=== PATIENT | female | born 1940 | race Caucasian/White ===

== ENCOUNTER 2017-03-10 07:21 | Outpatient (CLI) | payer MEDICARE | END 2017-03-10 07:22 | disposition home or self-care (01) | DX: N36.9 Urethral disorder, unspecified (principal) ==

== ENCOUNTER 2017-03-12 18:13 | Emergency (ER) | payer MEDICARE ==
[2017-03-12 19:13] LABS: BILIRUBIN,URINE NEGATIVE (NEGATIVE); PH,URINE 5.5 PH (5.0-7.5)
[2017-03-12 19:27] LABS: UR CULTURE IF IND INDICATED; WBC,URINE 0-3 /HPF (0-5)
[2017-03-12] MEDS ORDERED: LIDOCAINE 1% 50 ML MDV SUBQ STA (19:31)
[2017-03-12] MEDS ORDERED: ONDANSETRON 4 MG/2 ML VIAL IVP STA ×2 (19:43→22:34)
[2017-03-12] MEDS ORDERED: SODIUM CHLORIDE 0.9% 1,000 ML IV ONE ×2 (19:43→20:55)
--- NOTE | 2017-03-12 19:43 | ED Physician Documentation ---
PD HPI FEMALE - Stated complaint Stated Complaint: FEMALE - Chief complaint Chief Complaint: General - Additional information Additional information: 76-year-old female with no past medical history here with vaginal pain. She was diagnosed on March 10 with an abscess. It was not drained. Yesterday, it started draining spontaneously, but today, it has gotten larger and more painful. She has been taking doxycycline as prescribed. Pain is now severe, and today she had nausea and vomiting. 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 - Present Medications Home Medications: Ambulatory Orders Medication Instructions Recorded Confirmed Escitalopram Oxalate [Lexapro] 20 mg DAILY 06/07/15 03/12/17 Pravastatin Sodium 20 mg PO DAILY 06/07/15 03/12/17 Clindamycin HCl 300 mg PO Q6H 7 Days 03/12/17 Doxycycline Hyclate [Vibramycin] 100 mg PO BID 03/12/17 03/12/17 Hydrocodone/Acetaminophen 1 - 2 each PO Q6H PRN #14 tablet 03/12/17 [Hydrocodon-Acetaminophen 5-325] Metronidazole [Flagyl] 500 mg PO BID 10 Days 03/12/17 Nystatin/Triamcin 1 applic TOP DAILY 03/12/17 03/12/17 [Nystatin-Triamcinolone Cream] Ondansetron Odt [Zofran] 4 mg TL Q6H PRN #10 tablet 03/12/17 - Allergies Allergies/Adverse Reactions: Allergies Allergy/AdvReac Type Severity Reaction Status Date / Time Penicillins Allergy Unknown Verified 03/12/17 18:23 Sulfa (Sulfonamide Allergy Unknown Verified 03/12/17 18:23 Antibiotics) - Social History Does the pt smoke?: No Smoking Status: Never smoker Does the pt drink ETOH?: Yes Does the pt have substance abuse?: No PD ED PE NORMAL - Vitals Vital signs reviewed: Yes - General General: Alert and oriented X 3, No acute distress - HEENT HEENT: PERRL - Neck Neck: Supple, no meningeal sign - Cardiac Cardiac: RRR, No murmur - Respiratory Respiratory: Clear bilaterally - Abdomen Abdomen: Normal bowel sounds, Soft, Non tender, Non distended - Female Female : Sourcing Manager present (Sourcing Manager present. Patient has a fluctuant and palpable and very tender mass of her clitoral castillo. There is no erythema. There is no tenderness beneath the clitoral castillo. The remainder of the vagina is normal) - Derm Derm: Warm and dry - Extremities Extremities: No deformity - Neuro Neuro: Alert and oriented X 3 - Psych Psych: Normal mood, Normal affect Results - Vitals Vitals: Vital Signs - 24 hr 03/12/17 03/12/17 03/12/17 18:20 20:56 22:42 Temperature 35.4 C L 36.4 C L Heart Rate 81 84 88 Respiratory 20 16 20 Rate Blood Pressure 155/78 H 168/72 H 166/75 H O2 Saturation 96 100 97 Oxygen O2 Source Room air - Labs Labs: Laboratory Tests 03/12/17 03/12/17 03/12/17 18:40 19:39 19:39 WBC 8.1 RBC 4.61 Hgb 13.5 Hct 41.5 MCV 89.9 MCH 29.3 MCHC 32.6 RDW 13.2 Plt Count 203 MPV 9.4 Neut # 5.8 Lymph # 1.6 [place] # 0.6 Eos # 0.1 Baso # 0.0 Absolute Nucleated RBC 0.00 Nucleated RBCs 0.0 Sodium 142 Potassium 3.6 Chloride 104 Carbon Dioxide 28 Anion Gap 10.0 BUN 12 Creatinine 0.7 Estimated GFR (MDRD) 82 L Glucose 100 Calcium 9.9 Total Bilirubin 0.6 AST 20 ALT 17 Alkaline Phosphatase 45 Total Protein 7.6 Albumin 4.9 Globulin 2.7 Albumin/Globulin Ratio 1.8 Lipase 21 L Urine Color YELLOW Urine Clarity CLEAR Urine pH 5.5 Ur Specific [place] <=1.005 Urine Protein NEGATIVE Urine Glucose (UA) NEGATIVE Urine Ketones NEGATIVE Urine Occult Blood TRACE-INTA Urine Nitrite NEGATIVE Urine Bilirubin NEGATIVE Urine Urobilinogen 0.2 (NORMAL) Ur Leukocyte Esterase SMALL H Urine RBC 0-5 Urine WBC 0-3 Ur Squamous Epith Cells NONE SEEN Urine Bacteria None Seen Urine Culture Comments INDICATED - Rads (name of study) ct abd/pelvis w Radiology: EMP read contemporaneously, See rad report (IMPRESSION: 1. Entire perineum is not in the [id number]. 2. 1.5 cm low-density rim-enhancing collection in the labia majora. This is not entirely imaged. This likely corresponds to the patient's known soft tissue abscess. 3. Diverticulosis. No active inflammation in the abdomen or pelvis. Specifically, no intraperitoneal abscess or inflammation noted. ) PD MEDICAL DECISION MAKING - ED course Complexity details: reviewed results, re-evaluated patient, considered differential, d/w patient, d/w senior internet sales consultant ED course: 76-year-old female here with low genital pain. Differential diagnosis includes but is not limited to clitoral abscess versus clitoral castillo abscess versus labial abscess versus Bartholin's cyst. Patient exam is most concerning for a clitoral castillo abscess. I did not feel comfortable performing an incision and drainage on this myself. I discussed the case with CHEESE SPRAYER Dr. Mitchell, who requested labs and CT, which were performed. CBC and CMP were unremarkable. CT was in complete, but did show soft tissue abscess with no extension. Dr. Mitchell came in to perform the incision and a drainage, recommended clindamycin and Flagyl for the patient, and will see patient in 2 days for followup. Patient has been given prescriptions for clindamycin, Flagyl, Vicodin, and Zofran. She is aware and amenable to discharge This document was made in part using voice recognition software. While efforts are made to proofread this document, sound alike and grammatical errors may occur. Departure - Departure Disposition: 01 Home, Self Care Clinical Impression: Abscess of female genitalia Condition: Stable Instructions: ED Abscess IandD Follow-Up: Santy Chen MD [Provider Admit Priv/Credential] - 03/14/17 Prescriptions: Clindamycin HCl 300 mg PO Q6H 7 Days Metronidazole [Flagyl] 500 mg PO BID 10 Days Hydrocodone/Acetaminophen [Hydrocodon-Acetaminophen 5-325] 1 - 2 each PO Q6H PRN #14 tablet PRN Reason: pain Ondansetron Odt [Zofran] 4 mg TL Q6H PRN #10 tablet PRN Reason: Nausea / Vomiting Comments: Please be sure to followup Tuesday with Dr. Chen. Please return to the ER for any worsening fevers, chills, swelling, or for any other medical emergency. Please be sure not to drink alcohol while you're taking these antibiotics.Do not drink alcohol or drive while on narcotic pain medicine. Note that many narcotic pain relievers also contain tylenol/acetaminophen. Please ensure that your total dose of acetaminophen from all sources does not exceed 3 grams (3000mg) per day. You may constipated on this medication, take a stool softener such as "Colace" twice a day while you are on it. Also recommend a dgir-uik-lxyzdxd laxative such as senna or MiraLAX any day that you do not have a bowel movement. If you received narcotic pain medication in the emergency department, do not drive or operate machinery for the next 24 hours.Your blood pressure was elevated today on check in to the emergency department. This does not mean that you have hypertension, it is a common phenomenon to check into the emergency department and have elevated blood pressure. I recommend that you see your primary care physician within the week to have it rechecked when you're feeling better.
[2017-03-12] MEDS ORDERED: LIDOCAINE 1% 2 ML VIAL ONE (19:46)
[2017-03-12] MEDS ORDERED: ONDANSETRON 4 MG/2 ML VIAL ONE ×2 (19:46→22:50)
[2017-03-12] MEDS ORDERED: LIDOCAINE 2% 10 ML MDV ONE (19:47)
[2017-03-12 19:53] LABS: BASOPHILS % (AUTO) 0.4 %; EOSINOPHILS # (AUTO) 0.1 10^3/uL (0.0-0.7); EOSINOPHILS % (AUTO) 0.6 %; HCT - HEMATOCRIT 41.5 % (37.0-47.0); HGB - HEMOGLOBIN 13.5 g/dL (12.0-16.0); LYMPHOCYTES # (AUTO) 1.6 10^3/uL (1.5-3.5); LYMPHOCYTES % (AUTO) 19.7 %; MEAN CORPUSCULAR HEMOGLOBIN 29.3 pg (27.0-31.0); MEAN CORPUSCULAR HGB CONC 32.6 g/dL (32.0-36.0); MEAN CORPUSCULAR VOLUME 89.9 fL (81.0-99.0); MEAN PLATELET VOLUME 9.4 fL (7.9-10.8); MONOCYTES # (AUTO) 0.6 10^3/uL (0.0-1.0); MONOCYTES % (AUTO) 7.1 %; NEUTROPHILS # (AUTO) 5.8 10^3/uL (1.5-6.6); NEUTROPHILS % (AUTO) 72.2 %; RED BLOOD COUNT 4.61 10^6/uL (4.20-5.40); RED CELL DISTRIBUTION WIDTH 13.2 % (12.0-15.0); UNCORRECTED WHITE BLOOD COUNT 8.1 x10^3/uL; WHITE BLOOD COUNT 8.1 x10^3/uL (4.8-10.8)
[2017-03-12 20:07] LABS: ALBUMIN/GLOBULIN RATIO 1.8 (1.0-2.2); BILIRUBIN,TOTAL 0.6 mg/dL (0.2-1.0); CALCIUM 9.9 mg/dL (8.5-10.3); CREATININE 0.7 mg/dL (0.4-1.0); POTASSIUM 3.6 mmol/L (3.5-5.0); TOTAL PROTEIN 7.6 g/dL (6.7-8.2)
[2017-03-12] MEDS ORDERED: LIDOCAINE JELLY 2% 5 ML TUBE TOP ONE (20:42)
[2017-03-12] MEDS ORDERED: LIDOCAINE JELLY 2% 5 ML TUBE TOP STA (20:56)
[2017-03-12] MEDS ORDERED: IOPAMIDOL-300 100 ML VIAL IVP ONE (21:23)
[2017-03-12] MEDS ORDERED: LORazepam 2 MG/ML SYRINGE ONE ×2 (21:42→21:52)
[2017-03-12] MEDS ORDERED: CLINDAMYCIN 900 MG/50 ML 50 ML IV ONE ×2 (21:44→22:30)
--- NOTE | 2017-03-12 22:06 | CT Preliminary Report ---
Exam: CT Abdomen/Pelvis W/ IMPRESSION: 1. Entire perineum is not in the ddvwx-wn-qrei. 2. 1.5 cm low-density rim-enhancing collection in the labia majora. This is not entirely imaged. This likely corresponds to the patient's known soft tissue abscess. 3. Diverticulosis. No active inflammation in the abdomen or pelvis. Specifically, no intraperitoneal abscess or inflammation noted. [facility] SITE ID: [id number]
--- NOTE | 2017-03-12 22:09 | CT Report ---
EXAM: CT ABDOMEN AND PELVIS EXAM DATE: 03/12/2017 09:32 PM. CLINICAL HISTORY: Pelvic infection. COMPARISONS: None. TECHNIQUE: Routine helical CT imaging was performed through the abdomen and pelvis. IV contrast: 100 cc of Isovue-300. Enteric contrast: No. Reconstructions: Coronal and sagittal. In accordance with CT protocol optimization, one or more of the following dose reduction techniques w ere utilized for this exam: automated exposure control, adjustment of mA and/or KV based on patient s ize, or use of iterative reconstructive technique. FINDINGS: Lung Bases: Small hiatal hernia. No cardiac enlargement or effusion. Liver: No mass or intrahepatic bile duct dilation. Scattered low-density cysts are noted in the liver . Gallbladder/Bile Ducts: Unremarkable. Spleen: Normal. Pancreas: Normal. Adrenal Glands: Normal. Kidneys: Normal. No masses or hydronephrosis. 1.3 cm left renal cysts. Peritoneal Cavity/Bowel: Normal. No free fluid, free air or adenopathy. No masses or acute inflammato ry process. Appendix not seen. No right lower quadrant inflammation. There are multiple diverticula seen which most severely affect the sigmoid and left colon. No wall thickening or adjacent inflammat ion seen. No obstruction noted. Pelvic Organs: Normal. The bladder and visualized pelvic organs are within normal limits. Vasculature: No aneurysms or other significant abnormality. Bones: No significant abnormality. Other: 1.5 cm low-density rim-enhancing fluid collection in the labia as seen on image 81 is incomple tely imaged. Comment: Entire perineum is not in the [id number]-rw-[id number]. IMPRESSION: 1. Entire perineum is not in the tgoxf-ex-akqx. 2. 1.5 cm low-density rim-enhancing collection in the labia majora. This is not entirely imaged. This likely corresponds to the patient's known soft tissue abscess. 3. Diverticulosis. No active inflammation in the abdomen or pelvis. Specifically, no intraperitoneal abscess or inflammation noted. [facility] Referring Provider Line: [phone] SITE ID: [id number]
[2017-03-12] MEDS ORDERED: metroNIDAZOLE 250 MG TABLET PO STA ×2 (22:34→22:38)
[2017-03-12] MEDS ORDERED: HYDROcod/ACET 5/325 Prepack 6 PO STA (22:34)
[2017-03-12] MEDS ORDERED: ONDANSETRON ODT 4 MG Prepack 2 TL PRN (22:35)
[2017-03-12 22:42] VITALS: BP 166/75
[2017-03-12] MEDS ORDERED: metroNIDAZOLE 250 MG TABLET PO ONE (22:45)
[2017-03-12] MEDS ORDERED: ONDANSETRON ODT 4 MG Prepack 2 TL ONE (22:45)
[2017-03-12] MEDS ORDERED: LORazepam 2 MG/ML SYRINGE IVP STA ×2 (22:45)
[2017-03-12] MEDS ORDERED: HYDROcod/ACET 5/325 Prepack 6 PO ONE (22:48)
--- NOTE | 2017-03-13 07:08 | PROCEDURE REPORT ---
DATE OF PROCEDURE: 03/12/2017 00:00:00 PRE-PROCEDURE DIAGNOSIS: Clitoral abscess. POSTOPERATIVE DIAGNOSIS: Clitoral abscess, infected sebaceous gland PROCEDURE: 1. Incision and drainage and 2. Marsupialization of clitoral abscess. SURGEON: Santy Chen MD, FACOG, [facility] ANESTHESIA: Sedation with 0.5 mg of IV Ativan; 6 mL of 2% lidocaine plain local. ESTIMATED BLOOD LOSS: Less than 10 mL. COMPLICATIONS: None. DRAINS: None. FINDINGS 1. Preoperatively, the clitoris is completely erythematous extending down from the castillo to the crux area. It is, as expected, exquisitely tender and somewhat fluctuant. 2. Inspection of the vagina finds no foreign body or discharge. The urethra has no tenderness and the sling procedure seems to be intact. However, the pubic bone area below the apparent TVT sling exit wound was more tender than expected. There was additionally shoddy, nontender lymphadenopathy in the groin bilaterally. 3. Intraoperatively, there was 2 mL of pus-like material intermixed with sebaceous material. Overall, the smell was quite foul. SPECIMENS: Culture was taken. PREOPERATIVE INFORMATION: The patient is a 76-year-old 4, para 4 woman who over the last few months has noted firmness and slight swelling of her clitoris. This became painful over the last week and she went to her PCP who diagnosed periurethral infection and prescribed doxycycline. Her swelling markedly worsened and became exquisitely painful. The pain prompted a visit to the emergency room. She is able to micturate and defecate without problems. After examination, CT scan was performed to ensure that there was no osteomyelitis or infectious involvement of her prior TVT sling procedure. There was no apparent extension of the abscess or evidence of osteomyelitis. We discussed the procedure; general anesthesia or deep sedation was offered, but declined. TECHNIQUE: Approximately 10 minutes prior to procedure, 5 mL of 2% lidocaine gel was applied to the clitoral area. The patient was placed in the dorsal lithotomy position for exposure. The clitoral and external genitalia was washed with Hibiclens solution. Burglar Alarm Inspector held the left labia lateral. First, in the normal-appearing skin lateral to the left clitoral crux, 1 mL of lidocaine local was applied. After this was allowed to numb, we used that patch as a window to do a serial injection of 5 mL more of lidocaine over the ripened area of the abscess. We waited 5 minutes for the anesthetic effect to set. After confirming that there was no sharp sensation, the procedure was begun. A 2 cm incision was cut over the ripened portion of the abscess vertically. Pus-like material flowed forth. This incision was then compressed and more material spilled forth including some fragments of sebaceous material. Cultures were taken. When it was evident that the abscess cavity was evacuated, we moved on to marsupialization. Interrupted sutures of 3-0 Vicryl were placed to hold the wound open. At the conclusion of the procedure, all needle, instrument, and sponge counts were correct. The patient tolerated the procedure. DISPOSITION: Prior to discharge from the ED, she will receive 900 mg of clindamycin. Her oral antibiotics will be changed to clindamycin and Flagyl. She is instructed to use hot compresses 4 times a day and to use warm soapy water sitz baths. Followup will be on Tuesday at the [facility]. JOB #: [id number] EXT JOB #:[id number] OBDULIA
== END 2017-03-12 23:12 | disposition home or self-care (01) ==
LOC: ED 18:13
DX: N76.4 Abscess of vulva (principal); N75.8 Other diseases of Bartholin's gland; R11.2 Nausea with vomiting, unspecified; I10 Essential (primary) hypertension
CPT/HCPCS: 36415; 56405; 74177; 80053; 81001; 83690; 85025; 87070; 87086; 87205; 96374; 96375; 96376; 99283; 99284; A9270; J2060; J3490; Q9967

== ENCOUNTER 2017-08-17 08:00 | Outpatient (CLI) | payer MEDICARE ==
[2017-08-17 20:18] LABS: EOSINOPHILS # (AUTO) 0.1 10^3/uL (0.0-0.7); EOSINOPHILS % (AUTO) 2.5 %; HCT - HEMATOCRIT 40.4 % (37.0-47.0); HGB - HEMOGLOBIN 13.4 g/dL (12.0-16.0); LYMPHOCYTES # (AUTO) 1.1 10^3/uL (1.5-3.5); LYMPHOCYTES % (AUTO) 28.8 %; MEAN CORPUSCULAR HEMOGLOBIN 29.4 pg (27.0-31.0); MEAN CORPUSCULAR HGB CONC 33.1 g/dL (32.0-36.0); MEAN CORPUSCULAR VOLUME 88.7 fL (81.0-99.0); MEAN PLATELET VOLUME 9.7 fL (7.9-10.8); MONOCYTES # (AUTO) 0.4 10^3/uL (0.0-1.0); MONOCYTES % (AUTO) 9.4 %; NEUTROPHILS # (AUTO) 2.3 10^3/uL (1.5-6.6); NEUTROPHILS % (AUTO) 58.3 %; RED BLOOD COUNT 4.55 10^6/uL (4.20-5.40); RED CELL DISTRIBUTION WIDTH 14.8 % (12.0-15.0); UNCORRECTED WHITE BLOOD COUNT 3.9 x10^3/uL; WHITE BLOOD COUNT 3.9 x10^3/uL (4.8-10.8)
[2017-08-17 20:32] LABS: CHOL/HDL RATIO 2.5 (<4.4); CHOLESTEROL 214 mg/dL; HDL CHOLESTEROL 84 mg/dL; LDL/HDL RATIO 1.3 (<4.4); TRIGLYCERIDES 116 mg/dL; VLDL CHOLESTEROL 23 mg/dL
[2017-08-17 20:34] LABS: PLATELET MORPHOLOGY NORMAL APPEARANCE (NORMAL)
[2017-08-17 20:35] LABS: PLATELET ESTIMATE, MANUAL NORMAL (130-450,000) (NORMAL)
== END 2017-08-17 08:01 | disposition home or self-care (01) ==
LOC: LAB.R 08:00
PROVIDERS: ATTEND Internal Medicine
DX: E78.5 Hyperlipidemia, unspecified (principal); R06.00 Dyspnea, unspecified
CPT/HCPCS: 80061; 85025

== ENCOUNTER 2017-11-17 08:50 | Emergency (ER) | payer MEDICARE ==
--- NOTE | 2017-11-17 09:36 | ED Physician Documentation ---
PD HPI ABD PAIN - Stated complaint Stated Complaint: LOW ABD PX - Chief complaint Chief Complaint: Abd Pain - History obtained from History obtained from: Patient - History of Present Illness Timing - onset: Yesterday Timing - details: Gradual onset, Still present, Waxing and waning Quality: Cramping, Aching, Pain Location: Suprapubic, LLQ Radiation: Lower back Improved by: No: Eating Worsened by: No: Eating Associated symptoms: Nausea. No: Fever, Vomiting, Hematemesis, Diarrhea Similar symptoms before: Has not had sx before Review of Systems Constitutional: reports: Myalgias. denies: Fever, Chills Nose: denies: Rhinorrhea / runny nose, Congestion Throat: denies: Sore throat Cardiac: denies: Chest pain / pressure Respiratory: denies: Cough GI: reports: Abdominal Pain, Nausea. denies: Vomiting, Constipation, Diarrhea, Bloody / black stool : reports: Frequency. 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 HEENT: Tonsil/Adenoidectomy - Present Medications Home Medications: Ambulatory Orders Medication Instructions Recorded Confirmed Escitalopram Oxalate [Lexapro] 20 mg DAILY 06/07/15 11/17/17 Pravastatin Sodium 20 mg PO DAILY 06/07/15 11/17/17 Ondansetron Odt [Zofran] 4 mg TL Q6H PRN #10 tablet 03/12/17 11/17/17 Cephalexin [Keflex] 500 mg PO TID #21 capsule 11/17/17 Dexamethasone [Decadron] 4 mg PO DAILY #5 tablet 11/17/17 HYDROcod/ACETAM 5/325 [[place] 5/325] 1 tab PO Q6H PRN #15 tablet 11/17/17 Metronidazole [Flagyl] 500 mg PO BID #14 tablet 11/17/17 Ondansetron Odt [Zofran] 4 mg TL Q6H PRN #15 tablet 11/17/17 - Allergies Allergies/Adverse Reactions: Allergies Allergy/AdvReac Type Severity Reaction Status Date / Time Penicillins Allergy Unknown Verified 11/17/17 09:05 Sulfa (Sulfonamide Allergy Unknown Verified 11/17/17 09:05 Antibiotics) - Social History Does the pt smoke?: No Smoking Status: Never smoker Does the pt drink ETOH?: Yes Does the pt have substance abuse?: No - Family History Family history: reports: Non contributory - Immunizations Immunizations are current?: Yes - POLST Patient has POLST: No PD ED PE NORMAL - General General: Alert and oriented X 3, Well developed/nourished - HEENT HEENT: Pharynx benign - Neck Neck: Supple, no meningeal sign, No adenopathy - Cardiac Cardiac: RRR, No murmur - Respiratory Respiratory: Clear bilaterally - Abdomen Abdomen: Normal bowel sounds, Soft, Non distended, No organomegaly, Other ( tender in lower abd both left and right with minimal guarding, no percussion nor rebound. ) - Female Female : Deferred - Rectal Rectal: Deferred - Back Back: No CVA TTP - Derm Derm: Normal color, Warm and dry - Extremities Extremities: No deformity, No tenderness to palpate, No edema, No calf tenderness / cord - Neuro Neuro: Alert and oriented X 3, No motor deficit, Normal speech Results - Vitals Vitals: Oxygen O2 Source Room air - Labs Labs: Laboratory Tests 11/17/17 11/17/17 11/17/17 09:20 09:20 10:38 WBC 7.2 RBC 4.44 Hgb 13.3 Hct 39.9 MCV 89.9 MCH 30.0 MCHC 33.4 RDW 13.9 Plt Count 155 MPV 9.5 Neut # 5.4 Lymph # 1.1 L [place] # 0.7 Eos # 0.1 Baso # 0.0 Absolute Nucleated RBC 0.00 Nucleated RBC % 0.0 Sodium 139 Potassium 3.9 Chloride 101 Carbon Dioxide 29 Anion Gap 9.0 BUN 12 Creatinine 0.7 Estimated GFR (MDRD) 82 L Glucose 109 H Calcium 9.1 Total Bilirubin 1.1 H AST 20 ALT 15 Alkaline Phosphatase 45 Total Protein 7.1 Albumin 4.4 Globulin 2.7 Albumin/Globulin Ratio 1.6 Lipase 19 L Urine Color YELLOW Urine Clarity CLEAR Urine pH 7.0 Ur Specific [place] 1.010 Urine Protein NEGATIVE Urine Glucose (UA) NEGATIVE Urine Ketones NEGATIVE Urine Occult Blood NEGATIVE Urine Nitrite NEGATIVE Urine Bilirubin NEGATIVE Urine Urobilinogen 0.2 (NORMAL) Ur Leukocyte Esterase NEGATIVE Ur Microscopic Review NOT INDICATED Urine Culture Comments NOT INDICATED - Rads (name of study) abd CT Radiology: Prelim report reviewed (Sigmoid Diverticulitis without perf nor abscess. Pressing on bladder.), EMP read contemporaneously PD MEDICAL DECISION MAKING - ED course Complexity details: reviewed results, considered differential, d/w patient Departure - Departure Disposition: 01 Home, Self Care Clinical Impression: Sigmoid diverticulitis Condition: Stable Record reviewed to determine appropriate education?: Yes Instructions: ED Diverticulitis Follow-Up: Darius Lafleur MD [Primary Care Provider] - Prescriptions: Cephalexin [Keflex] 500 mg PO TID #21 capsule Dexamethasone [Decadron] 4 mg PO DAILY #5 tablet HYDROcod/ACETAM 5/325 [[place] 5/325] 1 tab PO Q6H PRN #15 tablet PRN Reason: Pain Metronidazole [Flagyl] 500 mg PO BID #14 tablet Ondansetron Odt [Zofran] 4 mg TL Q6H PRN #15 tablet PRN Reason: Nausea / Vomiting Comments: Drink lots of fluids. Tylenol or ibuprofen if needed for pains. Add hydrocodone if needed. Decadron anti-inflammatory daily for several more days. Use ondansetron if needed for nausea. For the infection will use cephalexin and metronidazole for the next week. Recheck with your primary care in the next several days if not improved. Discharge Date/Time: 11/17/17 13:00
[2017-11-17] MEDS ORDERED: KETOROLAC 60 MG/2 ML VIAL IVP STA (09:57)
[2017-11-17] MEDS ORDERED: SODIUM CHLORIDE 0.9% 1,000 ML IV ONE (09:57)
[2017-11-17] MEDS ORDERED: ACETAMINOPHEN 1,000 MG/100 ML 100 ML IV STA (09:58)
[2017-11-17 10:05] LABS: BASOPHILS % (AUTO) 0.4 %; EOSINOPHILS # (AUTO) 0.1 10^3/uL (0.0-0.7); EOSINOPHILS % (AUTO) 0.8 %; HGB - HEMOGLOBIN 13.3 g/dL (12.0-16.0); LYMPHOCYTES # (AUTO) 1.1 10^3/uL (1.5-3.5); LYMPHOCYTES % (AUTO) 14.6 %; MEAN CORPUSCULAR HGB CONC 33.4 g/dL (32.0-36.0); MEAN CORPUSCULAR VOLUME 89.9 fL (81.0-99.0); MEAN PLATELET VOLUME 9.5 fL (7.9-10.8); MONOCYTES # (AUTO) 0.7 10^3/uL (0.0-1.0); MONOCYTES % (AUTO) 9.4 %; NEUTROPHILS # (AUTO) 5.4 10^3/uL (1.5-6.6); NEUTROPHILS % (AUTO) 74.8 %; PLT - PLATELET COUNT 155 10^3/uL (130-450); RED BLOOD COUNT 4.44 10^6/uL (4.20-5.40); RED CELL DISTRIBUTION WIDTH 13.9 % (12.0-15.0); WHITE BLOOD COUNT 7.2 x10^3/uL (4.8-10.8)
[2017-11-17] MEDS ORDERED: IOPAMIDOL-300 100 ML VIAL ONE (10:11)
[2017-11-17 10:15] LABS: ALBUMIN 4.4 g/dL (3.2-5.5); ALBUMIN/GLOBULIN RATIO 1.6 (1.0-2.2); BILIRUBIN,TOTAL 1.1 mg/dL (0.2-1.0); CALCIUM 9.1 mg/dL (8.5-10.3); CREATININE 0.7 mg/dL (0.4-1.0); TOTAL PROTEIN 7.1 g/dL (6.7-8.2)
[2017-11-17 10:50] LABS: BILIRUBIN,URINE NEGATIVE (NEGATIVE); GLUCOSE, URINE (UA) NEGATIVE (NEGATIVE); KETONES,URINE (UA) NEGATIVE (NEGATIVE); LEUKOCYTE ESTERASE, URINE NEGATIVE (NEGATIVE); NITRITE,URINE NEGATIVE (NEGATIVE); OCCULT BLOOD,URINE NEGATIVE (NEGATIVE); PROTEIN,URINE NEGATIVE (NEGATIVE); UROBILINOGEN,URINE 0.2 (NORMAL) E.U./dL (NORMAL)
[2017-11-17 10:57] LABS: CLARITY,URINE CLEAR (CLEAR)
[2017-11-17] MEDS ORDERED: IOPAMIDOL-300 100 ML VIAL IVP ONE (11:04)
--- NOTE | 2017-11-17 11:10 | CT Report ---
EXAM: CT ABDOMEN AND PELVIS EXAM DATE: 11/17/2017 10:50 AM. CLINICAL HISTORY: Lower abdominal pain for 2 days, h/o diverticulitis 6 yrs ago. COMPARISONS: CT ABDOMEN AND PELVIS 03/12/2017. TECHNIQUE: Routine helical CT imaging was performed through the abdomen and pelvis. IV contrast: Isov ue 300 100mL. Enteric contrast: No. Reconstructions: Coronal and sagittal. In accordance with CT protocol optimization, one or more of the following dose reduction techniques w ere utilized for this exam: automated exposure control, adjustment of mA and/or KV based on patient s ize, or use of iterative reconstructive technique. FINDINGS: Lung Bases: Unremarkable. Liver: Multiple small simple liver cysts are stable. No masses. Gallbladder/Bile Ducts: Unremarkable. Spleen: Normal. Pancreas: Normal. Adrenal Glands: Normal. Kidneys: Stable small simple renal cyst in the lower pole of the left kidney. No masses or hydronephr osis. Peritoneal Cavity/Bowel: Sigmoid diverticulosis complicated by mild diverticulitis without submucosal edema and mild pericolonic fat stranding but no evidence of perforation or pericolonic abscess. No f ree fluid, free air or adenopathy. No masses or other acute inflammatory process. The appendix is sma ll and normal. Pelvic Organs: Normal. The bladder and visualized pelvic organs are within normal limits. Vasculature: No aneurysms or other significant abnormality. Bones: No significant abnormality. Other: None. IMPRESSION: 1. Sigmoid diverticulosis complicated by mild diverticulitis without submucosal edema and mild arsalan lonic fat stranding but no evidence of perforation or pericolonic abscess. 2. Stable small simple renal cyst in the lower pole of the left kidney and multiple small simple live r cysts. [facility] Referring Provider Line: [phone] SITE ID: [id number]
[2017-11-17] MEDS ORDERED: cefTRIAXone 1 GM in SODIUM CHLORIDE 0.9% MINIBAG 100 ML IV STA (11:15)
[2017-11-17] MEDS ORDERED: metroNIDAZOLE 250 MG TABLET PO STA (11:15)
[2017-11-17 13:07] VITALS: BP 144/103
== END 2017-11-17 13:00 | disposition home or self-care (01) ==
LOC: ED 08:50
DX: K57.32 Diverticulitis of large intestine without perforation or abscess without bleeding (principal); I10 Essential (primary) hypertension; I73.9 Peripheral vascular disease, unspecified; E78.00 Pure hypercholesterolemia, unspecified
CPT/HCPCS: 36415; 74177; 80053; 81003; 83690; 85025; 96361; 96365; 96367; 96375; 99283; 99284; A9270; J0131; Q9967; 81001; 87086

== ENCOUNTER 2018-04-26 08:00 | Outpatient (CLI) | payer MEDICARE ==
[2018-04-26 11:02] LABS: BASOPHILS % (AUTO) 0.8 %; EOSINOPHILS # (AUTO) 0.1 10^3/uL (0.0-0.7); EOSINOPHILS % (AUTO) 2.1 %; HGB - HEMOGLOBIN 13.6 g/dL (12.0-16.0); LYMPHOCYTES # (AUTO) 1.3 10^3/uL (1.5-3.5); LYMPHOCYTES % (AUTO) 30.9 %; MEAN CORPUSCULAR HEMOGLOBIN 30.1 pg (27.0-31.0); MEAN CORPUSCULAR HGB CONC 33.8 g/dL (32.0-36.0); MEAN CORPUSCULAR VOLUME 88.9 fL (81.0-99.0); MEAN PLATELET VOLUME 9.6 fL (7.9-10.8); MONOCYTES # (AUTO) 0.4 10^3/uL (0.0-1.0); MONOCYTES % (AUTO) 9.2 %; NEUTROPHILS # (AUTO) 2.4 10^3/uL (1.5-6.6); PLT - PLATELET COUNT 180 10^3/uL (130-450); RED BLOOD COUNT 4.51 10^6/uL (4.20-5.40); RED CELL DISTRIBUTION WIDTH 13.8 % (12.0-15.0); WHITE BLOOD COUNT 4.1 x10^3/uL (4.8-10.8)
[2018-04-26 11:22] LABS: ALBUMIN 4.4 g/dL (3.2-5.5); ALBUMIN/GLOBULIN RATIO 1.6 (1.0-2.2); ALKALINE PHOSPHATASE 41 IU/L (42-121); ALT ALANINE AMINOTRANSFERASE 15 IU/L (10-60); AST ASPARTATE AMINOTRANSFERASE 21 IU/L (10-42); BILIRUBIN,TOTAL 0.8 mg/dL (0.2-1.0); BUN - BLOOD UREA NITROGEN 13 mg/dL (6-20); CARBON DIOXIDE - CO2 25 mmol/L (21-32); CHLORIDE 102 mmol/L (101-111); CHOLESTEROL 240 mg/dL; CREATININE 0.8 mg/dL (0.4-1.0); GFR - MDRD 70 (>89); GLUCOSE 99 mg/dL (70-100); HDL CHOLESTEROL 81 mg/dL; LDL CHOLESTEROL,CALCULATED 139 mg/dL; LDL/HDL RATIO 1.7 (<4.4); SODIUM 135 mmol/L (135-145); TOTAL PROTEIN 7.1 g/dL (6.7-8.2); VLDL CHOLESTEROL 20 mg/dL
== END 2018-04-26 08:01 | disposition home or self-care (01) ==
LOC: LAB.R 08:00
PROVIDERS: ATTEND Internal Medicine
DX: M81.0 Age-related osteoporosis without current pathological fracture (principal); I10 Essential (primary) hypertension; I65.21 Occlusion and stenosis of right carotid artery; E78.5 Hyperlipidemia, unspecified; R41.89 Other symptoms and signs involving cognitive functions and awareness
CPT/HCPCS: 80053; 80061; 82306; 82607; 83721; 84443; 85025

== ENCOUNTER 2018-04-26 08:00 | Outpatient (CLI) | payer MEDICARE | END 2018-04-26 08:01 | disposition home or self-care (01) | LOC: LAB.R 08:00 | PROVIDERS: ATTEND Physician Assistant Medical | DX: R41.89 Other symptoms and signs involving cognitive functions and awareness (principal) | CPT/HCPCS: 82306; 82607 ==

== ENCOUNTER 2018-05-02 13:10 | Outpatient (CLI) | payer MEDICARE ==
--- NOTE | 2018-05-03 09:21 | DEXA Report ---
Procedure Date: 05/02/2018 Accession Number: [id number] / [id number] Procedure: DEX - Dexa Spine and/or Hip CPT Code: FULL RESULT: CLINICAL INDICATION: OSTEOPOROSIS,MEDICATION USE TECHNIQUE: Dual energy x-ray absorptiometry (DXA) was performed on a [employer] System. Regions measured are the AP Spine, femoral neck, and if needed forearm. COMPARISON: None. In accordance with the International Society for Clinical Densitometry (ISCD) guidelines, data from previous exams may be reanalyzed using current recommendations and techniques. This is done to allow a more accurate basis for comparison with the current study. FINDINGS: The data for the lumbar spine is as follows: BMD (g/cm/cm) T-SCORE Z-SCORE REGION L1 0.818 -2.6 -0.6 L2 0.868 -2.8 -0.8 L3 0.978 -1.9 0.2 L4 1.030 -1.4 0.6 TOTAL 0.930 -2.1 -0.1 NOTE: All evaluable vertebrae are used for classification The data for the hip is as follows: BMD (g/cm/cm) T-SCORE Z-SCORE REGION Neck 0.781 -1.8 0.3 TOTAL 0.852 -1.2 0.7 NOTE: The femoral neck or total proximal femur, whichever is lowest, is used for classification. IMPRESSION: THE WHO CLASSIFICATION BASED ON THE INTERNATIONAL REFERENCE STANDARD IS OSTEOPENIA. THE FRACTURE RISK IS INCREASED. RECOMMENDATION: Patients with diagnosis of osteoporosis or osteopenia should have regular bone mineral density assessment. For those eligible for Medicare, routine testing is allowed once every 2 years. Testing frequency can be increased for patients who have rapidly progressing disease or for those who are receiving medical therapy to restore bone mass. COMMENT: World Health Organization (WHO) definitions for osteoporosis and osteopenia: NORMAL BMD: T-score at -1.0 or higher, fracture risk is low OSTEOPENIA BMD: T-score between -1.0 and -2.5, fracture risk is increased. OSTEOPOROSIS BMD: T-score at -2.5 or lower, fracture risk is high. National Osteoporosis Foundation recommends: 1. Obtain adequate dietary calcium (at least 1200 mg per day) and vitamin D (400-800 international units per day). 2. Participate, as appropriate, in regular weightbearing and muscle-strengthening exercise. 3. Avoid tobacco use and reduce alcohol and caffeine intake. 4. For more detailed information see the website at www.NOF.org.
== END 2018-05-02 13:11 | disposition home or self-care (01) ==
LOC: DI 13:10
PROVIDERS: ATTEND Physician Assistant Medical
DX: Z78.0 Asymptomatic menopausal state (principal); M85.88 Other specified disorders of bone density and structure, other site
CPT/HCPCS: 77080

== ENCOUNTER 2018-05-02 13:13 | Outpatient (CLI) | payer MEDICARE ==
--- NOTE | 2018-05-11 12:29 | Mammography Report ---
Procedure Date: 05/02/2018 Accession Number: [id number] / [id number] Procedure: JACKY - Screening Mammo Dig Bilat CPT Code: FULL RESULT: EXAM: Screening Mammo Dig Bilat DATE: 05/02/2018 1:48 PM CLINICAL HISTORY: Routine screening TECHNIQUE: Bilateral CC and MLO views were obtained. COMPARISON: 12/22/2015, 12/03/2014, 10/15/2013, 10/10/2012, at 10/05/2011 FINDINGS: The breast tissue is heterogeneously dense. No significant interval change. No suspicious masses, skin thickening, clustered microcalcifications, or regions of architectural distortion are identified. IMPRESSION: Negative. RECOMMENDATION: Routine annual screening unless otherwise clinically indicated. BIRADS CATEGORY 1: Negative STANDARD QUALIFYING STATEMENTS: 1. This examination was reviewed with the aid of Computer-Aided Detection (CAD). 2. A negative or benign imaging report should not delay biopsy if clinically suspicious findings are present. Consider surgical consultation if warrented. More than 5% of cancers are not identified by imaging. 3. Dense breasts may obscure an underlying neoplasm.
== END 2018-05-02 13:14 | disposition home or self-care (01) ==
LOC: DI 13:13
PROVIDERS: ATTEND Physician Assistant Medical
DX: Z12.31 Encounter for screening mammogram for malignant neoplasm of breast (principal)
CPT/HCPCS: 77067

== ENCOUNTER 2019-03-27 12:12 | Outpatient (CLI) | payer MEDICARE | END 2019-03-27 12:13 | disposition critical access hospital (66) | LOC: EMS 12:12 | PROVIDERS: ATTEND Surgery | DX: S89.91XA Unspecified injury of right lower leg, initial encounter (principal); M25.561 Pain in right knee; R26.2 Difficulty in walking, not elsewhere classified; W10.1XXA Fall (on)(from) sidewalk curb, initial encounter; Y92.511 Restaurant or cafe as the place of occurrence of the external cause | CPT/HCPCS: A0425; A0429 ==

== ENCOUNTER 2019-03-27 12:32 | Emergency (ER) | payer MEDICARE ==
[2019-03-27] MEDS ORDERED: ONDANSETRON ODT 4 MG TABLET TL STA (12:48)
--- NOTE | 2019-03-27 12:48 | ED Physician Documentation ---
PD HPI LOWER EXT INJURY - Stated complaint Stated Complaint: R KNEE INJURY - Chief complaint Chief Complaint: Ext Problem - History obtained from History obtained from: Patient, EMS - History of Present Illness PD HPI LOW EXT INJURY LOCATION: Right, Knee Type of injury: Fall (stepped off a curb wrong hit lateral R knee on ground. 2/10 pain at rest, severe with motion. 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 HEENT: Tonsil/Adenoidectomy - Present Medications Home Medications: Ambulatory Orders Medication Instructions Recorded Confirmed Escitalopram Oxalate [Lexapro] 40 mg DAILY 06/07/15 11/17/17 Pravastatin Sodium 20 mg PO DAILY 06/07/15 11/17/17 - Allergies Allergies/Adverse Reactions: Allergies Allergy/AdvReac Type Severity Reaction Status Date / Time Penicillins Allergy Unknown Verified 03/27/19 12:40 Sulfa (Sulfonamide Allergy Unknown Verified 03/27/19 12:40 Antibiotics) - Social History Does the pt smoke?: No Smoking Status: Never smoker Does the pt drink ETOH?: Yes Does the pt have substance abuse?: No - Family History Family history: reports: Non contributory - Immunizations Immunizations are current?: Yes - POLST Patient has POLST: No PD ED PE NORMAL - Vitals Vital signs reviewed: Yes - General General: Alert and oriented X 3, No acute distress - HEENT HEENT: PERRL, EOMI - Neck Neck: Supple, no meningeal sign, No bony TTP - Extremities Extremities: Other (Swollen over R patella, no effusion. TTP anterior tibial plateau) - Neuro Neuro: Alert and oriented X 3, Normal speech Results - Vitals Vitals: Vital Signs - 24 hr 03/27/19 12:36 Temperature 37 C Heart Rate 83 Respiratory 18 Rate Blood Pressure 163/86 H O2 Saturation 96 Oxygen O2 Source Room air - Rads (name of study) R knee 4v Radiology: EMP read contemporaneously (Suspected nondisplaced fracture of the intercondylar eminence of the tibial plateau, recommend noncontrast CT of the knee) PD MEDICAL DECISION MAKING - Consults Consults: Consulted (name) (Gurinder Aliriolelo, agrees with [facility] RLE, knee immobilizer and F/U in clinic.) Departure - Departure Disposition: 01 Home, Self Care Clinical Impression: Tibial plateau fracture, right Qualifiers: Encounter type: initial encounter Fracture type: closed Qualified Code(s): S82.141A - Displaced bicondylar fracture of right tibia, initial encounter for closed fracture Condition: Good Record reviewed to determine appropriate education?: Yes Instructions: ED Fx Knee Follow-Up: [facility] [Provider Group] - Within 1 week Comments: Keep the splint on, do not walk or bear weight on the right leg. Elevate as much as possible. Call the orthopedics clinic tomorrow for appointment.
--- NOTE | 2019-03-27 13:21 | XRAY Report ---
Reason: knee inj Procedure Date: 03/27/2019 Accession Number: [id number] / [id number] Procedure: XR - Knee 4 View RT CPT Code: FULL RESULT: EXAM: RIGHT KNEE RADIOGRAPHY EXAM DATE: 03/27/2019 01:09 PM. CLINICAL HISTORY: Fall onto right knee today. Knee injury. Pain. COMPARISON: None. TECHNIQUE: 4 views. FINDINGS: Bones: There is a subtle linear lucency in the central intercondylar eminence of the proximal tibia seen on the frontal and 1 of the oblique views. This could represent a subtle nondisplaced fracture. The other visualized bones appear intact. No bone lesion. Joints: Normal. No effusion. No subluxations. Soft Tissues: Normal. No soft tissue swelling. IMPRESSION: Possible subtle nondisplaced fracture at the intercondylar eminence of the tibial plateau. This could be further evaluated with noncontrast CT of the knee if clinically appropriate. No joint effusion is present, which somewhat decreases suspicion for acute intra-articular fracture. RADIA
--- NOTE | 2019-03-27 14:30 | CT Report ---
Reason: Tibial plateau frx Procedure Date: 03/27/2019 Accession Number: [id number] / [id number] Procedure: CT - LOWER EXTREMITY WO - RT CPT Code: FULL RESULT: EXAM: RIGHT KNEE CT WITHOUT CONTRAST EXAM DATE: 03/27/2019 02:10 PM. CLINICAL HISTORY: Tibial plateau frx. COMPARISON: KNEE 4 VIEW RT 03/27/2019 12:50 PM. TECHNIQUE: Thin-section axial images were acquired of the knee without contrast. Post-processing: Coronal and sagittal reformats. Other: None. In accordance with CT protocol optimization, one or more of the following dose reduction techniques were utilized for this exam: automated exposure control, adjustment of mA and/or KV based on patient size, or use of iterative reconstructive technique. FINDINGS: Bones: 1. Nondisplaced midline sagittal plane fracture proximal tibia epiphysis. 2. Transverse nondisplaced cortical fracture of posterior proximal tibia metaphysis. Joints: The visualized hip joint spaces are normal. No calcified loose bodies. No large effusions. The other visualized joint spaces are normal. Musculature: Normal. No fatty atrophy. Other: The visualized intraperitoneal structures are unremarkable. Increased fluid in the deep infrapatellar bursa. IMPRESSION: 1. Sagittal plane nondisplaced fracture of the tibial spine and the proximal tibia epiphysis. 2. Transverse nondisplaced fracture distal posterior tibial metaphysis. RADIA
[2019-03-27] MEDS ORDERED: ACETAMINOPHEN/CODEINE 300 MG/30 MG TABLET PO STA (14:39)
[2019-03-27 15:01] VITALS: BP 171/73
== END 2019-03-27 15:00 | disposition home or self-care (01) ==
LOC: EDUNIT# → ED 12:32
DX: S82.114A Nondisplaced fracture of right tibial spine, initial encounter for closed fracture (principal); S82.101A Unspecified fracture of upper end of right tibia, initial encounter for closed fracture; W10.1XXA Fall (on)(from) sidewalk curb, initial encounter; I73.9 Peripheral vascular disease, unspecified; I10 Essential (primary) hypertension
CPT/HCPCS: 73564; 73700; 99282; 99283; A9270; Q0162

== ENCOUNTER 2019-03-28 11:53 | Outpatient (CLI) | payer MEDICARE | END 2019-03-28 11:54 | disposition critical access hospital (66) | LOC: EMS 11:53 | PROVIDERS: ATTEND Surgery | DX: M25.561 Pain in right knee (principal); R11.10 Vomiting, unspecified | CPT/HCPCS: A0425; A0429 ==

== ENCOUNTER 2019-03-28 12:00 | Emergency (ER) | payer MEDICARE ==
[2019-03-28] MEDS ORDERED: oxyCODONE 5 MG TABLET PO STA ×2 (13:23→14:17)
[2019-03-28] MEDS ORDERED: CYCLOBENZAPRINE 10 MG TABLET PO STA (13:23)
--- NOTE | 2019-03-28 13:27 | ED Physician Documentation ---
History of Present Illness - Stated complaint Stated Complaint: R KNEE PX - Chief complaint Chief Complaint: General - History obtained from History obtained from: Patient, Family, EMS - History of Present Illness Timing: Yesterday Pain level max: 10 Pain level now: 5 - Additonal information Additional information: Pt with R tibial plateau fracture. States increased pain today. Unable to stand or move 2/2 pain. NVI. Took old oxycodone at home without relief. Worse with movement, better lying still. 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 HEENT: Tonsil/Adenoidectomy - Present Medications Home Medications: Ambulatory Orders Medication Instructions Recorded Confirmed Escitalopram Oxalate [Lexapro] 40 mg PO DAILY 06/07/15 03/28/19 Pravastatin Sodium 20 mg PO DAILY 06/07/15 03/28/19 Acetaminophen with Codeine 1 each PO Q4H PRN #20 tablet 03/27/19 03/28/19 [Tylenol with Codeine #3 Tablet] Ondansetron Odt [Zofran] 4 mg TL Q6H PRN #10 tablet 03/27/19 03/28/19 Cyclobenzaprine [Flexeril] 10 mg PO TID PRN #20 tablet 03/28/19 Ondansetron Odt [Zofran] 4 mg TL Q6H PRN #10 tablet 03/28/19 Oxycodone HCl/Acetaminophen 1 - 2 each PO Q6H PRN #20 tablet 03/28/19 [Percocet 5-325 mg Tablet] diazePAM [Valium] 5 - 10 mg PO TID PRN #15 tablet 03/28/19 - Allergies Allergies/Adverse Reactions: Allergies Allergy/AdvReac Type Severity Reaction Status Date / Time Penicillins Allergy Unknown Verified 03/28/19 12:14 Sulfa (Sulfonamide Allergy Unknown Verified 03/28/19 12:14 Antibiotics) - Social History Does the pt smoke?: No Smoking Status: Never smoker Does the pt drink ETOH?: Yes Does the pt have substance abuse?: No - Immunizations Immunizations are current?: Yes - POLST Patient has POLST: No PD ED PE NORMAL - Vitals Vital signs reviewed: Yes - General General: Alert and oriented X 3, No acute distress, Well developed/nourished - HEENT HEENT: Moist mucous membranes - Neck Neck: Supple, no meningeal sign - Cardiac Cardiac: RRR - Respiratory Respiratory: No respiratory distress, Clear bilaterally - Derm Derm: Warm and dry - Extremities Extremities: Other (r knee - mild effusion. TTP over the midline tibial plateau. NVI. ) - Neuro Neuro: Alert and oriented X 3 Results - Vitals Vitals: Vital Signs - 24 hr 03/28/19 03/28/19 03/28/19 12:06 15:05 17:47 Temperature 35.7 C L Heart Rate 88 88 88 Respiratory 14 14 18 Rate Blood Pressure 118/100 H 155/82 H 147/79 H O2 Saturation 95 96 93 Oxygen O2 Source Room air PD MEDICAL DECISION MAKING - ED course Complexity details: reviewed old records (Sagittal plane nondisplaced fracture of the tibial spine and the proximal tibia epiphysis. Transverse nondisplaced fracture distal posterior tibial metaphysis. ), reviewed results, re-evaluated patient, considered differential, d/w patient, d/w it security consultant ED course: 78-year-old female with a right tibial plateau fracture. Having significant pain in the emergency department. Pain finally controlled with IV Toradol, small dose of morphine, Valium. Given oxycodone and Flexeril as well. Also given Zofran ODT. Her knee immobilizer was removed, she was placed in a large amount of cotton padding with an Shaheen bandage and then an articulating knee plate brace placed around this at approximately 30 degrees. Her symptoms greatly improved. Dr. Piper, orthopedics came and evaluated the patient in the emergency department as well. No compartment syndrome. Neurovascularly intact. Patient and family are comfortable going home at this time. Patient and family counseled regarding signs and symptoms for which I believe and urgent re- evaluation would be necessary. Patient with good understanding of and agreement to plan This document was made in part using voice recognition software. While efforts are made to proofread this document, sound alike and grammatical errors may occur. Departure - Departure Disposition: 01 Home, Self Care Clinical Impression: Tibial plateau fracture, right Qualifiers: Encounter type: initial encounter Fracture type: closed Qualified Code(s): S82.141A - Displaced bicondylar fracture of right tibia, initial encounter for closed fracture Condition: Good Instructions: ED Fx Knee Follow-Up: [facility] [Provider Group] - 04/02/19 Prescriptions: Cyclobenzaprine [Flexeril] 10 mg PO TID PRN #20 tablet PRN Reason: Spasms diazePAM [Valium] 5 - 10 mg PO TID PRN #15 tablet PRN Reason: Spasms Ondansetron Odt [Zofran] 4 mg TL Q6H PRN #10 tablet PRN Reason: Nausea / Vomiting Oxycodone HCl/Acetaminophen [Percocet 5-325 mg Tablet] 1 - 2 each PO Q6H PRN #20 tablet PRN Reason: pain Comments: Follow-up with orthopedics for further care. Return if you worsen. Do not drink alcohol or drive while on narcotic pain medicine. Note that many narcotic pain relievers also contain tylenol/acetaminophen. Please ensure that your total dose of acetaminophen from all sources does not exceed 3 grams (3000mg) per day. You may constipated on this medication, take a stool softener such as "Colace" twice a day while you are on it. Also recommend a jgyo-tkb-gjnspop laxative such as senna or MiraLAX any day that you do not have a bowel movement. If you received narcotic pain medication in the emergency department, do not drive or operate machinery for the next 24 hours. Discharge Date/Time: 03/28/19 17:48
[2019-03-28] MEDS ORDERED: ONDANSETRON ODT 4 MG TABLET TL STA (13:32)
[2019-03-28] MEDS ORDERED: diazePAM 5 MG TABLET PO STA (15:24)
[2019-03-28] MEDS ORDERED: MORPHINE 2 MG/ML SYRINGE IVP STA (15:33)
[2019-03-28] MEDS ORDERED: KETOROLAC 30 MG/ML VIAL IVP STA (15:33)
[2019-03-28] MEDS ORDERED: SODIUM CHLORIDE 0.9% 1,000 ML IV ONE (15:33)
--- NOTE | 2019-03-28 16:46 | CONSULTATION NOTE ---
Referring Provider Name of Referring Provider:: Jourdan Maria MD Consult Date: 03/28/19 Chief Complaint - Chief Complaint Chief Complaint: Asked to evaluate patient for RLE pain, recent tibia plateau fracture History of Present Illness - History Obtained From History obtained from: Dr. Maria and patient Exam Limitations: Patient guarding - History of Present Illness HPI Comment/Other: Angle is a 78-year-old female who reportedly sustained a right essentially nondisplaced tibial plateau fracture yesterday. She was previously in the emergency room and put a knee immobilizer trying to manage at home with the help of her daughters reportedly who are in healthcare. Patient reportedly had pain difficulty managing and now we presents the ER. Patient yesterday reportedly had x-rays and a CT scan. Patient says that she is having pain in her knee but not if she does not move. Says if she tries to move it is somewhere between a 4 and 6 out of 10. She says times it may be 10 out of 10. She also reports some spasming in her gluteal region. She denies calf or foot pain. 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 HEENT: reports: Tonsil/Adenoidectomy - POLST Patient has POLST: No Meds/Allgy - Home Medications Home Medications: Ambulatory Orders Medication Instructions Recorded Confirmed Escitalopram Oxalate [Lexapro] 40 mg PO DAILY 06/07/15 03/28/19 Pravastatin Sodium 20 mg PO DAILY 06/07/15 03/28/19 Acetaminophen with Codeine 1 each PO Q4H PRN #20 tablet 03/27/19 03/28/19 [Tylenol with Codeine #3 Tablet] Ondansetron Odt [Zofran] 4 mg TL Q6H PRN #10 tablet 03/27/19 03/28/19 Cyclobenzaprine [Flexeril] 10 mg PO TID PRN #20 tablet 03/28/19 Ondansetron Odt [Zofran] 4 mg TL Q6H PRN #10 tablet 03/28/19 Oxycodone HCl/Acetaminophen 1 - 2 each PO Q6H PRN #20 tablet 03/28/19 [Percocet 5-325 mg Tablet] diazePAM [Valium] 5 - 10 mg PO TID PRN #15 tablet 03/28/19 - Allergies Allergies/Adverse Reactions: Allergies Allergy/AdvReac Type Severity Reaction Status Date / Time Penicillins Allergy Unknown Verified 03/28/19 12:14 Sulfa (Sulfonamide Allergy Unknown Verified 03/28/19 12:14 Antibiotics) Exam - Vital Signs Vital Signs: Vital Signs x48h Temp Pulse Resp BP Pulse Ox 03/28/19 15:05 88 14 155/82 H 96 03/28/19 12:06 35.7 C L 88 14 118/100 H 95 - Physical Exam Comments/Other: Angle 78-year-old female well-developed well-nourished lying in the emergency room [facility]. She appears comfortable when at rest. Patient initially declines to flex and extend her ankle stating that it is p ainful though with encouragement she is easily easily able to flex and extend her toes and her ankle. Patient is noted to close her eyes and guards significantly with any attempts at examining the right lower extremity. With explanation and patient opening her eyes and breathing slowly she improves her ability to perform these activities. Consistent with this patient initially is guarded with knee movement though with explanation and encouragement she is able to go from approximately 0 degrees of extension to greater than 45 to 50 degrees with ease and denies pain in the mid range of that motion. When she guards however she reports pain. There is a mild knee effusion but it is not tense there is no significant erythema. Calf and thigh completely soft and nontender. She is able to straight leg raise with minimal assistance. With guarding and attempts at hip motion she reports discomfort however with relaxation she denies pain with hip passive motion. Conclusion/Plan - Diagnosis Diagnosis: Non-/minimally displaced right tibial plateau fracture - Plan Plan: Angle is a 78-year-old female with a non-/minimally displaced right tibial plateau fracture. There are no signs or symptoms suggestive of compartment syndrome or significant hemarthrosis or other acute process. As exemplified by her exam it does appear as if her guarding and muscle firing as well as anxiety regarding her injury may be contributing to some of her symptoms as I do not see any acute or developing processes. That said we did discuss that possibility with her. She is however much better with relaxation and instruction. Nonetheless I do recommend continued pain management as necessary. I recommend continued nonweightbearing (ambulation/xfer) with assist and assist device prn)with a bulky Alvarado dressing from toe to thigh as well as a hinged knee brace and a position of comfort for her. I do encourage foot and ankle motion as well as gentle knee motion within the brace if she is comfortable. If she is at rest I recommend icing. If she is immobile then I would recommend consideration of DVT prophylaxis per hospitalist if she is admitted. Above is reviewed with the patient as well as Dr. Maria. Will be happy to see the patient and follow her along as an outpatient (5-7 days or sooner prn) though please do not hesitate to contact us orthopedic service sooner as necessary in the short-term.
[2019-03-28 17:53] VITALS: BP 147/79
== END 2019-03-28 17:48 | disposition home or self-care (01) ==
LOC: EDUNIT# → ED 12:00
DX: S82.144A Nondisplaced bicondylar fracture of right tibia, initial encounter for closed fracture (principal); X58.XXXA Exposure to other specified factors, initial encounter; G89.11 Acute pain due to trauma; I10 Essential (primary) hypertension
CPT/HCPCS: 96374; 99283; A9270; J2270; Q0162

== ENCOUNTER 2019-06-07 09:22 | Outpatient (CLI) | payer MEDICARE ==
[2019-06-07 09:47] LABS: BASOPHILS % (AUTO) 1.1 %; EOSINOPHILS # (AUTO) 0.1 10^3/uL (0.0-0.7); EOSINOPHILS % (AUTO) 2.4 %; HGB - HEMOGLOBIN 13.9 g/dL (12.0-16.0); LYMPHOCYTES # (AUTO) 1.3 10^3/uL (1.5-3.5); MEAN CORPUSCULAR HGB CONC 33.1 g/dL (32.0-36.0); MEAN CORPUSCULAR VOLUME 90.5 fL (81.0-99.0); MEAN PLATELET VOLUME 10.7 fL (7.9-10.8); MONOCYTES # (AUTO) 0.4 10^3/uL (0.0-1.0); MONOCYTES % (AUTO) 11.4 %; NEUTROPHILS # (AUTO) 1.9 10^3/uL (1.5-6.6); NEUTROPHILS % (AUTO) 49.8 %; PLT - PLATELET COUNT 211 10^3/uL (130-450); RED BLOOD COUNT 4.64 10^6/uL (4.20-5.40); RED CELL DISTRIBUTION WIDTH 13.5 % (12.0-15.0); WHITE BLOOD COUNT 3.8 x10^3/uL (4.8-10.8)
[2019-06-07 10:00] LABS: ALBUMIN 4.6 g/dL (3.2-5.5); ALBUMIN/GLOBULIN RATIO 1.6 (1.0-2.2); ALKALINE PHOSPHATASE 52 IU/L (42-121); ALT ALANINE AMINOTRANSFERASE 15 IU/L (10-60); AST ASPARTATE AMINOTRANSFERASE 19 IU/L (10-42); BILIRUBIN,TOTAL 0.8 mg/dL (0.2-1.0); BUN - BLOOD UREA NITROGEN 15 mg/dL (6-20); CALCIUM 9.6 mg/dL (8.5-10.3); CARBON DIOXIDE - CO2 24 mmol/L (21-32); CHLORIDE 104 mmol/L (101-111); CHOL/HDL RATIO 4.2 (<4.4); CHOLESTEROL 312 mg/dL; CREATININE 0.6 mg/dL (0.4-1.0); GFR - MDRD 97 (>89); GLUCOSE 119 mg/dL (70-100); HDL CHOLESTEROL 75 mg/dL; LDL CHOLESTEROL,CALCULATED 206 mg/dL; LDL/HDL RATIO 2.7 (<4.4); SODIUM 139 mmol/L (135-145); TOTAL PROTEIN 7.5 g/dL (6.7-8.2); VLDL CHOLESTEROL 31 mg/dL
== END 2019-06-07 09:23 | disposition home or self-care (01) ==
LOC: LAB 09:22
PROVIDERS: ATTEND Nurse Practitioner
DX: I10 Essential (primary) hypertension (principal); E78.5 Hyperlipidemia, unspecified; F41.8 Other specified anxiety disorders; Z79.899 Other long term (current) drug therapy
CPT/HCPCS: 36415; 80053; 80061; 82306; 83721; 84443; 85025

== ENCOUNTER 2019-07-17 06:44 | Outpatient (CLI) | payer MEDICARE ==
--- NOTE | 2019-07-18 12:15 | Ultrasound Report ---
Reason: RIGHT RENAL ARTERY STENOSIS,RIGHT CAROTID ARTERY S Procedure Date: 07/17/2019 Accession Number: [id number] / [id number] Procedure: US - Carotid Doppler Complete CPT Code: FULL RESULT: EXAM: BILATERAL CAROTID AND VERTEBRAL ARTERY DUPLEX DOPPLER ULTRASOUND: EXAM DATE: 07/17/2019 12:28 PM CLINICAL HISTORY: RIGHT RENAL ARTERY STENOSIS, RIGHT CAROTID ARTERY S. COMPARISON: None. TECHNIQUE: Grayscale imaging, color Doppler, and duplex spectral Doppler were used to evaluate the carotid and vertebral arteries bilaterally. Static images were obtained. FINDINGS: No significant plaque is identified in the right or left common or internal carotid arteries. Normal antegrade flow is present in bilateral vertebral arteries. VELOCITIES (cm/sec): Right CCA mid: PSV 75 cm/sec CCA dist: PSV 84 cm/sec ICA prox: PSV 122 cm/sec, EDV 33 cm/sec ICA mid: PSV 83 cm/sec, EDV 24 cm/sec ICA dist: PSV 68 cm/sec, EDV 20 cm/sec ECA: PSV 63 cm/sec Vert: PSV 62 cm/sec ICA/CCA: 1.5 Left CCA mid: PSV 70 cm/sec CCA dist: PSV 73 cm/sec ICA prox: PSV 105 cm/sec, EDV 22 cm/sec ICA mid: PSV 115 cm/sec, EDV 31 cm/sec ICA dist: PSV 76 cm/sec, EDV 19 cm/sec ECA: PSV 56 cm/sec Vert: PSV 60 cm/sec ICA/CCA: 1.6 ICA diameter stenosis: Right: <50% by velocity and <70% by NASCET criteria. Left: <50% by velocity and <70% by NASCET criteria. IMPRESSION: 1. No significant bilateral carotid artery plaquing. 2. In the right carotid artery there are no elevated carotid artery velocities to suggest hemodynamically significant stenosis. 3. In the left carotid artery there are no elevated carotid artery velocities to suggest hemodynamically significant stenosis. 4. Normal antegrade flow is present in bilateral vertebral arteries. General Recommendations: Stenosis =50% ICA - Follow-up ultrasound 6-12 months Stenosis <50% ICA - High Risk Patient with plaque - Follow-up ultrasound 1-2 years Normal Study but High Risk Patient - Follow-up ultrasound 3-5 years Management recommendations and diagnostic criteria are based on current IAC endorsed standards in Carotid Artery Stenosis: Grayscale and Doppler Ultrasound Diagnosis. Validated velocity measurements with angiographic measurements and velocity criteria are extrapolated from diameter data as defined by the Society of Radiologists in Ultrasound Consensus Conference Radiology 2003; 229;340-346. RADIA
--- NOTE | 2019-07-18 12:36 | Ultrasound Report ---
Reason: RIGHT RENAL ARTERY STENOSIS,RIGHT CAROTID ARTERY S Procedure Date: 07/17/2019 Accession Number: [id number] / [id number] Procedure: US - Arterial Visceral Complete CPT Code: FULL RESULT: EXAM: RENAL ARTERY DOPPLER ULTRASOUND EXAM DATE: 07/17/2019 08:15 AM. CLINICAL HISTORY: Right renal artery stenosis. COMPARISON: None. TECHNIQUE: Real-time sonographic vascular imaging was performed by the housekeeping associate through the renal arterial system with a linear transducer utilizing color-flow, Doppler flow, and spectral analysis. Multiple business office representative static images were saved for review. FINDINGS: Right kidney measures up to 10.3 cm in maximal sagittal dimension and appears grossly unremarkable without hydronephrosis. Left kidney measures up to 9.3 cm in maximal sagittal dimension and demonstrates a nonobstructing 4 mm mid pole calculus. The inferior pole of the left kidney demonstrates what appears to be a thinly septated cyst measuring up to 1.7 cm. The bilateral renal arteries were interrogated with spectral Doppler and peak systolic velocities in centimeters per second were obtained as well as renal artery aortic ratios as below. All sampled vessels are patent by color Doppler. Arterial waveforms are preserved. Intraparenchymal resistive indices and waveforms are within normal limits. The below seen distal right renal artery measurements are favored to be artifactual due to vessel tortuosity given that the expected pathology would be near the renal artery origin. Renal veins are patent. Right Kidney: 10.3 x 4.7 x 4.6 cm. Echotexture: Within normal limits. Right Segmental Artery: Upper pole: PSV 24 cm/sec, RI 0.78. Mid pole: PSV 27 cm/sec, RI 0.71. Lower pole: PSV 23 cm/sec, RI 0.69. Right Renal Artery: Origin: PSV 132 cm/sec, RA/AO 1.74. Proximal: PSV 123 cm/sec, RA/AO 1.62. Mid: PSV 166 cm/sec, RA/AO 2.18. Distal: PSV 240 cm/sec, RA/AO 3.16. Aorta PSV: 76 cm/sec. RRV Patent: Yes. Left Kidney: 9.3 x 4.8 x 3.9 cm. Echotexture: Within normal limits. Left Segmental Artery: Upper pole: PSV 26 cm/sec, RI 0.67. Mid pole: PSV 18 cm/sec, RI 0.70. Lower pole: PSV 24 cm/sec, RI 0.75. Left Renal Artery: Origin: PSV 125 cm/sec, RA/AO 1.64. Proximal: PSV 145 cm/sec, RA/AO 1.91. Mid: PSV 136 cm/sec, RA/AO 1.79. Distal: PSV 137 cm/sec, RA/AO 1.80. LRV Patent: Yes. IMPRESSION: Likely normal renal artery Doppler study with no evidence of ostial atherosclerotic disease. If there is concern for fibromuscular dysplasia, the apparent increased velocities in the mid and distal right renal artery could be further interrogated by CTA or angiogram. CRITERIA FOR CLASSIFICATION OF RENAL ARTERY (RA) DISEASE BY DUPLEX SCANNING: RA Diameter Reduction/ RA PSV/ RAR: Normal, < 180 cm/sec, < 3.5 < 60%, >= 180 cm/sec, < 3.5 >= 60%, >= 180 cm/sec, >= 3.5 Total Occlusion: Undetectable; Not applicable RADIA
--- NOTE | 2019-07-18 13:54 | Ultrasound Report ---
Reason: RIGHT RENAL ARTERY STENOSIS,RIGHT CAROTID ARTERY S Procedure Date: 07/17/2019 Accession Number: [id number] / [id number] Procedure: US - Duplex Lwr Ext Arterial Bilat CPT Code: FULL RESULT: EXAM: Bilateral Lower Extremity Arterial Doppler Ultrasound EXAM DATE: 07/17/2019 01:06 PM. CLINICAL HISTORY: Right renal artery stenosis, right carotid artery stenosis. COMPARISON: None. TECHNIQUE: Real-time sonographic vascular imaging was performed by the automotive machinist, utilizing color-flow, Doppler flow, and spectral analysis. Multiple franchise sales representative static images were saved for review. FINDINGS: Brisk arterial upstrokes are seen throughout the bilateral lower extremity arterial systems with three-vessel patency to both ankles and good perfusion to the dorsalis pedis arteries bilaterally. Grayscale Doppler reveals diffuse mild atherosclerotic disease subjectively throughout the arteries. No focal high-grade stenosis is detected. Vessels are patent by color Doppler. The following peak systolic velocities are detected by spectral Doppler. Right Leg: ROUTE SALES DELIVERY DRIVER: PSV 102 cm/sec. Triphasic waveform. PSFA: PSV 97 cm/sec. Biphasic waveform. MSFA: PSV 110 cm/sec. Biphasic waveform. DSFA: PSV 59 cm/sec. Biphasic waveform. PFA: PSV 63 cm/sec. Biphasic waveform. POP: PSV 59 cm/sec. Biphasic waveform. SHON: PSV 62 cm/sec. Biphasic waveform. JUNIOR SYSTEMS ANALYST: PSV 60 cm/sec. Biphasic waveform. PER: PSV 53 cm/sec. Biphasic waveform. DPA: PSV 63 cm/sec. Biphasic waveform. Left Leg: ROUTE SALES DELIVERY DRIVER: PSV 99 cm/sec. Triphasic waveform. PSFA: PSV 101 cm/sec. Biphasic waveform. MSFA: PSV 93 cm/sec. Biphasic waveform. DSFA: PSV 88 cm/sec. Biphasic waveform. PFA: PSV 83 cm/sec. Biphasic waveform. POP: PSV 53 cm/sec. Biphasic waveform. SHON: PSV 73 cm/sec. Biphasic waveform. JUNIOR SYSTEMS ANALYST: PSV 47 cm/sec. Biphasic waveform. PER: PSV 58 cm/sec. Biphasic waveform. DPA: PSV 58 cm/sec. Biphasic waveform. IMPRESSION: Preserved three-vessel patency to both ankles with good perfusion to the dorsalis pedis artery and no focal high-grade stenosis detected. RADIA
== END 2019-07-17 06:45 | disposition home or self-care (01) ==
LOC: DI 06:44
PROVIDERS: ATTEND Nurse Practitioner
DX: I70.1 Atherosclerosis of renal artery (principal); I65.21 Occlusion and stenosis of right carotid artery; I10 Essential (primary) hypertension; E78.5 Hyperlipidemia, unspecified
CPT/HCPCS: 93880; 93925; 93975

== ENCOUNTER 2019-12-13 08:37 | Outpatient (CLI) | payer MEDICARE ==
[2019-12-13 09:34] LABS: HB2 TOTAL 13.9 g/dL; HEMOGLOBIN A1C 0.54 g/dL; HEMOGLOBIN A1C % 5.7 % (4.6-6.2)
[2019-12-13 10:04] LABS: ALBUMIN 4.3 g/dL (3.2-5.5); ALBUMIN/GLOBULIN RATIO 1.6 (1.0-2.2); ALKALINE PHOSPHATASE 41 IU/L (42-121); ALT ALANINE AMINOTRANSFERASE 18 IU/L (10-60); AST ASPARTATE AMINOTRANSFERASE 19 IU/L (10-42); BILIRUBIN,TOTAL 1.2 mg/dL (0.2-1.0); BUN - BLOOD UREA NITROGEN 16 mg/dL (6-20); CALCIUM 9.3 mg/dL (8.5-10.3); CARBON DIOXIDE - CO2 26 mmol/L (21-32); CHLORIDE 104 mmol/L (101-111); CHOLESTEROL 247 mg/dL; CREATININE 0.8 mg/dL (0.4-1.0); GFR - MDRD 70 (>89); GLUCOSE 107 mg/dL (70-100); HDL CHOLESTEROL 81 mg/dL; LDL CHOLESTEROL,CALCULATED 141 mg/dL; LDL/HDL RATIO 1.7 (<4.4); SODIUM 140 mmol/L (135-145); VLDL CHOLESTEROL 25 mg/dL
== END 2019-12-13 08:38 | disposition home or self-care (01) ==
LOC: LAB 08:37
PROVIDERS: ATTEND Nurse Practitioner
DX: E78.5 Hyperlipidemia, unspecified (principal); R73.09 Other abnormal glucose
CPT/HCPCS: 36415; 80053; 80061; 83036; 83721

== ENCOUNTER 2020-02-01 14:33 | Outpatient (CLI) | payer MEDICARE ==
[2020-02-01 15:03] LABS: BASOPHILS % (AUTO) 0.7 %; EOSINOPHILS # (AUTO) 0.1 10^3/uL (0.0-0.7); EOSINOPHILS % (AUTO) 1.9 %; HGB - HEMOGLOBIN 14.2 g/dL (12.0-16.0); LYMPHOCYTES # (AUTO) 1.7 10^3/uL (1.5-3.5); MEAN CORPUSCULAR HEMOGLOBIN 30.3 pg (27.0-31.0); MEAN CORPUSCULAR HGB CONC 32.9 g/dL (32.0-36.0); MEAN CORPUSCULAR VOLUME 92.1 fL (81.0-99.0); MEAN PLATELET VOLUME 10.7 fL (7.9-10.8); MONOCYTES # (AUTO) 0.5 10^3/uL (0.0-1.0); MONOCYTES % (AUTO) 9.7 %; NEUTROPHILS % (AUTO) 55.5 %; PLT - PLATELET COUNT 208 10^3/uL (130-450); RED BLOOD COUNT 4.68 10^6/uL (4.20-5.40); RED CELL DISTRIBUTION WIDTH 12.9 % (12.0-15.0); WHITE BLOOD COUNT 5.4 x10^3/uL (4.8-10.8)
[2020-02-01 15:17] LABS: ALBUMIN 4.7 g/dL (3.2-5.5); ALBUMIN/GLOBULIN RATIO 1.9 (1.0-2.2); BILIRUBIN,TOTAL 0.6 mg/dL (0.2-1.0); CALCIUM 9.3 mg/dL (8.5-10.3); CREATININE 0.7 mg/dL (0.4-1.0); TOTAL PROTEIN 7.2 g/dL (6.7-8.2)
[2020-02-01] MEDS ORDERED: IOVERSOL 320 50 ML VIAL PO ONE (16:36)
[2020-02-01] MEDS ORDERED: IOVERSOL 320 100 ML VIAL IVP ONE (16:36)
--- NOTE | 2020-02-01 16:59 | CT Report ---
Reason: DIVERTICULITIS Procedure Date: 02/01/2020 Accession Number: [id number] / [id number] Procedure: CT - Abdomen/Pelvis W CPT Code: Final Report FULL RESULT: EXAM: CT ABDOMEN AND PELVIS EXAM DATE: 02/01/2020 04:33 PM. CLINICAL HISTORY: DIVERTICULITIS. COMPARISONS: ABDOMEN/PELVIS W/ 11/17/2017 10:49 AM. TECHNIQUE: Routine helical CT imaging was performed through the abdomen and pelvis. IV contrast: OPTIRAY 320. Enteric contrast: No. Reconstructions: Coronal and sagittal. In accordance with CT protocol optimization, one or more of the following dose reduction techniques were utilized for this exam: automated exposure control, adjustment of mA and/or KV based on patient size, or use of iterative reconstructive technique. FINDINGS: Lung Bases: Unremarkable. Liver: Small cysts.. No masses. Gallbladder/Bile Ducts: Unremarkable. Spleen: Normal. Pancreas: Normal. Adrenal Glands: Normal. Kidneys: Left renal cyst Peritoneal Cavity/Bowel: Sigmoid diverticulosis No free fluid, free air or adenopathy. No masses or acute inflammatory process. The appendix is not identified but no pericecal inflammatory changes Increased fecal material Pelvic Organs: Normal. The bladder and visualized pelvic organs are within normal limits. Vasculature: No aneurysms or other significant abnormality. Bones: No significant abnormality. Other: None. IMPRESSION: 1. Sigmoid diverticulosis. 2. Appendix is not identified but no pericecal inflammatory changes. 3. Liver cysts. Left renal cyst. 4. Increased fecal material RADIA The call report notification system was initiated by Dr. Cintia Chris at 04:52 PM on 02/01/2020. The above call report findings were discussed with by Dr. Cintia Chris at 04:57 PM on 02/01/2020.
== END 2020-02-01 14:34 | disposition home or self-care (01) ==
LOC: LAB 14:33 → DI 14:34
PROVIDERS: ATTEND Nurse Practitioner
DX: K57.30 Diverticulosis of large intestine without perforation or abscess without bleeding (principal); K76.89 Other specified diseases of liver; Q61.01 Congenital single renal cyst
CPT/HCPCS: 36415; 74177; 80053; 85025; Q9967

== ENCOUNTER 2020-07-21 13:02 | Outpatient (CLI) | payer MEDICARE ==
[2020-07-21 13:23] LABS: BASOPHILS % (AUTO) 0.7 %; EOSINOPHILS # (AUTO) 0.1 10^3/uL (0.0-0.7); EOSINOPHILS % (AUTO) 1.3 %; HGB - HEMOGLOBIN 13.6 g/dL (12.0-16.0); LYMPHOCYTES # (AUTO) 1.7 10^3/uL (1.5-3.5); LYMPHOCYTES % (AUTO) 31.2 %; MEAN CORPUSCULAR HEMOGLOBIN 29.7 pg (27.0-31.0); MEAN CORPUSCULAR HGB CONC 32.3 g/dL (32.0-36.0); MEAN CORPUSCULAR VOLUME 91.9 fL (81.0-99.0); MEAN PLATELET VOLUME 10.7 fL (7.9-10.8); MONOCYTES # (AUTO) 0.5 10^3/uL (0.0-1.0); MONOCYTES % (AUTO) 9.3 %; NEUTROPHILS # (AUTO) 3.1 10^3/uL (1.5-6.6); NEUTROPHILS % (AUTO) 57.1 %; PLT - PLATELET COUNT 213 10^3/uL (130-450); RED BLOOD COUNT 4.58 10^6/uL (4.20-5.40); WHITE BLOOD COUNT 5.4 x10^3/uL (4.8-10.8)
[2020-07-21 13:35] LABS: ALBUMIN 4.7 g/dL (3.2-5.5); ALBUMIN/GLOBULIN RATIO 1.9 (1.0-2.2); BILIRUBIN,TOTAL 1.2 mg/dL (0.2-1.0); CALCIUM 9.7 mg/dL (8.5-10.3); CREATININE 0.8 mg/dL (0.4-1.0); TOTAL PROTEIN 7.2 g/dL (6.7-8.2)
== END 2020-07-21 13:03 | disposition home or self-care (01) ==
LOC: LAB 13:02
PROVIDERS: ATTEND Nurse Practitioner
DX: R03.0 Elevated blood-pressure reading, without diagnosis of hypertension (principal); I70.1 Atherosclerosis of renal artery; Z79.899 Other long term (current) drug therapy
CPT/HCPCS: 36415; 80053; 85025

== ENCOUNTER 2020-07-21 14:07 | Emergency (ER) | payer MEDICARE ==
--- NOTE | 2020-07-21 14:41 | ED Physician Documentation ---
PD HPI CHEST PAIN - Stated complaint Stated Complaint: CHEST PX/NAUSEA - Chief complaint Chief Complaint: Cardiac - History obtained from History obtained from: Patient - Additional information Additional information: For the last 2 weeks she has had substernal chest pressure. Fairly constant but worse at night, worse when supine. About 5 days ago had a days worth of vomiting and diarrhea and since then has felt quite shaky and anxious. She has a history of a renal stents, maybe 10 years ago, she worries about its patency, has not had that followed up on in some time. Pain does radiate to the back. She is noted high blood pressures at home. Review of Systems Ten Systems: 10 systems reviewed and negative Constitutional: reports: Fatigue. denies: Fever, Chills Cardiac: reports: Chest pain / pressure. 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 : None Psych: Depression, Anxiety Musculoskeletal: Osteoporosis Derm: None - Past Surgical History Past Surgical History: Yes Ortho: Carpal Tunnel surgery /FLATBED COMPANY DRIVER: Hysterectomy HEENT: Tonsil/Adenoidectomy - Present Medications Home Medications: Ambulatory Orders Medication Instructions Recorded Confirmed Escitalopram Oxalate [Lexapro] 40 mg PO DAILY 06/07/15 03/28/19 Pravastatin Sodium 20 mg PO DAILY 06/07/15 03/28/19 Acetaminophen with Codeine 1 each PO Q4H PRN #20 tablet 03/27/19 03/28/19 [Tylenol with Codeine #3 Tablet] Ondansetron Odt [Zofran] 4 mg TL Q6H PRN #10 tablet 03/27/19 03/28/19 Cyclobenzaprine [Flexeril] 10 mg PO TID PRN #20 tablet 03/28/19 Ondansetron Odt [Zofran] 4 mg TL Q6H PRN #10 tablet 03/28/19 Oxycodone HCl/Acetaminophen 1 - 2 each PO Q6H PRN #20 tablet 03/28/19 [Percocet 5-325 mg Tablet] diazePAM [Valium] 5 - 10 mg PO TID PRN #15 tablet 03/28/19 - Allergies Allergies/Adverse Reactions: Allergies Allergy/AdvReac Type Severity Reaction Status Date / Time Penicillins Allergy Unknown Verified 03/28/19 12:14 Sulfa (Sulfonamide Allergy Unknown Verified 03/28/19 12:14 Antibiotics) - Social History Does the pt smoke?: No Smoking Status: Never smoker Does the pt drink ETOH?: Yes Does the pt have substance abuse?: No - Immunizations Immunizations are current?: Yes - POLST Patient has POLST: No PD ED PE NORMAL - Vitals Vital signs reviewed: Yes - General General: Alert and oriented X 3, No acute distress - HEENT HEENT: PERRL, EOMI - Neck Neck: Supple, no meningeal sign, No bony TTP - Cardiac Cardiac: RRR, No murmur - Respiratory Respiratory: No respiratory distress, Clear bilaterally - Abdomen Abdomen: Normal bowel sounds, Soft, Non tender - Back Back: No CVA TTP, No spinal TTP - Derm Derm: No rash - Extremities Extremities: No edema, No calf tenderness / cord - Neuro Neuro: Alert and oriented X 3, Normal speech Results - Vitals Vitals: Vital Signs - 24 hr 07/21/20 07/21/20 07/21/20 14:16 14:22 14:27 Temperature 36.6 C Heart Rate 88 84 87 Respiratory 14 17 22 Rate Blood Pressure 153/113 H 153/115 H O2 Saturation 97 97 100 07/21/20 16:27 Temperature Heart Rate 88 Respiratory 16 Rate Blood Pressure 150/99 H O2 Saturation 100 Oxygen O2 Source Room air - EKG (time done) 1416 Rate: Rate (enter#) (83) Rhythm: NSR, LAE Intervals: Normal [place] QRS: LVH Ischemia: Q waves (anf/inf). No: ST elevation c/w ischemia Compare to prior EKG: Changed from prior EKG (Compared with last EKG on the chart dated May 2015 increased LVH and inferior and anterior Q waves are present.) Computer interpretation: Agree with computer - Labs Labs: Laboratory Tests 07/21/20 07/21/20 07/21/20 13:16 13:16 16:16 Troponin I High Sens 3.2 Lipase 26 Urine Color YELLOW Urine Clarity CLEAR Urine pH 6.5 Ur Specific [place] <=1.005 Urine Protein NEGATIVE Urine Glucose (UA) NEGATIVE Urine Ketones TRACE Urine Occult Blood NEGATIVE Urine Nitrite NEGATIVE Urine Bilirubin NEGATIVE Urine Urobilinogen 0.2 (NORMAL) Ur Leukocyte Esterase NEGATIVE Ur Microscopic Review NOT INDICATED Urine Culture Comments NOT INDICATED - Rads (name of study) CT angiography of the chest and abdomen Radiology: EMP read contemporaneously (Hepatic cyst and a thyroid cyst, no vascular disease noted.) PD MEDICAL DECISION MAKING - ED course ED course: 80-year-old woman with atypical chest pain ongoing for long enough that a single troponin should be predictive. She was worried about vascular disease, specifically her renal stents, and given the radiation to the back seems degroot to rule out dissection, CT angiography was done and negative for same. We discussed the incidental findings and need for follow-up. Departure - Departure Disposition: 01 Home, Self Care Clinical Impression: Gastroenteritis, Atypical chest pain Condition: Good Record reviewed to determine appropriate education?: Yes Instructions: ED Chest Pain NonCardiac, ED Gastroenteritis Viral Comments: The cause of your chest pain is not quite clear, no evidence of a heart issue. Does sound like you had a viral syndrome consistent with gastroenteritis last week. Follow-up with your doctor within the week for blood pressure recheck, return for new or worsening symptoms. You do have some benign-appearing cysts in your liver and in your thyroid, your doctor may want to perform further work- up on this, or may not. Discharge Date/Time: 07/21/20 16:32
--- NOTE | 2020-07-21 14:49 | XRAY Report ---
PROCEDURE: Chest 1 View X-Ray INDICATIONS: Chest pain TECHNIQUE: One view of the chest was acquired. COMPARISON: No previous study is available for comparison. FINDINGS: Surgical changes and devices: None. Lungs and pleura: No pleural effusions or pneumothorax. Lungs are clear. Mediastinum: Mediastinal contours appear normal. Heart size is normal. Bones and chest wall: No suspicious bony lesions. Overlying soft tissues appear unremarkable. IMPRESSION: No acute cardiopulmonary abnormality. Reviewed by: Charlie Whalen MD on 07/21/2020 2:47 PM PDT Approved by: Charlie Whalen MD on 07/21/2020 2:47 PM PDT Station ID: [id number]
[2020-07-21] MEDS ORDERED: IOVERSOL 320 100 ML VIAL IVP ONE ×2 (15:13→16:16)
--- NOTE | 2020-07-21 16:05 | CT Report ---
PROCEDURE: ANGIO CHEST W/WO INDICATIONS: abd /chest pain aortoa protocol, renal stent CONTRAST: IV CONTRAST: Optiray 320 ml: 100 PO CONTRAST: *NO PO CONTRAST TECHNIQUE: After the administration of intravenous contrast, 2 mm thick sections acquired from the pulmonary api dawit to the posterior costophrenic angles. 3-dimensional maximum intensity projection (MIP) coronal a nd sagittal reformats were then acquired through the thorax. For radiation dose reduction, the follow ing was used: automated exposure control, adjustment of mA and/or kV according to patient size. COMPARISON: CT chest t. FINDINGS: Image quality: Excellent. Pulmonary arteries: Pulmonary arteries are normal in size, and demonstrate no intraluminal filling d efects to suggest central pulmonary embolism. Lungs and pleura: Lungs are clear. No pleural effusions or pneumothorax. Central and peripheral ai rways are patent. Mediastinum: Heart size is normal, without pericardial effusion. No mediastinal or hilar adenopathy . Thoracic aorta is normal in caliber and enhancement. Esophagus is normal in caliber, without hiat al hernia. Bones and chest wall: No suspicious bony lesions. Ribs and thoracic spine appear intact throughout. The thyroid demonstrates a 10 mm left lobe low attenuation focus. No axillary or supraclavicular a denopathy. Abdomen: Low attenuation right medial hepatic lobe focus, Hounsfield units measuring 6. Visualized u pper abdominal solid organs appear normal in the early arterial phase of enhancement. IMPRESSION: 1. Lungs are clear. No pulmonary embolism. 2. Hepatic cyst. 3. Left thyroid low attenuation focus, nonspecific. Thyroid ultrasound may be obtained as clinicall y indicated. Reviewed by: Marie Duran MD on 07/21/2020 4:04 PM PDT Approved by: Marie Duran MD on 07/21/2020 4:04 PM PDT Station ID: [id number]
--- NOTE | 2020-07-21 16:09 | CT Report ---
PROCEDURE: ANGIO ABDOMEN/PELVIS W INDICATIONS: ABD/CHEST PAIN, AORTA PROTOCOL, RENAL STENT CONTRAST: IV CONTRAST: Optiray 320 ml: 100 PO CONTRAST: *NO PO CONTRAST TECHNIQUE: After the administration of intravenous contrast, 2 and 5 mm sections acquired from the diaphragm to the iliac crests. 3-dimensional maximum intensity projection (MIP) coronal and sagittal reformats, a nd/or 3-dimensional volume rendering reformatting was then performed. For radiation dose reduction, the following was used: automated exposure control, adjustment of mA and/or kV according to patient size. COMPARISON: CT chest 07/21/2020, CT abdomen pelvis 02/01/2020 FINDINGS: Image quality: Excellent. Extravascular tissues: Lung bases are clear. Heart size is normal. The spleen is normal in size an d enhancement. Low-attenuation focus is noted within the medial right hepatic lobe with Hounsfield un its suggestive of cyst, as noted on prior exam. A second smaller anterior focus is also identified, u nchanged. Gallbladder is unremarkable Biliary system is non dilated. Pancreas enhances normally. N o adrenal nodules. Kidneys are normal in size and enhancement, without hydronephrosis. Non-opacifie d bowel loops demonstrate normal wall thickness and caliber. No free fluid or air. No retroperitone al or mesenteric adenopathy. No ventral hernias. No suspicious bony abnormalities. No vertebral everett dy compression fractures. Abdominal aorta: Mild scattered areas of atherosclerotic calcifications are identified. No areas of hemodynamically significant stenosis, vascular occlusion or aneurysmal dilation are identified. No di ssection. Mesenteric arteries: No areas of hemodynamically significant stenosis, vascular occlusion or aneurys mal dilation are identified. No dissection. Renal arteries: No areas of hemodynamically significant stenosis, vascular occlusion or aneurysmal d ilation are identified. No dissection. IMPRESSION: 1.No areas of hemodynamically significant stenosis, vascular occlusion or aneurysmal dilation are kaila ntified. No dissection. 2. Hepatic cysts. 3. Diverticulosis. Reviewed by: Marie Duran MD on 07/21/2020 4:08 PM PDT Approved by: Marie Duran MD on 07/21/2020 4:08 PM PDT Station ID: [id number]
[2020-07-21 16:29] VITALS: BP 150/99
[2020-07-21 17:18] LABS: BILIRUBIN,URINE NEGATIVE (NEGATIVE); GLUCOSE, URINE (UA) NEGATIVE (NEGATIVE); KETONES,URINE (UA) TRACE mg/dL (NEGATIVE); LEUKOCYTE ESTERASE, URINE NEGATIVE (NEGATIVE); NITRITE,URINE NEGATIVE (NEGATIVE); OCCULT BLOOD,URINE NEGATIVE (NEGATIVE); PH,URINE 6.5 PH (5.0-7.5); PROTEIN,URINE NEGATIVE (NEGATIVE); UROBILINOGEN,URINE 0.2 (NORMAL) E.U./dL (NORMAL)
[2020-07-21 17:24] LABS: CLARITY,URINE CLEAR (CLEAR)
== END 2020-07-21 16:32 | disposition home or self-care (01) ==
LOC: ED 14:07
DX: K52.9 Noninfective gastroenteritis and colitis, unspecified (principal); R07.89 Other chest pain; I10 Essential (primary) hypertension; K76.89 Other specified diseases of liver; E04.1 Nontoxic single thyroid nodule; Z96.89 Presence of other specified functional implants; I70.1 Atherosclerosis of renal artery; Z79.899 Other long term (current) drug therapy
CPT/HCPCS: 36415; 71045; 71275; 74174; 80053; 81003; 83690; 84484; 85025; 93005; 99284; Q9967; 81001; 87086

== ENCOUNTER 2020-07-29 09:50 | Outpatient (CLI) | payer MEDICARE | END 2020-07-29 09:51 | disposition home or self-care (01) | LOC: LAB 09:50 | PROVIDERS: ATTEND Nurse Practitioner | DX: E78.5 Hyperlipidemia, unspecified (principal); F41.8 Other specified anxiety disorders | CPT/HCPCS: 36415; 84443 ==

== ENCOUNTER 2020-08-27 07:17 | Outpatient (CLI) | payer MEDICARE ==
--- NOTE | 2020-08-27 10:52 | Ultrasound Report ---
PROCEDURE: Abdomen Limited INDICATIONS: HEPATIC CYST TECHNIQUE: Real-time scanning was performed of the abdominal and retroperitoneal organs, with image documentatio n. COMPARISON: None. FINDINGS: Liver: Liver is normal in size. There is mildly increased hepatic echogenicity diffusely. A simple c yst is seen in the gallbladder fossa measuring 1.7 x 1.6 x 1.6 cm. An additional smaller right hepati c lobe simple cyst measures 0.8 x 0.8 x 0.7 cm. no solid hepatic mass is seen. Gallbladder: Gallbladder appears normal without gallstones or wall thickening. There is no pericholec ystic fluid. Biliary ducts: Intrahepatic bile ducts are non-dilated. Extrahepatic bile duct caliber measures 4 m m. Normal is 6-7 mm or less in diameter, or 10 mm or less post-cholecystectomy. Pancreas: Visualized portions of the pancreas are sonographically normal. Right Kidney: The right kidney is normal in size and echotexture. Right kidney measures 10.0 cm long . No hydronephrosis or nephrolithiasis. No solid masses. Miscellaneous: No free right upper quadrant fluid. IMPRESSION: 1. Small simple cysts are seen in the gallbladder fossa and the right hepatic lobe. 2. Mild increased hepatic echogenicity is nonspecific, but most commonly encountered in the setting of mild hepatic steatosis. However, other causes of hepatocellular disease are not excluded. Recommen d clinical correlation. Reviewed by: Charlie Whalen MD on 08/27/2020 10:51 AM PDT Approved by: Charlie Whalen MD on 08/27/2020 10:51 AM PDT Station ID: [id number]
== END 2020-08-27 07:18 | disposition home or self-care (01) ==
LOC: DI 07:17
PROVIDERS: ATTEND Nurse Practitioner
DX: K76.89 Other specified diseases of liver (principal); K82.8 Other specified diseases of gallbladder
CPT/HCPCS: 76705

== ENCOUNTER 2020-09-17 09:13 | Outpatient (CLI) | payer MEDICARE ==
[2020-09-17 09:41] LABS: ALBUMIN 4.6 g/dL (3.2-5.5); ALBUMIN/GLOBULIN RATIO 1.7 (1.0-2.2); ALKALINE PHOSPHATASE 51 IU/L (42-121); ALT ALANINE AMINOTRANSFERASE 18 IU/L (10-60); AST ASPARTATE AMINOTRANSFERASE 19 IU/L (10-42); BILIRUBIN,TOTAL 1.3 mg/dL (0.2-1.0); BUN - BLOOD UREA NITROGEN 13 mg/dL (6-20); CALCIUM 10.1 mg/dL (8.5-10.3); CARBON DIOXIDE - CO2 29 mmol/L (21-32); CHLORIDE 104 mmol/L (101-111); CHOL/HDL RATIO 3.3 (<4.4); CHOLESTEROL 293 mg/dL; CREATININE 0.8 mg/dL (0.4-1.0); GLUCOSE 113 mg/dL (70-100); HDL CHOLESTEROL 90 mg/dL; LDL CHOLESTEROL,CALCULATED 175 mg/dL; LDL/HDL RATIO 1.9 (<4.4); SODIUM 142 mmol/L (135-145); TOTAL PROTEIN 7.3 g/dL (6.7-8.2); VLDL CHOLESTEROL 28 mg/dL
== END 2020-09-17 09:14 | disposition home or self-care (01) ==
LOC: LAB 09:13
PROVIDERS: ATTEND Nurse Practitioner
DX: Z79.899 Other long term (current) drug therapy (principal); E78.5 Hyperlipidemia, unspecified
CPT/HCPCS: 36415; 80053; 80061; 83721

== ENCOUNTER 2020-09-25 16:27 | Outpatient (CLI) | payer MEDICARE ==
--- NOTE | 2020-09-26 12:40 | Ultrasound Report ---
PROCEDURE: Head or Neck Soft Tissue INDICATIONS: THYROID CYST TECHNIQUE: Real-time scanning was performed of the thyroid gland, with image documentation. COMPARISON: None FINDINGS: Right: Thyroid lobe measures 4.4 x 1.8 x 1.6 cm, and is homogeneous in echotexture. Left: Thyroid lobe measures 3.9 x 1.3 x 1.6 cm, and is homogenous in echotexture. Isthmus: 3 mm thick. Nodule number: One Location: Right lobe Size: 0.7 x 0.5 x 0.5 cm. Composition: Predominantly solid Echogenicity: Hypoechoic Shape: wider than tall. Margins: Irregular Echogenic foci: None Total points: 4 ACR TI-RADS category: 4 Nodule number: Two Location: Right lobe Size: 1.3 x 0.8 x 0.8 cm. Composition: Solid Echogenicity: Hypoechoic Shape: wider than tall. Margins: Smooth Echogenic foci: None Total points: 4 ACR TI-RADS category: 4 Nodule number: Three Location: Left lobe Size: 1.1 x 0.6 x 0.7 cm. Composition: Predominant solid Echogenicity: Hypoechoic Shape: wider than tall. Margins: Irregular Echogenic foci: Punctate Total points: 7 ACR TI-RADS category: 5 Nodule number: Four Location: Left lobe Size: 1.5 x 0.9 x 1.0 cm. Composition: Mixed solid and cystic Echogenicity: Isoechoic Shape: wider than tall. Margins: Irregular Echogenic foci: None Total points: 3 ACR TI-RADS category: 3 Nodule number: 5 Location: Left lobe Size: 0.5 x 0.4 x 0.5 cm. Composition: Mixed solid and cystic Echogenicity: Anechoic Shape: wider than tall. Margins: Smooth Echogenic foci: Punctate Total points: 5 ACR TI-RADS category: 4 IMPRESSION: 1. Lesion 1 recommends no additional follow-up secondary to small size. 2. Lesions 2 recommends follow-up at 1, 2, 3 and 5 years. 3. FNA is recommended for lesion 3. 4. Lesion 4 recommends follow-up at 1, 3 and 5 years. 5. Lesion 5 recommends no additional follow-up secondary to small size. ACR TI-RADS definitions and recommendations: TI-RADS 1 (benign): 0 points. FNA not needed. TI-RADS 2 (not suspicious): 2 points. FNA not needed. TI-RADS 3 (mildly suspicious): 3 points. ? FNA if 2.5 cm or larger, follow up if 1.5 cm or larger (at 1, 3, and 5 years). TI-RADS 4 (moderately suspicious): 4-6 points. ? FNA if 1.5 cm or larger, follow up if 1 cm or larger (at 1, 2, 3, and 5 years). TI-RADS 5 (highly suspicious): 7 points or more. ? FNA if 1 cm or larger, follow up if 0.5 cm or larger (every year for 5 years). Reviewed by: Marie Duran MD on 09/26/2020 12:39 PM PST Approved by: Marie Duran MD on 09/26/2020 12:39 PM PST Station ID: [id number]
== END 2020-09-25 16:28 | disposition home or self-care (01) ==
LOC: DI 16:27
PROVIDERS: ATTEND Nurse Practitioner
DX: E04.2 Nontoxic multinodular goiter (principal)
CPT/HCPCS: 76536

== ENCOUNTER 2020-10-13 13:29 | Outpatient (CLI) | payer MEDICARE ==
[~2020-10-13 13:29] MED LIST: BUFFERED LIDOCAINE 10 ML SYRINGE ONE
--- NOTE | 2020-10-13 17:35 | Ultrasound Report ---
PROCEDURE: Head or Neck Soft Tissue INDICATIONS: LEFT THYROID NODULE FNA TECHNIQUE: Real time scanning was performed of the neck region of interest, with image documentation . COMPARISON: Thyroid ultrasound 09/25/2020 FINDINGS: The previously seen left thyroid nodule with punctate echogenic foci measuring 1.1 x 0.6 x 0.7 cm (no dule #3) on ultrasound from 09/25/2020 is slightly better visualized on the current exam, now measurin g 0.8 x 0.5 x 0.5 cm. Differences in size may be related to partial volume averaging with one of the adjacent thyroid lesions. Given size less than 1 cm, the lesion no longer meets imaging criteria for fine needle aspiration. Follow-up imaging with thyroid ultrasound in 6-12 months is recommended to ev aluate for liner roll changer time. Findings were discussed with the patient at the time of the exam. IMPRESSION: Previously seen left thyroid nodule with echogenic foci measures 0.8 x 0.5 x 0.5 cm on the current ex am, smaller when compared to the ultrasound from 09/25/2020, which may be related to partial volume av eraging on the prior exam with adjacent less suspicious thyroid nodules. Fine-needle aspiration was n ot performed. Recommend follow-up thyroid ultrasound in 6-12 months for further evaluation. Follow-up of additional thyroid nodules is also recommended based on TI-RADS guidelines. Reviewed by: Charlie Whalen MD on 10/13/2020 5:34 PM PST Approved by: Charlie Whalen MD on 10/13/2020 5:34 PM PST Station ID: [id number]
== END 2020-10-13 13:30 | disposition home or self-care (01) ==
LOC: DI 13:29
PROVIDERS: ATTEND Nurse Practitioner
DX: E04.2 Nontoxic multinodular goiter (principal)

== ENCOUNTER 2021-01-28 08:00 | Outpatient (CLI) | payer MEDICARE ==
[2021-01-28 20:47] LABS: BASOPHILS % (AUTO) 0.6 %; EOSINOPHILS # (AUTO) 0.1 10^3/uL (0.0-0.7); EOSINOPHILS % (AUTO) 1.7 %; HCT - HEMATOCRIT 40.3 % (37.0-47.0); HGB - HEMOGLOBIN 13.1 g/dL (12.0-16.0); LYMPHOCYTES # (AUTO) 1.5 10^3/uL (1.5-3.5); LYMPHOCYTES % (AUTO) 30.7 %; MEAN CORPUSCULAR HEMOGLOBIN 30.3 pg (27.0-31.0); MEAN CORPUSCULAR HGB CONC 32.5 g/dL (32.0-36.0); MEAN CORPUSCULAR VOLUME 93.3 fL (81.0-99.0); MEAN PLATELET VOLUME 11.4 fL (7.9-10.8); MONOCYTES # (AUTO) 0.6 10^3/uL (0.0-1.0); MONOCYTES % (AUTO) 11.4 %; NEUTROPHILS # (AUTO) 2.7 10^3/uL (1.5-6.6); NEUTROPHILS % (AUTO) 55.4 %; PLT - PLATELET COUNT 220 10^3/uL (130-450); RED BLOOD COUNT 4.32 10^6/uL (4.20-5.40); RED CELL DISTRIBUTION WIDTH 12.9 % (12.0-15.0); WHITE BLOOD COUNT 4.8 x10^3/uL (4.8-10.8)
[2021-01-28 20:55] LABS: ALBUMIN 4.4 g/dL (3.2-5.5); ALBUMIN/GLOBULIN RATIO 1.4 (1.0-2.2); BILIRUBIN,TOTAL 0.8 mg/dL (0.2-1.0); CALCIUM 9.5 mg/dL (8.5-10.3); CREATININE 0.8 mg/dL (0.4-1.0); TOTAL PROTEIN 7.5 g/dL (6.7-8.2)
== END 2021-01-28 23:59 | disposition home or self-care (01) ==
LOC: LAB.N 08:00
PROVIDERS: ATTEND Family Medicine
DX: R10.32 Left lower quadrant pain (principal)
CPT/HCPCS: 36415; 80053; 85025

== ENCOUNTER 2021-01-29 10:50 | Outpatient (CLI) | payer MEDICARE ==
[2021-01-29] MEDS ORDERED: IOVERSOL 320 100 ML VIAL IVP ONE ×3 (11:34→14:32)
[2021-01-29] MEDS ORDERED: IOPAMIDOL-300 50 ML VIAL ONE (11:36)
[2021-01-29] MEDS ORDERED: IOPAMIDOL-300 50 ML VIAL PO ONE (14:33)
--- NOTE | 2021-01-29 15:17 | CT Report ---
PROCEDURE: Abdomen/Pelvis W INDICATIONS: ABD PAIN LT LOWER QUAD CONTRAST: IV CONTRAST: Optiray 320 ml: 100 PO CONTRAST: Isovue 300 ml50 TECHNIQUE: After the administration of oral and intravenous contrast, 5 mm thick sections acquired from the diap hragms to the symphysis. 5 mm thick coronal and sagittal reformats were acquired. For radiation dos e reduction, the following was used: automated exposure control, adjustment of mA and/or kV accordin g to patient size. COMPARISON: CT angiogram abdomen and pelvis 07/21/2020. CT abdomen and pelvis 02/01/2020. FINDINGS: Image quality: Excellent. ABDOMEN: Lung bases: Lung bases are clear. Heart size is normal. Solid organs: Liver and spleen are normal in size and enhancement. A few small hepatic cysts which a re unchanged. Gallbladder is unremarkable. Biliary system is non dilated. Pancreas enhances normal ly. No adrenal nodules. Kidneys demonstrate normal size and enhancement, without hydronephrosis. Sm all simple cyst in the left kidney inferior pole is unchanged. Peritoneum and bowel: Stomach is not distended. No small bowel obstruction. Appendix is partially vis ualized and is nondilated. Scattered sigmoid colon diverticuli. There is inflammatory change surround ing the sigmoid colon, (/). No extraluminal gas is seen. No fluid collection. No ascites. Nodes and vessels: No retroperitoneal or mesenteric adenopathy by size criteria. Aorta and inferior vena cava are normal in size. Miscellaneous: No ventral hernias. PELVIS: Genitourinary: Bladder wall thickness is normal. Uterus is absent. Miscellaneous: No inguinal hernias or adenopathy. Bones: No suspicious bony lesions. No compression fracture. IMPRESSION: Mild sigmoid colon diverticulitis. No abscess. No free air. Recommend follow-up colonoscopy if not recently performed. Reviewed by: Eleazar Colbert MD on 01/29/2021 3:16 PM [facility] Approved by: Eleazar Colbert MD on 01/29/2021 3:16 PM PST Station ID: [id number]
== END 2021-01-29 10:51 | disposition home or self-care (01) ==
LOC: DI 10:50
PROVIDERS: ATTEND Family Medicine
DX: K57.32 Diverticulitis of large intestine without perforation or abscess without bleeding (principal); R10.32 Left lower quadrant pain
CPT/HCPCS: 74177; Q9967

== ENCOUNTER 2021-06-02 11:50 | Outpatient (CLI) | payer MEDICARE ==
[2021-06-02 12:27] LABS: BASOPHILS % (AUTO) 0.6 %; EOSINOPHILS # (AUTO) 0.1 10^3/uL (0.0-0.7); EOSINOPHILS % (AUTO) 1.3 %; HCT - HEMATOCRIT 42.4 % (37.0-47.0); LYMPHOCYTES # (AUTO) 1.6 10^3/uL (1.5-3.5); LYMPHOCYTES % (AUTO) 29.3 %; MEAN CORPUSCULAR HEMOGLOBIN 30.5 pg (27.0-31.0); MEAN CORPUSCULAR VOLUME 92.4 fL (81.0-99.0); MEAN PLATELET VOLUME 10.6 fL (7.9-10.8); MONOCYTES # (AUTO) 0.4 10^3/uL (0.0-1.0); MONOCYTES % (AUTO) 7.8 %; NEUTROPHILS # (AUTO) 3.2 10^3/uL (1.5-6.6); NEUTROPHILS % (AUTO) 60.8 %; PLT - PLATELET COUNT 192 10^3/uL (130-450); RED BLOOD COUNT 4.59 10^6/uL (4.20-5.40); RED CELL DISTRIBUTION WIDTH 13.2 % (12.0-15.0); WHITE BLOOD COUNT 5.3 x10^3/uL (4.8-10.8)
[2021-06-02 12:43] LABS: ALBUMIN 4.8 g/dL (3.2-5.5); ALBUMIN/GLOBULIN RATIO 1.9 (1.0-2.2); ALKALINE PHOSPHATASE 44 IU/L (42-121); ALT ALANINE AMINOTRANSFERASE 22 IU/L (10-60); AST ASPARTATE AMINOTRANSFERASE 20 IU/L (10-42); BILIRUBIN,TOTAL 1.2 mg/dL (0.2-1.0); BUN - BLOOD UREA NITROGEN 16 mg/dL (6-20); CALCIUM 9.8 mg/dL (8.5-10.3); CARBON DIOXIDE - CO2 29 mmol/L (21-32); CHLORIDE 101 mmol/L (101-111); CHOL/HDL RATIO 3.4 (<4.4); CHOLESTEROL 282 mg/dL; CREATININE 0.7 mg/dL (0.4-1.0); GFR - MDRD 81 (>89); GLUCOSE 109 mg/dL (70-100); HDL CHOLESTEROL 83 mg/dL; LDL CHOLESTEROL,CALCULATED 156 mg/dL; LDL/HDL RATIO 1.9 (<4.4); POTASSIUM 4.7 mmol/L (3.5-5.0); SODIUM 137 mmol/L (135-145); TOTAL PROTEIN 7.3 g/dL (6.7-8.2); TRIGLYCERIDES 213 mg/dL; VLDL CHOLESTEROL 43 mg/dL
== END 2021-06-02 11:51 | disposition home or self-care (01) ==
LOC: LAB 11:50
PROVIDERS: ATTEND Physician Assistant
DX: Z00.01 Encounter for general adult medical examination with abnormal findings (principal); Z13.6 Encounter for screening for cardiovascular disorders; Z79.899 Other long term (current) drug therapy; K21.9 Gastro-esophageal reflux disease without esophagitis
CPT/HCPCS: 36415; 80053; 80061; 83721; 85025

== ENCOUNTER 2021-06-05 15:00 | Outpatient (CLI) | payer MEDICARE ==
--- NOTE | 2021-06-05 16:17 | XRAY Report ---
PROCEDURE: Hip w/Pelvis 2-3V RT INDICATIONS: RIGHT HIP PAIN TECHNIQUE: AP pelvis with lateral view(s) of the right hip(s). COMPARISON: CT of abdomen and pelvis dated 01/29/2021. FINDINGS: Bones: No fractures or dislocations. 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 No evidence of avascular necrosis of femo ral head. Pelvic ring appears intact. No suspicious bony lesions. Degenerative disc disease in visu alized lower lumbar spine is seen. Soft tissues: The visualized bowel gas pattern is normal. No suspicious soft tissue calcifications. 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 No fracture or dislocation. No evidence of avascular necrosis. Reviewed by: Coleman Becker MD on 06/05/2021 4:16 PM PDT Approved by: Coleman Becker MD on 06/05/2021 4:16 PM PDT Station ID: [id number]
== END 2021-06-05 15:01 | disposition home or self-care (01) ==
LOC: DI 15:00
PROVIDERS: ATTEND Physician Assistant
DX: M16.0 Bilateral primary osteoarthritis of hip (principal)

== ENCOUNTER 2021-07-13 15:38 | Outpatient (CLI) | payer MEDICARE | END 2021-07-13 15:39 | disposition home or self-care (01) | LOC: COV 15:38 | PROVIDERS: ATTEND Family Medicine | DX: R05 Cough (principal); M79.10 Myalgia, unspecified site; R53.83 Other fatigue; R68.83 Chills (without fever); R07.0 Pain in throat; Z20.822 Contact with and (suspected) exposure to COVID-19 ==

== ENCOUNTER 2021-08-11 13:34 | Outpatient (CLI) | payer MEDICARE ==
--- NOTE | 2021-08-12 15:04 | Mammography Report ---
BILATERAL DIGITAL SCREENING MAMMOGRAM 3D/2D: 08/11/2021 CLINICAL: Routine screening. Comparison is made to exams dated: 05/02/2018 mammogram - [facility], 12/22/2015 mamm ogram, 12/03/2014 mammogram, 10/15/2013 mammogram, and 10/10/2012 mammogram - [facility]. The tissue of both breasts is predominantly fatty. No significant masses, calcifications, or other findings are seen in either breast. There has been no significant interval change. IMPRESSION: NEGATIVE There is no mammographic evidence of malignancy. A 1 year screening mammogram is recommended. This exam was interpreted at Station ID: [id number]. NOTE: For mammograms, a report in lay terms will be sent to the patient. Approximately 15% of breast malignancies will not be visualized mammographically. In the management of a palpable breast mass, a negative mammogram must not discourage biopsy of a clinically suspicious lesion. Electronically Signed By: Darren Sibley M.D., jr/zeenat:08/11/2021 14:13:38 ACR BI-RADS Category 1: Negative 3341F PARENCHYMAL PATTERN: (F) - The breast(s) demonstrate(s) diffuse fatty replacement. BI-RADS CATEGORY: (1) - 1 RECOMMENDATION: (ANNUAL) - Recommend routine annual screening mammography. [id number] 1 year screening LATERALITY: (B)
== END 2021-08-11 13:35 | disposition home or self-care (01) ==
LOC: DI 13:34
PROVIDERS: ATTEND Physician Assistant
DX: Z12.31 Encounter for screening mammogram for malignant neoplasm of breast (principal)

== ENCOUNTER 2021-08-11 13:36 | Outpatient (CLI) | payer MEDICARE ==
--- NOTE | 2021-08-11 15:15 | DEXA Report ---
PROCEDURE: Dexa Spine and/or Hip INDICATIONS: OSTEOPOROSIS TECHNIQUE: Dual energy x-ray absorptiometry (DXA) was performed on a [employer] ([employer]) System. Regions measur ed are the AP Spine, femoral neck, and if needed forearm. COMPARISON: 05/02/2018 FINDINGS: Lumbar Spine: Bone Mineral Density 0.941 g/cm/cm,T score -2.0, osteopenia Left Femoral Neck: Bone Mineral Density 0.855 g/cm/cm, T score -1.2, osteopenia (T score greater or equal to -1.0: NORMAL) (T score from -1.1 to -2.4: OSTEOPENIA) (T score less than or equal to -2.5 to: OSTEOPOROSIS) Impression: OSTEOPENIA. Patient is at increased risk for fracture. Patients with diagnosis of osteoporosis or osteopenia should have regular bone mineral density assess ment. For those eligible for Medicare, routine testing is allowed once every 2 years. Testing frequ ency can be increased for patients who have rapidly progressing disease or for those who are receivin g medical therapy to restore bone mass. Reviewed by: Tony Marie MD on 08/11/2021 3:14 PM PDT Approved by: Tony Marie MD on 08/11/2021 3:14 PM PDT Station ID: [id number]
== END 2021-08-11 13:37 | disposition home or self-care (01) ==
LOC: DI 13:36
PROVIDERS: ATTEND Physician Assistant
DX: M85.89 Other specified disorders of bone density and structure, multiple sites (principal)

== ENCOUNTER 2022-09-14 12:53 | Outpatient (CLI) | payer MEDICARE ==
--- NOTE | 2022-09-15 09:32 | Mammography Report ---
BILATERAL DIGITAL SCREENING MAMMOGRAM 3D/2D: 09/14/2022 CLINICAL: Routine screening. Comparison is made to exams dated: 08/11/2021 mammogram, 05/02/2018 mammogram - [facility], 12/22/2015 mammogram, and 12/03/2014 mammogram - [facility]. Both breasts are heterogeneously dense, which may obscure small masses (category c / 51-75% glandular tissue). There is possible architectural distortion in the right breast anterior depth lateral region seen on the craniocaudal view only. No other significant masses, calcifications, or other findings are seen in either breast. IMPRESSION: INCOMPLETE: NEEDS ADDITIONAL IMAGING EVALUATION The possible architectural distortion in the right breast is indeterminate. Additional views with possible ultrasound are recommended. Based on the Tyrer Cuzick model (a risk assessment model) the patients lifetime risk is 2.2% and her 10 year risk is 0.0%. According to the ACR, ACS, and NCCN guidelines, an annual breast MRI exam siddharth g with mammogram is recommended if the patients lifetime risk is 20% or greater. This exam was interpreted at Station ID: [id number]. NOTE: For mammograms, a report in lay terms will be sent to the patient. Approximately 15% of breast malignancies will not be visualized mammographically. In the management of a palpable breast mass, a negative mammogram must not discourage biopsy of a clinically suspicious lesion. Electronically Signed By: Eleazar Colbert M.D. slc/:09/14/2022 17:54:34 ACR BI-RADS Category 0: Incomplete 3340F PARENCHYMAL PATTERN: (D) - The breast(s) demonstrate(s) heterogeneously dense fibroglandular parkyliey ma. BI-RADS CATEGORY: (0) - 0 Mammo and [place] [id number] Immediate follow-up LATERALITY: (B)
== END 2022-09-14 12:54 | disposition home or self-care (01) ==
LOC: DI 12:53
DX: Z12.31 Encounter for screening mammogram for malignant neoplasm of breast (principal); R92.8 Other abnormal and inconclusive findings on diagnostic imaging of breast

== ENCOUNTER 2023-02-20 17:20 | Emergency (ER) | payer MEDICARE ==
--- NOTE | 2023-02-20 17:44 | ED Physician Documentation ---
PD HPI DYSPNEA - Stated complaint Stated Complaint: SWOLLEN FEET, R LEG PAIN,LIGHTHEADED - Chief complaint Chief Complaint: General - History obtained from History obtained from: Patient - History of Present Illness Timing - onset: How many days ago (2-3) Timing - onset during: Light activity Timing - duration: Days (The patient has just noticed swelling in both ankles over the last couple of days. She had sandals on today and was more visible and her daughter noticed it as well. She wore her socks yesterday and states there was some indent at the end of the day. This is all new for her. Mild dyspnea activity) Timing - details: Gradual onset Inciting event(s): No: Immobilization/travel Improved by: Rest. No: Sitting up Worsened by: Exertion. No: Laying flat Associated symptoms: Bilateral edema. No: Fever, Cough, Wheezing, Chest pain / discomfort, Unilateral edema Similar symptoms before: Has not had sx before Recently seen: Clinic (started trazodone for insomnia just 3 days ago.) Review of Systems Constitutional: denies: Fever, Chills Nose: denies: Rhinorrhea / runny nose, Congestion Throat: denies: Sore throat Cardiac: reports: Pedal edema (for 2-3 days). 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 P[employer]IC: None : None Psych: Depression, Anxiety Musculoskeletal: Osteoporosis Derm: None - Past Surgical History Past Surgical History: Yes Ortho: Carpal Tunnel surgery /LAUNCHING [employer]: Hysterectomy HEENT: Tonsil/Adenoidectomy - Present Medications Home Medications: Ambulatory Orders Medication Instructions Recorded Confirmed Escitalopram Oxalate [Lexapro] 40 mg PO DAILY 06/07/15 02/20/23 Pravastatin Sodium 20 mg PO DAILY 06/07/15 02/20/23 Ondansetron Odt [Zofran] 4 mg TL Q6H PRN #10 tablet 03/28/19 02/20/23 diazePAM [Valium] 5 - 10 mg PO TID PRN #15 tablet 03/28/19 02/20/23 Amlodipine Besylate [Norvasc] 10 mg PO DAILY 02/20/23 02/20/23 traZODone [Desyrel] 50 mg PO HS 02/20/23 02/20/23 - Allergies Allergies/Adverse Reactions: Allergies Allergy/AdvReac Type Severity Reaction Status Date / Time Penicillins Allergy Unknown Verified 02/20/23 17:32 Sulfa (Sulfonamide Allergy Unknown Verified 02/20/23 17:32 Antibiotics) - Social History Does the pt smoke?: No Smoking Status: Never smoker Does the pt drink ETOH?: Yes Does the pt have substance abuse?: No - Immunizations Immunizations are current?: Yes - POLST Patient has POLST: No PD ED PE NORMAL - Vitals Vital signs reviewed: Yes - General General: Alert and oriented X 3, No acute distress, Well developed/nourished - Neck Neck: Supple, no meningeal sign, No adenopathy, Thyroid normal - Cardiac Cardiac: RRR, No murmur - Respiratory Respiratory: Clear bilaterally (no crackles heard. ) - Abdomen Abdomen: Soft, Non tender - Back Back: No CVA TTP - Derm Derm: Normal color, Warm and dry - Extremities Extremities: Normal ROM s pain, Other (1+ edema around the ankles and lower legs on both sides. Mild tenderness in the right lateral lower thigh. No calf tenderness per se.) - Neuro Neuro: Alert and oriented X 3, No motor deficit, Normal speech Results - Vitals Vitals: Vital Signs - 24 hr 02/20/23 17:30 Temperature 36.2 C L Heart Rate 91 Respiratory 17 Rate Blood Pressure 150/78 H O2 Saturation 97 Oxygen O2 Source Room air - Labs Labs: Laboratory Tests 02/20/23 02/20/23 02/20/23 18:19 18:19 18:19 WBC 5.1 RBC 4.37 Hgb 13.2 Hct 39.7 MCV 90.8 MCH 30.2 MCHC 33.2 RDW 12.9 Plt Count 221 MPV 10.9 H Neut # (Auto) 2.8 Lymph # (Auto) 1.8 [place] # (Auto) 0.5 Eos # (Auto) 0.1 Baso # (Auto) 0.1 Absolute Nucleated RBC 0.00 Nucleated RBC % 0.0 Sodium 141 Potassium 3.6 Chloride 106 Carbon Dioxide 25 Anion Gap 10.0 BUN 14 Creatinine 0.7 Estimated GFR (MDRD) 81 L Glucose 129 H Calcium 9.6 Total Bilirubin 0.7 AST 23 ALT 27 Alkaline Phosphatase 58 B-Natriuretic Peptide 12 Total Protein 7.8 Albumin 4.8 Globulin 3.0 Albumin/Globulin Ratio 1.6 Lipase 36 - Rads (name of study) chest xray Relevant Findings:: Prelim report reviewed, EMP independent interpretation of test (no acute findings), See rad report PD Medical Decision Making - ED course Complexity details: reviewed results, considered differential, d/w patient ED course: The patient has noticed new onset edema of both ankles. She states some mild pain in cramping in the right lateral thigh. No calf tenderness. She has started trazodone for sleep 2 nights ago. She may have noticed this edema slightly before that. No orthopnea nor dyspnea on exertion though she states she did feel slightly short of breath a couple of times just sitting earlier in the day. She was feeling a little bit lightheaded during the day the last couple of days. This certainly could relate to the trazodone. No other change in medicines. She has not had any recent travel. Her diet has not changed. We can evaluate for signs of congestive failure with a chest x-ray and will also obtained a troponin and BNP. We will check her kidney function and electrolytes to evaluate for those as well. Since she does have some discomfort in the right leg along with the swelling, we can do a duplex to evaluate for DVT. At this point, her basic labs are looking okay so far. Chest x-ray is without any signs of congestive failure. The BNP and duplex are still pending. Departure - Departure Condition: Stable Record reviewed to determine appropriate education?: Yes Comments: A medication reference that I use called Epocrates does list both some confusion, shakiness and also edema as potential common side effects of trazodone. Your symptoms may relate some to that. We did test for signs of congestive failure, kidney abnormalities, blood clots, electrolyte problems and thyroid disorder. These tests are looking normal. At this point I would assume just some lower edema from either gravity or and side effect of the trazodone. Certainly the feeling a little lightheaded or such would be from that as well. Typically the lightheaded feeling and such will improve after you have been on it for several days or week. The edema may level off or improve. Elevate and rest your legs often to help reduce the swelling. Follow-up with your primary care on whether to continue the trazodone or try a different medication for sleep.
[2023-02-20 18:25] LABS: BASOPHILS # (AUTO) 0.1 10^3/uL (0.0-0.1); EOSINOPHILS # (AUTO) 0.1 10^3/uL (0.0-0.7); EOSINOPHILS % (AUTO) 1.2 %; HCT - HEMATOCRIT 39.7 % (37.0-47.0); HGB - HEMOGLOBIN 13.2 g/dL (12.0-16.0); LYMPHOCYTES # (AUTO) 1.8 10^3/uL (1.5-3.5); LYMPHOCYTES % (AUTO) 34.1 %; MEAN CORPUSCULAR HEMOGLOBIN 30.2 pg (27.0-31.0); MEAN CORPUSCULAR HGB CONC 33.2 g/dL (32.0-36.0); MEAN CORPUSCULAR VOLUME 90.8 fL (81.0-99.0); MEAN PLATELET VOLUME 10.9 fL (7.9-10.8); MONOCYTES # (AUTO) 0.5 10^3/uL (0.0-1.0); MONOCYTES % (AUTO) 9.4 %; NEUTROPHILS # (AUTO) 2.8 10^3/uL (1.5-6.6); NEUTROPHILS % (AUTO) 54.1 %; PLT - PLATELET COUNT 221 10^3/uL (130-450); RED BLOOD COUNT 4.37 10^6/uL (4.20-5.40); RED CELL DISTRIBUTION WIDTH 12.9 % (12.0-15.0); WHITE BLOOD COUNT 5.1 x10^3/uL (4.8-10.8)
[2023-02-20 18:38] LABS: ALBUMIN 4.8 g/dL (3.2-5.5); ALBUMIN/GLOBULIN RATIO 1.6 (1.0-2.2); BILIRUBIN,TOTAL 0.7 mg/dL (0.2-1.0); CALCIUM 9.6 mg/dL (8.5-10.3); CREATININE 0.7 mg/dL (0.4-1.0); POTASSIUM 3.6 mmol/L (3.5-5.0); TOTAL PROTEIN 7.8 g/dL (6.7-8.2)
--- NOTE | 2023-02-20 18:47 | XRAY Report ---
PROCEDURE: Chest 1 View X-Ray INDICATIONS: dyspnea/ ankle swelling TECHNIQUE: One view of the chest was acquired. COMPARISON: 07/21/2020 FINDINGS: Surgical changes and devices: None. Lungs and pleura: No pleural effusions or pneumothorax. Lungs are clear. Mediastinum: Mediastinal contours appear normal. Heart size is normal. Bones and chest wall: No suspicious bony lesions. Overlying soft tissues appear unremarkable. IMPRESSION: No acute cardiopulmonary process. Reviewed by: Kathy Hurtado MD on 02/20/2023 6:45 PM PDT Approved by: Kathy Hurtado MD on 02/20/2023 6:45 PM PDT Station ID: [id number]
--- OUTSIDE RECORDS SUMMARY | 2023-02-20 18:58 | EXTERNAL MEDICAL SUMMARY RPT | Continuity of Care Document ---
:1940 Author Organization [facility] Address [address] [place] [address] Phone Care Team Providers Name Role Phone Nicholas Guevara Unavailable Unavailable Allergies and Intolerances date description facility type (no date) [facility] (unknown) Encounters No information. Functional Status No information. Immunizations No information. Medications date description facility 2023-02-14 00:00 [facility] Problems date description facility 2023-02-14 13:48 Other abnormal and inconclusive finding s [facility] diagnostic imagi Procedures No information. Results/Labs test date author facility value unit interpret ation Result panel 1 (unknown) (no (unknown) (unknown) (no value) (units (unk nown) date) unknown) (unknown) (no (unknown) (unknown) (1) Essential (units ( unknown) date) hypertension: unknown) (unknown) (no (unknown) (unknown) (2) Mixed (units (unkn own) date) hyperlipidemia: unknown) (unknown) (no (unknown) (unknown) (3) GERD without (units (unknown) date) esophagitis: unknown) (unknown) (no (unknown) (unknown) (4) Depression, (units (unknown) date) major, recurrent: unknown) (unknown) (no (unknown) (unknown) (5) Generalized (units (unknown) date) anxiety disorder: unknown) (unknown) (no (unknown) (unknown) (6) Chronic (units (un known) date) insomnia: unknown) (unknown) (no (unknown) (unknown) (7) Age-related (units (unknown) date) osteoporosis unknown) without current pathological fracture: (unknown) (no (unknown) (unknown) / (units (unkno wn) date) unknown) (unknown) (no (unknown) (unknown) [id number] (units (unkno wn) date) unknown) (unknown) (no (unknown) (unknown) 10/13/22 (units (unkno wn) date) unknown) (unknown) (no (unknown) (unknown) 2.5, left FN -2.2, (units (unknown) date) right FN -2.4. She unknown) takes BoneUp BID. (unknown) (no (unknown) (unknown) (units (unkno wn) date) unknown) (unknown) (no (unknown) (unknown) 25-Hydroxy Vitamin (units (unknown) date) D Total 41.9 ng/mL unknown) (30.0-100.0) 08/05/22 (unknown) (no (unknown) (unknown) 02/09 (units (unkno wn) date) unknown) (unknown) (no (unknown) (unknown) 04/11 (units (unkno wn) date) unknown) (unknown) (no (unknown) (unknown) 08/05/22 (units (unkno wn) date) unknown) (unknown) (no (unknown) (unknown) AWV 08/05/2022 (units ( unknown) date) unknown) (unknown) (no (unknown) (unknown) Active/Remission (units (unknown) date) status: currently unknown) active Major depression episode (unknown) (no (unknown) (unknown) Age-related (units (un known) date) osteoporosis unknown) without current pathological fracture (unknown) (no (unknown) (unknown) Age/Sex: 82 / F (units (unknown) date) Date of Service: unknown) (unknown) (no (unknown) (unknown) Alanine (units (unkno wn) date) Aminotransferase unknown) (ALT/SGPT) 22 IU/L (<35) 09/22 (unknown) (no (unknown) (unknown) Albumin 4.7 g/dL (units (unknown) date) (3.5-5.0) 10/13/22 unknown) (unknown) (no (unknown) (unknown) Albumin/Globulin (units (unknown) date) Ratio 1.7 (1.0-2.8) unknown) 10/13/22 (unknown) (no (unknown) (unknown) Alkaline (units (unkno wn) date) Phosphatase 62 U/L unknown) (38-126) 10/13/22 (unknown) (no (unknown) (unknown) All systems (units (un known) date) reviewed + are unknown) unremarkable except as noted in HPI and below (unknown) (no (unknown) (unknown) Allergies (units (unkn own) date) unknown) (unknown) (no (unknown) (unknown) [place], [place] (units ( unknown) date) [id number] unknown) (unknown) (no (unknown) (unknown) Anesthesia (units (unk nown) date) unknown) (unknown) (no (unknown) (unknown) Anxiety (units (unkno wn) date) unknown) (unknown) (no (unknown) (unknown) Anxiety: The (units (u nknown) date) patient reports unknown) symptoms are well controlled on current therapy (unknown) (no (unknown) (unknown) Aspartate Amino (units (unknown) date) Transf (AST/SGOT) unknown) 25 IU/L (14-36) 10/13/ (unknown) (no (unknown) (unknown) Assessment + Plan (units (unknown) date) unknown) (unknown) (no (unknown) (unknown) Assessment and (units (unknown) date) Plan: unknown) (unknown) (no (unknown) (unknown) Attending Dr: (units ( unknown) date) Nicholas Guevara MD unknown) (unknown) (no (unknown) (unknown) BUN/Creatinine (units (unknown) date) Ratio 21.7 (6-22) unknown) 10/13/22 (unknown) (no (unknown) (unknown) Blood Urea (units (unk nown) date) Nitrogen 15 mg/dL unknown) (7-17) 10/13/22 (unknown) (no (unknown) (unknown) CARDIOVASCULAR: (units (unknown) date) Regular rate and unknown) rhythm without murmurs, gallops, or rubs. (unknown) (no (unknown) (unknown) Calcium Level 9.7 (units (unknown) date) mg/dL (8.4-10.2) unknown) 10/13/22 (unknown) (no (unknown) (unknown) Carbon Dioxide (units (unknown) date) Level 28 mmol/L unknown) (22-32) 10/13/22 (unknown) (no (unknown) (unknown) Chicken pox (units (un known) date) (-1945) unknown) (unknown) (no (unknown) (unknown) Chief Complaint (units (unknown) date) unknown) (unknown) (no (unknown) (unknown) Chief Complaint: (units (unknown) date) Medical followup unknown) (unknown) (no (unknown) (unknown) Chloride Level 101 (units (unknown) date) mmol/L (98-107) unknown) 10/13/22 (unknown) (no (unknown) (unknown) Cholesterol Level (units (unknown) date) 257 mg/dL (140-199) unknown) H 08/05/22 (unknown) (no (unknown) (unknown) Chronic insomnia (units (unknown) date) unknown) (unknown) (no (unknown) (unknown) Clinically stable. (units (unknown) date) Continue current unknown) plan. (unknown) (no (unknown) (unknown) Common Lab (units (unk nown) date) Results- Last: unknown) (unknown) (no (unknown) (unknown) Const (units (unkno wn) date) unknown) (unknown) (no (unknown) (unknown) Creatinine 0.69 (units (unknown) date) mg/dL (0.52-1.04) unknown) 10/13/22 (unknown) (no (unknown) (unknown) DERMATOLOGIC: No (units (unknown) date) rashes or skin unknown) lesions. (unknown) (no (unknown) (unknown) : 1940 (units (unknown) date) Acct:[id number] unknown) (unknown) (no (unknown) (unknown) Depression, major, (units (unknown) date) recurrent unknown) (unknown) (no (unknown) (unknown) Dept at (units (o wn) date) . unknown) (unknown) (no (unknown) (unknown) Details: (units (unkno wn) date) unknown) (unknown) (no (unknown) (unknown) Documented By: (units (unknown) date) Nicholas Guevara MD unknown) 01/14/23 0607 (unknown) (no (unknown) (unknown) Draft (units (unkno wn) date) unknown) (unknown) (no (unknown) (unknown) ENT: Mucous (units (un known) date) membranes pink and unknown) moist. (unknown) (no (unknown) (unknown) EXTREMITIES: No (units (unknown) date) clubbing, cyanosis, unknown) or edema. (unknown) (no (unknown) (unknown) EYES: Pupils equal (units (unknown) date) round and reactive. unknown) Extraocular motions intact. No scleral (unknown) (no (unknown) (unknown) Essential (units (unkn own) date) hypertension unknown) (unknown) (no (unknown) (unknown) Estimat Glomerular (units (unknown) date) Filtration Rate > unknown) 60 mL/min (>60) 10/13 (unknown) (no (unknown) (unknown) Exam Narrative (units (unknown) date) unknown) (unknown) (no (unknown) (unknown) Exam Narrative: (units (unknown) date) unknown) (unknown) (no (unknown) (unknown) Exam (units (unkno wn) date) unknown) (unknown) (no (unknown) (unknown) Family History (units (unknown) date) (Reviewed 01/14/23 unknown) @ 06:07 by Nicholas Guevara MD) (unknown) (no (unknown) (unknown) Family/Other (units (u nknown) date) Accident unknown) (unknown) (no (unknown) (unknown) Father (units (unknown) date) Accident unknown) (unknown) (no (unknown) (unknown) [facility]) (unknown) (no (unknown) (unknown) Followup in 3 (units ( unknown) date) months. unknown) (unknown) (no (unknown) (unknown) For bowel health, (units (unknown) date) you may try unknown) Metamucil or psyllium husks daily. (unknown) (no (unknown) (unknown) For general bone (units (unknown) date) health to prevent unknown) or manage osteoporosis or osteopenia, (unknown) (no (unknown) (unknown) Fractures (units (unkn own) date) unknown) (unknown) (no (unknown) (unknown) GASTROINTESTINAL: (units (unknown) date) Abdomen soft, unknown) non-tender, nondistended. (unknown) (no (unknown) (unknown) GENERAL: This is a (units (unknown) date) well-nourished, unknown) well-developed patient, in no apparent (unknown) (no (unknown) (unknown) GERD without (units (u nknown) date) esophagitis unknown) (unknown) (no (unknown) (unknown) Gastroesophageal (units (unknown) date) reflux disease: The unknown) patient denies abdominal or flank pain, (unknown) (no (unknown) (unknown) Generalized (units (un known) date) anxiety disorder unknown) (unknown) (no (unknown) (unknown) Globulin 2.8 g/dL (units (unknown) date) (1.7-4.1) 10/13/22 unknown) (unknown) (no (unknown) (unknown) Glucose Level 92 (units (unknown) date) mg/dL (80-110) unknown) 10/13/22 (unknown) (no (unknown) (unknown) Grandfather (units (un known) date) Cancer unknown) (unknown) (no (unknown) (unknown) Grandmother (units (un known) date) Stroke unknown) (unknown) (no (unknown) (unknown) H/O total (units (unkn own) date) hysterectomy unknown) (unknown) (no (unknown) (unknown) HDL Cholesterol 79 (units (unknown) date) mg/dL (40-60) H unknown) 08/05/22 (unknown) (no (unknown) (unknown) HPI (units (unkno wn) date) unknown) (unknown) (no (unknown) (unknown) Hematocrit 40.7 % (units (unknown) date) (36-46) 08/05/22 unknown) (unknown) (no (unknown) (unknown) Hemoglobin 13.9 (units (unknown) date) g/dL (12.0-16.0) unknown) 08/05/22 (unknown) (no (unknown) (unknown) History of bladder (units (unknown) date) surgery unknown) (unknown) (no (unknown) (unknown) History of carpal (units (unknown) date) tunnel release unknown) (unknown) (no (unknown) (unknown) Hyperlipidemia: The (units (unknown) date) present medications unknown) include pravastatin. The patient reports (unknown) (no (unknown) (unknown) Hypertension: The (units (unknown) date) patient is unknown) currently on amlodipine started on 08/05/2022 for (unknown) (no (unknown) (unknown) Inadequately (units (u nknown) date) controlled. Advise: unknown) Increase amlodipine to 10mg daily. (unknown) (no (unknown) (unknown) Inadequately (units (u nknown) date) controlled. Advise: unknown) Switch pravastatin to rosuvastatin. (unknown) (no (unknown) (unknown) Insomnia: The (units ( unknown) date) patient states unknown) symptoms are adequately controlled with zolpidem. (unknown) (no (unknown) (unknown) Intake (units (unkno wn) date) unknown) (unknown) (no (unknown) (unknown) Internal Medicine (units (unknown) date) Office Visit unknown) (unknown) (no (unknown) (unknown) Irritable bowel (units (unknown) date) syndrome unknown) (unknown) (no (unknown) (unknown) It was very nice (units (unknown) date) to meet with you unknown) today! (unknown) (no (unknown) (unknown) LDL Cholesterol, (units (unknown) date) Calculated 157 unknown) mg/dL (<100) H 08/05/22 (unknown) (no (unknown) (unknown) Lab Results (units (un known) date) unknown) (unknown) (no (unknown) (unknown) Labwork is ordered (units (unknown) date) today to evaluate unknown) your condition. Results will be posted to (unknown) (no (unknown) (unknown) Last Menstural (units (unknown) date) Cycle + Details unknown) (unknown) (no (unknown) (unknown) Let us know if you (units (unknown) date) have any problems. unknown) (unknown) (no (unknown) (unknown) Loc: [facility] (units (unkno wn) date) unknown) (unknown) (no (unknown) (unknown) Major depression:? (units (unknown) date) The patient reports unknown) good compliance with escitalopram, and (unknown) (no (unknown) (unknown) Mean Corpuscular (units (unknown) date) Hemoglobin 30.4 PG unknown) (26-34) 08/05/22 (unknown) (no (unknown) (unknown) Mean Corpuscular (units (unknown) date) Hemoglobin Concent unknown) 34.1 % (30-36) 07/22 (unknown) (no (unknown) (unknown) Mean Corpuscular (units (unknown) date) Volume 89.2 fL unknown) (80-100) 08/05/22 (unknown) (no (unknown) (unknown) Measles (-1943) (units (unknown) date) unknown) (unknown) (no (unknown) (unknown) Medical History (units (unknown) date) (Reviewed 01/14/23 unknown) @ 06:07 by Nicholas Guevara MD) (unknown) (no (unknown) (unknown) Medicare annual (units (unknown) date) wellness visit, unknown) initial (unknown) (no (unknown) (unknown) Mixed (units (unkno wn) date) hyperlipidemia unknown) (unknown) (no (unknown) (unknown) Mother (units (unknown) date) Stroke unknown) (unknown) (no (unknown) (unknown) NECK: Trachea (units ( unknown) date) midline. No JVD, unknown) bruits or lymphadenopathy. Supple, nontender, no (unknown) (no (unknown) (unknown) NEUROLOGIC: Alert, (units (unknown) date) oriented, speech unknown) fluent, full upper and lower motor strength, (unknown) (no (unknown) (unknown) New diagnosis. (units ( unknown) date) Inadequately unknown) controlled. Advise: Reclast annually or alendronate. (unknown) (no (unknown) (unknown) Osteoporosis: The (units (unknown) date) patient has unknown) osteoporosis by DEXA 08/11/2022: AP spine T-score (unknown) (no (unknown) (unknown) Other Menstrual (units (unknown) date) Period: Surgical unknown) Menopause (hysterectomy) (unknown) (no (unknown) (unknown) PFSH (units (unkno wn) date) unknown) (unknown) (no (unknown) (unknown) Patient: (units (unkno wn) date) Angle Carranza unknown) MR#: [id number] (unknown) (no (unknown) (unknown) Penicillins (units (un known) date) Adverse Reaction unknown) (Severe, Verified 10/13/22 07:49) (unknown) (no (unknown) (unknown) Plan (units (unkno wn) date) unknown) (unknown) (no (unknown) (unknown) Platelet Count 188 (units (unknown) date) X103/uL (150-400) unknown) 08/05/22 (unknown) (no (unknown) (unknown) Potassium Level (units (unknown) date) 4.5 mmol/L unknown) (3.4-5.1) 10/13/22 (unknown) (no (unknown) (unknown) Pravastatin and (units (unknown) date) START: Rosuvastatin unknown) 20mg nightly. Let us know if you have any (unknown) (no (unknown) (unknown) Qualifiers: (units (un known) date) unknown) (unknown) (no (unknown) (unknown) RESPIRATORY: Clear (units (unknown) date) to auscultation. unknown) (unknown) (no (unknown) (unknown) ROS (units (unkno wn) date) unknown) (unknown) (no (unknown) (unknown) Rash (units (unkno wn) date) unknown) (unknown) (no (unknown) (unknown) Reason For Visit (units (unknown) date) unknown) (unknown) (no (unknown) (unknown) Reclast infusion (units (unknown) date) is advised unknown) annually. We will call to arrange this. (unknown) (no (unknown) (unknown) Red Blood Count (units (unknown) date) 4.56 X106/uL unknown) (4.0-5.2) 08/05/22 (unknown) (no (unknown) (unknown) Red Cell (units (unkno wn) date) Distribution Width unknown) 13.6 % (11.6-14.8) 08/05/22 (unknown) (no (unknown) (unknown) S/P renal artery (units (unknown) date) angioplasty (-2006) unknown) (unknown) (no (unknown) (unknown) She prefers the (units (unknown) date) once yearly unknown) infusion after a discussion today. (unknown) (no (unknown) (unknown) Signed By: (units (unk nown) date) unknown) (unknown) (no (unknown) (unknown) Smoking Status: (units (unknown) date) Never smoker unknown) (unknown) (no (unknown) (unknown) Sodium Level 137 (units (unknown) date) mmol/L (137-145) unknown) 10/13/22 (unknown) (no (unknown) (unknown) Status: Acute (units ( unknown) date) unknown) (unknown) (no (unknown) (unknown) Sulfa (Sulfonamide (units (unknown) date) Antibiotics) unknown) Allergy (Mild, Verified 10/13/22 07:49) (unknown) (no (unknown) (unknown) Surgical History (units (unknown) date) (Reviewed 01/14/23 unknown) @ 06:07 by Nicholas Guevara MD) (unknown) (no (unknown) (unknown) This note may have (units (unknown) date) been all or unknown) partially generated using voice recognition (unknown) (no (unknown) (unknown) Thyroid (units (unkno wn) date) Stimulating Hormone unknown) (TSH) 2.03 uIU/mL (0.47-4.68) 0 (unknown) (no (unknown) (unknown) Tobacco + (units (unkn own) date) Substance Use unknown) (unknown) (no (unknown) (unknown) Tobacco Status (units (unknown) date) unknown) (unknown) (no (unknown) (unknown) Total Bilirubin (units (unknown) date) 0.6 mg/dL (0.2-1.3) unknown) 10/13/22 (unknown) (no (unknown) (unknown) Total Protein 7.5 (units (unknown) date) g/dL (6.3-8.2) unknown) 10/13/22 (unknown) (no (unknown) (unknown) Triglycerides (units ( unknown) date) Level 105 mg/dL unknown) (35-150) 08/05/22 (unknown) (no (unknown) (unknown) Visit Reasons: 3 (units (unknown) date) mo f/u unknown) (unknown) (no (unknown) (unknown) Well-controlled. (units (unknown) date) Continue current unknown) medications. (unknown) (no (unknown) (unknown) White Blood Count (units (unknown) date) 4.1 X103/uL unknown) (4.5-11.0) L 08/05/22 (unknown) (no (unknown) (unknown) Your blood (units (unk nown) date) pressure is unknown) inadequately controlled but improved, remaining in the (unknown) (no (unknown) (unknown) Your cholesterol is (units (unknown) date) inadequately unknown) controlled. To lower your risk of stroke, STOP: (unknown) (no (unknown) (unknown) Your medical (units (u nknown) date) condition otherwise unknown) appears stable at this point. Continue your (unknown) (no (unknown) (unknown) about 35 minutes (units (unknown) date) daily. unknown) (unknown) (no (unknown) (unknown) anorexia, nausea (units (unknown) date) or vomiting, unknown) dysphagia, change in bowel habits or black or (unknown) (no (unknown) (unknown) at home. The (units (u nknown) date) patient denies unknown) exertional or other chest pain, dyspnea, orthopnea, (unknown) (no (unknown) (unknown) blood pressure (units ( unknown) date) control.? She has unknown) recorded blood pressures in the 130-150s/70-80s (unknown) (no (unknown) (unknown) bloody stools. The (units (unknown) date) patient is unknown) currently taking lansoprazole for gastroesophageal (unknown) (no (unknown) (unknown) current (units (unkno wn) date) medications. unknown) (unknown) (no (unknown) (unknown) daily, as well as (units (unknown) date) weight-bearing unknown) activity (e.g., walking) for bone health. (unknown) (no (unknown) (unknown) denies adverse (units (unknown) date) side effects to the unknown) medication, and denies feeling depressed, (unknown) (no (unknown) (unknown) distress. (units (unkn own) date) unknown) (unknown) (no (unknown) (unknown) erythromycin base (units (unknown) date) Adverse Reaction unknown) (Severe, Verified 10/13/22 07:49) (unknown) (no (unknown) (unknown) good compliance (units (unknown) date) and denies any unknown) chest pain, exertional or otherwise. Recent lab (unknown) (no (unknown) (unknown) good motivation. (units (unknown) date) PHQ-9 score = 06/16. unknown) FRANK-7 score = 0/21. (unknown) (no (unknown) (unknown) have any problems (units (unknown) date) (leg swelling, unknown) heartburn and constipation). (unknown) (no (unknown) (unknown) have occurred. If (units (unknown) date) there are any unknown) questions, please contact the Medical Records (unknown) (no (unknown) (unknown) hypertension (units (u nknown) date) range. INCREASE: unknown) Amlodipine to 10mg nightly. Let us know if you (unknown) (no (unknown) (unknown) icterus. No (units (un known) date) injection or unknown) drainage. (unknown) (no (unknown) (unknown) irritable, cranky, (units (unknown) date) fatigued, easily unknown) tearful, sleep troubles, anhedonia, social (unknown) (no (unknown) (unknown) maintain intake of (units (unknown) date) calcium 1500mg unknown) daily (preferably mostly from dietary sources (unknown) (no (unknown) (unknown) may occur. (units (unk nown) date) Occasional unknown) wrong-word or 'sound-alike' substitutions may have (unknown) (no (unknown) (unknown) meningeal signs. (units (unknown) date) unknown) (unknown) (no (unknown) (unknown) mild (units (unkno wn) date) unknown) (unknown) (no (unknown) (unknown) mouth sores (units (un known) date) unknown) (unknown) (no (unknown) (unknown) nausea (units (unkno wn) date) unknown) (unknown) (no (unknown) (unknown) no focal deficits (units (unknown) date) evident. unknown) (unknown) (no (unknown) (unknown) occurred due to (units (unknown) date) the inherent unknown) limitations of voice recognition software. Please (unknown) (no (unknown) (unknown) paroxysmal (units (unk nown) date) nocturnal dyspnea, unknown) pedal edema, or TIA symptoms. She walks her dog (unknown) (no (unknown) (unknown) problems (aches or (units (unknown) date) pains). unknown) (unknown) (no (unknown) (unknown) read the note (units ( unknown) date) carefully and unknown) recognize, using context, where these substitutions (unknown) (no (unknown) (unknown) reflux disease at (units (unknown) date) this time. unknown) (unknown) (no (unknown) (unknown) severity: mild (units (unknown) date) Qualified Code(s): unknown) F33.0 - Major depressive disorder, recurrent, (unknown) (no (unknown) (unknown) software. Although (units (unknown) date) every effort is unknown) made to edit content, fur nailer errors (unknown) (no (unknown) (unknown) such as dairy, (units (unknown) date) lean meats and unknown) leafy green vegetables) and vitamin D3 1000 units (unknown) (no (unknown) (unknown) testing reviewed. (units (unknown) date) unknown) (unknown) (no (unknown) (unknown) the patient (units (un known) date) portal. Let us know unknown) if you have any questions or concerns. (unknown) (no (unknown) (unknown) with rare (units (unkn own) date) alprazolam. unknown) (unknown) (no (unknown) (unknown) withdrawal, or (units (unknown) date) trouble with unknown) memory, focus, or concentration. The patient has Result panel 2 (unknown) (no (unknown) (unknown) (no value) (units (unk nown) date) unknown) (unknown) (no (unknown) (unknown) (1) Essential (units ( unknown) date) hypertension: unknown) (unknown) (no (unknown) (unknown) (2) Mixed (units (unkn own) date) hyperlipidemia: unknown) (unknown) (no (unknown) (unknown) (3) GERD without (units (unknown) date) esophagitis: unknown) (unknown) (no (unknown) (unknown) (4) Depression, (units (unknown) date) major, recurrent: unknown) (unknown) (no (unknown) (unknown) (5) Generalized (units (unknown) date) anxiety disorder: unknown) (unknown) (no (unknown) (unknown) (6) Chronic (units (un known) date) insomnia: unknown) (unknown) (no (unknown) (unknown) (7) Age-related (units (unknown) date) osteoporosis unknown) without current pathological fracture: (unknown) (no (unknown) (unknown) / (units (unkno wn) date) unknown) (unknown) (no (unknown) (unknown) 01/17/23 1001 (units ( unknown) date) unknown) (unknown) (no (unknown) (unknown) [id number] (units (o wn) date) unknown) (unknown) (no (unknown) (unknown) 10/13/22 (units (o wn) date) unknown) (unknown) (no (unknown) (unknown) 2.5, left FN -2.2, (units (unknown) date) right FN -2.4. She unknown) takes BoneUp BID. (unknown) (no (unknown) (unknown) (units (unkno wn) date) unknown) (unknown) (no (unknown) (unknown) 25-Hydroxy Vitamin (units (unknown) date) D Total 41.9 ng/mL unknown) (30.0-100.0) 08/05/22 (unknown) (no (unknown) (unknown) 02/09 (units (o wn) date) unknown) (unknown) (no (unknown) (unknown) 04/11 (units (o wn) date) unknown) (unknown) (no (unknown) (unknown) 08/05/22 (units (o wn) date) unknown) (unknown) (no (unknown) (unknown) AWV 08/05/2022 (units ( unknown) date) unknown) (unknown) (no (unknown) (unknown) Active/Remission (units (unknown) date) status: currently unknown) active Major depression episode (unknown) (no (unknown) (unknown) Age-related (units (un known) date) osteoporosis unknown) without current pathological fracture (unknown) (no (unknown) (unknown) Age/Sex: 82 / F (units (unknown) date) Date of Service: unknown) (unknown) (no (unknown) (unknown) Alanine (units (o wn) date) Aminotransferase unknown) (ALT/SGPT) 22 IU/L (<35) 09/22 (unknown) (no (unknown) (unknown) Albumin 4.7 g/dL (units (unknown) date) (3.5-5.0) 10/13/22 unknown) (unknown) (no (unknown) (unknown) Albumin/Globulin (units (unknown) date) Ratio 1.7 (1.0-2.8) unknown) 10/13/22 (unknown) (no (unknown) (unknown) Alkaline (units (unkno wn) date) Phosphatase 62 U/L unknown) (38-126) 10/13/22 (unknown) (no (unknown) (unknown) All systems (units (un known) date) reviewed + are unknown) unremarkable except as noted in HPI and below (unknown) (no (unknown) (unknown) Allergies (units (unkn own) date) unknown) (unknown) (no (unknown) (unknown) [place], [place] (units ( unknown) date) [id number] unknown) (unknown) (no (unknown) (unknown) Anesthesia (units (unk nown) date) unknown) (unknown) (no (unknown) (unknown) Anxiety (units (unkno wn) date) unknown) (unknown) (no (unknown) (unknown) Anxiety: The (units (u nknown) date) patient reports unknown) symptoms are well controlled on current therapy (unknown) (no (unknown) (unknown) Aspartate Amino (units (unknown) date) Transf (AST/SGOT) unknown) 25 IU/L (14-36) 10/13/ (unknown) (no (unknown) (unknown) Assessment + Plan (units (unknown) date) unknown) (unknown) (no (unknown) (unknown) Assessment and (units (unknown) date) Plan: unknown) (unknown) (no (unknown) (unknown) Attending Dr: (units ( unknown) date) Nicholas Guevara MD unknown) (unknown) (no (unknown) (unknown) BUN/Creatinine (units (unknown) date) Ratio 21.7 (6-22) unknown) 10/13/22 (unknown) (no (unknown) (unknown) Blood Urea (units (unk nown) date) Nitrogen 15 mg/dL unknown) (7-17) 10/13/22 (unknown) (no (unknown) (unknown) CARDIOVASCULAR: (units (unknown) date) Regular rate and unknown) rhythm without murmurs, gallops, or rubs. (unknown) (no (unknown) (unknown) Calcium Level 9.7 (units (unknown) date) mg/dL (8.4-10.2) unknown) 10/13/22 (unknown) (no (unknown) (unknown) Carbon Dioxide (units (unknown) date) Level 28 mmol/L unknown) (22-32) 10/13/22 (unknown) (no (unknown) (unknown) Chicken pox (units (un known) date) (-1945) unknown) (unknown) (no (unknown) (unknown) Chief Complaint (units (unknown) date) unknown) (unknown) (no (unknown) (unknown) Chief Complaint: (units (unknown) date) Medical followup unknown) (unknown) (no (unknown) (unknown) Chloride Level 101 (units (unknown) date) mmol/L (98-107) unknown) 10/13/22 (unknown) (no (unknown) (unknown) Cholesterol Level (units (unknown) date) 257 mg/dL (140-199) unknown) H 08/05/22 (unknown) (no (unknown) (unknown) Chronic insomnia (units (unknown) date) unknown) (unknown) (no (unknown) (unknown) Clinically stable. (units (unknown) date) Continue current unknown) plan. (unknown) (no (unknown) (unknown) Common Lab (units (unk nown) date) Results- Last: unknown) (unknown) (no (unknown) (unknown) Const (units (unkno wn) date) unknown) (unknown) (no (unknown) (unknown) Creatinine 0.69 (units (unknown) date) mg/dL (0.52-1.04) unknown) 10/13/22 (unknown) (no (unknown) (unknown) DERMATOLOGIC: No (units (unknown) date) rashes or skin unknown) lesions. (unknown) (no (unknown) (unknown) : 1940 (units (unknown) date) Acct:[id number] unknown) (unknown) (no (unknown) (unknown) Depression, major, (units (unknown) date) recurrent unknown) (unknown) (no (unknown) (unknown) Dept at (units (unkno wn) date) . unknown) (unknown) (no (unknown) (unknown) Details: (units (unkno wn) date) unknown) (unknown) (no (unknown) (unknown) Documented By: (units (unknown) date) Nicholas Guevara MD unknown) 01/14/23 0607 (unknown) (no (unknown) (unknown) ENT: Mucous (units (un known) date) membranes pink and unknown) moist. (unknown) (no (unknown) (unknown) EXTREMITIES: No (units (unknown) date) clubbing, cyanosis, unknown) or edema. (unknown) (no (unknown) (unknown) EYES: Pupils equal (units (unknown) date) round and reactive. unknown) Extraocular motions intact. No scleral (unknown) (no (unknown) (unknown) Essential (units (unkn own) date) hypertension unknown) (unknown) (no (unknown) (unknown) Estimat Glomerular (units (unknown) date) Filtration Rate > unknown) 60 mL/min (>60) 10/13 (unknown) (no (unknown) (unknown) Exam Narrative (units (unknown) date) unknown) (unknown) (no (unknown) (unknown) Exam Narrative: (units (unknown) date) unknown) (unknown) (no (unknown) (unknown) Exam (units (unkno wn) date) unknown) (unknown) (no (unknown) (unknown) Family History (units (unknown) date) (Reviewed 01/14/23 unknown) @ 06:07 by Nicholas Guevara MD) (unknown) (no (unknown) (unknown) Family/Other (units (u nknown) date) Accident unknown) (unknown) (no (unknown) (unknown) Father (units (unknown) date) Accident unknown) (unknown) (no (unknown) (unknown) [facility]) (unknown) (no (unknown) (unknown) Followup in 3 (units ( unknown) date) months. unknown) (unknown) (no (unknown) (unknown) For bowel health, (units (unknown) date) you may try unknown) Metamucil or psyllium husks daily. (unknown) (no (unknown) (unknown) For general bone (units (unknown) date) health to prevent unknown) or manage osteoporosis or osteopenia, (unknown) (no (unknown) (unknown) Fractures (units (unkn own) date) unknown) (unknown) (no (unknown) (unknown) GASTROINTESTINAL: (units (unknown) date) Abdomen soft, unknown) non-tender, nondistended. (unknown) (no (unknown) (unknown) GENERAL: This is a (units (unknown) date) well-nourished, unknown) well-developed patient, in no apparent (unknown) (no (unknown) (unknown) GERD without (units (u nknown) date) esophagitis unknown) (unknown) (no (unknown) (unknown) Gastroesophageal (units (unknown) date) reflux disease: The unknown) patient denies abdominal or flank pain, (unknown) (no (unknown) (unknown) Generalized (units (un known) date) anxiety disorder unknown) (unknown) (no (unknown) (unknown) Globulin 2.8 g/dL (units (unknown) date) (1.7-4.1) 10/13/22 unknown) (unknown) (no (unknown) (unknown) Glucose Level 92 (units (unknown) date) mg/dL (80-110) unknown) 10/13/22 (unknown) (no (unknown) (unknown) Grandfather (units (un known) date) Cancer unknown) (unknown) (no (unknown) (unknown) Grandmother (units (un known) date) Stroke unknown) (unknown) (no (unknown) (unknown) H/O total (units (unkn own) date) hysterectomy unknown) (unknown) (no (unknown) (unknown) HDL Cholesterol 79 (units (unknown) date) mg/dL (40-60) H unknown) 08/05/22 (unknown) (no (unknown) (unknown) HPI (units (unkno wn) date) unknown) (unknown) (no (unknown) (unknown) Hematocrit 40.7 % (units (unknown) date) (36-46) 08/05/22 unknown) (unknown) (no (unknown) (unknown) Hemoglobin 13.9 (units (unknown) date) g/dL (12.0-16.0) unknown) 08/05/22 (unknown) (no (unknown) (unknown) History of bladder (units (unknown) date) surgery unknown) (unknown) (no (unknown) (unknown) History of carpal (units (unknown) date) tunnel release unknown) (unknown) (no (unknown) (unknown) Hyperlipidemia: The (units (unknown) date) present medications unknown) include pravastatin. The patient reports (unknown) (no (unknown) (unknown) Hypertension: The (units (unknown) date) patient is unknown) currently on amlodipine started on 08/05/2022 for (unknown) (no (unknown) (unknown) Inadequately (units (u nknown) date) controlled. Advise: unknown) Increase amlodipine to 10mg daily. (unknown) (no (unknown) (unknown) Inadequately (units (u nknown) date) controlled. Advise: unknown) Switch pravastatin to rosuvastatin. (unknown) (no (unknown) (unknown) Insomnia: The (units ( unknown) date) patient states unknown) symptoms are adequately controlled with zolpidem. (unknown) (no (unknown) (unknown) Intake (units (unkno wn) date) unknown) (unknown) (no (unknown) (unknown) Internal Medicine (units (unknown) date) Office Visit unknown) (unknown) (no (unknown) (unknown) Irritable bowel (units (unknown) date) syndrome unknown) (unknown) (no (unknown) (unknown) It was very nice (units (unknown) date) to meet with you unknown) today! (unknown) (no (unknown) (unknown) LDL Cholesterol, (units (unknown) date) Calculated 157 unknown) mg/dL (<100) H 08/05/22 (unknown) (no (unknown) (unknown) Lab Results (units (un known) date) unknown) (unknown) (no (unknown) (unknown) Labwork is ordered (units (unknown) date) today to evaluate unknown) your condition. Results will be posted to (unknown) (no (unknown) (unknown) Last Menstural (units (unknown) date) Cycle + Details unknown) (unknown) (no (unknown) (unknown) Let us know if you (units (unknown) date) have any problems. unknown) (unknown) (no (unknown) (unknown) Loc: [facility] (units (unkno wn) date) unknown) (unknown) (no (unknown) (unknown) Major depression:? (units (unknown) date) The patient reports unknown) good compliance with escitalopram, and (unknown) (no (unknown) (unknown) Mean Corpuscular (units (unknown) date) Hemoglobin 30.4 PG unknown) (26-34) 08/05/22 (unknown) (no (unknown) (unknown) Mean Corpuscular (units (unknown) date) Hemoglobin Concent unknown) 34.1 % (30-36) 07/22 (unknown) (no (unknown) (unknown) Mean Corpuscular (units (unknown) date) Volume 89.2 fL unknown) (80-100) 08/05/22 (unknown) (no (unknown) (unknown) Measles (-1943) (units (unknown) date) unknown) (unknown) (no (unknown) (unknown) Medical History (units (unknown) date) (Reviewed 01/14/23 unknown) @ 06:07 by Nicholas Guevara MD) (unknown) (no (unknown) (unknown) Medicare annual (units (unknown) date) wellness visit, unknown) initial (unknown) (no (unknown) (unknown) Mixed (units (unkno wn) date) hyperlipidemia unknown) (unknown) (no (unknown) (unknown) Mother (units (unknown) date) Stroke unknown) (unknown) (no (unknown) (unknown) NECK: Trachea (units ( unknown) date) midline. No JVD, unknown) bruits or lymphadenopathy. Supple, nontender, no (unknown) (no (unknown) (unknown) NEUROLOGIC: Alert, (units (unknown) date) oriented, speech unknown) fluent, full upper and lower motor strength, (unknown) (no (unknown) (unknown) New diagnosis. (units ( unknown) date) Inadequately unknown) controlled. Advise: Reclast annually or alendronate. (unknown) (no (unknown) (unknown) Osteoporosis: The (units (unknown) date) patient has unknown) osteoporosis by DEXA 08/11/2022: AP spine T-score (unknown) (no (unknown) (unknown) Other Menstrual (units (unknown) date) Period: Surgical unknown) Menopause (hysterectomy) (unknown) (no (unknown) (unknown) PFSH (units (unkno wn) date) unknown) (unknown) (no (unknown) (unknown) Patient: (units (unkno wn) date) Angle Carranza unknown) MR#: [id number] (unknown) (no (unknown) (unknown) Penicillins (units (un known) date) Adverse Reaction unknown) (Severe, Verified 10/13/22 07:49) (unknown) (no (unknown) (unknown) Plan (units (unkno wn) date) unknown) (unknown) (no (unknown) (unknown) Platelet Count 188 (units (unknown) date) X103/uL (150-400) unknown) 08/05/22 (unknown) (no (unknown) (unknown) Potassium Level (units (unknown) date) 4.5 mmol/L unknown) (3.4-5.1) 10/13/22 (unknown) (no (unknown) (unknown) Pravastatin and (units (unknown) date) START: Rosuvastatin unknown) 20mg nightly. Let us know if you have any (unknown) (no (unknown) (unknown) Qualifiers: (units (un known) date) unknown) (unknown) (no (unknown) (unknown) RESPIRATORY: Clear (units (unknown) date) to auscultation. unknown) (unknown) (no (unknown) (unknown) ROS (units (unkno wn) date) unknown) (unknown) (no (unknown) (unknown) Rash (units (unkno wn) date) unknown) (unknown) (no (unknown) (unknown) Reason For Visit (units (unknown) date) unknown) (unknown) (no (unknown) (unknown) Reclast infusion (units (unknown) date) is advised unknown) annually. We will call to arrange this. (unknown) (no (unknown) (unknown) Red Blood Count (units (unknown) date) 4.56 X106/uL unknown) (4.0-5.2) 08/05/22 (unknown) (no (unknown) (unknown) Red Cell (units (unkno wn) date) Distribution Width unknown) 13.6 % (11.6-14.8) 08/05/22 (unknown) (no (unknown) (unknown) S/P renal artery (units (unknown) date) angioplasty (-2006) unknown) (unknown) (no (unknown) (unknown) She prefers the (units (unknown) date) once yearly unknown) infusion after a discussion today. (unknown) (no (unknown) (unknown) Signed By: (units (unk nown) date) <Electronically unknown) signed by Nicholas Guevara MD> (unknown) (no (unknown) (unknown) Signed (units (unkno wn) date) unknown) (unknown) (no (unknown) (unknown) Smoking Status: (units (unknown) date) Never smoker unknown) (unknown) (no (unknown) (unknown) Sodium Level 137 (units (unknown) date) mmol/L (137-145) unknown) 10/13/22 (unknown) (no (unknown) (unknown) Status: Acute (units ( unknown) date) unknown) (unknown) (no (unknown) (unknown) Sulfa (Sulfonamide (units (unknown) date) Antibiotics) unknown) Allergy (Mild, Verified 10/13/22 07:49) (unknown) (no (unknown) (unknown) Surgical History (units (unknown) date) (Reviewed 01/14/23 unknown) @ 06:07 by Nicholas Guevara MD) (unknown) (no (unknown) (unknown) This note may have (units (unknown) date) been all or unknown) partially generated using voice recognition (unknown) (no (unknown) (unknown) Thyroid (units (unkno wn) date) Stimulating Hormone unknown) (TSH) 2.03 uIU/mL (0.47-4.68) 0 (unknown) (no (unknown) (unknown) Tobacco + (units (unkn own) date) Substance Use unknown) (unknown) (no (unknown) (unknown) Tobacco Status (units (unknown) date) unknown) (unknown) (no (unknown) (unknown) Total Bilirubin (units (unknown) date) 0.6 mg/dL (0.2-1.3) unknown) 10/13/22 (unknown) (no (unknown) (unknown) Total Protein 7.5 (units (unknown) date) g/dL (6.3-8.2) unknown) 10/13/22 (unknown) (no (unknown) (unknown) Triglycerides (units ( unknown) date) Level 105 mg/dL unknown) (35-150) 08/05/22 (unknown) (no (unknown) (unknown) Visit Reasons: 3 (units (unknown) date) mo f/u unknown) (unknown) (no (unknown) (unknown) Well-controlled. (units (unknown) date) Continue current unknown) medications. (unknown) (no (unknown) (unknown) White Blood Count (units (unknown) date) 4.1 X103/uL unknown) (4.5-11.0) L 08/05/22 (unknown) (no (unknown) (unknown) Your blood (units (unk nown) date) pressure is unknown) inadequately controlled but improved, remaining in the (unknown) (no (unknown) (unknown) Your cholesterol is (units (unknown) date) inadequately unknown) controlled. To lower your risk of stroke, STOP: (unknown) (no (unknown) (unknown) Your medical (units (u nknown) date) condition otherwise unknown) appears stable at this point. Continue your (unknown) (no (unknown) (unknown) about 35 minutes (units (unknown) date) daily. unknown) (unknown) (no (unknown) (unknown) anorexia, nausea (units (unknown) date) or vomiting, unknown) dysphagia, change in bowel habits or black or (unknown) (no (unknown) (unknown) at home. The (units (u nknown) date) patient denies unknown) exertional or other chest pain, dyspnea, orthopnea, (unknown) (no (unknown) (unknown) ay occur. (units (unkn own) date) Occasional unknown) wrong-word or 'sound-alike' substitutions may have (unknown) (no (unknown) (unknown) blood pressure (units ( unknown) date) control.? She has unknown) recorded blood pressures in the 130-150s/70-80s (unknown) (no (unknown) (unknown) bloody stools. The (units (unknown) date) patient is unknown) currently taking lansoprazole for gastroesophageal (unknown) (no (unknown) (unknown) current (units (unkno wn) date) medications. unknown) (unknown) (no (unknown) (unknown) daily, as well as (units (unknown) date) weight-bearing unknown) activity (e.g., walking) for bone health. (unknown) (no (unknown) (unknown) denies adverse (units (unknown) date) side effects to the unknown) medication, and denies feeling depressed, (unknown) (no (unknown) (unknown) distress. (units (unkn own) date) unknown) (unknown) (no (unknown) (unknown) erythromycin base (units (unknown) date) Adverse Reaction unknown) (Severe, Verified 10/13/22 07:49) (unknown) (no (unknown) (unknown) good compliance (units (unknown) date) and denies any unknown) chest pain, exertional or otherwise. Recent lab (unknown) (no (unknown) (unknown) good motivation. (units (unknown) date) PHQ-9 score = 06/16. unknown) FRANK-7 score = 0/21. (unknown) (no (unknown) (unknown) have any problems (units (unknown) date) (leg swelling, unknown) heartburn and constipation). (unknown) (no (unknown) (unknown) have occurred. If (units (unknown) date) there are any unknown) questions, please contact the Medical Records (unknown) (no (unknown) (unknown) hypertension (units (u nknown) date) range. INCREASE: unknown) Amlodipine to 10mg nightly. Let us know if you (unknown) (no (unknown) (unknown) icterus. No (units (un known) date) injection or unknown) drainage. (unknown) (no (unknown) (unknown) irritable, cranky, (units (unknown) date) fatigued, easily unknown) tearful, sleep troubles, anhedonia, social (unknown) (no (unknown) (unknown) maintain intake of (units (unknown) date) calcium 1500mg unknown) daily (preferably mostly from dietary sources (unknown) (no (unknown) (unknown) meningeal signs. (units (unknown) date) unknown) (unknown) (no (unknown) (unknown) mild (units (unkno wn) date) unknown) (unknown) (no (unknown) (unknown) mouth sores (units (un known) date) unknown) (unknown) (no (unknown) (unknown) nausea (units (unkno wn) date) unknown) (unknown) (no (unknown) (unknown) no focal deficits (units (unknown) date) evident. unknown) (unknown) (no (unknown) (unknown) occurred due to (units (unknown) date) the inherent unknown) limitations of voice recognition software. Please (unknown) (no (unknown) (unknown) paroxysmal (units (unk nown) date) nocturnal dyspnea, unknown) pedal edema, or TIA symptoms. She walks her dog (unknown) (no (unknown) (unknown) problems (aches or (units (unknown) date) pains). unknown) (unknown) (no (unknown) (unknown) read the note (units ( unknown) date) carefully and unknown) recognize, using context, where these substitutions (unknown) (no (unknown) (unknown) reflux disease at (units (unknown) date) this time. unknown) (unknown) (no (unknown) (unknown) severity: mild (units (unknown) date) Qualified Code(s): unknown) F33.0 - Major depressive disorder, recurrent, (unknown) (no (unknown) (unknown) software. Although (units (unknown) date) every effort is unknown) made to edit content, fur nailer errors m (unknown) (no (unknown) (unknown) such as dairy, (units (unknown) date) lean meats and unknown) leafy green vegetables) and vitamin D3 1000 units (unknown) (no (unknown) (unknown) testing reviewed. (units (unknown) date) unknown) (unknown) (no (unknown) (unknown) the patient (units (un known) date) portal. Let us know unknown) if you have any questions or concerns. (unknown) (no (unknown) (unknown) with rare (units (unkn own) date) alprazolam. unknown) (unknown) (no (unknown) (unknown) withdrawal, or (units (unknown) date) trouble with unknown) memory, focus, or concentration. The patient has Result panel 3 (unknown) (no (unknown) (unknown) (no value) (units (unk nown) date) unknown) (unknown) (no (unknown) (unknown) (1) Essential (units ( unknown) date) hypertension: unknown) (unknown) (no (unknown) (unknown) (2) Mixed (units (unkn own) date) hyperlipidemia: unknown) (unknown) (no (unknown) (unknown) (3) GERD without (units (unknown) date) esophagitis: unknown) (unknown) (no (unknown) (unknown) (4) Depression, (units (unknown) date) major, recurrent: unknown) (unknown) (no (unknown) (unknown) (5) Generalized (units (unknown) date) anxiety disorder: unknown) (unknown) (no (unknown) (unknown) (6) Chronic (units (un known) date) insomnia: unknown) (unknown) (no (unknown) (unknown) (7) 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 She unknown) takes BoneUp BID. (unknown) (no (unknown) (unknown) (units (unkno wn) date) unknown) (unknown) (no (unknown) (unknown) 25-Hydroxy Vitamin (units (unknown) date) D Total 41.9 ng/mL unknown) (30.0-100.0) 08/05/22 (unknown) (no (unknown) (unknown) 02/09 (units (unkno wn) date) unknown) (unknown) (no (unknown) (unknown) 04/11 (units (unkno wn) date) unknown) (unknown) (no (unknown) (unknown) 08/05/22 (units (unkno wn) date) unknown) (unknown) (no (unknown) (unknown) AWV 08/05/2022 (units ( unknown) date) unknown) (unknown) (no (unknown) (unknown) Active/Remission (units (unknown) date) status: currently unknown) active Major depression episode (unknown) (no (unknown) (unknown) Age-related (units (un known) date) osteoporosis unknown) without current pathological fracture (unknown) (no (unknown) (unknown) Age/Sex: 82 / F (units (unknown) date) Date of Service: unknown) (unknown) (no (unknown) (unknown) Alanine (units (unkno wn) date) Aminotransferase unknown) (ALT/SGPT) 22 IU/L (<35) 09/22 (unknown) (no (unknown) (unknown) Albumin 4.7 g/dL (units (unknown) date) (3.5-5.0) 10/13/22 unknown) (unknown) (no (unknown) (unknown) Albumin/Globulin (units (unknown) date) Ratio 1.7 (1.0-2.8) unknown) 10/13/22 (unknown) (no (unknown) (unknown) Alkaline (units (unkno wn) date) Phosphatase 62 U/L unknown) (38-126) 10/13/22 (unknown) (no (unknown) (unknown) All systems (units (un known) date) reviewed + are unknown) unremarkable except as noted in HPI and below (unknown) (no (unknown) (unknown) Allergies (units (unkn own) date) unknown) (unknown) (no (unknown) (unknown) [place], [place] (units ( unknown) date) [id number] unknown) (unknown) (no (unknown) (unknown) Anesthesia (units (unk nown) date) unknown) (unknown) (no (unknown) (unknown) Anxiety (units (unkno wn) date) unknown) (unknown) (no (unknown) (unknown) Anxiety: The (units (u nknown) date) patient reports unknown) symptoms are well controlled on current therapy (unknown) (no (unknown) (unknown) Aspartate Amino (units (unknown) date) Transf (AST/SGOT) unknown) 25 IU/L (14-36) 10/13/ (unknown) (no (unknown) (unknown) Assessment + Plan (units (unknown) date) unknown) (unknown) (no (unknown) (unknown) Assessment and (units (unknown) date) Plan: unknown) (unknown) (no (unknown) (unknown) Attending Dr: (units ( unknown) date) Nicholas Guevara MD unknown) (unknown) (no (unknown) (unknown) BUN/Creatinine (units (unknown) date) Ratio 21.7 (6-22) unknown) 10/13/22 (unknown) (no (unknown) (unknown) Blood Urea (units (unk nown) date) Nitrogen 15 mg/dL unknown) (7-17) 10/13/22 (unknown) (no (unknown) (unknown) CARDIOVASCULAR: (units (unknown) date) Regular rate and unknown) rhythm without murmurs, gallops, or rubs. (unknown) (no (unknown) (unknown) Calcium Level 9.7 (units (unknown) date) mg/dL (8.4-10.2) unknown) 10/13/22 (unknown) (no (unknown) (unknown) Carbon Dioxide (units (unknown) date) Level 28 mmol/L unknown) (22-32) 10/13/22 (unknown) (no (unknown) (unknown) Chicken pox (units (un known) date) (-194) unknown) (unknown) (no (unknown) (unknown) Chief Complaint (units (unknown) date) unknown) (unknown) (no (unknown) (unknown) Chief Complaint: (units (unknown) date) Medical followup unknown) (unknown) (no (unknown) (unknown) Chloride Level 101 (units (unknown) date) mmol/L (98-107) unknown) 10/13/22 (unknown) (no (unknown) (unknown) Cholesterol Level (units (unknown) date) 257 mg/dL (140-199) unknown) H 08/05/22 (unknown) (no (unknown) (unknown) Chronic insomnia (units (unknown) date) unknown) (unknown) (no (unknown) (unknown) Clinically stable. (units (unknown) date) Continue current unknown) plan. (unknown) (no (unknown) (unknown) [facility] Lab (units (unk nown) date) Results- Last: unknown) (unknown) (no (unknown) (unknown) Const (units (unkno wn) date) unknown) (unknown) (no (unknown) (unknown) Creatinine 0.69 (units (unknown) date) mg/dL (0.52-1.04) unknown) 10/13/22 (unknown) (no (unknown) (unknown) DERMATOLOGIC: No (units (unknown) date) rashes or skin unknown) lesions. (unknown) (no (unknown) (unknown) : 1940 (units (unknown) date) Acct:[id number] unknown) (unknown) (no (unknown) (unknown) Depression, major, (units (unknown) date) recurrent unknown) (unknown) (no (unknown) (unknown) Dept at (units (unkno wn) date) . unknown) (unknown) (no (unknown) (unknown) Details: (units (unkno wn) date) unknown) (unknown) (no (unknown) (unknown) Documented By: (units (unknown) date) Nicholas Guevara MD unknown) 02/14/23 1247 (unknown) (no (unknown) (unknown) Draft (units (unkno wn) date) unknown) (unknown) (no (unknown) (unknown) ENT: Mucous (units (un known) date) membranes pink and unknown) moist. (unknown) (no (unknown) (unknown) EXTREMITIES: No (units (unknown) date) clubbing, cyanosis, unknown) or edema. (unknown) (no (unknown) (unknown) EYES: Pupils equal (units (unknown) date) round and reactive. unknown) Extraocular motions intact. No scleral (unknown) (no (unknown) (unknown) Essential (units (unkn own) date) hypertension unknown) (unknown) (no (unknown) (unknown) Estimat Glomerular (units (unknown) date) Filtration Rate > unknown) 60 mL/min (>60) 10/13 (unknown) (no (unknown) (unknown) Exam Narrative (units (unknown) date) unknown) (unknown) (no (unknown) (unknown) Exam Narrative: (units (unknown) date) unknown) (unknown) (no (unknown) (unknown) Exam (units (unkno wn) date) unknown) (unknown) (no (unknown) (unknown) Family History (units (unknown) date) (Reviewed 02/14/23 unknown) @ 12:47 by Nicholas Guevara MD) (unknown) (no (unknown) (unknown) Family/Other (units (u nknown) date) Accident unknown) (unknown) (no (unknown) (unknown) Father (units (unknown) date) Accident unknown) (unknown) (no (unknown) (unknown) [facility] unknown) (unknown) (no (unknown) (unknown) Followup in 3 (units ( unknown) date) months. unknown) (unknown) (no (unknown) (unknown) For bowel health, (units (unknown) date) you may try unknown) Metamucil or psyllium husks daily. (unknown) (no (unknown) (unknown) For general bone (units (unknown) date) health to prevent unknown) or manage osteoporosis or osteopenia, (unknown) (no (unknown) (unknown) Fractures (units (unkn own) date) unknown) (unknown) (no (unknown) (unknown) GASTROINTESTINAL: (units (unknown) date) Abdomen soft, unknown) non-tender, nondistended. (unknown) (no (unknown) (unknown) GENERAL: This is a (units (unknown) date) well-nourished, unknown) well-developed patient, in no apparent (unknown) (no (unknown) (unknown) GERD without (units (u nknown) date) esophagitis unknown) (unknown) (no (unknown) (unknown) Gastroesophageal (units (unknown) date) reflux disease: The unknown) patient denies abdominal or flank pain, (unknown) (no (unknown) (unknown) Generalized (units (un known) date) anxiety disorder unknown) (unknown) (no (unknown) (unknown) Globulin 2.8 g/dL (units (unknown) date) (1.7-4.1) 10/13/22 unknown) (unknown) (no (unknown) (unknown) Glucose Level 92 (units (unknown) date) mg/dL (80-110) unknown) 10/13/22 (unknown) (no (unknown) (unknown) Grandfather (units (un known) date) Cancer unknown) (unknown) (no (unknown) (unknown) Grandmother (units (un known) date) Stroke unknown) (unknown) (no (unknown) (unknown) H/O total (units (unkn own) date) hysterectomy unknown) (unknown) (no (unknown) (unknown) HDL Cholesterol 79 (units (unknown) date) mg/dL (40-60) H unknown) 08/05/22 (unknown) (no (unknown) (unknown) HPI (units (unkno wn) date) unknown) (unknown) (no (unknown) (unknown) Hematocrit 40.7 % (units (unknown) date) (36-46) 08/05/22 unknown) (unknown) (no (unknown) (unknown) Hemoglobin 13.9 (units (unknown) date) g/dL (12.0-16.0) unknown) 08/05/22 (unknown) (no (unknown) (unknown) History of bladder (units (unknown) date) surgery unknown) (unknown) (no (unknown) (unknown) History of carpal (units (unknown) date) tunnel release unknown) (unknown) (no (unknown) (unknown) Hyperlipidemia: The (units (unknown) date) present medications unknown) include pravastatin. The patient reports (unknown) (no (unknown) (unknown) Hypertension: The (units (unknown) date) patient is unknown) currently on amlodipine started on 08/05/2022 for (unknown) (no (unknown) (unknown) Inadequately (units (u nknown) date) controlled. Advise: unknown) Increase amlodipine to 10mg daily. (unknown) (no (unknown) (unknown) Inadequately (units (u nknown) date) controlled. Advise: unknown) Switch pravastatin to rosuvastatin. (unknown) (no (unknown) (unknown) Insomnia: The (units ( unknown) date) patient states unknown) symptoms are adequately controlled with zolpidem. (unknown) (no (unknown) (unknown) Intake (units (unkno wn) date) unknown) (unknown) (no (unknown) (unknown) Internal Medicine (units (unknown) date) Office Visit unknown) (unknown) (no (unknown) (unknown) Irritable bowel (units (unknown) date) syndrome unknown) (unknown) (no (unknown) (unknown) It was very nice (units (unknown) date) to meet with you unknown) today! (unknown) (no (unknown) (unknown) LDL Cholesterol, (units (unknown) date) Calculated 157 unknown) mg/dL (<100) H 08/05/22 (unknown) (no (unknown) (unknown) Lab Results (units (un known) date) unknown) (unknown) (no (unknown) (unknown) Labwork is ordered (units (unknown) date) today to evaluate unknown) your condition. Results will be posted to (unknown) (no (unknown) (unknown) Last Menstural (units (unknown) date) Cycle + Details unknown) (unknown) (no (unknown) (unknown) Let us know if you (units (unknown) date) have any problems. unknown) (unknown) (no (unknown) (unknown) Loc: [facility] (units (unkno wn) date) unknown) (unknown) (no (unknown) (unknown) Major depression:? (units (unknown) date) The patient reports unknown) good compliance with escitalopram, and (unknown) (no (unknown) (unknown) Mean Corpuscular (units (unknown) date) Hemoglobin 30.4 PG unknown) (26-34) 08/05/22 (unknown) (no (unknown) (unknown) Mean Corpuscular (units (unknown) date) Hemoglobin Concent unknown) 34.1 % (30-36) 07/22 (unknown) (no (unknown) (unknown) Mean Corpuscular (units (unknown) date) Volume 89.2 fL unknown) (80-100) 08/05/22 (unknown) (no (unknown) (unknown) Measles (-1943) (units (unknown) date) unknown) (unknown) (no (unknown) (unknown) Medical History (units (unknown) date) (Reviewed 02/14/23 unknown) @ 12:47 by Nicholas Guevara MD) (unknown) (no (unknown) (unknown) Medicare annual (units (unknown) date) wellness visit, unknown) initial (unknown) (no (unknown) (unknown) Mixed (units (unkno wn) date) hyperlipidemia unknown) (unknown) (no (unknown) (unknown) Mother (units (unknown) date) Stroke unknown) (unknown) (no (unknown) (unknown) NECK: Trachea (units ( unknown) date) midline. No JVD, unknown) bruits or lymphadenopathy. Supple, nontender, no (unknown) (no (unknown) (unknown) NEUROLOGIC: Alert, (units (unknown) date) oriented, speech unknown) fluent, full upper and lower motor strength, (unknown) (no (unknown) (unknown) New diagnosis. (units ( unknown) date) Inadequately unknown) controlled. Advise: Reclast annually or alendronate. (unknown) (no (unknown) (unknown) Osteoporosis: The (units (unknown) date) patient has unknown) osteoporosis by DEXA 08/11/2022: AP spine T-score (unknown) (no (unknown) (unknown) Other Menstrual (units (unknown) date) Period: Surgical unknown) Menopause (hysterectomy) (unknown) (no (unknown) (unknown) PFSH (units (unkno wn) date) unknown) (unknown) (no (unknown) (unknown) Patient: (units (unkno wn) date) Angle Carranza unknown) MR#: [id number] (unknown) (no (unknown) (unknown) Penicillins (units (un known) date) Adverse Reaction unknown) (Severe, Verified 10/13/22 07:49) (unknown) (no (unknown) (unknown) Plan (units (unkno wn) date) unknown) (unknown) (no (unknown) (unknown) Platelet Count 188 (units (unknown) date) X103/uL (150-400) unknown) 08/05/22 (unknown) (no (unknown) (unknown) Potassium Level (units (unknown) date) 4.5 mmol/L unknown) (3.4-5.1) 10/13/22 (unknown) (no (unknown) (unknown) Pravastatin and (units (unknown) date) START: Rosuvastatin unknown) 20mg nightly. Let us know if you have any (unknown) (no (unknown) (unknown) Qualifiers: (units (un known) date) unknown) (unknown) (no (unknown) (unknown) RESPIRATORY: Clear (units (unknown) date) to auscultation. unknown) (unknown) (no (unknown) (unknown) ROS (units (unkno wn) date) unknown) (unknown) (no (unknown) (unknown) Rash (units (unkno wn) date) unknown) (unknown) (no (unknown) (unknown) Reason For Visit (units (unknown) date) unknown) (unknown) (no (unknown) (unknown) Reclast infusion (units (unknown) date) is advised unknown) annually. We will call to arrange this. (unknown) (no (unknown) (unknown) Red Blood Count (units (unknown) date) 4.56 X106/uL unknown) (4.0-5.2) 08/05/22 (unknown) (no (unknown) (unknown) Red Cell (units (unkno wn) date) Distribution Width unknown) 13.6 % (11.6-14.8) 08/05/22 (unknown) (no (unknown) (unknown) S/P renal artery (units (unknown) date) angioplasty (-2006) unknown) (unknown) (no (unknown) (unknown) She prefers the (units (unknown) date) once yearly unknown) infusion after a discussion today. (unknown) (no (unknown) (unknown) Signed By: (units (unk nown) date) unknown) (unknown) (no (unknown) (unknown) Smoking Status: (units (unknown) date) Never smoker unknown) (unknown) (no (unknown) (unknown) Sodium Level 137 (units (unknown) date) mmol/L (137-145) unknown) 10/13/22 (unknown) (no (unknown) (unknown) Status: Acute (units ( unknown) date) unknown) (unknown) (no (unknown) (unknown) Sulfa (Sulfonamide (units (unknown) date) Antibiotics) unknown) Allergy (Mild, Verified 10/13/22 07:49) (unknown) (no (unknown) (unknown) Surgical History (units (unknown) date) (Reviewed 02/14/23 unknown) @ 12:47 by Nicholas Guevara MD) (unknown) (no (unknown) (unknown) This note may have (units (unknown) date) been all or unknown) partially generated using voice recognition (unknown) (no (unknown) (unknown) Thyroid (units (unkno wn) date) Stimulating Hormone unknown) (TSH) 2.03 uIU/mL (0.47-4.68) 0 (unknown) (no (unknown) (unknown) Tobacco + (units (unkn own) date) Substance Use unknown) (unknown) (no (unknown) (unknown) Tobacco Status (units (unknown) date) unknown) (unknown) (no (unknown) (unknown) Total Bilirubin (units (unknown) date) 0.6 mg/dL (0.2-1.3) unknown) 10/13/22 (unknown) (no (unknown) (unknown) Total Protein 7.5 (units (unknown) date) g/dL (6.3-8.2) unknown) 10/13/22 (unknown) (no (unknown) (unknown) Triglycerides (units ( unknown) date) Level 105 mg/dL unknown) (35-150) 08/05/22 (unknown) (no (unknown) (unknown) Visit Reasons: 3 (units (unknown) date) mo f/u unknown) (unknown) (no (unknown) (unknown) Well-controlled. (units (unknown) date) Continue current unknown) medications. (unknown) (no (unknown) (unknown) White Blood Count (units (unknown) date) 4.1 X103/uL unknown) (4.5-11.0) L 08/05/22 (unknown) (no (unknown) (unknown) Your blood (units (unk nown) date) pressure is unknown) inadequately controlled but improved, remaining in the (unknown) (no (unknown) (unknown) Your cholesterol is (units (unknown) date) inadequately unknown) controlled. To lower your risk of stroke, STOP: (unknown) (no (unknown) (unknown) Your medical (units (u nknown) date) condition otherwise unknown) appears stable at this point. Continue your (unknown) (no (unknown) (unknown) about 35 minutes (units (unknown) date) daily. unknown) (unknown) (no (unknown) (unknown) anorexia, nausea (units (unknown) date) or vomiting, unknown) dysphagia, change in bowel habits or black or (unknown) (no (unknown) (unknown) at home. The (units (u nknown) date) patient denies unknown) exertional or other chest pain, dyspnea, orthopnea, (unknown) (no (unknown) (unknown) blood pressure (units ( unknown) date) control.? She has unknown) recorded blood pressures in the 130-150s/70-80s (unknown) (no (unknown) (unknown) bloody stools. The (units (unknown) date) patient is unknown) currently taking lansoprazole for gastroesophageal (unknown) (no (unknown) (unknown) current (units (unkno wn) date) medications. unknown) (unknown) (no (unknown) (unknown) daily, as well as (units (unknown) date) weight-bearing unknown) activity (e.g., walking) for bone health. (unknown) (no (unknown) (unknown) denies adverse (units (unknown) date) side effects to the unknown) medication, and denies feeling depressed, (unknown) (no (unknown) (unknown) distress. (units (unkn own) date) unknown) (unknown) (no (unknown) (unknown) erythromycin base (units (unknown) date) Adverse Reaction unknown) (Severe, Verified 10/13/22 07:49) (unknown) (no (unknown) (unknown) good compliance (units (unknown) date) and denies any unknown) chest pain, exertional or otherwise. Recent lab (unknown) (no (unknown) (unknown) good motivation. (units (unknown) date) PHQ-9 score = 7/. unknown) FRANK-7 score = 0/21. (unknown) (no (unknown) (unknown) have any problems (units (unknown) date) (leg swelling, unknown) heartburn and constipation). (unknown) (no (unknown) (unknown) have occurred. If (units (unknown) date) there are any unknown) questions, please contact the Medical Records (unknown) (no (unknown) (unknown) hypertension (units (u nknown) date) range. INCREASE: unknown) Amlodipine to 10mg nightly. Let us know if you (unknown) (no (unknown) (unknown) icterus. No (units (un known) date) injection or unknown) drainage. (unknown) (no (unknown) (unknown) irritable, cranky, (units (unknown) date) fatigued, easily unknown) tearful, sleep troubles, anhedonia, social (unknown) (no (unknown) (unknown) maintain intake of (units (unknown) date) calcium 1500mg unknown) daily (preferably mostly from dietary sources (unknown) (no (unknown) (unknown) may occur. (units (unk nown) date) Occasional unknown) wrong-word or 'sound-alike' substitutions may have (unknown) (no (unknown) (unknown) meningeal signs. (units (unknown) date) unknown) (unknown) (no (unknown) (unknown) mild (units (unkno wn) date) unknown) (unknown) (no (unknown) (unknown) mouth sores (units (un known) date) unknown) (unknown) (no (unknown) (unknown) nausea (units (unkno wn) date) unknown) (unknown) (no (unknown) (unknown) no focal deficits (units (unknown) date) evident. unknown) (unknown) (no (unknown) (unknown) occurred due to (units (unknown) date) the inherent unknown) limitations of voice recognition software. Please (unknown) (no (unknown) (unknown) paroxysmal (units (unk nown) date) nocturnal dyspnea, unknown) pedal edema, or TIA symptoms. She walks her dog (unknown) (no (unknown) (unknown) problems (aches or (units (unknown) date) pains). unknown) (unknown) (no (unknown) (unknown) read the note (units ( unknown) date) carefully and unknown) recognize, using context, where these substitutions (unknown) (no (unknown) (unknown) reflux disease at (units (unknown) date) this time. unknown) (unknown) (no (unknown) (unknown) severity: mild (units (unknown) date) Qualified Code(s): unknown) F33.0 - Major depressive disorder, recurrent, (unknown) (no (unknown) (unknown) software. Although (units (unknown) date) every effort is unknown) made to edit content, fur nailer errors (unknown) (no (unknown) (unknown) such as dairy, (units (unknown) date) lean meats and unknown) leafy green vegetables) and vitamin D3 1000 units (unknown) (no (unknown) (unknown) testing reviewed. (units (unknown) date) unknown) (unknown) (no (unknown) (unknown) the patient (units (un known) date) portal. Let us know unknown) if you have any questions or concerns. (unknown) (no (unknown) (unknown) with rare (units (unkn own) date) alprazolam. unknown) (unknown) (no (unknown) (unknown) withdrawal, or (units (unknown) date) trouble with unknown) memory, focus, or concentration. The patient has Result panel 4 (unknown) (no (unknown) (unknown) (no value) (units (unk nown) date) unknown) (unknown) (no (unknown) (unknown) (1) Essential (units ( unknown) date) hypertension: unknown) (unknown) (no (unknown) (unknown) (2) Mixed (units (unkn own) date) hyperlipidemia: unknown) (unknown) (no (unknown) (unknown) (3) GERD without (units (unknown) date) esophagitis: unknown) (unknown) (no (unknown) (unknown) (4) Depression, (units (unknown) date) major, recurrent: unknown) (unknown) (no (unknown) (unknown) (5) Generalized (units (unknown) date) anxiety disorder: unknown) (unknown) (no (unknown) (unknown) (6) Chronic (units (un known) date) insomnia: unknown) (unknown) (no (unknown) (unknown) (7) 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 She unknown) takes BoneUp BID. (unknown) (no (unknown) (unknown) (units (unkno wn) date) unknown) (unknown) (no (unknown) (unknown) 25-Hydroxy Vitamin (units (unknown) date) D Total 41.9 ng/mL unknown) (30.0-100.0) 08/05/22 (unknown) (no (unknown) (unknown) 02/09 (units (unkno wn) date) unknown) (unknown) (no (unknown) (unknown) 04/11 (units (unkno wn) date) unknown) (unknown) (no (unknown) (unknown) 08/05/22 (units (unkno wn) date) unknown) (unknown) (no (unknown) (unknown) AWV 08/05/2022 (units ( unknown) date) unknown) (unknown) (no (unknown) (unknown) Active/Remission (units (unknown) date) status: currently unknown) active Major depression episode (unknown) (no (unknown) (unknown) Age-related (units (un known) date) osteoporosis unknown) without current pathological fracture (unknown) (no (unknown) (unknown) Age/Sex: 82 / F (units (unknown) date) Date of Service: unknown) (unknown) (no (unknown) (unknown) Alanine (units (unkno wn) date) Aminotransferase unknown) (ALT/SGPT) 22 IU/L (<35) 09/22 (unknown) (no (unknown) (unknown) Albumin 4.7 g/dL (units (unknown) date) (3.5-5.0) 10/13/22 unknown) (unknown) (no (unknown) (unknown) Albumin/Globulin (units (unknown) date) Ratio 1.7 (1.0-2.8) unknown) 10/13/22 (unknown) (no (unknown) (unknown) Alkaline (units (unkno wn) date) Phosphatase 62 U/L unknown) (38-126) 10/13/22 (unknown) (no (unknown) (unknown) All systems (units (un known) date) reviewed + are unknown) unremarkable except as noted in HPI and below (unknown) (no (unknown) (unknown) Allergies (units (unkn own) date) unknown) (unknown) (no (unknown) (unknown) [place], [place] (units ( unknown) date) [id number] unknown) (unknown) (no (unknown) (unknown) Anesthesia (units (unk nown) date) unknown) (unknown) (no (unknown) (unknown) Anxiety (units (unkno wn) date) unknown) (unknown) (no (unknown) (unknown) Anxiety: The (units (u nknown) date) patient reports unknown) symptoms are well controlled on current therapy (unknown) (no (unknown) (unknown) Aspartate Amino (units (unknown) date) Transf (AST/SGOT) unknown) 25 IU/L (14-36) 10/13/ (unknown) (no (unknown) (unknown) Assessment + Plan (units (unknown) date) unknown) (unknown) (no (unknown) (unknown) Assessment and (units (unknown) date) Plan: unknown) (unknown) (no (unknown) (unknown) Attending Dr: (units ( unknown) date) Nicholas Guevara MD unknown) (unknown) (no (unknown) (unknown) BUN/Creatinine (units (unknown) date) Ratio 21.7 (6-22) unknown) 10/13/22 (unknown) (no (unknown) (unknown) Blood Urea (units (unk nown) date) Nitrogen 15 mg/dL unknown) (7-17) 10/13/22 (unknown) (no (unknown) (unknown) CARDIOVASCULAR: (units (unknown) date) Regular rate and unknown) rhythm without murmurs, gallops, or rubs. (unknown) (no (unknown) (unknown) Calcium Level 9.7 (units (unknown) date) mg/dL (8.4-10.2) unknown) 10/13/22 (unknown) (no (unknown) (unknown) Carbon Dioxide (units (unknown) date) Level 28 mmol/L unknown) (22-32) 10/13/22 (unknown) (no (unknown) (unknown) Chicken pox (units (un known) date) (-194) unknown) (unknown) (no (unknown) (unknown) Chief Complaint (units (unknown) date) unknown) (unknown) (no (unknown) (unknown) Chief Complaint: (units (unknown) date) Medical followup unknown) (unknown) (no (unknown) (unknown) Chloride Level 101 (units (unknown) date) mmol/L (98-107) unknown) 10/13/22 (unknown) (no (unknown) (unknown) Cholesterol Level (units (unknown) date) 257 mg/dL (140-199) unknown) H 08/05/22 (unknown) (no (unknown) (unknown) Chronic insomnia (units (unknown) date) unknown) (unknown) (no (unknown) (unknown) Clinically stable. (units (unknown) date) Continue current unknown) plan. (unknown) (no (unknown) (unknown) [facility] (units (unk nown) date) Results- Last: unknown) (unknown) (no (unknown) (unknown) Confirmed (units (unkn own) date) 02/14/23] unknown) (unknown) (no (unknown) (unknown) Const (units (unkno wn) date) unknown) (unknown) (no (unknown) (unknown) Creatinine 0.69 (units (unknown) date) mg/dL (0.52-1.04) unknown) 10/13/22 (unknown) (no (unknown) (unknown) DERMATOLOGIC: No (units (unknown) date) rashes or skin unknown) lesions. (unknown) (no (unknown) (unknown) : 1940 (units (unknown) date) Acct:[id number] unknown) (unknown) (no (unknown) (unknown) Depression, major, (units (unknown) date) recurrent unknown) (unknown) (no (unknown) (unknown) Dept at (units (unkno wn) date) . unknown) (unknown) (no (unknown) (unknown) Details: (units (unkno wn) date) unknown) (unknown) (no (unknown) (unknown) Discuss/review. (units (unknown) date) unknown) (unknown) (no (unknown) (unknown) Documented By: (units (unknown) date) Nicholas Guevara MD unknown) 02/14/23 1247 (unknown) (no (unknown) (unknown) Draft (units (unkno wn) date) unknown) (unknown) (no (unknown) (unknown) ENT: Mucous (units (un known) date) membranes pink and unknown) moist. (unknown) (no (unknown) (unknown) EXTREMITIES: No (units (unknown) date) clubbing, cyanosis, unknown) or edema. (unknown) (no (unknown) (unknown) EYES: Pupils equal (units (unknown) date) round and reactive. unknown) Extraocular motions intact. No scleral (unknown) (no (unknown) (unknown) Essential (units (unkn own) date) hypertension unknown) (unknown) (no (unknown) (unknown) Estimat Glomerular (units (unknown) date) Filtration Rate > unknown) 60 mL/min (>60) 10/13 (unknown) (no (unknown) (unknown) Exam Narrative (units (unknown) date) unknown) (unknown) (no (unknown) (unknown) Exam Narrative: (units (unknown) date) unknown) (unknown) (no (unknown) (unknown) Exam (units (unkno wn) date) unknown) (unknown) (no (unknown) (unknown) Family History (units (unknown) date) (Reviewed 02/14/23 unknown) @ 12:47 by Nicholas Guevara MD) (unknown) (no (unknown) (unknown) Family/Other (units (u nknown) date) Accident unknown) (unknown) (no (unknown) (unknown) Father (units (unknown) date) Accident unknown) (unknown) (no (unknown) (unknown) [facility] ([facility] unknown) (unknown) (no (unknown) (unknown) Follow up for (units ( unknown) date) medication check unknown) up. (unknown) (no (unknown) (unknown) Followup in 3 (units ( unknown) date) months. unknown) (unknown) (no (unknown) (unknown) For bowel health, (units (unknown) date) you may try unknown) Metamucil or psyllium husks daily. (unknown) (no (unknown) (unknown) For general bone (units (unknown) date) health to prevent unknown) or manage osteoporosis or osteopenia, (unknown) (no (unknown) (unknown) Fractures (units (unkn own) date) unknown) (unknown) (no (unknown) (unknown) GASTROINTESTINAL: (units (unknown) date) Abdomen soft, unknown) non-tender, nondistended. (unknown) (no (unknown) (unknown) GENERAL: This is a (units (unknown) date) well-nourished, unknown) well-developed patient, in no apparent (unknown) (no (unknown) (unknown) GERD without (units (u nknown) date) esophagitis unknown) (unknown) (no (unknown) (unknown) Gastroesophageal (units (unknown) date) reflux disease: The unknown) patient denies abdominal or flank pain, (unknown) (no (unknown) (unknown) Generalized (units (un known) date) anxiety disorder unknown) (unknown) (no (unknown) (unknown) Globulin 2.8 g/dL (units (unknown) date) (1.7-4.1) 10/13/22 unknown) (unknown) (no (unknown) (unknown) Glucose Level 92 (units (unknown) date) mg/dL (80-110) unknown) 10/13/22 (unknown) (no (unknown) (unknown) Grandfather (units (un known) date) Cancer unknown) (unknown) (no (unknown) (unknown) Grandmother (units (un known) date) Stroke unknown) (unknown) (no (unknown) (unknown) H/O total (units (unkn own) date) hysterectomy unknown) (unknown) (no (unknown) (unknown) HDL Cholesterol 79 (units (unknown) date) mg/dL (40-60) H unknown) 08/05/22 (unknown) (no (unknown) (unknown) HPI (units (unkno wn) date) unknown) (unknown) (no (unknown) (unknown) Health Management (units (unknown) date) reviewed with unknown) patient: Yes (unknown) (no (unknown) (unknown) Health Management (units (unknown) date) unknown) (unknown) (no (unknown) (unknown) Hematocrit 40.7 % (units (unknown) date) (36-46) 08/05/22 unknown) (unknown) (no (unknown) (unknown) Hemoglobin 13.9 (units (unknown) date) g/dL (12.0-16.0) unknown) 08/05/22 (unknown) (no (unknown) (unknown) History of bladder (units (unknown) date) surgery unknown) (unknown) (no (unknown) (unknown) History of carpal (units (unknown) date) tunnel release unknown) (unknown) (no (unknown) (unknown) Hyperlipidemia: The (units (unknown) date) present medications unknown) include pravastatin. The patient reports (unknown) (no (unknown) (unknown) Hypertension: The (units (unknown) date) patient is unknown) currently on amlodipine started on 08/05/2022 for (unknown) (no (unknown) (unknown) Inadequately (units (u nknown) date) controlled. Advise: unknown) Increase amlodipine to 10mg daily. (unknown) (no (unknown) (unknown) Inadequately (units (u nknown) date) controlled. Advise: unknown) Switch pravastatin to rosuvastatin. (unknown) (no (unknown) (unknown) Insomnia: The (units ( unknown) date) patient states unknown) symptoms are adequately controlled with zolpidem. (unknown) (no (unknown) (unknown) Intake Note: (units (u nknown) date) unknown) (unknown) (no (unknown) (unknown) Intake performed (units (unknown) date) by: Viji Santos unknown) (unknown) (no (unknown) (unknown) Intake (units (unkno wn) date) unknown) (unknown) (no (unknown) (unknown) Intake- Clincial (units (unknown) date) Staff unknown) (unknown) (no (unknown) (unknown) Internal Medicine (units (unknown) date) Office Visit unknown) (unknown) (no (unknown) (unknown) Irritable bowel (units (unknown) date) syndrome unknown) (unknown) (no (unknown) (unknown) It was very nice (units (unknown) date) to meet with you unknown) today! (unknown) (no (unknown) (unknown) LDL Cholesterol, (units (unknown) date) Calculated 157 unknown) mg/dL (<100) H 08/05/22 (unknown) (no (unknown) (unknown) Lab Results (units (un known) date) unknown) (unknown) (no (unknown) (unknown) Labwork is ordered (units (unknown) date) today to evaluate unknown) your condition. Results will be posted to (unknown) (no (unknown) (unknown) Last Menstural (units (unknown) date) Cycle + Details unknown) (unknown) (no (unknown) (unknown) Let us know if you (units (unknown) date) have any problems. unknown) (unknown) (no (unknown) (unknown) Loc: [facility] (units (unkno wn) date) unknown) (unknown) (no (unknown) (unknown) Major depression:? (units (unknown) date) The patient reports unknown) good compliance with escitalopram, and (unknown) (no (unknown) (unknown) Mean Corpuscular (units (unknown) date) Hemoglobin 30.4 PG unknown) (26-34) 08/05/22 (unknown) (no (unknown) (unknown) Mean Corpuscular (units (unknown) date) Hemoglobin Concent unknown) 34.1 % (30-36) 07/22 (unknown) (no (unknown) (unknown) Mean Corpuscular (units (unknown) date) Volume 89.2 fL unknown) (80-100) 08/05/22 (unknown) (no (unknown) (unknown) Measles (-1943) (units (unknown) date) unknown) (unknown) (no (unknown) (unknown) Medical History (units (unknown) date) (Reviewed 02/14/23 unknown) @ 12:47 by Nicholas Guevara MD) (unknown) (no (unknown) (unknown) Medicare annual (units (unknown) date) wellness visit, unknown) initial (unknown) (no (unknown) (unknown) Medications (units (un known) date) unknown) (unknown) (no (unknown) (unknown) Mixed (units (unkno wn) date) hyperlipidemia unknown) (unknown) (no (unknown) (unknown) Mother (units (unknown) date) Stroke unknown) (unknown) (no (unknown) (unknown) NECK: Trachea (units ( unknown) date) midline. No JVD, unknown) bruits or lymphadenopathy. Supple, nontender, no (unknown) (no (unknown) (unknown) NEUROLOGIC: Alert, (units (unknown) date) oriented, speech unknown) fluent, full upper and lower motor strength, (unknown) (no (unknown) (unknown) New diagnosis. (units ( unknown) date) Inadequately unknown) controlled. Advise: Reclast annually or alendronate. (unknown) (no (unknown) (unknown) Osteoporosis: The (units (unknown) date) patient has unknown) osteoporosis by DEXA 08/11/2022: AP spine T-score (unknown) (no (unknown) (unknown) Other Menstrual (units (unknown) date) Period: Surgical unknown) Menopause (hysterectomy) (unknown) (no (unknown) (unknown) PFSH (units (unkno wn) date) unknown) (unknown) (no (unknown) (unknown) Patient: (units (unkno wn) date) Angle Carranza unknown) MR#: [id number] (unknown) (no (unknown) (unknown) Penicillins (units (un known) date) Adverse Reaction unknown) (Severe, Verified 02/14/23 13:36) (unknown) (no (unknown) (unknown) Plan (units (unkno wn) date) unknown) (unknown) (no (unknown) (unknown) Platelet Count 188 (units (unknown) date) X103/uL (150-400) unknown) 08/05/22 (unknown) (no (unknown) (unknown) Potassium Level (units (unknown) date) 4.5 mmol/L unknown) (3.4-5.1) 10/13/22 (unknown) (no (unknown) (unknown) Pravastatin and (units (unknown) date) START: Rosuvastatin unknown) 20mg nightly. Let us know if you have any (unknown) (no (unknown) (unknown) Qualifiers: (units (un known) date) unknown) (unknown) (no (unknown) (unknown) RESPIRATORY: Clear (units (unknown) date) to auscultation. unknown) (unknown) (no (unknown) (unknown) ROS (units (unkno wn) date) unknown) (unknown) (no (unknown) (unknown) Rash (units (unkno wn) date) unknown) (unknown) (no (unknown) (unknown) Reason For Visit (units (unknown) date) unknown) (unknown) (no (unknown) (unknown) Reclast infusion (units (unknown) date) is advised unknown) annually. We will call to arrange this. (unknown) (no (unknown) (unknown) Red Blood Count (units (unknown) date) 4.56 X106/uL unknown) (4.0-5.2) 08/05/22 (unknown) (no (unknown) (unknown) Red Cell (units (unkno wn) date) Distribution Width unknown) 13.6 % (11.6-14.8) 08/05/22 (unknown) (no (unknown) (unknown) S/P renal artery (units (unknown) date) angioplasty (-2005) unknown) (unknown) (no (unknown) (unknown) She prefers the (units (unknown) date) once yearly unknown) infusion after a discussion today. (unknown) (no (unknown) (unknown) Signed By: (units (unk nown) date) unknown) (unknown) (no (unknown) (unknown) Smoking Status: (units (unknown) date) Never smoker unknown) (unknown) (no (unknown) (unknown) Sodium Level 137 (units (unknown) date) mmol/L (137-145) unknown) 10/13/22 (unknown) (no (unknown) (unknown) Status: Acute (units ( unknown) date) unknown) (unknown) (no (unknown) (unknown) Sulfa (Sulfonamide (units (unknown) date) Antibiotics) unknown) Allergy (Mild, Verified 02/14/23 13:36) (unknown) (no (unknown) (unknown) Surgical History (units (unknown) date) (Reviewed 02/14/23 unknown) @ 12:47 by Nicholas Guevara MD) (unknown) (no (unknown) (unknown) This note may have (units (unknown) date) been all or unknown) partially generated using voice recognition (unknown) (no (unknown) (unknown) Thyroid (units (unkno wn) date) Stimulating Hormone unknown) (TSH) 2.03 uIU/mL (0.47-4.68) 0 (unknown) (no (unknown) (unknown) Tobacco + (units (unkn own) date) Substance Use unknown) (unknown) (no (unknown) (unknown) Tobacco Status (units (unknown) date) unknown) (unknown) (no (unknown) (unknown) Total Bilirubin (units (unknown) date) 0.6 mg/dL (0.2-1.3) unknown) 10/13/22 (unknown) (no (unknown) (unknown) Total Protein 7.5 (units (unknown) date) g/dL (6.3-8.2) unknown) 10/13/22 (unknown) (no (unknown) (unknown) Triglycerides (units ( unknown) date) Level 105 mg/dL unknown) (35-150) 08/05/22 (unknown) (no (unknown) (unknown) Visit Reasons: 3 (units (unknown) date) mo f/u unknown) (unknown) (no (unknown) (unknown) Well-controlled. (units (unknown) date) Continue current unknown) medications. (unknown) (no (unknown) (unknown) White Blood Count (units (unknown) date) 4.1 X103/uL unknown) (4.5-11.0) L 08/05/22 (unknown) (no (unknown) (unknown) Your blood (units (unk nown) date) pressure is unknown) inadequately controlled but improved, remaining in the (unknown) (no (unknown) (unknown) Your cholesterol is (units (unknown) date) inadequately unknown) controlled. To lower your risk of stroke, STOP: (unknown) (no (unknown) (unknown) Your medical (units (u nknown) date) condition otherwise unknown) appears stable at this point. Continue your (unknown) (no (unknown) (unknown) about 35 minutes (units (unknown) date) daily. unknown) (unknown) (no (unknown) (unknown) alprazolam 0.25 mg (units (unknown) date) tablet 0.25 mg PO unknown) DAILY PRN anxiety #20 tabs 08/05/22 [Rx (unknown) (no (unknown) (unknown) amlodipine 10 mg (units (unknown) date) tablet 10 mg PO unknown) DAILY #90 tabs 10/13/22 [Rx Confirmed 02/14/23] (unknown) (no (unknown) (unknown) anorexia, nausea (units (unknown) date) or vomiting, unknown) dysphagia, change in bowel habits or black or (unknown) (no (unknown) (unknown) at home. The (units (u nknown) date) patient denies unknown) exertional or other chest pain, dyspnea, orthopnea, (unknown) (no (unknown) (unknown) blood pressure (units ( unknown) date) control.? She has unknown) recorded blood pressures in the 130-150s/70-80s (unknown) (no (unknown) (unknown) bloody stools. The (units (unknown) date) patient is unknown) currently taking lansoprazole for gastroesophageal (unknown) (no (unknown) (unknown) current (units (unkno wn) date) medications. unknown) (unknown) (no (unknown) (unknown) daily, as well as (units (unknown) date) weight-bearing unknown) activity (e.g., walking) for bone health. (unknown) (no (unknown) (unknown) denies adverse (units (unknown) date) side effects to the unknown) medication, and denies feeling depressed, (unknown) (no (unknown) (unknown) distress. (units (unkn own) date) unknown) (unknown) (no (unknown) (unknown) erythromycin base (units (unknown) date) Adverse Reaction unknown) (Severe, Verified 02/14/23 13:36) (unknown) (no (unknown) (unknown) escitalopram (units (u nknown) date) oxalate 20 mg unknown) tablet 30 mg PO DAILY #135 tabs 10/13/22 [Rx (unknown) (no (unknown) (unknown) good compliance (units (unknown) date) and denies any unknown) chest pain, exertional or otherwise. Recent lab (unknown) (no (unknown) (unknown) good motivation. (units (unknown) date) PHQ-9 score = 06/16. unknown) FRANK-7 score = 0. (unknown) (no (unknown) (unknown) have any problems (units (unknown) date) (leg swelling, unknown) heartburn and constipation). (unknown) (no (unknown) (unknown) have occurred. If (units (unknown) date) there are any unknown) questions, please contact the Medical Records (unknown) (no (unknown) (unknown) hypertension (units (u nknown) date) range. INCREASE: unknown) Amlodipine to 10mg nightly. Let us know if you (unknown) (no (unknown) (unknown) icterus. No (units (un known) date) injection or unknown) drainage. (unknown) (no (unknown) (unknown) irritable, cranky, (units (unknown) date) fatigued, easily unknown) tearful, sleep troubles, anhedonia, social (unknown) (no (unknown) (unknown) lansoprazole 30 mg (units (unknown) date) capsule,delayed unknown) release 30 mg PO BID #180 caps 08/05/22 [Rx (unknown) (no (unknown) (unknown) maintain intake of (units (unknown) date) calcium 1500mg unknown) daily (preferably mostly from dietary sources (unknown) (no (unknown) (unknown) may occur. (units (unk nown) date) Occasional unknown) wrong-word or 'sound-alike' substitutions may have (unknown) (no (unknown) (unknown) meningeal signs. (units (unknown) date) unknown) (unknown) (no (unknown) (unknown) mild (units (unkno wn) date) unknown) (unknown) (no (unknown) (unknown) mouth sores (units (un known) date) unknown) (unknown) (no (unknown) (unknown) nausea (units (unkno wn) date) unknown) (unknown) (no (unknown) (unknown) no focal deficits (units (unknown) date) evident. unknown) (unknown) (no (unknown) (unknown) occurred due to (units (unknown) date) the inherent unknown) limitations of voice recognition software. Please (unknown) (no (unknown) (unknown) paroxysmal (units (unk nown) date) nocturnal dyspnea, unknown) pedal edema, or TIA symptoms. She walks her dog (unknown) (no (unknown) (unknown) problems (aches or (units (unknown) date) pains). unknown) (unknown) (no (unknown) (unknown) read the note (units ( unknown) date) carefully and unknown) recognize, using context, where these substitutions (unknown) (no (unknown) (unknown) reflux disease at (units (unknown) date) this time. unknown) (unknown) (no (unknown) (unknown) rosuvastatin 20 mg (units (unknown) date) tablet 20 mg PO unknown) DAILY #100 tabs 11/09/22 [Rx Confirmed (unknown) (no (unknown) (unknown) severity: mild (units (unknown) date) Qualified Code(s): unknown) F33.0 - Major depressive disorder, recurrent, (unknown) (no (unknown) (unknown) software. Although (units (unknown) date) every effort is unknown) made to edit content, fur nailer errors (unknown) (no (unknown) (unknown) such as dairy, (units (unknown) date) lean meats and unknown) leafy green vegetables) and vitamin D3 1000 units (unknown) (no (unknown) (unknown) testing reviewed. (units (unknown) date) unknown) (unknown) (no (unknown) (unknown) the patient (units (un known) date) portal. Let us know unknown) if you have any questions or concerns. (unknown) (no (unknown) (unknown) with rare (units (unkn own) date) alprazolam. unknown) (unknown) (no (unknown) (unknown) withdrawal, or (units (unknown) date) trouble with unknown) memory, focus, or concentration. The patient has (unknown) (no (unknown) (unknown) zolpidem 10 mg (units (unknown) date) tablet 10 mg PO unknown) BEDTIME PRN insomnia #45 tabs 08/05/22 [Rx Result panel 5 (unknown) (no (unknown) (unknown) (no value) (units (unk nown) date) unknown) (unknown) (no (unknown) (unknown) (1) Essential (units ( unknown) date) hypertension: unknown) (unknown) (no (unknown) (unknown) (2) Mixed (units (unkn own) date) hyperlipidemia: unknown) (unknown) (no (unknown) (unknown) (3) GERD without (units (unknown) date) esophagitis: unknown) (unknown) (no (unknown) (unknown) (4) Depression, (units (unknown) date) major, recurrent: unknown) (unknown) (no (unknown) (unknown) (5) Generalized (units (unknown) date) anxiety disorder: unknown) (unknown) (no (unknown) (unknown) (6) Chronic (units (un known) date) insomnia: unknown) (unknown) (no (unknown) (unknown) (7) Age-related (units (unknown) date) osteoporosis unknown) without current pathological fracture: (unknown) (no (unknown) (unknown) / (units (unkno wn) date) unknown) (unknown) (no (unknown) (unknown) 02/14/23 (units (unkno wn) date) unknown) (unknown) (no (unknown) (unknown) 02/14/23] (units (unkn own) date) unknown) (unknown) (no (unknown) (unknown) [id number] (units (unkno wn) date) unknown) (unknown) (no (unknown) (unknown) 14:46 02/14/23 (units (unknown) date) unknown) (unknown) (no (unknown) (unknown) 14:47 (units (unkno wn) date) unknown) (unknown) (no (unknown) (unknown) 2.5, left FN -2.2, (units (unknown) date) right FN -2.4. She unknown) takes BoneUp BID. (unknown) (no (unknown) (unknown) (units (unkno wn) date) unknown) (unknown) (no (unknown) (unknown) 25-Hydroxy Vitamin (units (unknown) date) D Total 41.9 ng/mL unknown) (30.0-100.0) 08/05/22 (unknown) (no (unknown) (unknown) 02/09 (units (unkno wn) date) unknown) (unknown) (no (unknown) (unknown) 04/11 (units (unkno wn) date) unknown) (unknown) (no (unknown) (unknown) 08/05/22 (units (unkno wn) date) unknown) (unknown) (no (unknown) (unknown) AWV 08/05/2022 (units ( unknown) date) unknown) (unknown) (no (unknown) (unknown) Active/Remission (units (unknown) date) status: currently unknown) active Major depression episode (unknown) (no (unknown) (unknown) Age-related (units (un known) date) osteoporosis unknown) without current pathological fracture (unknown) (no (unknown) (unknown) Age/Sex: 82 / F (units (unknown) date) Date of Service: unknown) (unknown) (no (unknown) (unknown) Alanine (units (unkno wn) date) Aminotransferase unknown) (ALT/SGPT) 22 IU/L (<35) 09/22 (unknown) (no (unknown) (unknown) Albumin 4.7 g/dL (units (unknown) date) (3.5-5.0) 10/13/22 unknown) (unknown) (no (unknown) (unknown) Albumin/Globulin (units (unknown) date) Ratio 1.7 (1.0-2.8) unknown) 10/13/22 (unknown) (no (unknown) (unknown) Alkaline (units (unkno wn) date) Phosphatase 62 U/L unknown) (38-126) 10/13/22 (unknown) (no (unknown) (unknown) All systems (units (un known) date) reviewed + are unknown) unremarkable except as noted in HPI and below (unknown) (no (unknown) (unknown) Allergies (units (unkn own) date) unknown) (unknown) (no (unknown) (unknown) [place], [place] (units ( unknown) date) [id number] unknown) (unknown) (no (unknown) (unknown) Anesthesia (units (unk nown) date) unknown) (unknown) (no (unknown) (unknown) Anxiety (units (unkno wn) date) unknown) (unknown) (no (unknown) (unknown) Anxiety: The (units (u nknown) date) patient reports unknown) symptoms are well controlled on current therapy (unknown) (no (unknown) (unknown) Aspartate Amino (units (unknown) date) Transf (AST/SGOT) unknown) 25 IU/L (14-36) 10/13/ (unknown) (no (unknown) (unknown) Assessment + Plan (units (unknown) date) unknown) (unknown) (no (unknown) (unknown) Assessment and (units (unknown) date) Plan: unknown) (unknown) (no (unknown) (unknown) Attending Dr: (units ( unknown) date) Nicholas V Kotal MD unknown) (unknown) (no (unknown) (unknown) BMI 26.9 (units (unkno wn) date) unknown) (unknown) (no (unknown) (unknown) BP 140/80 144/70 H (units (unknown) date) unknown) (unknown) (no (unknown) (unknown) BUN/Creatinine (units (unknown) date) Ratio 21.7 (6-22) unknown) 10/13/22 (unknown) (no (unknown) (unknown) Blood Pressure (units (unknown) date) Location Lt unknown) brachial Lt brachial (unknown) (no (unknown) (unknown) Blood Urea (units (unk nown) date) Nitrogen 15 mg/dL unknown) (7-17) 10/13/22 (unknown) (no (unknown) (unknown) CARDIOVASCULAR: (units (unknown) date) Regular rate and unknown) rhythm without murmurs, gallops, or rubs. (unknown) (no (unknown) (unknown) Calcium Level 9.7 (units (unknown) date) mg/dL (8.4-10.2) unknown) 10/13/22 (unknown) (no (unknown) (unknown) Carbon Dioxide (units (unknown) date) Level 28 mmol/L unknown) (22-32) 10/13/22 (unknown) (no (unknown) (unknown) Chicken pox (units (un known) date) (-1945) unknown) (unknown) (no (unknown) (unknown) Chief Complaint (units (unknown) date) unknown) (unknown) (no (unknown) (unknown) Chief Complaint: (units (unknown) date) Medical followup unknown) (unknown) (no (unknown) (unknown) Chloride Level 101 (units (unknown) date) mmol/L (98-107) unknown) 10/13/22 (unknown) (no (unknown) (unknown) Cholesterol Level (units (unknown) date) 257 mg/dL (140-199) unknown) H 08/05/22 (unknown) (no (unknown) (unknown) Chronic insomnia (units (unknown) date) unknown) (unknown) (no (unknown) (unknown) Clinically stable. (units (unknown) date) Continue current unknown) plan. (unknown) (no (unknown) (unknown) [facility] (units (unk nown) date) Results- Last: unknown) (unknown) (no (unknown) (unknown) Confirmed (units (unkn own) date) 02/14/23] unknown) (unknown) (no (unknown) (unknown) Const (units (unkno wn) date) unknown) (unknown) (no (unknown) (unknown) Creatinine 0.69 (units (unknown) date) mg/dL (0.52-1.04) unknown) 10/13/22 (unknown) (no (unknown) (unknown) DERMATOLOGIC: No (units (unknown) date) rashes or skin unknown) lesions. (unknown) (no (unknown) (unknown) : 1940 (units (unknown) date) Acct:[id number] unknown) (unknown) (no (unknown) (unknown) Depression, major, (units (unknown) date) recurrent unknown) (unknown) (no (unknown) (unknown) Dept at (units (unkno wn) date) . unknown) (unknown) (no (unknown) (unknown) Details: (units (unkno wn) date) unknown) (unknown) (no (unknown) (unknown) Discuss/review. (units (unknown) date) unknown) (unknown) (no (unknown) (unknown) Documented By: (units (unknown) date) Nicholas Guevara MD unknown) 02/14/23 1247 (unknown) (no (unknown) (unknown) Draft (units (unkno wn) date) unknown) (unknown) (no (unknown) (unknown) ENT: Mucous (units (un known) date) membranes pink and unknown) moist. (unknown) (no (unknown) (unknown) EXTREMITIES: No (units (unknown) date) clubbing, cyanosis, unknown) or edema. (unknown) (no (unknown) (unknown) EYES: Pupils equal (units (unknown) date) round and reactive. unknown) Extraocular motions intact. No scleral (unknown) (no (unknown) (unknown) Essential (units (unkn own) date) hypertension unknown) (unknown) (no (unknown) (unknown) Estimat Glomerular (units (unknown) date) Filtration Rate > unknown) 60 mL/min (>60) 10/13 (unknown) (no (unknown) (unknown) Exam Narrative (units (unknown) date) unknown) (unknown) (no (unknown) (unknown) Exam Narrative: (units (unknown) date) unknown) (unknown) (no (unknown) (unknown) Exam (units (unkno wn) date) unknown) (unknown) (no (unknown) (unknown) Family History (units (unknown) date) (Reviewed 02/14/23 unknown) @ 12:47 by Nicholas Guevara MD) (unknown) (no (unknown) (unknown) Family/Other (units (u nknown) date) Accident unknown) (unknown) (no (unknown) (unknown) Father (units (unknown) date) Accident unknown) (unknown) (no (unknown) (unknown) [facility]) (unknown) (no (unknown) (unknown) Follow up for (units ( unknown) date) medication check unknown) up. (unknown) (no (unknown) (unknown) Followup in 3 (units ( unknown) date) months. unknown) (unknown) (no (unknown) (unknown) For bowel health, (units (unknown) date) you may try unknown) Metamucil or psyllium husks daily. (unknown) (no (unknown) (unknown) For general bone (units (unknown) date) health to prevent unknown) or manage osteoporosis or osteopenia, (unknown) (no (unknown) (unknown) Fractures (units (unkn own) date) unknown) (unknown) (no (unknown) (unknown) GASTROINTESTINAL: (units (unknown) date) Abdomen soft, unknown) non-tender, nondistended. (unknown) (no (unknown) (unknown) GENERAL: This is a (units (unknown) date) well-nourished, unknown) well-developed patient, in no apparent (unknown) (no (unknown) (unknown) GERD without (units (u nknown) date) esophagitis unknown) (unknown) (no (unknown) (unknown) Gastroesophageal (units (unknown) date) reflux disease: The unknown) patient denies abdominal or flank pain, (unknown) (no (unknown) (unknown) Generalized (units (un known) date) anxiety disorder unknown) (unknown) (no (unknown) (unknown) Globulin 2.8 g/dL (units (unknown) date) (1.7-4.1) 10/13/22 unknown) (unknown) (no (unknown) (unknown) Glucose Level 92 (units (unknown) date) mg/dL (80-110) unknown) 10/13/22 (unknown) (no (unknown) (unknown) Grandfather (units (un known) date) Cancer unknown) (unknown) (no (unknown) (unknown) Grandmother (units (un known) date) Stroke unknown) (unknown) (no (unknown) (unknown) H/O total (units (unkn own) date) hysterectomy unknown) (unknown) (no (unknown) (unknown) HDL Cholesterol 79 (units (unknown) date) mg/dL (40-60) H unknown) 08/05/22 (unknown) (no (unknown) (unknown) HPI (units (unkno wn) date) unknown) (unknown) (no (unknown) (unknown) Health Management (units (unknown) date) reviewed with unknown) patient: Yes (unknown) (no (unknown) (unknown) Health Management (units (unknown) date) unknown) (unknown) (no (unknown) (unknown) Height 4 ft 10.5 (units (unknown) date) in unknown) (unknown) (no (unknown) (unknown) Hematocrit 40.7 % (units (unknown) date) (36-46) 08/05/22 unknown) (unknown) (no (unknown) (unknown) Hemoglobin 13.9 (units (unknown) date) g/dL (12.0-16.0) unknown) 08/05/22 (unknown) (no (unknown) (unknown) History of bladder (units (unknown) date) surgery unknown) (unknown) (no (unknown) (unknown) History of carpal (units (unknown) date) tunnel release unknown) (unknown) (no (unknown) (unknown) Hyperlipidemia: The (units (unknown) date) present medications unknown) include pravastatin. The patient reports (unknown) (no (unknown) (unknown) Hypertension: The (units (unknown) date) patient is unknown) currently on amlodipine started on 08/05/2022 for (unknown) (no (unknown) (unknown) Inadequately (units (u nknown) date) controlled. Advise: unknown) Increase amlodipine to 10mg daily. (unknown) (no (unknown) (unknown) Inadequately (units (u nknown) date) controlled. Advise: unknown) Switch pravastatin to rosuvastatin. (unknown) (no (unknown) (unknown) Insomnia: The (units ( unknown) date) patient states unknown) symptoms are adequately controlled with zolpidem. (unknown) (no (unknown) (unknown) Intake Note: (units (u nknown) date) unknown) (unknown) (no (unknown) (unknown) Intake performed (units (unknown) date) by: Viji Santos unknown) (unknown) (no (unknown) (unknown) Intake (units (unkno wn) date) unknown) (unknown) (no (unknown) (unknown) Intake- Clincial (units (unknown) date) Staff unknown) (unknown) (no (unknown) (unknown) Internal Medicine (units (unknown) date) Office Visit unknown) (unknown) (no (unknown) (unknown) Irritable bowel (units (unknown) date) syndrome unknown) (unknown) (no (unknown) (unknown) It was very nice (units (unknown) date) to meet with you unknown) today! (unknown) (no (unknown) (unknown) LDL Cholesterol, (units (unknown) date) Calculated 157 unknown) mg/dL (<100) H 08/05/22 (unknown) (no (unknown) (unknown) Lab Results (units (un known) date) unknown) (unknown) (no (unknown) (unknown) Labwork is ordered (units (unknown) date) today to evaluate unknown) your condition. Results will be posted to (unknown) (no (unknown) (unknown) Last Menstural (units (unknown) date) Cycle + Details unknown) (unknown) (no (unknown) (unknown) Let us know if you (units (unknown) date) have any problems. unknown) (unknown) (no (unknown) (unknown) Loc: [facility] (units (unkno wn) date) unknown) (unknown) (no (unknown) (unknown) Major depression:? (units (unknown) date) The patient reports unknown) good compliance with escitalopram, and (unknown) (no (unknown) (unknown) Mean Corpuscular (units (unknown) date) Hemoglobin 30.4 PG unknown) (26-34) 08/05/22 (unknown) (no (unknown) (unknown) Mean Corpuscular (units (unknown) date) Hemoglobin Concent unknown) 34.1 % (30-36) 07/22 (unknown) (no (unknown) (unknown) Mean Corpuscular (units (unknown) date) Volume 89.2 fL unknown) (80-100) 08/05/22 (unknown) (no (unknown) (unknown) Measles (-1943) (units (unknown) date) unknown) (unknown) (no (unknown) (unknown) Medical History (units (unknown) date) (Reviewed 02/14/23 unknown) @ 12:47 by Nicholas Guevara MD) (unknown) (no (unknown) (unknown) Medicare annual (units (unknown) date) wellness visit, unknown) initial (unknown) (no (unknown) (unknown) Medications (units (un known) date) unknown) (unknown) (no (unknown) (unknown) Mixed (units (unkno wn) date) hyperlipidemia unknown) (unknown) (no (unknown) (unknown) Mother (units (unknown) date) Stroke unknown) (unknown) (no (unknown) (unknown) NECK: Trachea (units ( unknown) date) midline. No JVD, unknown) bruits or lymphadenopathy. Supple, nontender, no (unknown) (no (unknown) (unknown) NEUROLOGIC: Alert, (units (unknown) date) oriented, speech unknown) fluent, full upper and lower motor strength, (unknown) (no (unknown) (unknown) New diagnosis. (units ( unknown) date) Inadequately unknown) controlled. Advise: Reclast annually or alendronate. (unknown) (no (unknown) (unknown) Osteoporosis: The (units (unknown) date) patient has unknown) osteoporosis by DEXA 08/11/2022: AP spine T-score (unknown) (no (unknown) (unknown) Other Menstrual (units (unknown) date) Period: Surgical unknown) Menopause (hysterectomy) (unknown) (no (unknown) (unknown) Oxygen Delivery (units (unknown) date) Method room air unknown) (unknown) (no (unknown) (unknown) PFSH (units (unkno wn) date) unknown) (unknown) (no (unknown) (unknown) Patient: (units (unkno wn) date) Maletta,Angle unknown) MR#: [id number] (unknown) (no (unknown) (unknown) Penicillins (units (un known) date) Adverse Reaction unknown) (Severe, Verified 02/14/23 13:36) (unknown) (no (unknown) (unknown) Plan (units (unkno wn) date) unknown) (unknown) (no (unknown) (unknown) Platelet Count 188 (units (unknown) date) X103/uL (150-400) unknown) 08/05/22 (unknown) (no (unknown) (unknown) Position Sitting (units (unknown) date) Sitting unknown) (unknown) (no (unknown) (unknown) Potassium Level (units (unknown) date) 4.5 mmol/L unknown) (3.4-5.1) 10/13/22 (unknown) (no (unknown) (unknown) Pravastatin and (units (unknown) date) START: Rosuvastatin unknown) 20mg nightly. Let us know if you have any (unknown) (no (unknown) (unknown) Pulse 87 (units (unkno wn) date) unknown) (unknown) (no (unknown) (unknown) Pulse Oximetry (%) (units (unknown) date) 97 unknown) (unknown) (no (unknown) (unknown) Pulse Source (units (u nknown) date) Monitor unknown) (unknown) (no (unknown) (unknown) Qualifiers: (units (un known) date) unknown) (unknown) (no (unknown) (unknown) RESPIRATORY: Clear (units (unknown) date) to auscultation. unknown) (unknown) (no (unknown) (unknown) ROS (units (unkno wn) date) unknown) (unknown) (no (unknown) (unknown) Rash (units (unkno wn) date) unknown) (unknown) (no (unknown) (unknown) Reason For Visit (units (unknown) date) unknown) (unknown) (no (unknown) (unknown) Reclast infusion (units (unknown) date) is advised unknown) annually. We will call to arrange this. (unknown) (no (unknown) (unknown) Red Blood Count (units (unknown) date) 4.56 X106/uL unknown) (4.0-5.2) 08/05/22 (unknown) (no (unknown) (unknown) Red Cell (units (unkno wn) date) Distribution Width unknown) 13.6 % (11.6-14.8) 08/05/22 (unknown) (no (unknown) (unknown) S/P renal artery (units (unknown) date) angioplasty (-2005) unknown) (unknown) (no (unknown) (unknown) She prefers the (units (unknown) date) once yearly unknown) infusion after a discussion today. (unknown) (no (unknown) (unknown) Signed By: (units (unk nown) date) unknown) (unknown) (no (unknown) (unknown) Smoking Status: (units (unknown) date) Never smoker unknown) (unknown) (no (unknown) (unknown) Sodium Level 137 (units (unknown) date) mmol/L (137-145) unknown) 10/13/22 (unknown) (no (unknown) (unknown) Status: Acute (units ( unknown) date) unknown) (unknown) (no (unknown) (unknown) Sulfa (Sulfonamide (units (unknown) date) Antibiotics) unknown) Allergy (Mild, Verified 02/14/23 13:36) (unknown) (no (unknown) (unknown) Surgical History (units (unknown) date) (Reviewed 02/14/23 unknown) @ 12:47 by Nicholas Guevara MD) (unknown) (no (unknown) (unknown) This note may have (units (unknown) date) been all or unknown) partially generated using voice recognition (unknown) (no (unknown) (unknown) Thyroid (units (unkno wn) date) Stimulating Hormone unknown) (TSH) 2.03 uIU/mL (0.47-4.68) 0 (unknown) (no (unknown) (unknown) Tobacco + (units (unkn own) date) Substance Use unknown) (unknown) (no (unknown) (unknown) Tobacco Status (units (unknown) date) unknown) (unknown) (no (unknown) (unknown) Total Bilirubin (units (unknown) date) 0.6 mg/dL (0.2-1.3) unknown) 10/13/22 (unknown) (no (unknown) (unknown) Total Protein 7.5 (units (unknown) date) g/dL (6.3-8.2) unknown) 10/13/22 (unknown) (no (unknown) (unknown) Triglycerides (units ( unknown) date) Level 105 mg/dL unknown) (35-150) 08/05/22 (unknown) (no (unknown) (unknown) Visit Reasons: 3 (units (unknown) date) mo f/u unknown) (unknown) (no (unknown) (unknown) Vitals (units (unkno wn) date) unknown) (unknown) (no (unknown) (unknown) Weight 131 lb (units ( unknown) date) unknown) (unknown) (no (unknown) (unknown) Well-controlled. (units (unknown) date) Continue current unknown) medications. (unknown) (no (unknown) (unknown) White Blood Count (units (unknown) date) 4.1 X103/uL unknown) (4.5-11.0) L 08/05/22 (unknown) (no (unknown) (unknown) Your blood (units (unk nown) date) pressure is unknown) inadequately controlled but improved, remaining in the (unknown) (no (unknown) (unknown) Your cholesterol is (units (unknown) date) inadequately unknown) controlled. To lower your risk of stroke, STOP: (unknown) (no (unknown) (unknown) Your medical (units (u nknown) date) condition otherwise unknown) appears stable at this point. Continue your (unknown) (no (unknown) (unknown) about 35 minutes (units (unknown) date) daily. unknown) (unknown) (no (unknown) (unknown) alprazolam 0.25 mg (units (unknown) date) tablet 0.25 mg PO unknown) DAILY PRN anxiety #20 tabs 08/05/22 [Rx (unknown) (no (unknown) (unknown) amlodipine 10 mg (units (unknown) date) tablet 10 mg PO unknown) DAILY #90 tabs 10/13/22 [Rx Confirmed 02/14/23] (unknown) (no (unknown) (unknown) anorexia, nausea (units (unknown) date) or vomiting, unknown) dysphagia, change in bowel habits or black or (unknown) (no (unknown) (unknown) at home. The (units (u nknown) date) patient denies unknown) exertional or other chest pain, dyspnea, orthopnea, (unknown) (no (unknown) (unknown) blood pressure (units ( unknown) date) control.? She has unknown) recorded blood pressures in the 130-150s/70-80s (unknown) (no (unknown) (unknown) bloody stools. The (units (unknown) date) patient is unknown) currently taking lansoprazole for gastroesophageal (unknown) (no (unknown) (unknown) current (units (unkno wn) date) medications. unknown) (unknown) (no (unknown) (unknown) daily, as well as (units (unknown) date) weight-bearing unknown) activity (e.g., walking) for bone health. (unknown) (no (unknown) (unknown) denies adverse (units (unknown) date) side effects to the unknown) medication, and denies feeling depressed, (unknown) (no (unknown) (unknown) distress. (units (unkn own) date) unknown) (unknown) (no (unknown) (unknown) erythromycin base (units (unknown) date) Adverse Reaction unknown) (Severe, Verified 02/14/23 13:36) (unknown) (no (unknown) (unknown) escitalopram (units (u nknown) date) oxalate 20 mg unknown) tablet 30 mg PO DAILY #135 tabs 10/13/22 [Rx (unknown) (no (unknown) (unknown) good compliance (units (unknown) date) and denies any unknown) chest pain, exertional or otherwise. Recent lab (unknown) (no (unknown) (unknown) good motivation. (units (unknown) date) PHQ-9 score = 7/. unknown) FRANK-7 score = 0/21. (unknown) (no (unknown) (unknown) have any problems (units (unknown) date) (leg swelling, unknown) heartburn and constipation). (unknown) (no (unknown) (unknown) have occurred. If (units (unknown) date) there are any unknown) questions, please contact the Medical Records (unknown) (no (unknown) (unknown) hypertension (units (u nknown) date) range. INCREASE: unknown) Amlodipine to 10mg nightly. Let us know if you (unknown) (no (unknown) (unknown) icterus. No (units (un known) date) injection or unknown) drainage. (unknown) (no (unknown) (unknown) irritable, cranky, (units (unknown) date) fatigued, easily unknown) tearful, sleep troubles, anhedonia, social (unknown) (no (unknown) (unknown) lansoprazole 30 mg (units (unknown) date) capsule,delayed unknown) release 30 mg PO BID #180 caps 08/05/22 [Rx (unknown) (no (unknown) (unknown) maintain intake of (units (unknown) date) calcium 1500mg unknown) daily (preferably mostly from dietary sources (unknown) (no (unknown) (unknown) may occur. (units (unk nown) date) Occasional unknown) wrong-word or 'sound-alike' substitutions may have (unknown) (no (unknown) (unknown) meningeal signs. (units (unknown) date) unknown) (unknown) (no (unknown) (unknown) mild (units (unkno wn) date) unknown) (unknown) (no (unknown) (unknown) mouth sores (units (un known) date) unknown) (unknown) (no (unknown) (unknown) nausea (units (unkno wn) date) unknown) (unknown) (no (unknown) (unknown) no focal deficits (units (unknown) date) evident. unknown) (unknown) (no (unknown) (unknown) occurred due to (units (unknown) date) the inherent unknown) limitations of voice recognition software. Please (unknown) (no (unknown) (unknown) paroxysmal (units (unk nown) date) nocturnal dyspnea, unknown) pedal edema, or TIA symptoms. She walks her dog (unknown) (no (unknown) (unknown) problems (aches or (units (unknown) date) pains). unknown) (unknown) (no (unknown) (unknown) read the note (units ( unknown) date) carefully and unknown) recognize, using context, where these substitutions (unknown) (no (unknown) (unknown) reflux disease at (units (unknown) date) this time. unknown) (unknown) (no (unknown) (unknown) rosuvastatin 20 mg (units (unknown) date) tablet 20 mg PO unknown) DAILY #100 tabs 11/09/22 [Rx Confirmed (unknown) (no (unknown) (unknown) severity: mild (units (unknown) date) Qualified Code(s): unknown) F33.0 - Major depressive disorder, recurrent, (unknown) (no (unknown) (unknown) software. Although (units (unknown) date) every effort is unknown) made to edit content, fur nailer errors (unknown) (no (unknown) (unknown) such as dairy, (units (unknown) date) lean meats and unknown) leafy green vegetables) and vitamin D3 1000 units (unknown) (no (unknown) (unknown) testing reviewed. (units (unknown) date) unknown) (unknown) (no (unknown) (unknown) the patient (units (un known) date) portal. Let us know unknown) if you have any questions or concerns. (unknown) (no (unknown) (unknown) with rare (units (unkn own) date) alprazolam. unknown) (unknown) (no (unknown) (unknown) withdrawal, or (units (unknown) date) trouble with unknown) memory, focus, or concentration. The patient has (unknown) (no (unknown) (unknown) zolpidem 10 mg (units (unknown) date) tablet 10 mg PO unknown) BEDTIME PRN insomnia #45 tabs 08/05/22 [Rx Result panel 6 (unknown) (no (unknown) (unknown) (no value) (units (unk nown) date) unknown) (unknown) (no (unknown) (unknown) (1) Essential (units ( unknown) date) hypertension: unknown) (unknown) (no (unknown) (unknown) (2) Mixed (units (unkn own) date) hyperlipidemia: unknown) (unknown) (no (unknown) (unknown) (3) GERD without (units (unknown) date) esophagitis: unknown) (unknown) (no (unknown) (unknown) (4) Depression, (units (unknown) date) major, recurrent: unknown) (unknown) (no (unknown) (unknown) (5) Generalized (units (unknown) date) anxiety disorder: unknown) (unknown) (no (unknown) (unknown) (6) Chronic (units (un known) date) insomnia: unknown) (unknown) (no (unknown) (unknown) (7) Age-related (units (unknown) date) osteoporosis unknown) without current pathological fracture: (unknown) (no (unknown) (unknown) (units (unkno wn) date) unknown) (unknown) (no (unknown) (unknown) 02/14/23 (units (unkno wn) date) unknown) (unknown) (no (unknown) (unknown) 02/14/23] (units (unkn own) date) unknown) (unknown) (no (unknown) (unknown) [id number] (units (unkno wn) date) unknown) (unknown) (no (unknown) (unknown) 10mg 1/2 tablet (units (unknown) date) twice weekly or unknown) Benedryl on other nights. She has been on (unknown) (no (unknown) (unknown) 14:46 02/14/23 (units (unknown) date) unknown) (unknown) (no (unknown) (unknown) 14:47 (units (unkno wn) date) unknown) (unknown) (no (unknown) (unknown) 2.5, left FN -2.2, (units (unknown) date) right FN -2.4. She unknown) takes BoneUp BID. (unknown) (no (unknown) (unknown) (units (unkno wn) date) unknown) (unknown) (no (unknown) (unknown) 25-Hydroxy Vitamin (units (unknown) date) D Total 41.9 ng/mL unknown) (30.0-100.0) 08/05/22 (unknown) (no (unknown) (unknown) 02/09 (units (unkno wn) date) unknown) (unknown) (no (unknown) (unknown) 04/11 (units (unkno wn) date) unknown) (unknown) (no (unknown) (unknown) 08/05/22 (units (unkno wn) date) unknown) (unknown) (no (unknown) (unknown) AWV 08/05/2022 (units ( unknown) date) unknown) (unknown) (no (unknown) (unknown) Active/Remission (units (unknown) date) status: currently unknown) active Major depression episode (unknown) (no (unknown) (unknown) Age-related (units (un known) date) osteoporosis unknown) without current pathological fracture (unknown) (no (unknown) (unknown) Age/Sex: 82 / F (units (unknown) date) Date of Service: unknown) (unknown) (no (unknown) (unknown) Alanine (units (unkno wn) date) Aminotransferase unknown) (ALT/SGPT) 22 IU/L (<35) 09/22 (unknown) (no (unknown) (unknown) Albumin 4.7 g/dL (units (unknown) date) (3.5-5.0) 10/13/22 unknown) (unknown) (no (unknown) (unknown) Albumin/Globulin (units (unknown) date) Ratio 1.7 (1.0-2.8) unknown) 10/13/22 (unknown) (no (unknown) (unknown) Alkaline (units (unkno wn) date) Phosphatase 62 U/L unknown) (38-126) 10/13/22 (unknown) (no (unknown) (unknown) All systems (units (un known) date) reviewed + are unknown) unremarkable except as noted in HPI and below (unknown) (no (unknown) (unknown) Allergies (units (unkn own) date) unknown) (unknown) (no (unknown) (unknown) [place], [place] (units ( unknown) date) [id number] unknown) (unknown) (no (unknown) (unknown) Anesthesia (units (unk nown) date) unknown) (unknown) (no (unknown) (unknown) Anxiety (units (unkno wn) date) unknown) (unknown) (no (unknown) (unknown) Anxiety: The (units (u nknown) date) patient reports unknown) symptoms are well controlled on current therapy (unknown) (no (unknown) (unknown) Aspartate Amino (units (unknown) date) Transf (AST/SGOT) unknown) 25 IU/L (14-36) 10/13/ (unknown) (no (unknown) (unknown) Assessment + Plan (units (unknown) date) unknown) (unknown) (no (unknown) (unknown) Assessment and (units (unknown) date) Plan: unknown) (unknown) (no (unknown) (unknown) Attending Dr: (units ( unknown) date) Nicholas Guevara MD unknown) (unknown) (no (unknown) (unknown) BMI 26.9 (units (unkno wn) date) unknown) (unknown) (no (unknown) (unknown) BP 140/80 144/70 H (units (unknown) date) unknown) (unknown) (no (unknown) (unknown) BUN/Creatinine (units (unknown) date) Ratio 21.7 (6-22) unknown) 10/13/22 (unknown) (no (unknown) (unknown) Blood Pressure (units (unknown) date) Location Lt unknown) brachial Lt brachial (unknown) (no (unknown) (unknown) Blood Urea (units (unk nown) date) Nitrogen 15 mg/dL unknown) (7-17) 10/13/22 (unknown) (no (unknown) (unknown) CARDIOVASCULAR: (units (unknown) date) Regular rate and unknown) rhythm without murmurs, gallops, or rubs. (unknown) (no (unknown) (unknown) Calcium Level 9.7 (units (unknown) date) mg/dL (8.4-10.2) unknown) 10/13/22 (unknown) (no (unknown) (unknown) Carbon Dioxide (units (unknown) date) Level 28 mmol/L unknown) (-32) 10/13/22 (unknown) (no (unknown) (unknown) Chicken pox (units (un known) date) (-1945) unknown) (unknown) (no (unknown) (unknown) Chief Complaint (units (unknown) date) unknown) (unknown) (no (unknown) (unknown) Chief Complaint: (units (unknown) date) Medical followup unknown) (unknown) (no (unknown) (unknown) Chloride Level 101 (units (unknown) date) mmol/L (98-107) unknown) 10/13/22 (unknown) (no (unknown) (unknown) Cholesterol Level (units (unknown) date) 257 mg/dL (140-199) unknown) H 08/05/22 (unknown) (no (unknown) (unknown) Chronic insomnia (units (unknown) date) unknown) (unknown) (no (unknown) (unknown) Clinically stable. (units (unknown) date) Continue current unknown) plan. (unknown) (no (unknown) (unknown) [facility] (units (unk nown) date) Results- Last: unknown) (unknown) (no (unknown) (unknown) Confirmed (units (unkn own) date) 02/14/23] unknown) (unknown) (no (unknown) (unknown) Const (units (unkno wn) date) unknown) (unknown) (no (unknown) (unknown) Creatinine 0.69 (units (unknown) date) mg/dL (0.52-1.04) unknown) 10/13/22 (unknown) (no (unknown) (unknown) DERMATOLOGIC: No (units (unknown) date) rashes or skin unknown) lesions. (unknown) (no (unknown) (unknown) : 1940 (units (unknown) date) Acct:[id number] unknown) (unknown) (no (unknown) (unknown) Depression, major, (units (unknown) date) recurrent unknown) (unknown) (no (unknown) (unknown) Dept at (units (unkno wn) date) . unknown) (unknown) (no (unknown) (unknown) Details: (units (unkno wn) date) unknown) (unknown) (no (unknown) (unknown) Discuss/review. (units (unknown) date) unknown) (unknown) (no (unknown) (unknown) Documented By: (units (unknown) date) Nicholas Guevara MD unknown) 02/14/23 1247 (unknown) (no (unknown) (unknown) Draft (units (unkno wn) date) unknown) (unknown) (no (unknown) (unknown) ENT: Mucous (units (un known) date) membranes pink and unknown) moist. (unknown) (no (unknown) (unknown) EXTREMITIES: No (units (unknown) date) clubbing, cyanosis, unknown) or edema. (unknown) (no (unknown) (unknown) EYES: Pupils equal (units (unknown) date) round and reactive. unknown) Extraocular motions intact. No scleral (unknown) (no (unknown) (unknown) Essential (units (unkn own) date) hypertension unknown) (unknown) (no (unknown) (unknown) Estimat Glomerular (units (unknown) date) Filtration Rate > unknown) 60 mL/min (>60) 10/13 (unknown) (no (unknown) (unknown) Exam Narrative (units (unknown) date) unknown) (unknown) (no (unknown) (unknown) Exam Narrative: (units (unknown) date) unknown) (unknown) (no (unknown) (unknown) Exam (units (unkno wn) date) unknown) (unknown) (no (unknown) (unknown) Family History (units (unknown) date) (Reviewed 02/14/23 unknown) @ 12:47 by Nicholas Guevara MD) (unknown) (no (unknown) (unknown) Family/Other (units (u nknown) date) Accident unknown) (unknown) (no (unknown) (unknown) Father (units (unknown) date) Accident unknown) (unknown) (no (unknown) (unknown) [facility]) (unknown) (no (unknown) (unknown) Follow up for (units ( unknown) date) medication check unknown) up. (unknown) (no (unknown) (unknown) Followup in 3 (units ( unknown) date) months. unknown) (unknown) (no (unknown) (unknown) For bowel health, (units (unknown) date) you may try unknown) Metamucil or psyllium husks daily. (unknown) (no (unknown) (unknown) For example, if (units (unknown) date) you determine that unknown) your total time asleep is 6 hours per night (unknown) (no (unknown) (unknown) For general bone (units (unknown) date) health to prevent unknown) or manage osteoporosis or osteopenia, (unknown) (no (unknown) (unknown) For your chronic (units (unknown) date) difficulty with unknown) sleep (insomnia), practice good sleep hygeine. (unknown) (no (unknown) (unknown) Fractures (units (unkn own) date) unknown) (unknown) (no (unknown) (unknown) GASTROINTESTINAL: (units (unknown) date) Abdomen soft, unknown) non-tender, nondistended. (unknown) (no (unknown) (unknown) GENERAL: This is a (units (unknown) date) well-nourished, unknown) well-developed patient, in no apparent (unknown) (no (unknown) (unknown) GERD without (units (u nknown) date) esophagitis unknown) (unknown) (no (unknown) (unknown) Gastroesophageal (units (unknown) date) reflux disease: The unknown) patient denies abdominal or flank pain, (unknown) (no (unknown) (unknown) Generalized (units (un known) date) anxiety disorder unknown) (unknown) (no (unknown) (unknown) Globulin 2.8 g/dL (units (unknown) date) (1.7-4.1) 10/13/22 unknown) (unknown) (no (unknown) (unknown) Glucose Level 92 (units (unknown) date) mg/dL (80-110) unknown) 10/13/22 (unknown) (no (unknown) (unknown) Gradually increase (units (unknown) date) your sleep time by unknown) 15 minutes as long as the sleep efficiency (unknown) (no (unknown) (unknown) Grandfather (units (un known) date) Cancer unknown) (unknown) (no (unknown) (unknown) Grandmother (units (un known) date) Stroke unknown) (unknown) (no (unknown) (unknown) H/O total (units (unkn own) date) hysterectomy unknown) (unknown) (no (unknown) (unknown) HDL Cholesterol 79 (units (unknown) date) mg/dL (40-60) H unknown) 08/05/22 (unknown) (no (unknown) (unknown) HPI (units (unkno wn) date) unknown) (unknown) (no (unknown) (unknown) Health Management (units (unknown) date) reviewed with unknown) patient: Yes (unknown) (no (unknown) (unknown) Health Management (units (unknown) date) unknown) (unknown) (no (unknown) (unknown) Height 4 ft 10.5 (units (unknown) date) in unknown) (unknown) (no (unknown) (unknown) Hematocrit 40.7 % (units (unknown) date) (36-46) 08/05/22 unknown) (unknown) (no (unknown) (unknown) Hemoglobin 13.9 (units (unknown) date) g/dL (12.0-16.0) unknown) 08/05/22 (unknown) (no (unknown) (unknown) History of bladder (units (unknown) date) surgery unknown) (unknown) (no (unknown) (unknown) History of carpal (units (unknown) date) tunnel release unknown) (unknown) (no (unknown) (unknown) Hyperlipidemia: (units (unknown) date) The present unknown) medications include rosuvastatin. The patient (unknown) (no (unknown) (unknown) Hypertension: The (units (unknown) date) patient is unknown) currently on amlodipine for blood pressure (unknown) (no (unknown) (unknown) Inadequately (units (u nknown) date) controlled. Advise: unknown) Increase amlodipine to 10mg daily. (unknown) (no (unknown) (unknown) Inadequately (units (u nknown) date) controlled. Advise: unknown) Switch pravastatin to rosuvastatin. (unknown) (no (unknown) (unknown) Insomnia: The (units ( unknown) date) patient states unknown) symptoms are adequately controlled with zolpidem (unknown) (no (unknown) (unknown) Intake Note: (units (u nknown) date) unknown) (unknown) (no (unknown) (unknown) Intake performed (units (unknown) date) by: Viji Santos unknown) (unknown) (no (unknown) (unknown) Intake (units (unkno wn) date) unknown) (unknown) (no (unknown) (unknown) Intake- Clincial (units (unknown) date) Staff unknown) (unknown) (no (unknown) (unknown) Internal Medicine (units (unknown) date) Office Visit unknown) (unknown) (no (unknown) (unknown) Irritable bowel (units (unknown) date) syndrome unknown) (unknown) (no (unknown) (unknown) It was very nice (units (unknown) date) to meet with you unknown) today! (unknown) (no (unknown) (unknown) LDL Cholesterol, (units (unknown) date) Calculated 157 unknown) mg/dL (<100) H 08/05/22 (unknown) (no (unknown) (unknown) Lab Results (units (un known) date) unknown) (unknown) (no (unknown) (unknown) Last Menstural (units (unknown) date) Cycle + Details unknown) (unknown) (no (unknown) (unknown) Let us know if you (units (unknown) date) have any problems. unknown) (unknown) (no (unknown) (unknown) Loc: [facility] (units (unkno wn) date) unknown) (unknown) (no (unknown) (unknown) Major depression:? (units (unknown) date) The patient reports unknown) good compliance with escitalopram, and (unknown) (no (unknown) (unknown) Mean Corpuscular (units (unknown) date) Hemoglobin 30.4 PG unknown) (26-34) 08/05/22 (unknown) (no (unknown) (unknown) Mean Corpuscular (units (unknown) date) Hemoglobin Concent unknown) 34.1 % (30-36) 07/22 (unknown) (no (unknown) (unknown) Mean Corpuscular (units (unknown) date) Volume 89.2 fL unknown) (80-100) 08/05/22 (unknown) (no (unknown) (unknown) Measles (-1943) (units (unknown) date) unknown) (unknown) (no (unknown) (unknown) Medical History (units (unknown) date) (Reviewed 02/14/23 unknown) @ 12:47 by Nicholas Guevara MD) (unknown) (no (unknown) (unknown) Medicare annual (units (unknown) date) wellness visit, unknown) initial (unknown) (no (unknown) (unknown) Medications (units (un known) date) unknown) (unknown) (no (unknown) (unknown) Mixed (units (unkno wn) date) hyperlipidemia unknown) (unknown) (no (unknown) (unknown) Mother (units (unknown) date) Stroke unknown) (unknown) (no (unknown) (unknown) NECK: Trachea (units ( unknown) date) midline. No JVD, unknown) bruits or lymphadenopathy. Supple, nontender, no (unknown) (no (unknown) (unknown) NEUROLOGIC: Alert, (units (unknown) date) oriented, speech unknown) fluent, full upper and lower motor strength, (unknown) (no (unknown) (unknown) New diagnosis. (units ( unknown) date) Inadequately unknown) controlled. Advise: Reclast annually or alendronate. (unknown) (no (unknown) (unknown) Osteoporosis: The (units (unknown) date) patient has unknown) osteoporosis by DEXA 08/11/2022: AP spine T-score (unknown) (no (unknown) (unknown) Other Menstrual (units (unknown) date) Period: Surgical unknown) Menopause (hysterectomy) (unknown) (no (unknown) (unknown) Oxygen Delivery (units (unknown) date) Method room air unknown) (unknown) (no (unknown) (unknown) PFSH (units (unkno wn) date) unknown) (unknown) (no (unknown) (unknown) Patient: (units (unkno wn) date) Angle Carranza unknown) MR#: [id number] (unknown) (no (unknown) (unknown) Penicillins (units (un known) date) Adverse Reaction unknown) (Severe, Verified 02/14/23 13:36) (unknown) (no (unknown) (unknown) Plan (units (unkno wn) date) unknown) (unknown) (no (unknown) (unknown) Platelet Count 188 (units (unknown) date) X103/uL (150-400) unknown) 08/05/22 (unknown) (no (unknown) (unknown) Position Sitting (units (unknown) date) Sitting unknown) (unknown) (no (unknown) (unknown) Potassium Level (units (unknown) date) 4.5 mmol/L unknown) (3.4-5.1) 10/13/22 (unknown) (no (unknown) (unknown) Pulse 87 (units (unkno wn) date) unknown) (unknown) (no (unknown) (unknown) Pulse Oximetry (%) (units (unknown) date) 97 unknown) (unknown) (no (unknown) (unknown) Pulse Source (units (u nknown) date) Monitor unknown) (unknown) (no (unknown) (unknown) Qualifiers: (units (un known) date) unknown) (unknown) (no (unknown) (unknown) RESPIRATORY: Clear (units (unknown) date) to auscultation. unknown) (unknown) (no (unknown) (unknown) ROS (units (unkno wn) date) unknown) (unknown) (no (unknown) (unknown) Rash (units (unkno wn) date) unknown) (unknown) (no (unknown) (unknown) Reason For Visit (units (unknown) date) unknown) (unknown) (no (unknown) (unknown) Recent lab testing (units (unknown) date) reviewed. unknown) (unknown) (no (unknown) (unknown) Reclast infusion (units (unknown) date) is advised unknown) annually. We will call to arrange this. (unknown) (no (unknown) (unknown) Red Blood Count (units (unknown) date) 4.56 X106/uL unknown) (4.0-5.2) 08/05/22 (unknown) (no (unknown) (unknown) Red Cell (units (unkno wn) date) Distribution Width unknown) 13.6 % (11.6-14.8) 08/05/22 (unknown) (no (unknown) (unknown) Relaxation (units (unk nown) date) techniques such as unknown) diaphragmatic breathing, visualization, mindful (unknown) (no (unknown) (unknown) S/P renal artery (units (unknown) date) angioplasty (-2005) unknown) (unknown) (no (unknown) (unknown) She prefers the (units (unknown) date) once yearly unknown) infusion after a discussion today. (unknown) (no (unknown) (unknown) Signed By: (units (unk nown) date) unknown) (unknown) (no (unknown) (unknown) Smoking Status: (units (unknown) date) Never smoker unknown) (unknown) (no (unknown) (unknown) Sodium Level 137 (units (unknown) date) mmol/L (137-145) unknown) 10/13/22 (unknown) (no (unknown) (unknown) Status: Acute (units ( unknown) date) unknown) (unknown) (no (unknown) (unknown) Sulfa (Sulfonamide (units (unknown) date) Antibiotics) unknown) Allergy (Mild, Verified 02/14/23 13:36) (unknown) (no (unknown) (unknown) Surgical History (units (unknown) date) (Reviewed 02/14/23 unknown) @ 12:47 by Nicholas Guevara MD) (unknown) (no (unknown) (unknown) This note may have (units (unknown) date) been all or unknown) partially generated using voice recognition (unknown) (no (unknown) (unknown) Thyroid (units (unkno wn) date) Stimulating Hormone unknown) (TSH) 2.03 uIU/mL (0.47-4.68) 0 (unknown) (no (unknown) (unknown) Tobacco + (units (unkn own) date) Substance Use unknown) (unknown) (no (unknown) (unknown) Tobacco Status (units (unknown) date) unknown) (unknown) (no (unknown) (unknown) Total Bilirubin (units (unknown) date) 0.6 mg/dL (0.2-1.3) unknown) 10/13/22 (unknown) (no (unknown) (unknown) Total Protein 7.5 (units (unknown) date) g/dL (6.3-8.2) unknown) 10/13/22 (unknown) (no (unknown) (unknown) Triglycerides (units ( unknown) date) Level 105 mg/dL unknown) (35-150) 08/05/22 (unknown) (no (unknown) (unknown) Visit Reasons: 3 (units (unknown) date) mo f/u unknown) (unknown) (no (unknown) (unknown) Vitals (units (unkno wn) date) unknown) (unknown) (no (unknown) (unknown) Wean down off any (units (unknown) date) sleeping pills you unknown) are taking as these are associated with (unknown) (no (unknown) (unknown) Weight 131 lb (units ( unknown) date) unknown) (unknown) (no (unknown) (unknown) Well-controlled. (units (unknown) date) Continue current unknown) medications. (unknown) (no (unknown) (unknown) White Blood Count (units (unknown) date) 4.1 X103/uL unknown) (4.5-11.0) L 08/05/22 (unknown) (no (unknown) (unknown) You may TRY: (units (u nknown) date) Trazodone 50mg 1/2 unknown) tablet nightly. You may increase up to 1-2 (unknown) (no (unknown) (unknown) Your medical (units (u nknown) date) condition appears unknown) stable at this point. Continue your current (unknown) (no (unknown) (unknown) Your medical (units (u nknown) date) condition otherwise unknown) appears stable at this point. Continue your (unknown) (no (unknown) (unknown) about 35 minutes (units (unknown) date) daily. unknown) (unknown) (no (unknown) (unknown) alprazolam 0.25 mg (units (unknown) date) tablet 0.25 mg PO unknown) DAILY PRN anxiety #20 tabs 08/05/22 [Rx (unknown) (no (unknown) (unknown) amlodipine 10 mg (units (unknown) date) tablet 10 mg PO unknown) DAILY #90 tabs 10/13/22 [Rx Confirmed 02/14/23] (unknown) (no (unknown) (unknown) and your waking (units (unknown) date) time as 6:00 AM, unknown) then your bedtime would be 12:00 AM, even if (unknown) (no (unknown) (unknown) anorexia, nausea (units (unknown) date) or vomiting, unknown) dysphagia, change in bowel habits or black or (unknown) (no (unknown) (unknown) bloody stools. The (units (unknown) date) patient is unknown) currently taking lansoprazole for gastroesophageal (unknown) (no (unknown) (unknown) control.? The (units ( unknown) date) patient is unknown) tolerating the medication without side effects (unknown) (no (unknown) (unknown) current (units (unkno wn) date) medications. unknown) (unknown) (no (unknown) (unknown) daily, as well as (units (unknown) date) weight-bearing unknown) activity (e.g., walking) for bone health. (unknown) (no (unknown) (unknown) denies adverse (units (unknown) date) side effects to the unknown) medication, and denies feeling depressed, (unknown) (no (unknown) (unknown) distress. (units (unkn own) date) unknown) (unknown) (no (unknown) (unknown) erythromycin base (units (unknown) date) Adverse Reaction unknown) (Severe, Verified 02/14/23 13:36) (unknown) (no (unknown) (unknown) escitalopram (units (u nknown) date) oxalate 20 mg unknown) tablet 30 mg PO DAILY #135 tabs 10/13/22 [Rx (unknown) (no (unknown) (unknown) good motivation. (units (unknown) date) PHQ-9 score = 3. unknown) FRANK-7 score = 021. (unknown) (no (unknown) (unknown) have occurred. If (units (unknown) date) there are any unknown) questions, please contact the Medical Records (unknown) (no (unknown) (unknown) icterus. No (units (un known) date) injection or unknown) drainage. (unknown) (no (unknown) (unknown) irritable, cranky, (units (unknown) date) fatigued, easily unknown) tearful, sleep troubles, anhedonia, social (unknown) (no (unknown) (unknown) is greater than (units (unknown) date) 85% (for example, unknown) for 8 hours in bed, about 1 hour of awake (unknown) (no (unknown) (unknown) lansoprazole 30 mg (units (unknown) date) capsule,delayed unknown) release 30 mg PO BID #180 caps 08/05/22 [Rx (unknown) (no (unknown) (unknown) long-term harms (units (unknown) date) (cognitive unknown) impairment, falls). (unknown) (no (unknown) (unknown) maintain intake of (units (unknown) date) calcium 1500mg unknown) daily (preferably mostly from dietary sources (unknown) (no (unknown) (unknown) may occur. (units (unk nown) date) Occasional unknown) wrong-word or 'sound-alike' substitutions may have (unknown) (no (unknown) (unknown) medications. (units (u nknown) date) unknown) (unknown) (no (unknown) (unknown) meditation and (units (unknown) date) progressive muscle unknown) relaxation can also be helpful. (unknown) (no (unknown) (unknown) meningeal signs. (units (unknown) date) unknown) (unknown) (no (unknown) (unknown) mild (units (unkno wn) date) unknown) (unknown) (no (unknown) (unknown) mouth sores (units (un known) date) unknown) (unknown) (no (unknown) (unknown) nausea (units (unkno wn) date) unknown) (unknown) (no (unknown) (unknown) no focal deficits (units (unknown) date) evident. unknown) (unknown) (no (unknown) (unknown) occurred due to (units (unknown) date) the inherent unknown) limitations of voice recognition software. Please (unknown) (no (unknown) (unknown) paroxysmal (units (unk nown) date) nocturnal dyspnea, unknown) pedal edema, or TIA symptoms. She walks her dog (unknown) (no (unknown) (unknown) read the note (units ( unknown) date) carefully and unknown) recognize, using context, where these substitutions (unknown) (no (unknown) (unknown) reflux disease at (units (unknown) date) this time. unknown) (unknown) (no (unknown) (unknown) reported, and (units ( unknown) date) denies exertional unknown) or other chest pain, dyspnea, orthopnea, (unknown) (no (unknown) (unknown) reports good (units (u nknown) date) compliance and unknown) denies any chest pain, exertional or otherwise. (unknown) (no (unknown) (unknown) rosuvastatin 20 mg (units (unknown) date) tablet 20 mg PO unknown) DAILY #100 tabs 11/09/22 [Rx Confirmed (unknown) (no (unknown) (unknown) severity: mild (units (unknown) date) Qualified Code(s): unknown) F33.0 - Major depressive disorder, recurrent, (unknown) (no (unknown) (unknown) sleeping (units (unkno wn) date) medication for the unknown) past several years. (unknown) (no (unknown) (unknown) software. Although (units (unknown) date) every effort is unknown) made to edit content, fur nailer errors (unknown) (no (unknown) (unknown) such as dairy, (units (unknown) date) lean meats and unknown) leafy green vegetables) and vitamin D3 1000 units (unknown) (no (unknown) (unknown) tables nightly as (units (unknown) date) needed, in place of unknown) zolpidem and Benedryl. (unknown) (no (unknown) (unknown) time). (units (unkno wn) date) unknown) (unknown) (no (unknown) (unknown) with rare (units (unkn own) date) alprazolam. unknown) (unknown) (no (unknown) (unknown) withdrawal, or (units (unknown) date) trouble with unknown) memory, focus, or concentration. The patient has (unknown) (no (unknown) (unknown) you tired before (units (unknown) date) that time. unknown) (unknown) (no (unknown) (unknown) zolpidem 10 mg (units (unknown) date) tablet 10 mg PO unknown) BEDTIME PRN insomnia #45 tabs 08/05/22 [Rx Result panel 7 (unknown) (no (unknown) (unknown) (no value) (units (unk nown) date) unknown) (unknown) (no (unknown) (unknown) (1) Essential (units ( unknown) date) hypertension: unknown) (unknown) (no (unknown) (unknown) (2) Mixed (units (unkn own) date) hyperlipidemia: unknown) (unknown) (no (unknown) (unknown) (3) GERD without (units (unknown) date) esophagitis: unknown) (unknown) (no (unknown) (unknown) (4) Depression, (units (unknown) date) major, recurrent: unknown) (unknown) (no (unknown) (unknown) (5) Generalized (units (unknown) date) anxiety disorder: unknown) (unknown) (no (unknown) (unknown) (6) Chronic (units (un known) date) insomnia: unknown) (unknown) (no (unknown) (unknown) (7) Age-related (units (unknown) date) osteoporosis unknown) without current pathological fracture: (unknown) (no (unknown) (unknown) * Study phase: (units (unknown) date) Keep a sleep diary unknown) for 2 weeks and calculate the average total (unknown) (no (unknown) (unknown) * Treatment phase: (units (unknown) date) Spend that amount unknown) of time in bed, keeping the arising time (unknown) (no (unknown) (unknown) (units (unkno wn) date) unknown) (unknown) (no (unknown) (unknown) 02/14/23 (units (unkno wn) date) unknown) (unknown) (no (unknown) (unknown) 02/14/23] (units (unkn own) date) unknown) (unknown) (no (unknown) (unknown) [id number] (units (unkno wn) date) unknown) (unknown) (no (unknown) (unknown) 1-2 tablets as (units (unknown) date) needed nightly for unknown) sleep 50 mg PO BEDTIME PRN 60 tabs 5RF (unknown) (no (unknown) (unknown) 10mg 1/2 tablet (units (unknown) date) twice weekly or unknown) Benedryl on other nights. She has been on (unknown) (no (unknown) (unknown) 14:46 02/14/23 (units (unknown) date) unknown) (unknown) (no (unknown) (unknown) 14:47 (units (unkno wn) date) unknown) (unknown) (no (unknown) (unknown) 2.5, left FN -2.2, (units (unknown) date) right FN -2.4. She unknown) takes BoneUp BID. (unknown) (no (unknown) (unknown) 22 (units (unkno wn) date) unknown) (unknown) (no (unknown) (unknown) 25-Hydroxy Vitamin (units (unknown) date) D Total 41.9 ng/mL unknown) (30.0-100.0) 08/05/22 (unknown) (no (unknown) (unknown) 02/09 (units (unkno wn) date) unknown) (unknown) (no (unknown) (unknown) 04/11 (units (unkno wn) date) unknown) (unknown) (no (unknown) (unknown) 08/05/22 (units (unkno wn) date) unknown) (unknown) (no (unknown) (unknown) AWV 08/05/2022 (units ( unknown) date) unknown) (unknown) (no (unknown) (unknown) Active/Remission (units (unknown) date) status: currently unknown) active Major depression episode (unknown) (no (unknown) (unknown) Age-related (units (un known) date) osteoporosis unknown) without current pathological fracture (unknown) (no (unknown) (unknown) Age/Sex: 82 / F (units (unknown) date) Date of Service: unknown) (unknown) (no (unknown) (unknown) Alanine (units (unkno wn) date) Aminotransferase unknown) (ALT/SGPT) 22 IU/L (<35) 09/22 (unknown) (no (unknown) (unknown) Albumin 4.7 g/dL (units (unknown) date) (3.5-5.0) 10/13/22 unknown) (unknown) (no (unknown) (unknown) Albumin/Globulin (units (unknown) date) Ratio 1.7 (1.0-2.8) unknown) 10/13/22 (unknown) (no (unknown) (unknown) Alkaline (units (unkno wn) date) Phosphatase 62 U/L unknown) (38-126) 10/13/22 (unknown) (no (unknown) (unknown) All systems (units (un known) date) reviewed + are unknown) unremarkable except as noted in HPI and below (unknown) (no (unknown) (unknown) Allergies (units (unkn own) date) unknown) (unknown) (no (unknown) (unknown) [place], [place] (units ( unknown) date) [id number] unknown) (unknown) (no (unknown) (unknown) Anesthesia (units (unk nown) date) unknown) (unknown) (no (unknown) (unknown) Anxiety (units (unkno wn) date) unknown) (unknown) (no (unknown) (unknown) Anxiety: The (units (u nknown) date) patient reports unknown) symptoms are well controlled on current therapy (unknown) (no (unknown) (unknown) Aspartate Amino (units (unknown) date) Transf (AST/SGOT) unknown) 25 IU/L (14-36) 10/13/ (unknown) (no (unknown) (unknown) Assessment + Plan (units (unknown) date) unknown) (unknown) (no (unknown) (unknown) Assessment and (units (unknown) date) Plan: unknown) (unknown) (no (unknown) (unknown) Attending Dr: (units ( unknown) date) Nicholas Guevara MD unknown) (unknown) (no (unknown) (unknown) BMI 26.9 (units (unkno wn) date) unknown) (unknown) (no (unknown) (unknown) BP 140/80 144/70 H (units (unknown) date) unknown) (unknown) (no (unknown) (unknown) BUN/Creatinine (units (unknown) date) Ratio 21.7 (6-22) unknown) 10/13/22 (unknown) (no (unknown) (unknown) Blood Pressure (units (unknown) date) Location Lt unknown) brachial Lt brachial (unknown) (no (unknown) (unknown) Blood Urea (units (unk nown) date) Nitrogen 15 mg/dL unknown) (7-17) 10/13/22 (unknown) (no (unknown) (unknown) CARDIOVASCULAR: (units (unknown) date) Regular rate and unknown) rhythm without murmurs, gallops, or rubs. (unknown) (no (unknown) (unknown) Calcium Level 9.7 (units (unknown) date) mg/dL (8.4-10.2) unknown) 10/13/22 (unknown) (no (unknown) (unknown) Carbon Dioxide (units (unknown) date) Level 28 mmol/L unknown) (22-32) 10/13/22 (unknown) (no (unknown) (unknown) Chicken pox (units (un known) date) (-194) unknown) (unknown) (no (unknown) (unknown) Chief Complaint (units (unknown) date) unknown) (unknown) (no (unknown) (unknown) Chief Complaint: (units (unknown) date) Medical followup unknown) (unknown) (no (unknown) (unknown) Chloride Level 101 (units (unknown) date) mmol/L (98-107) unknown) 10/13/22 (unknown) (no (unknown) (unknown) Cholesterol Level (units (unknown) date) 257 mg/dL (140-199) unknown) H 08/05/22 (unknown) (no (unknown) (unknown) Chronic insomnia (units (unknown) date) unknown) (unknown) (no (unknown) (unknown) Clinically stable. (units (unknown) date) Continue current unknown) plan. (unknown) (no (unknown) (unknown) [facility] (units (unk nown) date) Results- Last: unknown) (unknown) (no (unknown) (unknown) Confirmed (units (unkn own) date) 02/14/23] unknown) (unknown) (no (unknown) (unknown) Const (units (unkno wn) date) unknown) (unknown) (no (unknown) (unknown) Creatinine 0.69 (units (unknown) date) mg/dL (0.52-1.04) unknown) 10/13/22 (unknown) (no (unknown) (unknown) DERMATOLOGIC: No (units (unknown) date) rashes or skin unknown) lesions. (unknown) (no (unknown) (unknown) : 1940 (units (unknown) date) Acct:[id number] unknown) (unknown) (no (unknown) (unknown) Depression, major, (units (unknown) date) recurrent unknown) (unknown) (no (unknown) (unknown) Dept at (units (unkno wn) date) . unknown) (unknown) (no (unknown) (unknown) Details: (units (unkno wn) date) unknown) (unknown) (no (unknown) (unknown) Discontinued (units (u nknown) date) Reason: Provider's unknown) Order 10 mg PO BEDTIME PRN 45 tabs 1RF (unknown) (no (unknown) (unknown) Discontinued (units (u nknown) date) unknown) (unknown) (no (unknown) (unknown) Discuss/review. (units (unknown) date) unknown) (unknown) (no (unknown) (unknown) Documented By: (units (unknown) date) Nicholas Guevara MD unknown) 02/14/23 1247 (unknown) (no (unknown) (unknown) Draft (units (unkno wn) date) unknown) (unknown) (no (unknown) (unknown) ENT: Mucous (units (un known) date) membranes pink and unknown) moist. (unknown) (no (unknown) (unknown) EXTREMITIES: No (units (unknown) date) clubbing, cyanosis, unknown) or edema. (unknown) (no (unknown) (unknown) EYES: Pupils equal (units (unknown) date) round and reactive. unknown) Extraocular motions intact. No scleral (unknown) (no (unknown) (unknown) Essential (units (unkn own) date) hypertension unknown) (unknown) (no (unknown) (unknown) Estimat Glomerular (units (unknown) date) Filtration Rate > unknown) 60 mL/min (>60) 10/13 (unknown) (no (unknown) (unknown) Exam Narrative (units (unknown) date) unknown) (unknown) (no (unknown) (unknown) Exam Narrative: (units (unknown) date) unknown) (unknown) (no (unknown) (unknown) Exam (units (unkno wn) date) unknown) (unknown) (no (unknown) (unknown) Family History (units (unknown) date) (Reviewed 02/14/23 unknown) @ 12:47 by Nicholas Guevara MD) (unknown) (no (unknown) (unknown) Family/Other (units (u nknown) date) Accident unknown) (unknown) (no (unknown) (unknown) Father (units (unknown) date) Accident unknown) (unknown) (no (unknown) (unknown) [facility]) (unknown) (no (unknown) (unknown) Follow up for (units ( unknown) date) medication check unknown) up. (unknown) (no (unknown) (unknown) Followup in 3 (units ( unknown) date) months. unknown) (unknown) (no (unknown) (unknown) For example, if (units (unknown) date) you determine that unknown) your total time asleep is 6 hours per night (unknown) (no (unknown) (unknown) For (units (unkno wn) date) general?bone?health unknown) to prevent or manage osteoporosis or osteopenia, (unknown) (no (unknown) (unknown) For your chronic (units (unknown) date) difficulty with unknown) sleep (insomnia), practice good sleep hygeine. (unknown) (no (unknown) (unknown) Fractures (units (unkn own) date) unknown) (unknown) (no (unknown) (unknown) GASTROINTESTINAL: (units (unknown) date) Abdomen soft, unknown) non-tender, nondistended. (unknown) (no (unknown) (unknown) GENERAL: This is a (units (unknown) date) well-nourished, unknown) well-developed patient, in no apparent (unknown) (no (unknown) (unknown) GERD without (units (u nknown) date) esophagitis unknown) (unknown) (no (unknown) (unknown) Gastroesophageal (units (unknown) date) reflux disease: The unknown) patient denies abdominal or flank pain, (unknown) (no (unknown) (unknown) Generalized (units (un known) date) anxiety disorder unknown) (unknown) (no (unknown) (unknown) Globulin 2.8 g/dL (units (unknown) date) (1.7-4.1) 10/13/22 unknown) (unknown) (no (unknown) (unknown) Glucose Level 92 (units (unknown) date) mg/dL (80-110) unknown) 10/13/22 (unknown) (no (unknown) (unknown) Gradually increase (units (unknown) date) your sleep time by unknown) 15 minutes as long as the sleep efficiency (unknown) (no (unknown) (unknown) Grandfather (units (un known) date) Cancer unknown) (unknown) (no (unknown) (unknown) Grandmother (units (un known) date) Stroke unknown) (unknown) (no (unknown) (unknown) H/O total (units (unkn own) date) hysterectomy unknown) (unknown) (no (unknown) (unknown) HDL Cholesterol 79 (units (unknown) date) mg/dL (40-60) H unknown) 08/05/22 (unknown) (no (unknown) (unknown) HPI (units (unkno wn) date) unknown) (unknown) (no (unknown) (unknown) Health Management (units (unknown) date) reviewed with unknown) patient: Yes (unknown) (no (unknown) (unknown) Health Management (units (unknown) date) unknown) (unknown) (no (unknown) (unknown) Height 4 ft 10.5 (units (unknown) date) in unknown) (unknown) (no (unknown) (unknown) Hematocrit 40.7 % (units (unknown) date) (36-46) 08/05/22 unknown) (unknown) (no (unknown) (unknown) Hemoglobin 13.9 (units (unknown) date) g/dL (12.0-16.0) unknown) 08/05/22 (unknown) (no (unknown) (unknown) History of bladder (units (unknown) date) surgery unknown) (unknown) (no (unknown) (unknown) History of carpal (units (unknown) date) tunnel release unknown) (unknown) (no (unknown) (unknown) Hyperlipidemia: (units (unknown) date) The present unknown) medications include rosuvastatin. The patient (unknown) (no (unknown) (unknown) Hypertension: The (units (unknown) date) patient is unknown) currently on amlodipine for blood pressure (unknown) (no (unknown) (unknown) If this fails to (units (unknown) date) solve your problem, unknown) a program of sleep restriction that limits (unknown) (no (unknown) (unknown) Inadequately (units (u nknown) date) controlled. Advise: unknown) Increase amlodipine to 10mg daily. (unknown) (no (unknown) (unknown) Inadequately (units (u nknown) date) controlled. Advise: unknown) Switch pravastatin to rosuvastatin. (unknown) (no (unknown) (unknown) Insomnia: The (units ( unknown) date) patient states unknown) symptoms are adequately controlled with zolpidem (unknown) (no (unknown) (unknown) Intake Note: (units (u nknown) date) unknown) (unknown) (no (unknown) (unknown) Intake performed (units (unknown) date) by: Viji Santos unknown) (unknown) (no (unknown) (unknown) Intake (units (unkno wn) date) unknown) (unknown) (no (unknown) (unknown) Intake- Clincial (units (unknown) date) Staff unknown) (unknown) (no (unknown) (unknown) Internal Medicine (units (unknown) date) Office Visit unknown) (unknown) (no (unknown) (unknown) Irritable bowel (units (unknown) date) syndrome unknown) (unknown) (no (unknown) (unknown) It was very nice (units (unknown) date) to meet with you unknown) today! (unknown) (no (unknown) (unknown) LDL Cholesterol, (units (unknown) date) Calculated 157 unknown) mg/dL (<100) H 08/05/22 (unknown) (no (unknown) (unknown) Lab Results (units (un known) date) unknown) (unknown) (no (unknown) (unknown) Last Menstural (units (unknown) date) Cycle + Details unknown) (unknown) (no (unknown) (unknown) Let us know if you (units (unknown) date) have any problems. unknown) (unknown) (no (unknown) (unknown) Loc: [facility] (units (unkno wn) date) unknown) (unknown) (no (unknown) (unknown) Major depression:? (units (unknown) date) The patient reports unknown) good compliance with escitalopram, and (unknown) (no (unknown) (unknown) Mean Corpuscular (units (unknown) date) Hemoglobin 30.4 PG unknown) (26-34) 08/05/22 (unknown) (no (unknown) (unknown) Mean Corpuscular (units (unknown) date) Hemoglobin Concent unknown) 34.1 % (30-36) 07/22 (unknown) (no (unknown) (unknown) Mean Corpuscular (units (unknown) date) Volume 89.2 fL unknown) (80-100) 08/05/22 (unknown) (no (unknown) (unknown) Measles (-1943) (units (unknown) date) unknown) (unknown) (no (unknown) (unknown) Medical History (units (unknown) date) (Reviewed 02/14/23 unknown) @ 12:47 by Nicholas Guevara MD) (unknown) (no (unknown) (unknown) Medicare annual (units (unknown) date) wellness visit, unknown) initial (unknown) (no (unknown) (unknown) Medications (units (un known) date) unknown) (unknown) (no (unknown) (unknown) Medications: (units (u nknown) date) unknown) (unknown) (no (unknown) (unknown) Mixed (units (unkno wn) date) hyperlipidemia unknown) (unknown) (no (unknown) (unknown) Mother (units (unknown) date) Stroke unknown) (unknown) (no (unknown) (unknown) NECK: Trachea (units ( unknown) date) midline. No JVD, unknown) bruits or lymphadenopathy. Supple, nontender, no (unknown) (no (unknown) (unknown) NEUROLOGIC: Alert, (units (unknown) date) oriented, speech unknown) fluent, full upper and lower motor strength, (unknown) (no (unknown) (unknown) New diagnosis. (units ( unknown) date) Inadequately unknown) controlled. Advise: Reclast annually or alendronate. (unknown) (no (unknown) (unknown) New (units (unkno wn) date) unknown) (unknown) (no (unknown) (unknown) Osteoporosis: The (units (unknown) date) patient has unknown) osteoporosis by DEXA 08/11/2022: AP spine T-score (unknown) (no (unknown) (unknown) Other Menstrual (units (unknown) date) Period: Surgical unknown) Menopause (hysterectomy) (unknown) (no (unknown) (unknown) Oxygen Delivery (units (unknown) date) Method room air unknown) (unknown) (no (unknown) (unknown) PFSH (units (unkno wn) date) unknown) (unknown) (no (unknown) (unknown) Patient: (units (unkno wn) date) Angle Carranza unknown) MR#: [id number] (unknown) (no (unknown) (unknown) Penicillins (units (un known) date) Adverse Reaction unknown) (Severe, Verified 02/14/23 13:36) (unknown) (no (unknown) (unknown) Plan (units (unkno wn) date) unknown) (unknown) (no (unknown) (unknown) Platelet Count 188 (units (unknown) date) X103/uL (150-400) unknown) 08/05/22 (unknown) (no (unknown) (unknown) Position Sitting (units (unknown) date) Sitting unknown) (unknown) (no (unknown) (unknown) Potassium Level (units (unknown) date) 4.5 mmol/L unknown) (3.4-5.1) 10/13/22 (unknown) (no (unknown) (unknown) Pulse 87 (units (unkno wn) date) unknown) (unknown) (no (unknown) (unknown) Pulse Oximetry (%) (units (unknown) date) 97 unknown) (unknown) (no (unknown) (unknown) Pulse Source (units (u nknown) date) Monitor unknown) (unknown) (no (unknown) (unknown) Qualifiers: (units (un known) date) unknown) (unknown) (no (unknown) (unknown) RESPIRATORY: Clear (units (unknown) date) to auscultation. unknown) (unknown) (no (unknown) (unknown) ROS (units (unkno wn) date) unknown) (unknown) (no (unknown) (unknown) Rash (units (unkno wn) date) unknown) (unknown) (no (unknown) (unknown) Reason For Visit (units (unknown) date) unknown) (unknown) (no (unknown) (unknown) Recent lab testing (units (unknown) date) reviewed. unknown) (unknown) (no (unknown) (unknown) Reclast infusion (units (unknown) date) is advised unknown) annually. We will call to arrange this. (unknown) (no (unknown) (unknown) Red Blood Count (units (unknown) date) 4.56 X106/uL unknown) (4.0-5.2) 08/05/22 (unknown) (no (unknown) (unknown) Red Cell (units (unkno wn) date) Distribution Width unknown) 13.6 % (11.6-14.8) 08/05/22 (unknown) (no (unknown) (unknown) Relaxation (units (unk nown) date) techniques such as unknown) diaphragmatic breathing, visualization, mindful (unknown) (no (unknown) (unknown) S/P renal artery (units (unknown) date) angioplasty (-2005) unknown) (unknown) (no (unknown) (unknown) She prefers the (units (unknown) date) once yearly unknown) infusion after a discussion today. (unknown) (no (unknown) (unknown) Signed By: (units (unk nown) date) unknown) (unknown) (no (unknown) (unknown) Smoking Status: (units (unknown) date) Never smoker unknown) (unknown) (no (unknown) (unknown) Sodium Level 137 (units (unknown) date) mmol/L (137-145) unknown) 10/13/22 (unknown) (no (unknown) (unknown) Status: Acute (units ( unknown) date) unknown) (unknown) (no (unknown) (unknown) Sulfa (Sulfonamide (units (unknown) date) Antibiotics) unknown) Allergy (Mild, Verified 02/14/23 13:36) (unknown) (no (unknown) (unknown) Surgical History (units (unknown) date) (Reviewed 02/14/23 unknown) @ 12:47 by Nicholas uGevara MD) (unknown) (no (unknown) (unknown) This note may have (units (unknown) date) been all or unknown) partially generated using voice recognition (unknown) (no (unknown) (unknown) Thyroid (units (unkno wn) date) Stimulating Hormone unknown) (TSH) 2.03 uIU/mL (0.47-4.68) 0 (unknown) (no (unknown) (unknown) Tobacco + (units (unkn own) date) Substance Use unknown) (unknown) (no (unknown) (unknown) Tobacco Status (units (unknown) date) unknown) (unknown) (no (unknown) (unknown) Total Bilirubin (units (unknown) date) 0.6 mg/dL (0.2-1.3) unknown) 10/13/22 (unknown) (no (unknown) (unknown) Total Protein 7.5 (units (unknown) date) g/dL (6.3-8.2) unknown) 10/13/22 (unknown) (no (unknown) (unknown) Triglycerides (units ( unknown) date) Level 105 mg/dL unknown) (35-150) 08/05/22 (unknown) (no (unknown) (unknown) Visit Reasons: 3 (units (unknown) date) mo f/u unknown) (unknown) (no (unknown) (unknown) Vitals (units (unkno wn) date) unknown) (unknown) (no (unknown) (unknown) Wean down off any (units (unknown) date) sleeping pills you unknown) are taking as these are associated with (unknown) (no (unknown) (unknown) Weight 131 lb (units ( unknown) date) unknown) (unknown) (no (unknown) (unknown) Well-controlled. (units (unknown) date) Continue current unknown) medications. (unknown) (no (unknown) (unknown) White Blood Count (units (unknown) date) 4.1 X103/uL unknown) (4.5-11.0) L 08/05/22 (unknown) (no (unknown) (unknown) You may TRY: (units (u nknown) date) Trazodone 50mg 1/2 unknown) tablet nightly. You may increase up to 1-2 (unknown) (no (unknown) (unknown) Your medical (units (u nknown) date) condition appears unknown) stable at this point. Continue your current (unknown) (no (unknown) (unknown) about 35 minutes (units (unknown) date) daily. unknown) (unknown) (no (unknown) (unknown) alprazolam 0.25 mg (units (unknown) date) tablet 0.25 mg PO unknown) DAILY PRN anxiety #20 tabs 08/05/22 [Rx (unknown) (no (unknown) (unknown) amlodipine 10 mg (units (unknown) date) tablet 10 mg PO unknown) DAILY #90 tabs 10/13/22 [Rx Confirmed 02/14/23] (unknown) (no (unknown) (unknown) and then gradually (units (unknown) date) increases the time unknown) in bed for sleep, and utilizes the concept (unknown) (no (unknown) (unknown) and your waking (units (unknown) date) time as 6:00 AM, unknown) then your bedtime would be 12:00 AM, even if (unknown) (no (unknown) (unknown) anorexia, nausea (units (unknown) date) or vomiting, unknown) dysphagia, change in bowel habits or black or (unknown) (no (unknown) (unknown) bloody stools. The (units (unknown) date) patient is unknown) currently taking lansoprazole for gastroesophageal (unknown) (no (unknown) (unknown) constant. (units (unkn own) date) unknown) (unknown) (no (unknown) (unknown) control.? The (units ( unknown) date) patient is unknown) tolerating the medication without side effects (unknown) (no (unknown) (unknown) daily, as well as (units (unknown) date) weight-bearing unknown) activity (e.g., walking) for bone health. (unknown) (no (unknown) (unknown) denies adverse (units (unknown) date) side effects to the unknown) medication, and denies feeling depressed, (unknown) (no (unknown) (unknown) distress. (units (unkn own) date) unknown) (unknown) (no (unknown) (unknown) erythromycin base (units (unknown) date) Adverse Reaction unknown) (Severe, Verified 02/14/23 13:36) (unknown) (no (unknown) (unknown) escitalopram (units (u nknown) date) oxalate 20 mg unknown) tablet 30 mg PO DAILY #135 tabs 10/13/22 [Rx (unknown) (no (unknown) (unknown) good motivation. (units (unknown) date) PHQ-9 score = 3. unknown) FRANK-7 score = 0/21. (unknown) (no (unknown) (unknown) have occurred. If (units (unknown) date) there are any unknown) questions, please contact the Medical Records (unknown) (no (unknown) (unknown) icterus. No (units (un known) date) injection or unknown) drainage. (unknown) (no (unknown) (unknown) insomnia (units (unkno wn) date) unknown) (unknown) (no (unknown) (unknown) irritable, cranky, (units (unknown) date) fatigued, easily unknown) tearful, sleep troubles, anhedonia, social (unknown) (no (unknown) (unknown) is greater than (units (unknown) date) 85% (for example, unknown) for 8 hours in bed, about 1 hour of awake (unknown) (no (unknown) (unknown) lansoprazole 30 mg (units (unknown) date) capsule,delayed unknown) release 30 mg PO BID #180 caps 08/05/22 [Rx (unknown) (no (unknown) (unknown) long-term harms (units (unknown) date) (cognitive unknown) impairment, falls). (unknown) (no (unknown) (unknown) maintain intake of (units (unknown) date) calcium 1500mg unknown) daily (preferably mostly from dietary sources (unknown) (no (unknown) (unknown) may occur. (units (unk nown) date) Occasional unknown) wrong-word or 'sound-alike' substitutions may have (unknown) (no (unknown) (unknown) medications. (units (u nknown) date) unknown) (unknown) (no (unknown) (unknown) meditation and (units (unknown) date) progressive muscle unknown) relaxation can also be helpful. (unknown) (no (unknown) (unknown) meningeal signs. (units (unknown) date) unknown) (unknown) (no (unknown) (unknown) mild (units (unkno wn) date) unknown) (unknown) (no (unknown) (unknown) mouth sores (units (un known) date) unknown) (unknown) (no (unknown) (unknown) nausea (units (unkno wn) date) unknown) (unknown) (no (unknown) (unknown) no focal deficits (units (unknown) date) evident. unknown) (unknown) (no (unknown) (unknown) occurred due to (units (unknown) date) the inherent unknown) limitations of voice recognition software. Please (unknown) (no (unknown) (unknown) of sleep (units (unkno wn) date) efficiency (total unknown) sleep time divided by total time in bed). (unknown) (no (unknown) (unknown) paroxysmal (units (unk nown) date) nocturnal dyspnea, unknown) pedal edema, or TIA symptoms. She walks her dog (unknown) (no (unknown) (unknown) read the note (units ( unknown) date) carefully and unknown) recognize, using context, where these substitutions (unknown) (no (unknown) (unknown) reflux disease at (units (unknown) date) this time. unknown) (unknown) (no (unknown) (unknown) reported, and (units ( unknown) date) denies exertional unknown) or other chest pain, dyspnea, orthopnea, (unknown) (no (unknown) (unknown) reports good (units (u nknown) date) compliance and unknown) denies any chest pain, exertional or otherwise. (unknown) (no (unknown) (unknown) rosuvastatin 20 mg (units (unknown) date) tablet 20 mg PO unknown) DAILY #100 tabs 11/09/22 [Rx Confirmed (unknown) (no (unknown) (unknown) severity: mild (units (unknown) date) Qualified Code(s): unknown) F33.0 - Major depressive disorder, recurrent, (unknown) (no (unknown) (unknown) sleep time per (units (unknown) date) day. unknown) (unknown) (no (unknown) (unknown) sleep (units (unkno wn) date) unknown) (unknown) (no (unknown) (unknown) sleeping (units (unkno wn) date) medication for the unknown) past several years. (unknown) (no (unknown) (unknown) software. Although (units (unknown) date) every effort is unknown) made to edit content, fur nailer errors (unknown) (no (unknown) (unknown) such as dairy, (units (unknown) date) lean meats and unknown) leafy green vegetables) and vitamin D3 1000 units (unknown) (no (unknown) (unknown) tables nightly as (units (unknown) date) needed, in place of unknown) zolpidem and Benedryl. (unknown) (no (unknown) (unknown) time). (units (unkno wn) date) unknown) (unknown) (no (unknown) (unknown) trazodone 50 mg (units (unknown) date) tablet 50 mg PO unknown) BEDTIME PRN sleep #60 tabs 02/14/23 [Rx (unknown) (no (unknown) (unknown) trazodone (units (unkn own) date) unknown) (unknown) (no (unknown) (unknown) with rare (units (unkn own) date) alprazolam. unknown) (unknown) (no (unknown) (unknown) withdrawal, or (units (unknown) date) trouble with unknown) memory, focus, or concentration. The patient has (unknown) (no (unknown) (unknown) you tired before (units (unknown) date) that time. unknown) (unknown) (no (unknown) (unknown) zolpidem (units (unkno wn) date) unknown) Result panel 8 (unknown) (no (unknown) (unknown) (no value) (units (unk nown) date) unknown) (unknown) (no (unknown) (unknown) (1) Essential (units ( unknown) date) hypertension: unknown) (unknown) (no (unknown) (unknown) (2) Mixed (units (unkn own) date) hyperlipidemia: unknown) (unknown) (no (unknown) (unknown) (3) GERD without (units (unknown) date) esophagitis: unknown) (unknown) (no (unknown) (unknown) (4) Depression, (units (unknown) date) major, recurrent: unknown) (unknown) (no (unknown) (unknown) (5) Generalized (units (unknown) date) anxiety disorder: unknown) (unknown) (no (unknown) (unknown) (6) Chronic (units (un known) date) insomnia: unknown) (unknown) (no (unknown) (unknown) (7) Age-related (units (unknown) date) osteoporosis unknown) without current pathological fracture: (unknown) (no (unknown) (unknown) (8) Irritable (units ( unknown) date) bowel syndrome: unknown) (unknown) (no (unknown) (unknown) * Study phase: (units (unknown) date) Keep a sleep diary unknown) for 2 weeks and calculate the average total (unknown) (no (unknown) (unknown) * Treatment phase: (units (unknown) date) Spend that amount unknown) of time in bed, keeping the arising time (unknown) (no (unknown) (unknown) (units (unkno wn) date) unknown) (unknown) (no (unknown) (unknown) 02/14/23 (units (unkno wn) date) unknown) (unknown) (no (unknown) (unknown) 02/14/23] (units (unkn own) date) unknown) (unknown) (no (unknown) (unknown) [id number] (units (unkno wn) date) unknown) (unknown) (no (unknown) (unknown) 1-2 tablets as (units (unknown) date) needed nightly for unknown) sleep 50 mg PO BEDTIME PRN 60 tabs 5RF (unknown) (no (unknown) (unknown) 10mg 1/2 tablet (units (unknown) date) twice weekly or unknown) Benedryl on other nights. She has been on (unknown) (no (unknown) (unknown) 14:46 02/14/23 (units (unknown) date) unknown) (unknown) (no (unknown) (unknown) 14:47 (units (unkno wn) date) unknown) (unknown) (no (unknown) (unknown) 2.5, left FN -2.2, (units (unknown) date) right FN -2.4. She unknown) takes BoneUp BID. (unknown) (no (unknown) (unknown) (units (unkno wn) date) unknown) (unknown) (no (unknown) (unknown) 25-Hydroxy Vitamin (units (unknown) date) D Total 41.9 ng/mL unknown) (30.0-100.0) 08/05/22 (unknown) (no (unknown) (unknown) 02/09 (units (unkno wn) date) unknown) (unknown) (no (unknown) (unknown) 04/11 (units (unkno wn) date) unknown) (unknown) (no (unknown) (unknown) 08/05/22 (units (unkno wn) date) unknown) (unknown) (no (unknown) (unknown) AWV 08/05/2022 (units ( unknown) date) unknown) (unknown) (no (unknown) (unknown) Active/Remission (units (unknown) date) status: currently unknown) active Major depression episode (unknown) (no (unknown) (unknown) Age-related (units (un known) date) osteoporosis unknown) without current pathological fracture (unknown) (no (unknown) (unknown) Age/Sex: 82 / F (units (unknown) date) Date of Service: unknown) (unknown) (no (unknown) (unknown) Alanine (units (unkno wn) date) Aminotransferase unknown) (ALT/SGPT) 22 IU/L (<35) 09/22 (unknown) (no (unknown) (unknown) Albumin 4.7 g/dL (units (unknown) date) (3.5-5.0) 10/13/22 unknown) (unknown) (no (unknown) (unknown) Albumin/Globulin (units (unknown) date) Ratio 1.7 (1.0-2.8) unknown) 10/13/22 (unknown) (no (unknown) (unknown) Alkaline (units (unkno wn) date) Phosphatase 62 U/L unknown) (38-126) 10/13/22 (unknown) (no (unknown) (unknown) All systems (units (un known) date) reviewed + are unknown) unremarkable except as noted in HPI and below (unknown) (no (unknown) (unknown) Allergies (units (unkn own) date) unknown) (unknown) (no (unknown) (unknown) [place], [place] (units ( unknown) date) [id number] unknown) (unknown) (no (unknown) (unknown) Anesthesia (units (unk nown) date) unknown) (unknown) (no (unknown) (unknown) Anxiety disorder, (units (unknown) date) unspecified, M81.0 unknown) - Age-related osteoporosis without current (unknown) (no (unknown) (unknown) Anxiety: The (units (u nknown) date) patient reports unknown) symptoms are well controlled on current therapy (unknown) (no (unknown) (unknown) Aspartate Amino (units (unknown) date) Transf (AST/SGOT) unknown) 25 IU/L (14-36) 10/13/ (unknown) (no (unknown) (unknown) Assessment + Plan (units (unknown) date) unknown) (unknown) (no (unknown) (unknown) Assessment and (units (unknown) date) Plan: unknown) (unknown) (no (unknown) (unknown) Attending Dr: (units ( unknown) date) Nicholas Guevara MD unknown) (unknown) (no (unknown) (unknown) BMI 26.9 (units (unkno wn) date) unknown) (unknown) (no (unknown) (unknown) BP 140/80 144/70 H (units (unknown) date) unknown) (unknown) (no (unknown) (unknown) BUN/Creatinine (units (unknown) date) Ratio 21.7 (6-22) unknown) 10/13/22 (unknown) (no (unknown) (unknown) Blood Pressure (units (unknown) date) Location Lt unknown) brachial Lt brachial (unknown) (no (unknown) (unknown) Blood Urea (units (unk nown) date) Nitrogen 15 mg/dL unknown) (7-17) 10/13/22 (unknown) (no (unknown) (unknown) CARDIOVASCULAR: (units (unknown) date) Regular rate and unknown) rhythm without murmurs, gallops, or rubs. (unknown) (no (unknown) (unknown) Calcium Level 9.7 (units (unknown) date) mg/dL (8.4-10.2) unknown) 10/13/22 (unknown) (no (unknown) (unknown) Carbon Dioxide (units (unknown) date) Level 28 mmol/L unknown) (22-32) 10/13/22 (unknown) (no (unknown) (unknown) Chicken pox (units (un known) date) (-1945) unknown) (unknown) (no (unknown) (unknown) Chief Complaint (units (unknown) date) unknown) (unknown) (no (unknown) (unknown) Chief Complaint: (units (unknown) date) Medical followup unknown) (unknown) (no (unknown) (unknown) Chloride Level 101 (units (unknown) date) mmol/L (98-107) unknown) 10/13/22 (unknown) (no (unknown) (unknown) Cholesterol Level (units (unknown) date) 257 mg/dL (140-199) unknown) H 08/05/22 (unknown) (no (unknown) (unknown) Chronic insomnia (units (unknown) date) unknown) (unknown) (no (unknown) (unknown) Clinically stable. (units (unknown) date) Continue current unknown) plan. (unknown) (no (unknown) (unknown) [facility] (units (unk nown) date) Results- Last: unknown) (unknown) (no (unknown) (unknown) Comprehensive (units ( unknown) date) Metabolic Panel unknown) Today E78.2 - Mixed hyperlipidemia, F41.9 (unknown) (no (unknown) (unknown) Confirmed (units (unkn own) date) 02/14/23] unknown) (unknown) (no (unknown) (unknown) Const (units (unkno wn) date) unknown) (unknown) (no (unknown) (unknown) Creatinine 0.69 (units (unknown) date) mg/dL (0.52-1.04) unknown) 10/13/22 (unknown) (no (unknown) (unknown) DERMATOLOGIC: No (units (unknown) date) rashes or skin unknown) lesions. (unknown) (no (unknown) (unknown) : 1940 (units (unknown) date) Acct:[id number] unknown) (unknown) (no (unknown) (unknown) Depression, major, (units (unknown) date) recurrent unknown) (unknown) (no (unknown) (unknown) Dept at (units (unkno wn) date) . unknown) (unknown) (no (unknown) (unknown) Details: (units (unkno wn) date) unknown) (unknown) (no (unknown) (unknown) Discontinued (units (u nknown) date) Reason: Provider's unknown) Order 10 mg PO BEDTIME PRN 45 tabs 1RF (unknown) (no (unknown) (unknown) Discontinued (units (u nknown) date) unknown) (unknown) (no (unknown) (unknown) Discuss/review. (units (unknown) date) unknown) (unknown) (no (unknown) (unknown) Documented By: (units (unknown) date) Nicholas Guevara MD unknown) 02/14/23 1247 (unknown) (no (unknown) (unknown) Draft (units (unkno wn) date) unknown) (unknown) (no (unknown) (unknown) ENT: Mucous (units (un known) date) membranes pink and unknown) moist. (unknown) (no (unknown) (unknown) EXTREMITIES: No (units (unknown) date) clubbing, cyanosis, unknown) or edema. (unknown) (no (unknown) (unknown) EYES: Pupils equal (units (unknown) date) round and reactive. unknown) Extraocular motions intact. No scleral (unknown) (no (unknown) (unknown) Essential (units (unkn own) date) hypertension unknown) (unknown) (no (unknown) (unknown) Estimat Glomerular (units (unknown) date) Filtration Rate > unknown) 60 mL/min (>60) 10/13 (unknown) (no (unknown) (unknown) Exam Narrative (units (unknown) date) unknown) (unknown) (no (unknown) (unknown) Exam Narrative: (units (unknown) date) unknown) (unknown) (no (unknown) (unknown) Exam (units (unkno wn) date) unknown) (unknown) (no (unknown) (unknown) Family History (units (unknown) date) (Reviewed 02/14/23 unknown) @ 12:47 by Nicholas Guevara MD) (unknown) (no (unknown) (unknown) Family/Other (units (u nknown) date) Accident unknown) (unknown) (no (unknown) (unknown) Father (units (unknown) date) Accident unknown) (unknown) (no (unknown) (unknown) [facility]) (unknown) (no (unknown) (unknown) Follow up for (units ( unknown) date) medication check unknown) up. (unknown) (no (unknown) (unknown) Followup in 6 (units ( unknown) date) months for your unknown) annual wellness visit. (unknown) (no (unknown) (unknown) For example, if (units (unknown) date) you determine that unknown) your total time asleep is 6 hours per night (unknown) (no (unknown) (unknown) For (units (unkno wn) date) general?bone?health unknown) to prevent or manage osteoporosis or osteopenia, (unknown) (no (unknown) (unknown) For your chronic (units (unknown) date) difficulty with unknown) sleep (insomnia), practice good sleep hygeine. (unknown) (no (unknown) (unknown) Fractures (units (unkn own) date) unknown) (unknown) (no (unknown) (unknown) GASTROINTESTINAL: (units (unknown) date) Abdomen soft, unknown) non-tender, nondistended. (unknown) (no (unknown) (unknown) GENERAL: This is a (units (unknown) date) well-nourished, unknown) well-developed patient, in no apparent (unknown) (no (unknown) (unknown) GERD without (units (u nknown) date) esophagitis unknown) (unknown) (no (unknown) (unknown) Gastroesophageal (units (unknown) date) reflux disease: The unknown) patient denies abdominal or flank pain, (unknown) (no (unknown) (unknown) Generalized (units (un known) date) anxiety disorder unknown) (unknown) (no (unknown) (unknown) Globulin 2.8 g/dL (units (unknown) date) (1.7-4.1) 10/13/22 unknown) (unknown) (no (unknown) (unknown) Glucose Level 92 (units (unknown) date) mg/dL (80-110) unknown) 10/13/22 (unknown) (no (unknown) (unknown) Gradually increase (units (unknown) date) your sleep time by unknown) 15 minutes as long as the sleep efficiency (unknown) (no (unknown) (unknown) Grandfather (units (un known) date) Cancer unknown) (unknown) (no (unknown) (unknown) Grandmother (units (un known) date) Stroke unknown) (unknown) (no (unknown) (unknown) H/O total (units (unkn own) date) hysterectomy unknown) (unknown) (no (unknown) (unknown) HDL Cholesterol 79 (units (unknown) date) mg/dL (40-60) H unknown) 08/05/22 (unknown) (no (unknown) (unknown) HPI (units (unkno wn) date) unknown) (unknown) (no (unknown) (unknown) Health Management (units (unknown) date) reviewed with unknown) patient: Yes (unknown) (no (unknown) (unknown) Health Management (units (unknown) date) unknown) (unknown) (no (unknown) (unknown) Height 4 ft 10.5 (units (unknown) date) in unknown) (unknown) (no (unknown) (unknown) Hematocrit 40.7 % (units (unknown) date) (36-46) 08/05/22 unknown) (unknown) (no (unknown) (unknown) Hemoglobin 13.9 (units (unknown) date) g/dL (12.0-16.0) unknown) 08/05/22 (unknown) (no (unknown) (unknown) History of bladder (units (unknown) date) surgery unknown) (unknown) (no (unknown) (unknown) History of carpal (units (unknown) date) tunnel release unknown) (unknown) (no (unknown) (unknown) Hyperlipidemia: (units (unknown) date) The present unknown) medications include rosuvastatin. The patient (unknown) (no (unknown) (unknown) Hypertension: The (units (unknown) date) patient is unknown) currently on amlodipine for blood pressure (unknown) (no (unknown) (unknown) If this fails to (units (unknown) date) solve your problem, unknown) a program of sleep restriction that limits (unknown) (no (unknown) (unknown) Inadequately (units (u nknown) date) controlled. Advise: unknown) Increase amlodipine to 10mg daily. (unknown) (no (unknown) (unknown) Inadequately (units (u nknown) date) controlled. Advise: unknown) Switch pravastatin to rosuvastatin. (unknown) (no (unknown) (unknown) Insomnia: The (units ( unknown) date) patient states unknown) symptoms are adequately controlled with zolpidem (unknown) (no (unknown) (unknown) Intake Note: (units (u nknown) date) unknown) (unknown) (no (unknown) (unknown) Intake performed (units (unknown) date) by: Viji Santos unknown) (unknown) (no (unknown) (unknown) Intake (units (unkno wn) date) unknown) (unknown) (no (unknown) (unknown) Intake- Clincial (units (unknown) date) Staff unknown) (unknown) (no (unknown) (unknown) Internal Medicine (units (unknown) date) Office Visit unknown) (unknown) (no (unknown) (unknown) Irritable bowel (units (unknown) date) syndrome type: unknown) unspecified Qualified Code(s): K58.9 (unknown) (no (unknown) (unknown) Irritable bowel (units (unknown) date) syndrome without unknown) diarrhea (unknown) (no (unknown) (unknown) Irritable bowel (units (unknown) date) syndrome unknown) (unknown) (no (unknown) (unknown) Irritable bowel (units (unknown) date) syndrome: The unknown) patient states symptoms are currently controlled (unknown) (no (unknown) (unknown) It was very nice (units (unknown) date) to meet with you unknown) today! (unknown) (no (unknown) (unknown) LDL Cholesterol, (units (unknown) date) Calculated 157 unknown) mg/dL (<100) H 08/05/22 (unknown) (no (unknown) (unknown) Lab Results (units (un known) date) unknown) (unknown) (no (unknown) (unknown) Labwork is ordered (units (unknown) date) today to evaluate unknown) your condition. Results will be posted to (unknown) (no (unknown) (unknown) Last Menstural (units (unknown) date) Cycle + Details unknown) (unknown) (no (unknown) (unknown) Let us know if you (units (unknown) date) have any problems. unknown) (unknown) (no (unknown) (unknown) Lipid Panel Today (units (unknown) date) E78.2 - Mixed unknown) hyperlipidemia, F41.9 - Anxiety disorder, (unknown) (no (unknown) (unknown) Loc: [facility] (units (unkno wn) date) unknown) (unknown) (no (unknown) (unknown) Major depression:? (units (unknown) date) The patient reports unknown) good compliance with escitalopram, and (unknown) (no (unknown) (unknown) Mean Corpuscular (units (unknown) date) Hemoglobin 30.4 PG unknown) (26-34) 08/05/22 (unknown) (no (unknown) (unknown) Mean Corpuscular (units (unknown) date) Hemoglobin Concent unknown) 34.1 % (30-36) 07/22 (unknown) (no (unknown) (unknown) Mean Corpuscular (units (unknown) date) Volume 89.2 fL unknown) (80-100) 08/05/22 (unknown) (no (unknown) (unknown) Measles (-1943) (units (unknown) date) unknown) (unknown) (no (unknown) (unknown) Medical History (units (unknown) date) (Updated 02/14/23 @ unknown) 15:09 by Nicholas Guevara MD) (unknown) (no (unknown) (unknown) Medications (units (un known) date) unknown) (unknown) (no (unknown) (unknown) Medications: (units (u nknown) date) unknown) (unknown) (no (unknown) (unknown) Mixed (units (unkno wn) date) hyperlipidemia unknown) (unknown) (no (unknown) (unknown) Mother (units (unknown) date) Stroke unknown) (unknown) (no (unknown) (unknown) NECK: Trachea (units ( unknown) date) midline. No JVD, unknown) bruits or lymphadenopathy. Supple, nontender, no (unknown) (no (unknown) (unknown) NEUROLOGIC: Alert, (units (unknown) date) oriented, speech unknown) fluent, full upper and lower motor strength, (unknown) (no (unknown) (unknown) New diagnosis. (units ( unknown) date) Inadequately unknown) controlled. Advise: Reclast annually or alendronate. (unknown) (no (unknown) (unknown) New (units (unkno wn) date) unknown) (unknown) (no (unknown) (unknown) Orders (units (unkno wn) date) unknown) (unknown) (no (unknown) (unknown) Orders: (units (unkno wn) date) unknown) (unknown) (no (unknown) (unknown) Osteoporosis: The (units (unknown) date) patient has unknown) osteoporosis by DEXA 08/11/2022: AP spine T-score (unknown) (no (unknown) (unknown) Other Menstrual (units (unknown) date) Period: Surgical unknown) Menopause (hysterectomy) (unknown) (no (unknown) (unknown) Oxygen Delivery (units (unknown) date) Method room air unknown) (unknown) (no (unknown) (unknown) PFSH (units (unkno wn) date) unknown) (unknown) (no (unknown) (unknown) Patient: (units (unkno wn) date) Angle Carranza unknown) MR#: [id number] (unknown) (no (unknown) (unknown) Penicillins (units (un known) date) Adverse Reaction unknown) (Severe, Verified 02/14/23 13:36) (unknown) (no (unknown) (unknown) Plan (units (unkno wn) date) unknown) (unknown) (no (unknown) (unknown) Platelet Count 188 (units (unknown) date) X103/uL (150-400) unknown) 08/05/22 (unknown) (no (unknown) (unknown) Position Sitting (units (unknown) date) Sitting unknown) (unknown) (no (unknown) (unknown) Potassium Level (units (unknown) date) 4.5 mmol/L unknown) (3.4-5.1) 10/13/22 (unknown) (no (unknown) (unknown) Pulse 87 (units (unkno wn) date) unknown) (unknown) (no (unknown) (unknown) Pulse Oximetry (%) (units (unknown) date) 97 unknown) (unknown) (no (unknown) (unknown) Pulse Source (units (u nknown) date) Monitor unknown) (unknown) (no (unknown) (unknown) Qualifiers: (units (un known) date) unknown) (unknown) (no (unknown) (unknown) RESPIRATORY: Clear (units (unknown) date) to auscultation. unknown) (unknown) (no (unknown) (unknown) ROS (units (unkno wn) date) unknown) (unknown) (no (unknown) (unknown) Rash (units (unkno wn) date) unknown) (unknown) (no (unknown) (unknown) Reason For Visit (units (unknown) date) unknown) (unknown) (no (unknown) (unknown) Recent lab testing (units (unknown) date) reviewed. unknown) (unknown) (no (unknown) (unknown) Reclast infusion (units (unknown) date) is advised unknown) annually. We will call to arrange this. (unknown) (no (unknown) (unknown) Red Blood Count (units (unknown) date) 4.56 X106/uL unknown) (4.0-5.2) 08/05/22 (unknown) (no (unknown) (unknown) Red Cell (units (unkno wn) date) Distribution Width unknown) 13.6 % (11.6-14.8) 08/05/22 (unknown) (no (unknown) (unknown) Relaxation (units (unk nown) date) techniques such as unknown) diaphragmatic breathing, visualization, mindful (unknown) (no (unknown) (unknown) S/P renal artery (units (unknown) date) angioplasty (-2006) unknown) (unknown) (no (unknown) (unknown) She prefers the (units (unknown) date) once yearly unknown) infusion after a discussion today. (unknown) (no (unknown) (unknown) She wishes a (units (u nknown) date) colonoscopy. unknown) (unknown) (no (unknown) (unknown) Signed By: (units (unk nown) date) unknown) (unknown) (no (unknown) (unknown) Smoking Status: (units (unknown) date) Never smoker unknown) (unknown) (no (unknown) (unknown) Sodium Level 137 (units (unknown) date) mmol/L (137-145) unknown) 10/13/22 (unknown) (no (unknown) (unknown) Status: Acute (units ( unknown) date) unknown) (unknown) (no (unknown) (unknown) Sulfa (Sulfonamide (units (unknown) date) Antibiotics) unknown) Allergy (Mild, Verified 02/14/23 13:36) (unknown) (no (unknown) (unknown) Surgical History (units (unknown) date) (Reviewed 02/14/23 unknown) @ 12:47 by Nicholas Guevara MD) (unknown) (no (unknown) (unknown) This note may have (units (unknown) date) been all or unknown) partially generated using voice recognition (unknown) (no (unknown) (unknown) Thyroid (units (unkno wn) date) Stimulating Hormone unknown) (TSH) 2.03 uIU/mL (0.47-4.68) 0 (unknown) (no (unknown) (unknown) Tobacco + (units (unkn own) date) Substance Use unknown) (unknown) (no (unknown) (unknown) Tobacco Status (units (unknown) date) unknown) (unknown) (no (unknown) (unknown) Total Bilirubin (units (unknown) date) 0.6 mg/dL (0.2-1.3) unknown) 10/13/22 (unknown) (no (unknown) (unknown) Total Protein 7.5 (units (unknown) date) g/dL (6.3-8.2) unknown) 10/13/22 (unknown) (no (unknown) (unknown) Triglycerides (units ( unknown) date) Level 105 mg/dL unknown) (35-150) 08/05/22 (unknown) (no (unknown) (unknown) Visit Reasons: 3 (units (unknown) date) mo f/u unknown) (unknown) (no (unknown) (unknown) Vitals (units (unkno wn) date) unknown) (unknown) (no (unknown) (unknown) Wean down off any (units (unknown) date) sleeping pills you unknown) are taking as these are associated with (unknown) (no (unknown) (unknown) Weight 131 lb (units ( unknown) date) unknown) (unknown) (no (unknown) (unknown) Well-controlled. (units (unknown) date) Continue current unknown) medications. (unknown) (no (unknown) (unknown) White Blood Count (units (unknown) date) 4.1 X103/uL unknown) (4.5-11.0) L 08/05/22 (unknown) (no (unknown) (unknown) You may TRY: (units (u nknown) date) Trazodone 50mg 1/2 unknown) tablet nightly. You may increase up to 1-2 (unknown) (no (unknown) (unknown) Your medical (units (u nknown) date) condition appears unknown) stable at this point. Continue your current (unknown) (no (unknown) (unknown) about 35 minutes (units (unknown) date) daily. unknown) (unknown) (no (unknown) (unknown) alprazolam 0.25 mg (units (unknown) date) tablet 0.25 mg PO unknown) DAILY PRN anxiety #20 tabs 08/05/22 [Rx (unknown) (no (unknown) (unknown) amlodipine 10 mg (units (unknown) date) tablet 10 mg PO unknown) DAILY #90 tabs 10/13/22 [Rx Confirmed 02/14/23] (unknown) (no (unknown) (unknown) and then gradually (units (unknown) date) increases the time unknown) in bed for sleep, and utilizes the concept (unknown) (no (unknown) (unknown) and was advised to (units (unknown) date) have a colonoscopy. unknown) (unknown) (no (unknown) (unknown) and your waking (units (unknown) date) time as 6:00 AM, unknown) then your bedtime would be 12:00 AM, even if (unknown) (no (unknown) (unknown) anorexia, nausea (units (unknown) date) or vomiting, unknown) dysphagia, change in bowel habits or black or (unknown) (no (unknown) (unknown) bloody stools. The (units (unknown) date) patient is unknown) currently taking lansoprazole for gastroesophageal (unknown) (no (unknown) (unknown) constant. (units (unkn own) date) unknown) (unknown) (no (unknown) (unknown) control.? The (units ( unknown) date) patient is unknown) tolerating the medication without side effects (unknown) (no (unknown) (unknown) daily, as well as (units (unknown) date) weight-bearing unknown) activity (e.g., walking) for bone health. (unknown) (no (unknown) (unknown) denies adverse (units (unknown) date) side effects to the unknown) medication, and denies feeling depressed, (unknown) (no (unknown) (unknown) distress. (units (unkn own) date) unknown) (unknown) (no (unknown) (unknown) erythromycin base (units (unknown) date) Adverse Reaction unknown) (Severe, Verified 02/14/23 13:36) (unknown) (no (unknown) (unknown) escitalopram (units (u nknown) date) oxalate 20 mg unknown) tablet 30 mg PO DAILY #135 tabs 10/13/22 [Rx (unknown) (no (unknown) (unknown) fracture (units (unkno wn) date) unknown) (unknown) (no (unknown) (unknown) good motivation. (units (unknown) date) PHQ-9 score = 02/14. unknown) FRANK-7 score = 0. (unknown) (no (unknown) (unknown) have occurred. If (units (unknown) date) there are any unknown) questions, please contact the Medical Records (unknown) (no (unknown) (unknown) icterus. No (units (un known) date) injection or unknown) drainage. (unknown) (no (unknown) (unknown) insomnia (units (unkno wn) date) unknown) (unknown) (no (unknown) (unknown) irritable, cranky, (units (unknown) date) fatigued, easily unknown) tearful, sleep troubles, anhedonia, social (unknown) (no (unknown) (unknown) is greater than (units (unknown) date) 85% (for example, unknown) for 8 hours in bed, about 1 hour of awake (unknown) (no (unknown) (unknown) lansoprazole 30 mg (units (unknown) date) capsule,delayed unknown) release 30 mg PO BID #180 caps 08/05/22 [Rx (unknown) (no (unknown) (unknown) long-term harms (units (unknown) date) (cognitive unknown) impairment, falls). (unknown) (no (unknown) (unknown) maintain intake of (units (unknown) date) calcium 1500mg unknown) daily (preferably mostly from dietary sources (unknown) (no (unknown) (unknown) may occur. (units (unk nown) date) Occasional unknown) wrong-word or 'sound-alike' substitutions may have (unknown) (no (unknown) (unknown) medications. (units (u nknown) date) unknown) (unknown) (no (unknown) (unknown) meditation and (units (unknown) date) progressive muscle unknown) relaxation can also be helpful. (unknown) (no (unknown) (unknown) meningeal signs. (units (unknown) date) unknown) (unknown) (no (unknown) (unknown) mild (units (unkno wn) date) unknown) (unknown) (no (unknown) (unknown) mouth sores (units (un known) date) unknown) (unknown) (no (unknown) (unknown) nausea (units (unkno wn) date) unknown) (unknown) (no (unknown) (unknown) no focal deficits (units (unknown) date) evident. unknown) (unknown) (no (unknown) (unknown) occurred due to (units (unknown) date) the inherent unknown) limitations of voice recognition software. Please (unknown) (no (unknown) (unknown) of sleep (units (unkno wn) date) efficiency (total unknown) sleep time divided by total time in bed). (unknown) (no (unknown) (unknown) paroxysmal (units (unk nown) date) nocturnal dyspnea, unknown) pedal edema, or TIA symptoms. She walks her dog (unknown) (no (unknown) (unknown) pathological (units (u nknown) date) fracture unknown) (unknown) (no (unknown) (unknown) read the note (units ( unknown) date) carefully and unknown) recognize, using context, where these substitutions (unknown) (no (unknown) (unknown) reflux disease at (units (unknown) date) this time. unknown) (unknown) (no (unknown) (unknown) reported, and (units ( unknown) date) denies exertional unknown) or other chest pain, dyspnea, orthopnea, (unknown) (no (unknown) (unknown) reports good (units (u nknown) date) compliance and unknown) denies any chest pain, exertional or otherwise. (unknown) (no (unknown) (unknown) rosuvastatin 20 mg (units (unknown) date) tablet 20 mg PO unknown) DAILY #100 tabs 11/09/22 [Rx Confirmed (unknown) (no (unknown) (unknown) severity: mild (units (unknown) date) Qualified Code(s): unknown) F33.0 - Major depressive disorder, recurrent, (unknown) (no (unknown) (unknown) sleep time per (units (unknown) date) day. unknown) (unknown) (no (unknown) (unknown) sleep (units (unkno wn) date) unknown) (unknown) (no (unknown) (unknown) sleeping (units (unkno wn) date) medication for the unknown) past several years. (unknown) (no (unknown) (unknown) software. Although (units (unknown) date) every effort is unknown) made to edit content, fur nailer errors (unknown) (no (unknown) (unknown) such as dairy, (units (unknown) date) lean meats and unknown) leafy green vegetables) and vitamin D3 1000 units (unknown) (no (unknown) (unknown) tables nightly as (units (unknown) date) needed, in place of unknown) zolpidem and Benedryl. (unknown) (no (unknown) (unknown) the patient (units (un known) date) portal. Let us know unknown) if you have any questions or concerns. (unknown) (no (unknown) (unknown) time). (units (unkno wn) date) unknown) (unknown) (no (unknown) (unknown) trazodone 50 mg (units (unknown) date) tablet 50 mg PO unknown) BEDTIME PRN sleep #60 tabs 02/14/23 [Rx (unknown) (no (unknown) (unknown) trazodone (units (unkn own) date) unknown) (unknown) (no (unknown) (unknown) unspecified, M81.0 (units (unknown) date) - Age-related unknown) osteoporosis without current pathological (unknown) (no (unknown) (unknown) with rare (units (unkn own) date) alprazolam. unknown) (unknown) (no (unknown) (unknown) withdrawal, or (units (unknown) date) trouble with unknown) memory, focus, or concentration. The patient has (unknown) (no (unknown) (unknown) you tired before (units (unknown) date) that time. unknown) (unknown) (no (unknown) (unknown) zolpidem (units (unkno wn) date) unknown) Result panel 9 (unknown) (no (unknown) (unknown) (no value) (units (unk nown) date) unknown) (unknown) (no (unknown) (unknown) (1) Essential (units ( unknown) date) hypertension: unknown) (unknown) (no (unknown) (unknown) (2) Mixed (units (unkn own) date) hyperlipidemia: unknown) (unknown) (no (unknown) (unknown) (3) GERD without (units (unknown) date) esophagitis: unknown) (unknown) (no (unknown) (unknown) (4) Depression, (units (unknown) date) major, recurrent: unknown) (unknown) (no (unknown) (unknown) (5) Generalized (units (unknown) date) anxiety disorder: unknown) (unknown) (no (unknown) (unknown) (6) Chronic (units (un known) date) insomnia: unknown) (unknown) (no (unknown) (unknown) (7) Age-related (units (unknown) date) osteoporosis unknown) without current pathological fracture: (unknown) (no (unknown) (unknown) (8) Irritable (units ( unknown) date) bowel syndrome: unknown) (unknown) (no (unknown) (unknown) (9) Screening for (units (unknown) date) colon cancer: unknown) (unknown) (no (unknown) (unknown) * Study phase: (units (unknown) date) Keep a sleep diary unknown) for 2 weeks and calculate the average total (unknown) (no (unknown) (unknown) * Treatment phase: (units (unknown) date) Spend that amount unknown) of time in bed, keeping the arising time (unknown) (no (unknown) (unknown) - Encounter for (units (unknown) date) screening for unknown) malignant neoplasm of colon (unknown) (no (unknown) (unknown) / (units (unkno wn) date) unknown) (unknown) (no (unknown) (unknown) 02/14/23 1512 (units ( unknown) date) unknown) (unknown) (no (unknown) (unknown) 02/14/23 (units (unkno wn) date) unknown) (unknown) (no (unknown) (unknown) 02/14/23] (units (unkn own) date) unknown) (unknown) (no (unknown) (unknown) [id number] (units (unkno wn) date) unknown) (unknown) (no (unknown) (unknown) 1-2 tablets as (units (unknown) date) needed nightly for unknown) sleep 50 mg PO BEDTIME PRN 60 tabs 5RF (unknown) (no (unknown) (unknown) 10mg 1/2 tablet (units (unknown) date) twice weekly or unknown) Benedryl on other nights. She has been on (unknown) (no (unknown) (unknown) 14:46 02/14/23 (units (unknown) date) unknown) (unknown) (no (unknown) (unknown) 14:47 (units (unkno wn) date) unknown) (unknown) (no (unknown) (unknown) 2.5, left FN -2.2, (units (unknown) date) right FN -2.4. She unknown) takes BoneUp BID. (unknown) (no (unknown) (unknown) (units (unkno wn) date) unknown) (unknown) (no (unknown) (unknown) 25-Hydroxy Vitamin (units (unknown) date) D Total 41.9 ng/mL unknown) (30.0-100.0) 08/05/22 (unknown) (no (unknown) (unknown) 02/09 (units (unkno wn) date) unknown) (unknown) (no (unknown) (unknown) 04/11 (units (o wn) date) unknown) (unknown) (no (unknown) (unknown) 08/05/22 (units (unkno wn) date) unknown) (unknown) (no (unknown) (unknown) AWV 08/05/2022 (units ( unknown) date) unknown) (unknown) (no (unknown) (unknown) Active/Remission (units (unknown) date) status: currently unknown) active Major depression episode (unknown) (no (unknown) (unknown) Age-related (units (un known) date) osteoporosis unknown) without current pathological fracture (unknown) (no (unknown) (unknown) Age/Sex: 82 / F (units (unknown) date) Date of Service: unknown) (unknown) (no (unknown) (unknown) Alanine (units (unkno wn) date) Aminotransferase unknown) (ALT/SGPT) 22 IU/L (<35) 09/22 (unknown) (no (unknown) (unknown) Albumin 4.7 g/dL (units (unknown) date) (3.5-5.0) 10/13/22 unknown) (unknown) (no (unknown) (unknown) Albumin/Globulin (units (unknown) date) Ratio 1.7 (1.0-2.8) unknown) 10/13/22 (unknown) (no (unknown) (unknown) Alkaline (units (unkno wn) date) Phosphatase 62 U/L unknown) (38-126) 10/13/22 (unknown) (no (unknown) (unknown) All systems (units (un known) date) reviewed + are unknown) unremarkable except as noted in HPI and below (unknown) (no (unknown) (unknown) Allergies (units (unkn own) date) unknown) (unknown) (no (unknown) (unknown) [place], [place] (units ( unknown) date) [id number] unknown) (unknown) (no (unknown) (unknown) Anesthesia (units (unk nown) date) unknown) (unknown) (no (unknown) (unknown) Anxiety disorder, (units (unknown) date) unspecified, M81.0 unknown) - Age-related osteoporosis without current (unknown) (no (unknown) (unknown) Anxiety: The (units (u nknown) date) patient reports unknown) symptoms are well controlled on current therapy (unknown) (no (unknown) (unknown) Aspartate Amino (units (unknown) date) Transf (AST/SGOT) unknown) 25 IU/L (14-36) 10/13/ (unknown) (no (unknown) (unknown) Assessment + Plan (units (unknown) date) unknown) (unknown) (no (unknown) (unknown) Assessment and (units (unknown) date) Plan: unknown) (unknown) (no (unknown) (unknown) Attending Dr: (units ( unknown) date) Nicholas Guevara MD unknown) (unknown) (no (unknown) (unknown) BMI 26.9 (units (unkno wn) date) unknown) (unknown) (no (unknown) (unknown) BP 140/80 144/70 H (units (unknown) date) unknown) (unknown) (no (unknown) (unknown) BUN/Creatinine (units (unknown) date) Ratio 21.7 (6-22) unknown) 10/13/22 (unknown) (no (unknown) (unknown) Blood Pressure (units (unknown) date) Location Lt unknown) brachial Lt brachial (unknown) (no (unknown) (unknown) Blood Urea (units (unk nown) date) Nitrogen 15 mg/dL unknown) (7-17) 10/13/22 (unknown) (no (unknown) (unknown) CARDIOVASCULAR: (units (unknown) date) Regular rate and unknown) rhythm without murmurs, gallops, or rubs. (unknown) (no (unknown) (unknown) Calcium Level 9.7 (units (unknown) date) mg/dL (8.4-10.2) unknown) 10/13/22 (unknown) (no (unknown) (unknown) Carbon Dioxide (units (unknown) date) Level 28 mmol/L unknown) (-32) 10/13/22 (unknown) (no (unknown) (unknown) Chicken pox (units (un known) date) (-1945) unknown) (unknown) (no (unknown) (unknown) Chief Complaint (units (unknown) date) unknown) (unknown) (no (unknown) (unknown) Chief Complaint: (units (unknown) date) Medical followup unknown) (unknown) (no (unknown) (unknown) Chloride Level 101 (units (unknown) date) mmol/L (98-107) unknown) 10/13/22 (unknown) (no (unknown) (unknown) Cholesterol Level (units (unknown) date) 257 mg/dL (140-199) unknown) H 08/05/22 (unknown) (no (unknown) (unknown) Chronic insomnia (units (unknown) date) unknown) (unknown) (no (unknown) (unknown) Clinically stable. (units (unknown) date) Continue current unknown) plan. (unknown) (no (unknown) (unknown) [facility] (units (unk nown) date) Results- Last: unknown) (unknown) (no (unknown) (unknown) Comprehensive (units ( unknown) date) Metabolic Panel unknown) Today E78.2 - Mixed hyperlipidemia, F41.9 (unknown) (no (unknown) (unknown) Confirmed (units (unkn own) date) 02/14/23] unknown) (unknown) (no (unknown) (unknown) Const (units (unkno wn) date) unknown) (unknown) (no (unknown) (unknown) Creatinine 0.69 (units (unknown) date) mg/dL (0.52-1.04) unknown) 10/13/22 (unknown) (no (unknown) (unknown) DERMATOLOGIC: No (units (unknown) date) rashes or skin unknown) lesions. (unknown) (no (unknown) (unknown) : 1940 (units (unknown) date) Acct:[id number] unknown) (unknown) (no (unknown) (unknown) Depression, major, (units (unknown) date) recurrent unknown) (unknown) (no (unknown) (unknown) Dept at (units (unkno wn) date) . unknown) (unknown) (no (unknown) (unknown) Details: (units (unkno wn) date) unknown) (unknown) (no (unknown) (unknown) Discontinued (units (u nknown) date) Reason: Provider's unknown) Order 10 mg PO BEDTIME PRN 45 tabs 1RF (unknown) (no (unknown) (unknown) Discontinued (units (u nknown) date) unknown) (unknown) (no (unknown) (unknown) Discuss/review. (units (unknown) date) unknown) (unknown) (no (unknown) (unknown) Documented By: (units (unknown) date) Nicholas Guevara MD unknown) 02/14/23 1247 (unknown) (no (unknown) (unknown) ENT: Mucous (units (un known) date) membranes pink and unknown) moist. (unknown) (no (unknown) (unknown) EXTREMITIES: No (units (unknown) date) clubbing, cyanosis, unknown) or edema. (unknown) (no (unknown) (unknown) EYES: Pupils equal (units (unknown) date) round and reactive. unknown) Extraocular motions intact. No scleral (unknown) (no (unknown) (unknown) Essential (units (unkn own) date) hypertension unknown) (unknown) (no (unknown) (unknown) Estimat Glomerular (units (unknown) date) Filtration Rate > unknown) 60 mL/min (>60) 10/13 (unknown) (no (unknown) (unknown) Exam Narrative (units (unknown) date) unknown) (unknown) (no (unknown) (unknown) Exam Narrative: (units (unknown) date) unknown) (unknown) (no (unknown) (unknown) Exam (units (unkno wn) date) unknown) (unknown) (no (unknown) (unknown) Family History (units (unknown) date) (Reviewed 02/14/23 unknown) @ 12:47 by Nicholas Guevara MD) (unknown) (no (unknown) (unknown) Family/Other (units (u nknown) date) Accident unknown) (unknown) (no (unknown) (unknown) Father (units (unknown) date) Accident unknown) (unknown) (no (unknown) (unknown) [facility]) (unknown) (no (unknown) (unknown) Follow up for (units ( unknown) date) medication check unknown) up. (unknown) (no (unknown) (unknown) Followup in 6 (units ( unknown) date) months for your unknown) annual wellness visit. (unknown) (no (unknown) (unknown) For example, if (units (unknown) date) you determine that unknown) your total time asleep is 6 hours per night (unknown) (no (unknown) (unknown) For (units (unkno wn) date) general?bone?health unknown) to prevent or manage osteoporosis or osteopenia, (unknown) (no (unknown) (unknown) For your chronic (units (unknown) date) difficulty with unknown) sleep (insomnia), practice good sleep hygeine. (unknown) (no (unknown) (unknown) Fractures (units (unkn own) date) unknown) (unknown) (no (unknown) (unknown) GASTROINTESTINAL: (units (unknown) date) Abdomen soft, unknown) non-tender, nondistended. (unknown) (no (unknown) (unknown) GENERAL: This is a (units (unknown) date) well-nourished, unknown) well-developed patient, in no apparent (unknown) (no (unknown) (unknown) GERD without (units (u nknown) date) esophagitis unknown) (unknown) (no (unknown) (unknown) Gastroesophageal (units (unknown) date) reflux disease: The unknown) patient denies abdominal or flank pain, (unknown) (no (unknown) (unknown) Generalized (units (un known) date) anxiety disorder unknown) (unknown) (no (unknown) (unknown) Globulin 2.8 g/dL (units (unknown) date) (1.7-4.1) 10/13/22 unknown) (unknown) (no (unknown) (unknown) Glucose Level 92 (units (unknown) date) mg/dL (80-110) unknown) 10/13/22 (unknown) (no (unknown) (unknown) Gradually increase (units (unknown) date) your sleep time by unknown) 15 minutes as long as the sleep efficiency (unknown) (no (unknown) (unknown) Grandfather (units (un known) date) Cancer unknown) (unknown) (no (unknown) (unknown) Grandmother (units (un known) date) Stroke unknown) (unknown) (no (unknown) (unknown) H/O total (units (unkn own) date) hysterectomy unknown) (unknown) (no (unknown) (unknown) HDL Cholesterol 79 (units (unknown) date) mg/dL (40-60) H unknown) 08/05/22 (unknown) (no (unknown) (unknown) HPI (units (unkno wn) date) unknown) (unknown) (no (unknown) (unknown) Health Management (units (unknown) date) reviewed with unknown) patient: Yes (unknown) (no (unknown) (unknown) Health Management (units (unknown) date) unknown) (unknown) (no (unknown) (unknown) Height 4 ft 10.5 (units (unknown) date) in unknown) (unknown) (no (unknown) (unknown) Hematocrit 40.7 % (units (unknown) date) (36-46) 08/05/22 unknown) (unknown) (no (unknown) (unknown) Hemoglobin 13.9 (units (unknown) date) g/dL (12.0-16.0) unknown) 08/05/22 (unknown) (no (unknown) (unknown) History of bladder (units (unknown) date) surgery unknown) (unknown) (no (unknown) (unknown) History of carpal (units (unknown) date) tunnel release unknown) (unknown) (no (unknown) (unknown) Hyperlipidemia: (units (unknown) date) The present unknown) medications include rosuvastatin. The patient (unknown) (no (unknown) (unknown) Hypertension: The (units (unknown) date) patient is unknown) currently on amlodipine for blood pressure (unknown) (no (unknown) (unknown) If this fails to (units (unknown) date) solve your problem, unknown) a program of sleep restriction that limits (unknown) (no (unknown) (unknown) Inadequately (units (u nknown) date) controlled. Advise: unknown) Increase amlodipine to 10mg daily. (unknown) (no (unknown) (unknown) Inadequately (units (u nknown) date) controlled. Advise: unknown) Switch pravastatin to rosuvastatin. (unknown) (no (unknown) (unknown) Insomnia: The (units ( unknown) date) patient states unknown) symptoms are adequately controlled with zolpidem (unknown) (no (unknown) (unknown) Intake Note: (units (u nknown) date) unknown) (unknown) (no (unknown) (unknown) Intake performed (units (unknown) date) by: Viji Santos unknown) (unknown) (no (unknown) (unknown) Intake (units (unkno wn) date) unknown) (unknown) (no (unknown) (unknown) Intake- Clincial (units (unknown) date) Staff unknown) (unknown) (no (unknown) (unknown) Internal Medicine (units (unknown) date) Office Visit unknown) (unknown) (no (unknown) (unknown) Irritable bowel (units (unknown) date) syndrome type: unknown) unspecified Qualified Code(s): K58.9 (unknown) (no (unknown) (unknown) Irritable bowel (units (unknown) date) syndrome without unknown) diarrhea (unknown) (no (unknown) (unknown) Irritable bowel (units (unknown) date) syndrome unknown) (unknown) (no (unknown) (unknown) Irritable bowel (units (unknown) date) syndrome: The unknown) patient states symptoms are currently controlled (unknown) (no (unknown) (unknown) It was very nice (units (unknown) date) to meet with you unknown) today! (unknown) (no (unknown) (unknown) LDL Cholesterol, (units (unknown) date) Calculated 157 unknown) mg/dL (<100) H 08/05/22 (unknown) (no (unknown) (unknown) Lab Results (units (un known) date) unknown) (unknown) (no (unknown) (unknown) Labwork is ordered (units (unknown) date) today to evaluate unknown) your condition. Results will be posted to (unknown) (no (unknown) (unknown) Last Menstural (units (unknown) date) Cycle + Details unknown) (unknown) (no (unknown) (unknown) Let us know if you (units (unknown) date) have any problems. unknown) (unknown) (no (unknown) (unknown) Lipid Panel Today (units (unknown) date) E78.2 - Mixed unknown) hyperlipidemia, F41.9 - Anxiety disorder, (unknown) (no (unknown) (unknown) Loc: [facility] (units (unkno wn) date) unknown) (unknown) (no (unknown) (unknown) Major depression:? (units (unknown) date) The patient reports unknown) good compliance with escitalopram, and (unknown) (no (unknown) (unknown) Mean Corpuscular (units (unknown) date) Hemoglobin 30.4 PG unknown) (26-34) 08/05/22 (unknown) (no (unknown) (unknown) Mean Corpuscular (units (unknown) date) Hemoglobin Concent unknown) 34.1 % (30-36) 07/22 (unknown) (no (unknown) (unknown) Mean Corpuscular (units (unknown) date) Volume 89.2 fL unknown) (80-100) 08/05/22 (unknown) (no (unknown) (unknown) Measles (-1943) (units (unknown) date) unknown) (unknown) (no (unknown) (unknown) Medical History (units (unknown) date) (Updated 02/14/23 @ unknown) 15:09 by Nicholas Guevara MD) (unknown) (no (unknown) (unknown) Medications (units (un known) date) unknown) (unknown) (no (unknown) (unknown) Medications: (units (u nknown) date) unknown) (unknown) (no (unknown) (unknown) Mixed (units (unkno wn) date) hyperlipidemia unknown) (unknown) (no (unknown) (unknown) Mother (units (unknown) date) Stroke unknown) (unknown) (no (unknown) (unknown) NECK: Trachea (units ( unknown) date) midline. No JVD, unknown) bruits or lymphadenopathy. Supple, nontender, no (unknown) (no (unknown) (unknown) NEUROLOGIC: Alert, (units (unknown) date) oriented, speech unknown) fluent, full upper and lower motor strength, (unknown) (no (unknown) (unknown) New diagnosis. (units ( unknown) date) Inadequately unknown) controlled. Advise: Reclast annually or alendronate. (unknown) (no (unknown) (unknown) New (units (unkno wn) date) unknown) (unknown) (no (unknown) (unknown) Orders (units (unkno wn) date) unknown) (unknown) (no (unknown) (unknown) Orders: (units (unkno wn) date) unknown) (unknown) (no (unknown) (unknown) Osteoporosis: The (units (unknown) date) patient has unknown) osteoporosis by DEXA 08/11/2022: AP spine T-score (unknown) (no (unknown) (unknown) Other Menstrual (units (unknown) date) Period: Surgical unknown) Menopause (hysterectomy) (unknown) (no (unknown) (unknown) Oxygen Delivery (units (unknown) date) Method room air unknown) (unknown) (no (unknown) (unknown) PFSH (units (unkno wn) date) unknown) (unknown) (no (unknown) (unknown) Patient: (units (o wn) date) Angle Carranza unknown) MR#: [id number] (unknown) (no (unknown) (unknown) Penicillins (units (un known) date) Adverse Reaction unknown) (Severe, Verified 02/14/23 13:36) (unknown) (no (unknown) (unknown) Plan (units (unkno wn) date) unknown) (unknown) (no (unknown) (unknown) Platelet Count 188 (units (unknown) date) X103/uL (150-400) unknown) 08/05/22 (unknown) (no (unknown) (unknown) Position Sitting (units (unknown) date) Sitting unknown) (unknown) (no (unknown) (unknown) Potassium Level (units (unknown) date) 4.5 mmol/L unknown) (3.4-5.1) 10/13/22 (unknown) (no (unknown) (unknown) Pulse 87 (units (unkno wn) date) unknown) (unknown) (no (unknown) (unknown) Pulse Oximetry (%) (units (unknown) date) 97 unknown) (unknown) (no (unknown) (unknown) Pulse Source (units (u nknown) date) Monitor unknown) (unknown) (no (unknown) (unknown) Qualifiers: (units (un known) date) unknown) (unknown) (no (unknown) (unknown) RESPIRATORY: Clear (units (unknown) date) to auscultation. unknown) (unknown) (no (unknown) (unknown) ROS (units (unkno wn) date) unknown) (unknown) (no (unknown) (unknown) Rash (units (unkno wn) date) unknown) (unknown) (no (unknown) (unknown) Reason For Visit (units (unknown) date) unknown) (unknown) (no (unknown) (unknown) Recent lab testing (units (unknown) date) reviewed. unknown) (unknown) (no (unknown) (unknown) Reclast infusion (units (unknown) date) is advised unknown) annually. We will call to arrange this. (unknown) (no (unknown) (unknown) Red Blood Count (units (unknown) date) 4.56 X106/uL unknown) (4.0-5.2) 08/05/22 (unknown) (no (unknown) (unknown) Red Cell (units (unkno wn) date) Distribution Width unknown) 13.6 % (11.6-14.8) 08/05/22 (unknown) (no (unknown) (unknown) Referral (units (unkno wn) date) Colonoscopy K58.9 - unknown) Irritable bowel syndrome without diarrhea, Z12.11 (unknown) (no (unknown) (unknown) Referrals (units (unkn own) date) unknown) (unknown) (no (unknown) (unknown) Relaxation (units (unk nown) date) techniques such as unknown) diaphragmatic breathing, visualization, mindful (unknown) (no (unknown) (unknown) S/P renal artery (units (unknown) date) angioplasty (-2005) unknown) (unknown) (no (unknown) (unknown) She prefers the (units (unknown) date) once yearly unknown) infusion after a discussion today. (unknown) (no (unknown) (unknown) She wishes a (units (u nknown) date) colonoscopy. unknown) (unknown) (no (unknown) (unknown) Signed By: (units (unk nown) date) <Electronically unknown) signed by Nicholas Guevara MD> (unknown) (no (unknown) (unknown) Signed (units (unkno wn) date) unknown) (unknown) (no (unknown) (unknown) Smoking Status: (units (unknown) date) Never smoker unknown) (unknown) (no (unknown) (unknown) Sodium Level 137 (units (unknown) date) mmol/L (137-145) unknown) 10/13/22 (unknown) (no (unknown) (unknown) Status: Acute (units ( unknown) date) unknown) (unknown) (no (unknown) (unknown) Sulfa (Sulfonamide (units (unknown) date) Antibiotics) unknown) Allergy (Mild, Verified 02/14/23 13:36) (unknown) (no (unknown) (unknown) Surgical History (units (unknown) date) (Reviewed 02/14/23 unknown) @ 12:47 by Nicholas Guevara MD) (unknown) (no (unknown) (unknown) This note may have (units (unknown) date) been all or unknown) partially generated using voice recognition (unknown) (no (unknown) (unknown) Thyroid (units (unkno wn) date) Stimulating Hormone unknown) (TSH) 2.03 uIU/mL (0.47-4.68) 0 (unknown) (no (unknown) (unknown) Tobacco + (units (unkn own) date) Substance Use unknown) (unknown) (no (unknown) (unknown) Tobacco Status (units (unknown) date) unknown) (unknown) (no (unknown) (unknown) Total Bilirubin (units (unknown) date) 0.6 mg/dL (0.2-1.3) unknown) 10/13/22 (unknown) (no (unknown) (unknown) Total Protein 7.5 (units (unknown) date) g/dL (6.3-8.2) unknown) 10/13/22 (unknown) (no (unknown) (unknown) Triglycerides (units ( unknown) date) Level 105 mg/dL unknown) (35-150) 08/05/22 (unknown) (no (unknown) (unknown) Visit Reasons: 3 (units (unknown) date) mo f/u unknown) (unknown) (no (unknown) (unknown) Vitals (units (unkno wn) date) unknown) (unknown) (no (unknown) (unknown) Wean down off any (units (unknown) date) sleeping pills you unknown) are taking as these are associated with (unknown) (no (unknown) (unknown) Weight 131 lb (units ( unknown) date) unknown) (unknown) (no (unknown) (unknown) Well-controlled. (units (unknown) date) Continue current unknown) medications. (unknown) (no (unknown) (unknown) White Blood Count (units (unknown) date) 4.1 X103/uL unknown) (4.5-11.0) L 08/05/22 (unknown) (no (unknown) (unknown) You may TRY: (units (u nknown) date) Trazodone 50mg 1/2 unknown) tablet nightly. You may increase up to 1-2 (unknown) (no (unknown) (unknown) Your medical (units (u nknown) date) condition appears unknown) stable at this point. Continue your current (unknown) (no (unknown) (unknown) about 35 minutes (units (unknown) date) daily. unknown) (unknown) (no (unknown) (unknown) alprazolam 0.25 mg (units (unknown) date) tablet 0.25 mg PO unknown) DAILY PRN anxiety #20 tabs 08/05/22 [Rx (unknown) (no (unknown) (unknown) amlodipine 10 mg (units (unknown) date) tablet 10 mg PO unknown) DAILY #90 tabs 10/13/22 [Rx Confirmed 02/14/23] (unknown) (no (unknown) (unknown) and then gradually (units (unknown) date) increases the time unknown) in bed for sleep, and utilizes the concept (unknown) (no (unknown) (unknown) and was advised to (units (unknown) date) have a colonoscopy. unknown) (unknown) (no (unknown) (unknown) and your waking (units (unknown) date) time as 6:00 AM, unknown) then your bedtime would be 12:00 AM, even if (unknown) (no (unknown) (unknown) anorexia, nausea (units (unknown) date) or vomiting, unknown) dysphagia, change in bowel habits or black or (unknown) (no (unknown) (unknown) ay occur. (units (unkn own) date) Occasional unknown) wrong-word or 'sound-alike' substitutions may have (unknown) (no (unknown) (unknown) bloody stools. The (units (unknown) date) patient is unknown) currently taking lansoprazole for gastroesophageal (unknown) (no (unknown) (unknown) constant. (units (unkn own) date) unknown) (unknown) (no (unknown) (unknown) control.? The (units ( unknown) date) patient is unknown) tolerating the medication without side effects (unknown) (no (unknown) (unknown) daily, as well as (units (unknown) date) weight-bearing unknown) activity (e.g., walking) for bone health. (unknown) (no (unknown) (unknown) denies adverse (units (unknown) date) side effects to the unknown) medication, and denies feeling depressed, (unknown) (no (unknown) (unknown) distress. (units (unkn own) date) unknown) (unknown) (no (unknown) (unknown) erythromycin base (units (unknown) date) Adverse Reaction unknown) (Severe, Verified 02/14/23 13:36) (unknown) (no (unknown) (unknown) escitalopram (units (u nknown) date) oxalate 20 mg unknown) tablet 30 mg PO DAILY #135 tabs 10/13/22 [Rx (unknown) (no (unknown) (unknown) fracture (units (unkno wn) date) unknown) (unknown) (no (unknown) (unknown) good motivation. (units (unknown) date) PHQ-9 score = 02/14. unknown) FRANK-7 score = 0. (unknown) (no (unknown) (unknown) have occurred. If (units (unknown) date) there are any unknown) questions, please contact the Medical Records (unknown) (no (unknown) (unknown) icterus. No (units (un known) date) injection or unknown) drainage. (unknown) (no (unknown) (unknown) insomnia (units (unkno wn) date) unknown) (unknown) (no (unknown) (unknown) irritable, cranky, (units (unknown) date) fatigued, easily unknown) tearful, sleep troubles, anhedonia, social (unknown) (no (unknown) (unknown) is greater than (units (unknown) date) 85% (for example, unknown) for 8 hours in bed, about 1 hour of awake (unknown) (no (unknown) (unknown) lansoprazole 30 mg (units (unknown) date) capsule,delayed unknown) release 30 mg PO BID #180 caps 08/05/22 [Rx (unknown) (no (unknown) (unknown) long-term harms (units (unknown) date) (cognitive unknown) impairment, falls). (unknown) (no (unknown) (unknown) maintain intake of (units (unknown) date) calcium 1500mg unknown) daily (preferably mostly from dietary sources (unknown) (no (unknown) (unknown) medications. (units (u nknown) date) unknown) (unknown) (no (unknown) (unknown) meditation and (units (unknown) date) progressive muscle unknown) relaxation can also be helpful. (unknown) (no (unknown) (unknown) meningeal signs. (units (unknown) date) unknown) (unknown) (no (unknown) (unknown) mild (units (unkno wn) date) unknown) (unknown) (no (unknown) (unknown) mouth sores (units (un known) date) unknown) (unknown) (no (unknown) (unknown) nausea (units (unkno wn) date) unknown) (unknown) (no (unknown) (unknown) no focal deficits (units (unknown) date) evident. unknown) (unknown) (no (unknown) (unknown) occurred due to (units (unknown) date) the inherent unknown) limitations of voice recognition software. Please (unknown) (no (unknown) (unknown) of sleep (units (unkno wn) date) efficiency (total unknown) sleep time divided by total time in bed). (unknown) (no (unknown) (unknown) paroxysmal (units (unk nown) date) nocturnal dyspnea, unknown) pedal edema, or TIA symptoms. She walks her dog (unknown) (no (unknown) (unknown) pathological (units (u nknown) date) fracture unknown) (unknown) (no (unknown) (unknown) read the note (units ( unknown) date) carefully and unknown) recognize, using context, where these substitutions (unknown) (no (unknown) (unknown) reflux disease at (units (unknown) date) this time. unknown) (unknown) (no (unknown) (unknown) reported, and (units ( unknown) date) denies exertional unknown) or other chest pain, dyspnea, orthopnea, (unknown) (no (unknown) (unknown) reports good (units (u nknown) date) compliance and unknown) denies any chest pain, exertional or otherwise. (unknown) (no (unknown) (unknown) rosuvastatin 20 mg (units (unknown) date) tablet 20 mg PO unknown) DAILY #100 tabs 11/09/22 [Rx Confirmed (unknown) (no (unknown) (unknown) severity: mild (units (unknown) date) Qualified Code(s): unknown) F33.0 - Major depressive disorder, recurrent, (unknown) (no (unknown) (unknown) sleep time per (units (unknown) date) day. unknown) (unknown) (no (unknown) (unknown) sleep (units (unkno wn) date) unknown) (unknown) (no (unknown) (unknown) sleeping (units (unkno wn) date) medication for the unknown) past several years. (unknown) (no (unknown) (unknown) software. Although (units (unknown) date) every effort is unknown) made to edit content, fur nailer errors m (unknown) (no (unknown) (unknown) such as dairy, (units (unknown) date) lean meats and unknown) leafy green vegetables) and vitamin D3 1000 units (unknown) (no (unknown) (unknown) tables nightly as (units (unknown) date) needed, in place of unknown) zolpidem and Benedryl. (unknown) (no (unknown) (unknown) the patient (units (un known) date) portal. Let us know unknown) if you have any questions or concerns. (unknown) (no (unknown) (unknown) time). (units (unkno wn) date) unknown) (unknown) (no (unknown) (unknown) trazodone 50 mg (units (unknown) date) tablet 50 mg PO unknown) BEDTIME PRN sleep #60 tabs 03/27/23 [Rx (unknown) (no (unknown) (unknown) trazodone (units (unkn own) date) unknown) (unknown) (no (unknown) (unknown) unspecified, M81.0 (units (unknown) date) - Age-related unknown) osteoporosis without current pathological (unknown) (no (unknown) (unknown) with rare (units (unkn own) date) alprazolam. unknown) (unknown) (no (unknown) (unknown) withdrawal, or (units (unknown) date) trouble with unknown) memory, focus, or concentration. The patient has (unknown) (no (unknown) (unknown) you tired before (units (unknown) date) that time. unknown) (unknown) (no (unknown) (unknown) zolpidem (units (unkno wn) date) unknown) Result panel 10 (unknown) (no date) (unknown) (unknown) > 60 ml/min (unkn own) (unknown) (no date) (unknown) (unknown) > 60 ml/min (unkn own) (unknown) (no date) (unknown) (unknown) 0.5 mg/dl (unkn own) (unknown) (no date) (unknown) (unknown) 0.70 mg/dl (unkn own) (unknown) (no date) (unknown) (unknown) 1.6 (units unknown) (unknown) (unknown) (no date) (unknown) (unknown) 10.0 mg/dl (unkn own) (unknown) (no date) (unknown) (unknown) 102 mmol/l (unkn own) (unknown) (no date) (unknown) (unknown) 113 mg/dl (unkn own) (unknown) (no date) (unknown) (unknown) 113 mg/dl (unkn own) (unknown) (no date) (unknown) (unknown) 138 mmol/l (unkn own) (unknown) (no date) (unknown) (unknown) 16 mg/dl (unkn own) (unknown) (no date) (unknown) (unknown) 2.9 g/dl (unkn own) (unknown) (no date) (unknown) (unknown) 214 mg/dl (unkn own) (unknown) (no date) (unknown) (unknown) 214 mg/dl (unkn own) (unknown) (no date) (unknown) (unknown) 22.9 (units unknown) (unknown) (unknown) (no date) (unknown) (unknown) 252 mg/dl (unkn own) (unknown) (no date) (unknown) (unknown) 252 mg/dl (unkn own) (unknown) (no date) (unknown) (unknown) 27 mmol/l (unkn own) (unknown) (no date) (unknown) (unknown) 28 iu/l (unkn own) (unknown) (no date) (unknown) (unknown) 3.9 mmol/l (unkn own) (unknown) (no date) (unknown) (unknown) 30 iu/l (unkn own) (unknown) (no date) (unknown) (unknown) 4.7 g/dl (unkn own) (unknown) (no date) (unknown) (unknown) 65 mg/dl (unkn own) (unknown) (no date) (unknown) (unknown) 65 mg/dl (unkn own) (unknown) (no date) (unknown) (unknown) 69 u/l (unkn own) (unknown) (no date) (unknown) (unknown) 7.6 g/dl (unkn own) (unknown) (no date) (unknown) (unknown) 99 mg/dl (unkn own) (unknown) (no date) (unknown) (unknown) 99 mg/dl (unkn own) Social History date description facility 2023-02-14 00:00 Never smoked tobacco (finding) [facility] Vital Signs date measurement value units 2023-02-14 00:00 BMI 26.9 kg/m2 2023-02-14 00:00 BP_diastolic 70 mmHg 2023-02-14 00:00 BP_systolic 144 mmHg 2023-02-14 00:00 heart_rate 87 /min 2023-02-14 00:00 height_metric 148.59 cm 2023-02-14 00:00 height_standard 58.5 in 2023-02-14 00:00 o2_saturation 97 % 2023-02-14 00:00 weight_metric 59.42 kg 2023-02-14 00:00 weight_standard 131 lb
--- NOTE | 2023-02-20 20:03 | ED Physician Documentation ---
ED Addendum - Addendum Addendum: 02/20/23 20:05 Patient signed out to me by Dr. Chew to follow-up on lower extremity ultrasounds to evaluate for DVT. Per refinery technician it is negative for DVT.Reviewed this with patient. She and daughter comfortable with plan for discharge. She is ambulatory in the room. She Denies any further questions or concerns. Departure - Departure Disposition: 01 Home, Self Care Clinical Impression: Peripheral edema, Weakness Condition: Stable Instructions: ED Edema Legs Bilateral, ED Weakness [facility] Comments: The ultrasound of your legs is negative for signs of a blood clot. A medication reference that I use called [employer] does list both some confusion, shakiness and also edema as potential common side effects of trazodone. Your symptoms may relate some to that. We did test for signs of congestive failure, kidney abnormalities, blood clots, electrolyte problems and thyroid disorder. These tests are looking normal. At this point I would assume just some lower edema from either gravity or and side effect of the trazodone. Certainly the feeling a little lightheaded or such would be from that as well. Typically the lightheaded feeling and such will improve after you have been on it for several days or week. The edema may level off or improve. Elevate and rest your legs often to help reduce the swelling. Follow-up with your primary care on whether to continue the trazodone or try a different medication for sleep. Results - Vitals Vitals: Vital Signs - 24 hr 02/20/23 02/20/23 17:30 19:14 Temperature 36.2 C L Heart Rate 91 85 Respiratory 17 16 Rate Blood Pressure 150/78 H 162/82 H O2 Saturation 97 99 Oxygen O2 Source Room air - EKG (time done) 1908 EKG releavant findings:: EKG personally interpreted by author of this note. Relevant findings are: Rate 78, normal sinus rhythm, no STEMI, QTc 448, motion artifact in leads II and III Rate: Rate (enter#) (78) Rhythm: NSR Intervals: No: Prolonged QT Ischemia: No: ST elevation c/w ischemia Other comments: Other comments (Motion artifact in leads II and III) - Labs Labs: Laboratory Tests 02/20/23 02/20/23 02/20/23 18:19 18:19 18:19 WBC 5.1 RBC 4.37 Hgb 13.2 Hct 39.7 MCV 90.8 MCH 30.2 MCHC 33.2 RDW 12.9 Plt Count 221 MPV 10.9 H Neut # (Auto) 2.8 Lymph # (Auto) 1.8 [place] # (Auto) 0.5 Eos # (Auto) 0.1 Baso # (Auto) 0.1 Absolute Nucleated RBC 0.00 Nucleated RBC % 0.0 Sodium 141 Potassium 3.6 Chloride 106 Carbon Dioxide 25 Anion Gap 10.0 BUN 14 Creatinine 0.7 Estimated GFR (MDRD) 81 L Glucose 129 H Calcium 9.6 Total Bilirubin 0.7 AST 23 ALT 27 Alkaline Phosphatase 58 Troponin I High Sens B-Natriuretic Peptide 12 Total Protein 7.8 Albumin 4.8 Globulin 3.0 Albumin/Globulin Ratio 1.6 Lipase 36 TSH 02/20/23 02/20/23 18:19 18:19 WBC RBC Hgb Hct MCV MCH MCHC RDW Plt Count MPV Neut # (Auto) Lymph # (Auto) [place] # (Auto) Eos # (Auto) Baso # (Auto) Absolute Nucleated RBC Nucleated RBC % Sodium Potassium Chloride Carbon Dioxide Anion Gap BUN Creatinine Estimated GFR (MDRD) Glucose Calcium Total Bilirubin AST ALT Alkaline Phosphatase Troponin I High Sens 4.6 B-Natriuretic Peptide Total Protein Albumin Globulin Albumin/Globulin Ratio Lipase TSH 3.65
--- NOTE | 2023-02-20 21:07 | Ultrasound Report ---
PROCEDURE: Duplex Ext Veins Bilateral INDICATIONS: Bilateral lower leg edema. Right leg pain. TECHNIQUE: Real-time imaging, as well as color and pulse Doppler interrogation, were performed of the deep veins of both legs from the inguinal ligament to the popliteal fossa. COMPARISON: None. FINDINGS: The deep veins are normally compressible, and free of intraluminal thrombus. Color and pu lse Doppler demonstrate normal phasic intravascular flow. There is normal augmentation response to d istal compression maneuver. IMPRESSION: 1. No evidence of deep venous thrombosis in the right or left lower extremity. Reviewed by: Chuck Pappas MD on 02/20/2023 9:05 PM PDT Approved by: Chuck Pappas MD on 02/20/2023 9:05 PM PDT Station ID: [id number]
[2023-02-20 21:08] VITALS: BP 127/91
== END 2023-02-20 20:30 | disposition home or self-care (01) ==
LOC: ED 17:20
DX: R60.0 Localized edema (principal); R53.1 Weakness
CPT/HCPCS: 36415; 80053; 83690; 83880; 84443; 84484; 85025; 93005; 93970; 99284

== ENCOUNTER 2023-04-07 12:52 | Emergency (ER) | payer MEDICARE ==
--- OUTSIDE RECORDS SUMMARY | 2023-04-07 13:43 | EXTERNAL MEDICAL SUMMARY RPT | Continuity of Care Document ---
Author Name Unknown Address [address] [place] [address] Phone Organization [facility] Address [address] [place] [address] Phone Care Team Providers Care Consultative Sales Associate Name Role Phone Unavailable Unavailable Unavailable Nicholas Guevara Unavailable Unavailable Bryant Patient Registrar, Mindy Unavailable U rere Clancy Rn, Paulina Unavailable Unavailable Elizabeth Obando, Kavya Matias Unavailable Unavailable Bryant Patient Registrar, Mindy Unavailable U Lulu Herndon Ma Unavailable Unavailable Allergies and Intolerances date description facility type (no date) [facility] (unknown) (no date) ERYTHROMYCIN All (unknown) Medications date description facility 2023-03-16 00:00 sodium,potassium,mag sulfates A 2023-03-16 00:00 sodium,potassium,mag sulfates A 2023-03-16 00:00 sodium,potassium,mag sulfates A 2023-03-16 00:00 sodium,potassium,mag sulfates A 2023-03-16 00:00 sodium,potassium,mag sulfates A 2023-03-16 00:00 sodium,potassium,mag sulfates A 2023-03-16 00:00 sodium,potassium,mag sulfates A 2023-03-16 00:00 sodium,potassium,mag sulfates A 2023-03-09 00:00 lansoprazole All 2023-03-16 00:00 lansoprazole All 2023-03-17 00:00 lansoprazole All 2023-03-17 00:00 lansoprazole All 2023-03-18 00:00 lansoprazole All 2023-03-09 00:00 trazodone All 2023-03-16 00:00 trazodone All 2023-03-17 00:00 trazodone All 2023-03-17 00:00 trazodone All 2023-03-18 00:00 trazodone All 2023-03-09 00:00 amlodipine All 2023-03-16 00:00 amlodipine All 2023-03-17 00:00 amlodipine All 2023-03-17 00:00 amlodipine All 2023-03-18 00:00 amlodipine All 2023-03-09 00:00 amlodipine All 2023-03-16 00:00 amlodipine All 2023-03-17 00:00 amlodipine All 2023-03-17 00:00 amlodipine All 2023-03-18 00:00 amlodipine All 2023-03-09 00:00 amlodipine All 2023-03-16 00:00 amlodipine All 2023-03-17 00:00 amlodipine All 2023-03-17 00:00 amlodipine All 2023-03-18 00:00 amlodipine All 2023-03-09 00:00 rosuvastatin All 2023-03-16 00:00 rosuvastatin All 2023-03-17 00:00 rosuvastatin All 2023-03-17 00:00 rosuvastatin All 2023-03-18 00:00 rosuvastatin All 2023-03-09 00:00 lansoprazole All 2023-03-16 00:00 lansoprazole All 2023-03-17 00:00 lansoprazole All 2023-03-17 00:00 lansoprazole All 2023-03-18 00:00 lansoprazole All 2023-03-16 00:00 sodium,potassium,mag sulfates A 2023-03-16 00:00 sodium,potassium,mag sulfates A 2023-03-16 00:00 sodium,potassium,mag sulfates A 2023-03-16 00:00 sodium,potassium,mag sulfates A 2023-03-09 00:00 lansoprazole All 2023-03-16 00:00 lansoprazole All 2023-03-17 00:00 lansoprazole All 2023-03-17 00:00 lansoprazole All 2023-03-18 00:00 lansoprazole All 2023-03-16 00:00 sodium,potassium,mag sulfates A 2023-03-16 00:00 sodium,potassium,mag sulfates A 2023-03-16 00:00 sodium,potassium,mag sulfates A 2023-03-16 00:00 sodium,potassium,mag sulfates A ll 2023-03-09 00:00 trazodone All 2023-03-16 00:00 trazodone All 2023-03-17 00:00 trazodone All 2023-03-17 00:00 trazodone All 2023-03-18 00:00 trazodone All 2023-03-09 00:00 trazodone All 2023-03-16 00:00 trazodone All 2023-03-17 00:00 trazodone All 2023-03-17 00:00 trazodone All 2023-03-18 00:00 trazodone All 2023-03-09 00:00 amlodipine All 2023-03-16 00:00 amlodipine All 2023-03-17 00:00 amlodipine All 2023-03-17 00:00 amlodipine All 2023-03-18 00:00 amlodipine All 2023-03-09 00:00 lansoprazole All 2023-03-16 00:00 lansoprazole All 2023-03-17 00:00 lansoprazole All 2023-03-17 00:00 lansoprazole All 2023-03-18 00:00 lansoprazole All 2023-03-09 00:00 rosuvastatin All 2023-03-16 00:00 rosuvastatin All 2023-03-17 00:00 rosuvastatin All 2023-03-17 00:00 rosuvastatin All 2023-03-18 00:00 rosuvastatin All 2023-03-09 00:00 rosuvastatin All 2023-03-16 00:00 rosuvastatin All 2023-03-17 00:00 rosuvastatin All 2023-03-17 00:00 rosuvastatin All 2023-03-18 00:00 rosuvastatin All 2023-02-14 00:00 [facility] 2023-03-09 00:00 trazodone All 2023-03-16 00:00 trazodone All 2023-03-17 00:00 trazodone All 2023-03-17 00:00 trazodone All 2023-03-18 00:00 trazodone All 2023-03-09 00:00 rosuvastatin All 2023-03-16 00:00 rosuvastatin All 2023-03-17 00:00 rosuvastatin All 2023-03-17 00:00 rosuvastatin All 2023-03-18 00:00 rosuvastatin All Problems date description facility 2023-02-14 13:48 Other abnormal and i nconclusive findings on diagnostic formerly [facility] 2023-03-09 00:00 Irritable bowel syndrome All 2023-03-09 00:00 Irritable bowel syndrome All 2023-03-09 00:00 Irritable bowel syndrome All 2023-03-09 00:00 Irritable bowel syndrome All 2023-03-09 00:00 Irritable bowel syndrome All 2023-03-09 00:00 Irritable bowel syndrome withou t diarrhea All 2023-03-09 00:00 Irritable bowel syndrome withou t diarrhea All 2023-03-09 00:00 Irritable bowel syndrome withou t diarrhea All 2023-03-09 00:00 Irritable bowel syndrome withou t diarrhea All 2023-03-09 00:00 Irritable bowel syndrome withou t diarrhea All 2023-03-16 00:00 Screening for malignant neoplas m of colon All 2023-03-16 00:00 Screening for malignant neoplas m of colon All 2023-03-16 00:00 Screening for malignant neoplas m of colon All 2023-03-16 00:00 Screening for malignant neoplas m of colon All 2023-03-16 00:00 Screening for malignant neoplas ms of colon All 2023-03-16 00:00 Screening for malignant neoplas ms of colon All 2023-03-16 00:00 Screening for malignant neoplas ms of colon All 2023-03-16 00:00 Screening for malignant neoplas ms of colon All 2023-03-16 00:00 Encounter for screen ing for malignant neoplasm of colon All 2023-03-16 00:00 Encounter for screen ing for malignant neoplasm of colon All 2023-03-16 00:00 Encounter for screen ing for malignant neoplasm of colon All 2023-03-16 00:00 Encounter for screen ing for malignant neoplasm of colon All Procedures date description facility 2023-03-16 00:00 Visit Code Hold All 2023-03-16 00:00 Visit Code Hold All 2023-03-16 00:00 Visit Code Hold All 2023-03-16 00:00 Visit Code Hold All Results/Labs test date author facility value unit interpretation Result panel 1 (unknown) (no date) (unknown) (unknown) (no value) (units unknown) (unknown) (unknown) (no date) (unknown) (unknown) (1) Essential hypertension: (units unknown) (unknown) (unknown) (no date) (unknown) (unknown) (2) Mixed hyperlipidemia: (units unknown) (unknown) (unknown) (no date) (unknown) (unknown) (3) GERD witho ut esophagitis: (units unknown) (unknown) (unknown) (no date) (unknown) (unknown) (4) Depression , major, recurrent: (units unknown) (unknown) (unknown) (no date) (unknown) (unknown) (5) Generalize d anxiety disorder: (units unknown) (unknown) (unknown) (no date) (unknown) (unknown) (6) Chronic insomnia : (units unknown) (unknown) (unknown) (no date) (unknown) (unknown) (7) 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 She takes BoneUp BID. (units unknown) (unknown) (unknown) (no date) (unknown) (unknown) (units unknown) (unknown) (unknown) (no date) (unknown) (unknown) 25-Hydroxy Vit torres D Total 41.9 ng/mL (30.0-100.0) 08/05/22 (units unknown) (unknown) (unknown) (no date) (unknown) (unknown) 02/09 (units unknown) (unknown) (unknown) (no date) (unknown) (unknown) 04/11 (units unknown) (unknown) (unknown) (no date) (unknown) (unknown) 08/05/22 (units unknown) (unknown) (unknown) (no date) (unknown) (unknown) AWV 08/05/2022 (units unknown) (unknown) (unknown) (no date) (unknown) (unknown) Active/Remissi on status: currently active Major depression episode (units unknown) (unknown) (unknown) (no date) (unknown) (unknown) Age-related osteoporosis without current pathological fracture (units unknown) (unknown) (unknown) (no date) (unknown) (unknown) Age/Sex: 82 / F Date of Service: (units unknown) (unknown) (unknown) (no date) (unknown) (unknown) Alanine Aminotransferase (ALT/SGPT) 22 IU/L (<35) 09/22 (units unknown) (unknown) (unknown) (no date) (unknown) (unknown) Albumin 4.7 g/ dL (3.5-5.0) 10/13/22 (units unknown) (unknown) (unknown) (no date) (unknown) (unknown) Albumin/Globul in Ratio 1.7 (1.0-2.8) 10/13/22 (units unknown) (unknown) (unknown) (no date) (unknown) (unknown) Alkaline Phosp hatase 62 U/L (38-126) 10/13/22 (units unknown) (unknown) (unknown) (no date) (unknown) (unknown) All systems re viewed + are unremarkable except as noted in HPI and below (units unknown) (unknown) (unknown) (no date) (unknown) (unknown) Allergies (units unknown) (unknown) (unknown) (no date) (unknown) (unknown) [place] [address] (units unknown) (unknown) (unknown) (no date) (unknown) (unknown) Anesthesia (units unknown) (unknown) (unknown) (no date) (unknown) (unknown) Anxiety (units unknown) (unknown) (unknown) (no date) (unknown) (unknown) Anxiety: The p atient reports symptoms are well controlled on current therapy (units unknown) (unknown) (unknown) (no date) (unknown) (unknown) Aspartate Torres o Transf (AST/SGOT) 25 IU/L (14-36) units unknown) (unknown) (unknown) (no date) (unknown) (unknown) Assessment + Plan (u nits unknown) (unknown) (unknown) (no date) (unknown) (unknown) Assessment and Plan: (units unknown) (unknown) (unknown) (no date) (unknown) (unknown) Attending Dr: Nicholas Guevara MD (units unknown) (unknown) (unknown) (no date) (unknown) (unknown) BUN/Creatinine Ratio 21.7 (6-22) 10/13/22 (units unknown) (unknown) (unknown) (no date) (unknown) (unknown) Blood Urea Nit rogen 15 mg/dL (7-17) 10/13/22 (units unknown) (unknown) (unknown) (no date) (unknown) (unknown) CARDIOVASCULAR : Regular rate and rhythm without murmurs, gallops, or rubs. (units unknown) (unknown) (unknown) (no date) (unknown) (unknown) Calcium Level 9.7 mg/dL (8.4-10.2) 10/13/22 (units unknown) (unknown) (unknown) (no date) (unknown) (unknown) Carbon Dioxide Level 28 mmol/L (22-32) 10/13/22 (units unknown) (unknown) (unknown) (no date) (unknown) (unknown) Chicken pox (-1943) (units unknown) (unknown) (unknown) (no date) (unknown) (unknown) Chief Complaint (uni ts unknown) (unknown) (unknown) (no date) (unknown) (unknown) Chief Complain t: Medical followup (units unknown) (unknown) (unknown) (no date) (unknown) (unknown) Chloride Level 101 mmol/L (98-107) 10/13/22 (units unknown) (unknown) (unknown) (no date) (unknown) (unknown) Cholesterol [place] 257 mg/dL (140-199) H 08/05/22 (units unknown) (unknown) (unknown) (no date) (unknown) (unknown) Chronic insomnia (un its unknown) (unknown) (unknown) (no date) (unknown) (unknown) Clinically sta ble. Continue current plan. (units unknown) (unknown) (unknown) (no date) (unknown) (unknown) Common Lab Res ults- Last: (units unknown) (unknown) (unknown) (no date) (unknown) (unknown) Const (units unknown) (unknown) (unknown) (no date) (unknown) (unknown) Creatinine 0.6 9 mg/dL (0.52-1.04) 10/13/22 (units unknown) (unknown) (unknown) (no date) (unknown) (unknown) DERMATOLOGIC: No rashes or skin lesions. (units unknown) (unknown) (unknown) (no date) (unknown) (unknown) : 2 Acct:[id number] (units unknown) (unknown) (unknown) (no date) (unknown) (unknown) Depression, ma bernie, recurrent (units unknown) (unknown) (unknown) (no date) (unknown) (unknown) Dept at . (units unknown) (unknown) (unknown) (no date) (unknown) (unknown) Details: (units unknown) (unknown) (unknown) (no date) (unknown) (unknown) Documented By: Nicholas Guevara MD 01/14/23 0607 (units unknown) (unknown) (unknown) (no date) (unknown) (unknown) Draft (units unknown) (unknown) (unknown) (no date) (unknown) (unknown) ENT: Mucous me mbranes pink and moist. (units unknown) (unknown) (unknown) (no date) (unknown) (unknown) EXTREMITIES: N o clubbing, cyanosis, or edema. (units unknown) (unknown) (unknown) (no date) (unknown) (unknown) EYES: Pupils e qual round and reactive. Extraocular motions intact. No scleral (units unknown) (unknown) (unknown) (no date) (unknown) (unknown) Essential hypertension (units unknown) (unknown) (unknown) (no date) (unknown) (unknown) Estimat Glomer ular Filtration Rate > 60 mL/min (>60) 10/13 (units unknown) (unknown) (unknown) (no date) (unknown) (unknown) Exam Narrative (unit s unknown) (unknown) (unknown) (no date) (unknown) (unknown) Exam Narrative: (uni ts unknown) (unknown) (unknown) (no date) (unknown) (unknown) Exam (units unknown) (unknown) (unknown) (no date) (unknown) (unknown) Family History (units unknown) (unknown) (unknown) (no date) (unknown) (unknown) Family/Other D eceased Accident (units unknown) (unknown) (unknown) (no date) (unknown) (unknown) Father d Accident (units unknown) (unknown) (unknown) (no date) (unknown) (unknown) [facility] (units unknown) (unknown) (unknown) (no date) (unknown) (unknown) Followup in 3 months . (units unknown) (unknown) (unknown) (no date) (unknown) (unknown) For bowel heal th, you may try Metamucil or psyllium husks daily. (units unknown) (unknown) (unknown) (no date) (unknown) (unknown) For general [place] ne health to prevent or manage osteoporosis or osteopenia, (units unknown) (unknown) (unknown) (no date) (unknown) (unknown) Fractures (units unknown) (unknown) (unknown) (no date) (unknown) (unknown) GASTROINTESTIN AL: Abdomen soft, non-tender, nondistended. (units unknown) (unknown) (unknown) (no date) (unknown) (unknown) GENERAL: This is a well-nourished, well-developed patient, in no apparent (units unknown) (unknown) (unknown) (no date) (unknown) (unknown) GERD without esophagitis (units unknown) (unknown) (unknown) (no date) (unknown) (unknown) Gastroesophage al reflux disease: The patient denies abdominal or flank pain, (units unknown) (unknown) (unknown) (no date) (unknown) (unknown) Generalized an xiety disorder (units unknown) (unknown) (unknown) (no date) (unknown) (unknown) Globulin 2.8 g /dL (1.7-4.1) 10/13/22 (units unknown) (unknown) (unknown) (no date) (unknown) (unknown) Glucose Level 92 mg/dL (80-110) 10/13/22 (units unknown) (unknown) (unknown) (no date) (unknown) (unknown) Grandfather De ceased Cancer (units unknown) (unknown) (unknown) (no date) (unknown) (unknown) Grandmother De ceased Stroke (units unknown) (unknown) (unknown) (no date) (unknown) (unknown) H/O total hysterectomy (units unknown) (unknown) (unknown) (no date) (unknown) (unknown) HDL Cholestero l 79 mg/dL (40-60) H 08/05/22 (units unknown) (unknown) (unknown) (no date) (unknown) (unknown) HPI (units unknown) (unknown) (unknown) (no date) (unknown) (unknown) Hematocrit 40. 7 % (36-46) 08/05/22 (units unknown) (unknown) (unknown) (no date) (unknown) (unknown) Hemoglobin 13. 9 g/dL (12.0-16.0) 08/05/22 (units unknown) (unknown) (unknown) (no date) (unknown) (unknown) History of florian dder surgery (units unknown) (unknown) (unknown) (no date) (unknown) (unknown) History of car pal tunnel release (units unknown) (unknown) (unknown) (no date) (unknown) (unknown) Hyperlipidemia : The present medications include pravastatin. The patient reports (units unknown) (unknown) (unknown) (no date) (unknown) (unknown) Hypertension: The patient is currently on amlodipine started on 08/05/2022 for (units unknown) (unknown) (unknown) (no date) (unknown) (unknown) Inadequately controlled. Advise: Increase amlodipine to 10mg daily. (units unknown) (unknown) (unknown) (no date) (unknown) (unknown) Inadequately controlled. Advise: Switch pravastatin to rosuvastatin. (units unknown) (unknown) (unknown) (no date) (unknown) (unknown) Insomnia: The patient states symptoms are adequately controlled with zolpidem. (units unknown) (unknown) (unknown) (no date) (unknown) (unknown) Intake (units unknown) (unknown) (unknown) (no date) (unknown) (unknown) Internal Medic ine Office Visit (units unknown) (unknown) (unknown) (no date) (unknown) (unknown) Irritable elizabeth l syndrome (units unknown) (unknown) (unknown) (no date) (unknown) (unknown) It was very ni ce to meet with you today! (units unknown) (unknown) (unknown) (no date) (unknown) (unknown) LDL Cholestero l, Calculated 157 mg/dL (<100) H 08/05/22 (units unknown) (unknown) (unknown) (no date) (unknown) (unknown) Lab Results (units unknown) (unknown) (unknown) (no date) (unknown) (unknown) Labwork is ord ered today to evaluate your condition. Results will be posted to (units unknown) (unknown) (unknown) (no date) (unknown) (unknown) Last Menstural Cycle + Details (units unknown) (unknown) (unknown) (no date) (unknown) (unknown) Let us know if you have any problems. (units unknown) (unknown) (unknown) (no date) (unknown) (unknown) Loc: [facility] (units unknown) (unknown) (unknown) (no date) (unknown) (unknown) Major depressi on:? The patient reports good compliance with escitalopram, and (units unknown) (unknown) (unknown) (no date) (unknown) (unknown) Mean Corpuscul ar Hemoglobin 30.4 PG (26-34) 08/05/22 (units unknown) (unknown) (unknown) (no date) (unknown) (unknown) Mean Corpuscul ar Hemoglobin Concent 34.1 % (30-36) 07/22 (units unknown) (unknown) (unknown) (no date) (unknown) (unknown) Mean Corpuscul ar Volume 89.2 fL (80-100) 08/05/22 (units unknown) (unknown) (unknown) (no date) (unknown) (unknown) Measles (-1943) (uni ts unknown) (unknown) (unknown) (no date) (unknown) (unknown) Medical Histor y (units unknown) (unknown) (unknown) (no date) (unknown) (unknown) Medicare yiua l wellness visit, initial (units unknown) (unknown) (unknown) (no date) (unknown) (unknown) Mixed hyperlipidemia (units unknown) (unknown) (unknown) (no date) (unknown) (unknown) Mother d Stroke (units unknown) (unknown) (unknown) (no date) (unknown) (unknown) NECK: Trachea midline. No JVD, bruits or lymphadenopathy. Supple, nontender, no (units unknown) (unknown) (unknown) (no date) (unknown) (unknown) NEUROLOGIC: Al ert, oriented, speech fluent, full upper and lower motor strength, (units unknown) (unknown) (unknown) (no date) (unknown) (unknown) New diagnosis. Inadequately controlled. Advise: Reclast annually or alendronate. (units unknown) (unknown) (unknown) (no date) (unknown) (unknown) Osteoporosis: The patient has osteoporosis by DEXA 08/11/2022: AP spine T-score (units unknown) (unknown) (unknown) (no date) (unknown) (unknown) Other Menstrua l Period: Surgical Menopause (hysterectomy) (units unknown) (unknown) (unknown) (no date) (unknown) (unknown) PFSH (units unknown) (unknown) (unknown) (no date) (unknown) (unknown) Patient: Angle Carranza MR#: [id number] (units unknown) (unknown) (unknown) (no date) (unknown) (unknown) Penicillins Ad verse Reaction (Severe, Verified 10/13/22 07:49) (units unknown) (unknown) (unknown) (no date) (unknown) (unknown) Plan (units unknown) (unknown) (unknown) (no date) (unknown) (unknown) Platelet Count 188 X103/uL (150-400) 08/05/22 (units unknown) (unknown) (unknown) (no date) (unknown) (unknown) Potassium Leve l 4.5 mmol/L (3.4-5.1) 10/13/22 (units unknown) (unknown) (unknown) (no date) (unknown) (unknown) Pravastatin an d START: Rosuvastatin 20mg nightly. Let us know if you have any (units unknown) (unknown) (unknown) (no date) (unknown) (unknown) Qualifiers: (units unknown) (unknown) (unknown) (no date) (unknown) (unknown) RESPIRATORY: C lear to auscultation. (units unknown) (unknown) (unknown) (no date) (unknown) (unknown) ROS (units unknown) (unknown) (unknown) (no date) (unknown) (unknown) Rash (units unknown) (unknown) (unknown) (no date) (unknown) (unknown) Reason For Visit (un its unknown) (unknown) (unknown) (no date) (unknown) (unknown) Reclast infusi on is advised annually. We will call to arrange this. (units unknown) (unknown) (unknown) (no date) (unknown) (unknown) Red Blood Coun t 4.56 X106/uL (4.0-5.2) 08/05/22 (units unknown) (unknown) (unknown) (no date) (unknown) (unknown) Red Cell Distr ibution Width 13.6 % (11.6-14.8) 08/05/22 (units unknown) (unknown) (unknown) (no date) (unknown) (unknown) S/P renal miguelito ry angioplasty (-2005) (units unknown) (unknown) (unknown) (no date) (unknown) (unknown) She prefers th e once yearly infusion after a discussion today. (units unknown) (unknown) (unknown) (no date) (unknown) (unknown) Signed By: (units unknown) (unknown) (unknown) (no date) (unknown) (unknown) Smoking Status : Never smoker (units unknown) (unknown) (unknown) (no date) (unknown) (unknown) Sodium Level 1 37 mmol/L (137-145) 10/13/22 (units unknown) (unknown) (unknown) (no date) (unknown) (unknown) Status: Acute (units unknown) (unknown) (unknown) (no date) (unknown) (unknown) Sulfa (Sulfona mide Antibiotics) Allergy (Mild, Verified 10/13/22 07:49) (units unknown) (unknown) (unknown) (no date) (unknown) (unknown) Surgical Histo ry (units unknown) (unknown) (unknown) (no date) (unknown) (unknown) This note may have been all or partially generated using voice recognition (units unknown) (unknown) (unknown) (no date) (unknown) (unknown) Thyroid Stimul ating Hormone (TSH) 2.03 uIU/mL (0.47-4.68) 0 (units unknown) (unknown) (unknown) (no date) (unknown) (unknown) Tobacco + Subs tance Use (units unknown) (unknown) (unknown) (no date) (unknown) (unknown) Tobacco Status (unit s unknown) (unknown) (unknown) (no date) (unknown) (unknown) Total Bilirubi n 0.6 mg/dL (0.2-1.3) 10/13/22 (units unknown) (unknown) (unknown) (no date) (unknown) (unknown) Total Protein 7.5 g/dL (6.3-8.2) 10/13/22 (units unknown) (unknown) (unknown) (no date) (unknown) (unknown) Triglycerides Level 105 mg/dL (35-150) 08/05/22 (units unknown) (unknown) (unknown) (no date) (unknown) (unknown) Visit Reasons: 3 mo f/u (units unknown) (unknown) (unknown) (no date) (unknown) (unknown) Well-controlle d. Continue current medications. (units unknown) (unknown) (unknown) (no date) (unknown) (unknown) White Blood Co unt 4.1 X103/uL (4.5-11.0) L 08/05/22 (units unknown) (unknown) (unknown) (no date) (unknown) (unknown) Your blood pre ssure is inadequately controlled but improved, remaining in the (units unknown) (unknown) (unknown) (no date) (unknown) (unknown) Your cholester ol is inadequately controlled. To lower your risk of stroke, STOP: (units unknown) (unknown) (unknown) (no date) (unknown) (unknown) Your medical condition otherwise appears stable at this point. Continue your (units unknown) (unknown) (unknown) (no date) (unknown) (unknown) about 35 minut es daily. (units unknown) (unknown) (unknown) (no date) (unknown) (unknown) anorexia, naus ea or vomiting, dysphagia, change in bowel habits or black or (units unknown) (unknown) (unknown) (no date) (unknown) (unknown) at home. The p atient denies exertional or other chest pain, dyspnea, orthopnea, (units unknown) (unknown) (unknown) (no date) (unknown) (unknown) blood pressure control.? She has recorded blood pressures in the 130-150s/70-80s (units unknown) (unknown) (unknown) (no date) (unknown) (unknown) bloody stools. The patient is currently taking lansoprazole for gastroesophageal (units unknown) (unknown) (unknown) (no date) (unknown) (unknown) current medications. (units unknown) (unknown) (unknown) (no date) (unknown) (unknown) daily, as well as weight-bearing activity (e.g., walking) for bone health. (units unknown) (unknown) (unknown) (no date) (unknown) (unknown) denies adverse side effects to the medication, and denies feeling depressed, (units unknown) (unknown) (unknown) (no date) (unknown) (unknown) distress. (units unknown) (unknown) (unknown) (no date) (unknown) (unknown) erythromycin b ase Adverse Reaction (Severe, Verified 10/13/22 07:49) (units unknown) (unknown) (unknown) (no date) (unknown) (unknown) good complianc e and denies any chest pain, exertional or otherwise. Recent lab (units unknown) (unknown) (unknown) (no date) (unknown) (unknown) good motivatio n. PHQ-9 score = 7/27. FRANK-7 score = 0/21. (units unknown) (unknown) (unknown) (no date) (unknown) (unknown) have any probl ems (leg swelling, heartburn and constipation). (units unknown) (unknown) (unknown) (no date) (unknown) (unknown) have occurred. If there are any questions, please contact the Medical Records (units unknown) (unknown) (unknown) (no date) (unknown) (unknown) hypertension r annelise. INCREASE: Amlodipine to 10mg nightly. Let us know if you (units unknown) (unknown) (unknown) (no date) (unknown) (unknown) icterus. No in jection or drainage. 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 Occ asional wrong-word or 'sound-alike' substitutions may have (units unknown) (unknown) (unknown) (no date) (unknown) (unknown) meningeal signs. (un its unknown) (unknown) (unknown) (no date) (unknown) (unknown) mild (units unknown) (unknown) (unknown) (no date) (unknown) (unknown) mouth sores (units unknown) (unknown) (unknown) (no date) (unknown) (unknown) nausea (units unknown) (unknown) (unknown) (no date) (unknown) (unknown) no focal defic its evident. (units unknown) (unknown) (unknown) (no date) (unknown) (unknown) occurred due t o the inherent limitations of voice recognition software. Please (units unknown) (unknown) (unknown) (no date) (unknown) (unknown) paroxysmal noc turnal dyspnea, pedal edema, or TIA symptoms. She walks her dog (units unknown) (unknown) (unknown) (no date) (unknown) (unknown) problems (ache s or pains). (units unknown) (unknown) (unknown) (no date) (unknown) (unknown) read the note carefully and recognize, using context, where these substitutions (units unknown) (unknown) (unknown) (no date) (unknown) (unknown) reflux disease at this time. (units unknown) (unknown) (unknown) (no date) (unknown) (unknown) severity: mild Qualified Code(s): F33.0 - Major depressive disorder, recurrent, (units unknown) (unknown) (unknown) (no date) (unknown) (unknown) software. Alth ough every effort is made to edit content, pathology laboratory technologist errors (units unknown) (unknown) (unknown) (no date) (unknown) (unknown) such as dairy, lean meats and leafy green vegetables) and vitamin D3 1000 units (units unknown) (unknown) (unknown) (no date) (unknown) (unknown) testing reviewed. (u nits unknown) (unknown) (unknown) (no date) (unknown) (unknown) the patient po rtal. Let us know if you have any questions or concerns. (units unknown) (unknown) (unknown) (no date) (unknown) (unknown) with rare alprazolam . (units unknown) (unknown) (unknown) (no date) (unknown) (unknown) withdrawal, or trouble with memory, focus, or concentration. The patient has (units unknown) (unknown) Result panel 2 (unknown) (no date) (unknown) (unknown) (no value) (units unknown) (unknown) (unknown) (no date) (unknown) (unknown) (1) Essential hypertension: (units unknown) (unknown) (unknown) (no date) (unknown) (unknown) (2) Mixed hyperlipidemia: (units unknown) (unknown) (unknown) (no date) (unknown) (unknown) (3) GERD witho ut esophagitis: (units unknown) (unknown) (unknown) (no date) (unknown) (unknown) (4) Depression , major, recurrent: (units unknown) (unknown) (unknown) (no date) (unknown) (unknown) (5) Generalize d anxiety disorder: (units unknown) (unknown) (unknown) (no date) (unknown) (unknown) (6) Chronic insomnia : (units unknown) (unknown) (unknown) (no date) (unknown) (unknown) (7) 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 She takes BoneUp BID. (units unknown) (unknown) (unknown) (no date) (unknown) (unknown) (units unknown) (unknown) (unknown) (no date) (unknown) (unknown) 25-Hydroxy Vit torres D Total 41.9 ng/mL (30.0-100.0) 08/05/22 (units unknown) (unknown) (unknown) (no date) (unknown) (unknown) 02/09 (units unknown) (unknown) (unknown) (no date) (unknown) (unknown) 04/11 (units unknown) (unknown) (unknown) (no date) (unknown) (unknown) 08/05/22 (units unknown) (unknown) (unknown) (no date) (unknown) (unknown) AWV 08/05/2022 (units unknown) (unknown) (unknown) (no date) (unknown) (unknown) Active/Remissi on status: currently active Major depression episode (units unknown) (unknown) (unknown) (no date) (unknown) (unknown) Age-related osteoporosis without current pathological fracture (units unknown) (unknown) (unknown) (no date) (unknown) (unknown) Age/Sex: 82 / F Date of Service: (units unknown) (unknown) (unknown) (no date) (unknown) (unknown) Alanine Aminotransferase (ALT/SGPT) 22 IU/L (<35) 09/22 (units unknown) (unknown) (unknown) (no date) (unknown) (unknown) Albumin 4.7 g/ dL (3.5-5.0) 10/13/22 (units unknown) (unknown) (unknown) (no date) (unknown) (unknown) Albumin/Globul in Ratio 1.7 (1.0-2.8) 10/13/22 (units unknown) (unknown) (unknown) (no date) (unknown) (unknown) Alkaline Phosp hatase 62 U/L (38-126) 10/13/22 (units unknown) (unknown) (unknown) (no date) (unknown) (unknown) All systems re viewed + are unremarkable except as noted in HPI and below (units unknown) (unknown) (unknown) (no date) (unknown) (unknown) Allergies (units unknown) (unknown) (unknown) (no date) (unknown) (unknown) [place] [address] (units unknown) (unknown) (unknown) (no date) (unknown) (unknown) Anesthesia (units unknown) (unknown) (unknown) (no date) (unknown) (unknown) Anxiety (units unknown) (unknown) (unknown) (no date) (unknown) (unknown) Anxiety: The p atient reports symptoms are well controlled on current therapy (units unknown) (unknown) (unknown) (no date) (unknown) (unknown) Aspartate Torres o Transf (AST/SGOT) 25 IU/L (14-36) 10/13/ (units unknown) (unknown) (unknown) (no date) (unknown) (unknown) Assessment + Plan (u nits unknown) (unknown) (unknown) (no date) (unknown) (unknown) Assessment and Plan: (units unknown) (unknown) (unknown) (no date) (unknown) (unknown) Attending Dr: Nicholas Guevara MD (units unknown) (unknown) (unknown) (no date) (unknown) (unknown) BUN/Creatinine Ratio 21.7 (6-22) 10/13/22 (units unknown) (unknown) (unknown) (no date) (unknown) (unknown) Blood Urea Nit rogen 15 mg/dL (7-17) 10/13/22 (units unknown) (unknown) (unknown) (no date) (unknown) (unknown) CARDIOVASCULAR : Regular rate and rhythm without murmurs, gallops, or rubs. (units unknown) (unknown) (unknown) (no date) (unknown) (unknown) Calcium Level 9.7 mg/dL (8.4-10.2) 10/13/22 (units unknown) (unknown) (unknown) (no date) (unknown) (unknown) Carbon Dioxide Level 28 mmol/L (22-32) 10/13/22 (units unknown) (unknown) (unknown) (no date) (unknown) (unknown) Chicken pox (-1943) (units unknown) (unknown) (unknown) (no date) (unknown) (unknown) Chief Complaint (uni ts unknown) (unknown) (unknown) (no date) (unknown) (unknown) Chief Complain t: Medical followup (units unknown) (unknown) (unknown) (no date) (unknown) (unknown) Chloride Level 101 mmol/L (98-107) 10/13/22 (units unknown) (unknown) (unknown) (no date) (unknown) (unknown) Cholesterol [place] 257 mg/dL (140-199) H 08/05/22 (units unknown) (unknown) (unknown) (no date) (unknown) (unknown) Chronic insomnia (un its unknown) (unknown) (unknown) (no date) (unknown) (unknown) Clinically sta ble. Continue current plan. (units unknown) (unknown) (unknown) (no date) (unknown) (unknown) Common Lab Res ults- Last: (units unknown) (unknown) (unknown) (no date) (unknown) (unknown) Const (units unknown) (unknown) (unknown) (no date) (unknown) (unknown) Creatinine 0.6 9 mg/dL (0.52-1.04) 10/13/22 (units unknown) (unknown) (unknown) (no date) (unknown) (unknown) DERMATOLOGIC: No rashes or skin lesions. (units unknown) (unknown) (unknown) (no date) (unknown) (unknown) : 2 Acct:[id number] (units unknown) (unknown) (unknown) (no date) (unknown) (unknown) Depression, ma bernie, recurrent (units unknown) (unknown) (unknown) (no date) (unknown) (unknown) Dept at . (units unknown) (unknown) (unknown) (no date) (unknown) (unknown) Details: (units unknown) (unknown) (unknown) (no date) (unknown) (unknown) Documented By: Nicholas Guevara MD 01/14/23 0607 (units unknown) (unknown) (unknown) (no date) (unknown) (unknown) ENT: Mucous me mbranes pink and moist. (units unknown) (unknown) (unknown) (no date) (unknown) (unknown) EXTREMITIES: N o clubbing, cyanosis, or edema. (units unknown) (unknown) (unknown) (no date) (unknown) (unknown) EYES: Pupils e qual round and reactive. Extraocular motions intact. No scleral (units unknown) (unknown) (unknown) (no date) (unknown) (unknown) Essential hypertension (units unknown) (unknown) (unknown) (no date) (unknown) (unknown) Estimat Glomer ular Filtration Rate > 60 mL/min (>60) 10/13 (units unknown) (unknown) (unknown) (no date) (unknown) (unknown) Exam Narrative (unit s unknown) (unknown) (unknown) (no date) (unknown) (unknown) Exam Narrative: (uni ts unknown) (unknown) (unknown) (no date) (unknown) (unknown) Exam (units unknown) (unknown) (unknown) (no date) (unknown) (unknown) Family History (units unknown) (unknown) (unknown) (no date) (unknown) (unknown) Family/Other D eceased Accident (units unknown) (unknown) (unknown) (no date) (unknown) (unknown) Father d Accident (units unknown) (unknown) (unknown) (no date) (unknown) (unknown) [facility] (units unknown) (unknown) (unknown) (no date) (unknown) (unknown) Followup in 3 months . (units unknown) (unknown) (unknown) (no date) (unknown) (unknown) For bowel heal th, you may try Metamucil or psyllium husks daily. (units unknown) (unknown) (unknown) (no date) (unknown) (unknown) For general everett ne health to prevent or manage osteoporosis or osteopenia, (units unknown) (unknown) (unknown) (no date) (unknown) (unknown) Fractures (units unknown) (unknown) (unknown) (no date) (unknown) (unknown) GASTROINTESTIN AL: Abdomen soft, non-tender, nondistended. (units unknown) (unknown) (unknown) (no date) (unknown) (unknown) GENERAL: This is a well-nourished, well-developed patient, in no apparent (units unknown) (unknown) (unknown) (no date) (unknown) (unknown) GERD without esophagitis (units unknown) (unknown) (unknown) (no date) (unknown) (unknown) Gastroesophage al reflux disease: The patient denies abdominal or flank pain, (units unknown) (unknown) (unknown) (no date) (unknown) (unknown) Generalized an xiety disorder (units unknown) (unknown) (unknown) (no date) (unknown) (unknown) Globulin 2.8 g /dL (1.7-4.1) 10/13/22 (units unknown) (unknown) (unknown) (no date) (unknown) (unknown) Glucose Level 92 mg/dL (80-110) 10/13/22 (units unknown) (unknown) (unknown) (no date) (unknown) (unknown) Grandfather De ceased Cancer (units unknown) (unknown) (unknown) (no date) (unknown) (unknown) Grandmother De ceased Stroke (units unknown) (unknown) (unknown) (no date) (unknown) (unknown) H/O total hysterectomy (units unknown) (unknown) (unknown) (no date) (unknown) (unknown) HDL Cholestero l 79 mg/dL (40-60) H 08/05/22 (units unknown) (unknown) (unknown) (no date) (unknown) (unknown) HPI (units unknown) (unknown) (unknown) (no date) (unknown) (unknown) Hematocrit 40. 7 % (36-46) 08/05/22 (units unknown) (unknown) (unknown) (no date) (unknown) (unknown) Hemoglobin 13. 9 g/dL (12.0-16.0) 08/05/22 (units unknown) (unknown) (unknown) (no date) (unknown) (unknown) History of florian dder surgery (units unknown) (unknown) (unknown) (no date) (unknown) (unknown) History of car pal tunnel release (units unknown) (unknown) (unknown) (no date) (unknown) (unknown) Hyperlipidemia : The present medications include pravastatin. The patient reports (units unknown) (unknown) (unknown) (no date) (unknown) (unknown) Hypertension: The patient is currently on amlodipine started on 08/05/2022 for (units unknown) (unknown) (unknown) (no date) (unknown) (unknown) Inadequately controlled. Advise: Increase amlodipine to 10mg daily. (units unknown) (unknown) (unknown) (no date) (unknown) (unknown) Inadequately controlled. Advise: Switch pravastatin to rosuvastatin. (units unknown) (unknown) (unknown) (no date) (unknown) (unknown) Insomnia: The patient states symptoms are adequately controlled with zolpidem. (units unknown) (unknown) (unknown) (no date) (unknown) (unknown) Intake (units unknown) (unknown) (unknown) (no date) (unknown) (unknown) Internal Medic ine Office Visit (units unknown) (unknown) (unknown) (no date) (unknown) (unknown) Irritable leizabeth l syndrome (units unknown) (unknown) (unknown) (no date) (unknown) (unknown) It was very ni ce to meet with you today! (units unknown) (unknown) (unknown) (no date) (unknown) (unknown) LDL Cholestero l, Calculated 157 mg/dL (<100) H 08/05/22 (units unknown) (unknown) (unknown) (no date) (unknown) (unknown) Lab Results (units unknown) (unknown) (unknown) (no date) (unknown) (unknown) Labwork is ord ered today to evaluate your condition. Results will be posted to (units unknown) (unknown) (unknown) (no date) (unknown) (unknown) Last Menstural Cycle + Details (units unknown) (unknown) (unknown) (no date) (unknown) (unknown) Let us know if you have any problems. (units unknown) (unknown) (unknown) (no date) (unknown) (unknown) Loc: [facility] (units unknown) (unknown) (unknown) (no date) (unknown) (unknown) Major depressi on:? The patient reports good compliance with escitalopram, and (units unknown) (unknown) (unknown) (no date) (unknown) (unknown) Mean Corpuscul ar Hemoglobin 30.4 PG (26-34) 08/05/22 (units unknown) (unknown) (unknown) (no date) (unknown) (unknown) Mean Corpuscul ar Hemoglobin Concent 34.1 % (30-36) 07/22 (units unknown) (unknown) (unknown) (no date) (unknown) (unknown) Mean Corpuscul ar Volume 89.2 fL (80-100) 08/05/22 (units unknown) (unknown) (unknown) (no date) (unknown) (unknown) Measles (-1943) (uni ts unknown) (unknown) (unknown) (no date) (unknown) (unknown) Medical Histor y (units unknown) (unknown) (unknown) (no date) (unknown) (unknown) Medicare annua l wellness visit, initial (units unknown) (unknown) (unknown) (no date) (unknown) (unknown) Mixed hyperlipidemia (units unknown) (unknown) (unknown) (no date) (unknown) (unknown) Mother d Stroke (units unknown) (unknown) (unknown) (no date) (unknown) (unknown) NECK: Trachea midline. No JVD, bruits or lymphadenopathy. Supple, nontender, no (units unknown) (unknown) (unknown) (no date) (unknown) (unknown) NEUROLOGIC: Al ert, oriented, speech fluent, full upper and lower motor strength, (units unknown) (unknown) (unknown) (no date) (unknown) (unknown) New diagnosis. Inadequately controlled. Advise: Reclast annually or alendronate. (units unknown) (unknown) (unknown) (no date) (unknown) (unknown) Osteoporosis: The patient has osteoporosis by DEXA 08/11/2022: AP spine T-score (units unknown) (unknown) (unknown) (no date) (unknown) (unknown) Other Menstrua l Period: Surgical Menopause (hysterectomy) (units unknown) (unknown) (unknown) (no date) (unknown) (unknown) PFSH (units unknown) (unknown) (unknown) (no date) (unknown) (unknown) Patient: Angle Carranza MR#: [id number] (units unknown) (unknown) (unknown) (no date) (unknown) (unknown) Penicillins Ad verse Reaction (Severe, Verified 10/13/22 07:49) (units unknown) (unknown) (unknown) (no date) (unknown) (unknown) Plan (units unknown) (unknown) (unknown) (no date) (unknown) (unknown) Platelet Count 188 X103/uL (150-400) 08/05/22 (units unknown) (unknown) (unknown) (no date) (unknown) (unknown) Potassium Leve l 4.5 mmol/L (3.4-5.1) 10/13/22 (units unknown) (unknown) (unknown) (no date) (unknown) (unknown) Pravastatin an d START: Rosuvastatin 20mg nightly. Let us know if you have any (units unknown) (unknown) (unknown) (no date) (unknown) (unknown) Qualifiers: (units unknown) (unknown) (unknown) (no date) (unknown) (unknown) RESPIRATORY: C lear to auscultation. (units unknown) (unknown) (unknown) (no date) (unknown) (unknown) ROS (units unknown) (unknown) (unknown) (no date) (unknown) (unknown) Rash (units unknown) (unknown) (unknown) (no date) (unknown) (unknown) Reason For Visit (un its unknown) (unknown) (unknown) (no date) (unknown) (unknown) Reclast infusi on is advised annually. We will call to arrange this. (units unknown) (unknown) (unknown) (no date) (unknown) (unknown) Red Blood Coun t 4.56 X106/uL (4.0-5.2) 08/05/22 (units unknown) (unknown) (unknown) (no date) (unknown) (unknown) Red Cell Distr ibution Width 13.6 % (11.6-14.8) 08/05/22 (units unknown) (unknown) (unknown) (no date) (unknown) (unknown) S/P renal miguelito ry angioplasty (-2005) (units unknown) (unknown) (unknown) (no date) (unknown) (unknown) She prefers th e once yearly infusion after a discussion today. (units unknown) (unknown) (unknown) (no date) (unknown) (unknown) Signed By: <Electronically signed by Nicholas Guevara MD> (units unknown) (unknown) (unknown) (no date) (unknown) (unknown) Signed (units unknown) (unknown) (unknown) (no date) (unknown) (unknown) Smoking Status : Never smoker (units unknown) (unknown) (unknown) (no date) (unknown) (unknown) Sodium Level 1 37 mmol/L (137-145) 10/13/22 (units unknown) (unknown) (unknown) (no date) (unknown) (unknown) Status: Acute (units unknown) (unknown) (unknown) (no date) (unknown) (unknown) Sulfa (Sulfona mide Antibiotics) Allergy (Mild, Verified 10/13/22 07:49) (units unknown) (unknown) (unknown) (no date) (unknown) (unknown) Surgical Histo ry (units unknown) (unknown) (unknown) (no date) (unknown) (unknown) This note may have been all or partially generated using voice recognition (units unknown) (unknown) (unknown) (no date) (unknown) (unknown) Thyroid Stimul ating Hormone (TSH) 2.03 uIU/mL (0.47-4.68) 0 (units unknown) (unknown) (unknown) (no date) (unknown) (unknown) Tobacco + Subs tance Use (units unknown) (unknown) (unknown) (no date) (unknown) (unknown) Tobacco Status (unit s unknown) (unknown) (unknown) (no date) (unknown) (unknown) Total Bilirubi n 0.6 mg/dL (0.2-1.3) 10/13/22 (units unknown) (unknown) (unknown) (no date) (unknown) (unknown) Total Protein 7.5 g/dL (6.3-8.2) 10/13/22 (units unknown) (unknown) (unknown) (no date) (unknown) (unknown) Triglycerides Level 105 mg/dL (35-150) 08/05/22 (units unknown) (unknown) (unknown) (no date) (unknown) (unknown) Visit Reasons: 3 mo f/u (units unknown) (unknown) (unknown) (no date) (unknown) (unknown) Well-controlle d. Continue current medications. (units unknown) (unknown) (unknown) (no date) (unknown) (unknown) White Blood Co unt 4.1 X103/uL (4.5-11.0) L 08/05/22 (units unknown) (unknown) (unknown) (no date) (unknown) (unknown) Your blood pre ssure is inadequately controlled but improved, remaining in the (units unknown) (unknown) (unknown) (no date) (unknown) (unknown) Your cholester ol is inadequately controlled. To lower your risk of stroke, STOP: (units unknown) (unknown) (unknown) (no date) (unknown) (unknown) Your medical condition otherwise appears stable at this point. Continue your (units unknown) (unknown) (unknown) (no date) (unknown) (unknown) about 35 minut es daily. (units unknown) (unknown) (unknown) (no date) (unknown) (unknown) anorexia, naus ea or vomiting, dysphagia, change in bowel habits or black or (units unknown) (unknown) (unknown) (no date) (unknown) (unknown) at home. The p atient denies exertional or other chest pain, dyspnea, orthopnea, (units unknown) (unknown) (unknown) (no date) (unknown) (unknown) ay occur. Occa sional wrong-word or 'sound-alike' substitutions may have (units unknown) (unknown) (unknown) (no date) (unknown) (unknown) blood pressure control.? She has recorded blood pressures in the 130-150s/70-80s (units unknown) (unknown) (unknown) (no date) (unknown) (unknown) bloody stools. The patient is currently taking lansoprazole for gastroesophageal (units unknown) (unknown) (unknown) (no date) (unknown) (unknown) current medications. (units unknown) (unknown) (unknown) (no date) (unknown) (unknown) daily, as well as weight-bearing activity (e.g., walking) for bone health. (units unknown) (unknown) (unknown) (no date) (unknown) (unknown) denies adverse side effects to the medication, and denies feeling depressed, (units unknown) (unknown) (unknown) (no date) (unknown) (unknown) distress. (units unknown) (unknown) (unknown) (no date) (unknown) (unknown) erythromycin b ase Adverse Reaction (Severe, Verified 10/13/22 07:49) (units unknown) (unknown) (unknown) (no date) (unknown) (unknown) good complianc e and denies any chest pain, exertional or otherwise. Recent lab (units unknown) (unknown) (unknown) (no date) (unknown) (unknown) good motivatio n. PHQ-9 score = 7/27. FRANK-7 score = 0/21. (units unknown) (unknown) (unknown) (no date) (unknown) (unknown) have any probl ems (leg swelling, heartburn and constipation). (units unknown) (unknown) (unknown) (no date) (unknown) (unknown) have occurred. If there are any questions, please contact the Medical Records (units unknown) (unknown) (unknown) (no date) (unknown) (unknown) hypertension r annelise. INCREASE: Amlodipine to 10mg nightly. Let us know if you (units unknown) (unknown) (unknown) (no date) (unknown) (unknown) icterus. No in jection or drainage. (units unknown) (unknown) (unknown) (no date) (unknown) (unknown) irritable, scrap metal burner nky, fatigued, easily tearful, sleep troubles, anhedonia, social (units unknown) (unknown) (unknown) (no date) (unknown) (unknown) maintain intak e of calcium 1500mg daily (preferably mostly from dietary sources (units unknown) (unknown) (unknown) (no date) (unknown) (unknown) meningeal signs. (un its unknown) (unknown) (unknown) (no date) (unknown) (unknown) mild (units unknown) (unknown) (unknown) (no date) (unknown) (unknown) mouth sores (units unknown) (unknown) (unknown) (no date) (unknown) (unknown) nausea (units unknown) (unknown) (unknown) (no date) (unknown) (unknown) no focal defic its evident. (units unknown) (unknown) (unknown) (no date) (unknown) (unknown) occurred due t o the inherent limitations of voice recognition software. Please (units unknown) (unknown) (unknown) (no date) (unknown) (unknown) paroxysmal noc turnal dyspnea, pedal edema, or TIA symptoms. She walks her dog (units unknown) (unknown) (unknown) (no date) (unknown) (unknown) problems (ache s or pains). (units unknown) (unknown) (unknown) (no date) (unknown) (unknown) read the note carefully and recognize, using context, where these substitutions (units unknown) (unknown) (unknown) (no date) (unknown) (unknown) reflux disease at this time. (units unknown) (unknown) (unknown) (no date) (unknown) (unknown) severity: mild Qualified Code(s): F33.0 - Major depressive disorder, recurrent, (units unknown) (unknown) (unknown) (no date) (unknown) (unknown) software. Alth ough every effort is made to edit content, pathology laboratory technologist errors m (units unknown) (unknown) (unknown) (no date) (unknown) (unknown) such as dairy, lean meats and leafy green vegetables) and vitamin D3 1000 units (units unknown) (unknown) (unknown) (no date) (unknown) (unknown) testing reviewed. (u nits unknown) (unknown) (unknown) (no date) (unknown) (unknown) the patient po rtal. Let us know if you have any questions or concerns. (units unknown) (unknown) (unknown) (no date) (unknown) (unknown) with rare alprazolam . (units unknown) (unknown) (unknown) (no date) (unknown) (unknown) withdrawal, or trouble with memory, focus, or concentration. The patient has (units unknown) (unknown) Result panel 3 (unknown) (no date) (unknown) (unknown) (no value) (units unknown) (unknown) (unknown) (no date) (unknown) (unknown) (1) Essential hypertension: (units unknown) (unknown) (unknown) (no date) (unknown) (unknown) (2) Mixed hyperlipidemia: (units unknown) (unknown) (unknown) (no date) (unknown) (unknown) (3) GERD witho ut esophagitis: (units unknown) (unknown) (unknown) (no date) (unknown) (unknown) (4) Depression , major, recurrent: (units unknown) (unknown) (unknown) (no date) (unknown) (unknown) (5) Generalize d anxiety disorder: (units unknown) (unknown) (unknown) (no date) (unknown) (unknown) (6) Chronic insomnia : (units unknown) (unknown) (unknown) (no date) (unknown) (unknown) (7) 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: (units unknown) (unknown) (unknown) (no date) (unknown) (unknown) / (units unknown) (unknown) (unknown) (no date) (unknown) (unknown) 01/19/23 (units unknown) (unknown) (unknown) (no date) (unknown) (unknown) [id number] (units unknown) (unknown) (unknown) (no date) (unknown) (unknown) 2.5, left FN - 2.2, right FN -2.4. She takes BoneUp BID. (units unknown) (unknown) (unknown) (no date) (unknown) (unknown) (units unknown) (unknown) (unknown) (no date) (unknown) (unknown) 25-Hydroxy Vit torres D Total 41.9 ng/mL (30.0-100.0) 08/05/22 (units unknown) (unknown) (unknown) (no date) (unknown) (unknown) 02/09 (units unknown) (unknown) (unknown) (no date) (unknown) (unknown) 04/11 (units unknown) (unknown) (unknown) (no date) (unknown) (unknown) 08/05/22 (units unknown) (unknown) (unknown) (no date) (unknown) (unknown) AWV 08/05/2022 (units unknown) (unknown) (unknown) (no date) (unknown) (unknown) Active/Remissi on status: currently active Major depression episode (units unknown) (unknown) (unknown) (no date) (unknown) (unknown) Age-related osteoporosis without current pathological fracture (units unknown) (unknown) (unknown) (no date) (unknown) (unknown) Age/Sex: 82 / F Date of Service: (units unknown) (unknown) (unknown) (no date) (unknown) (unknown) Alanine Aminotransferase (ALT/SGPT) 22 IU/L (<35) 09/22 (units unknown) (unknown) (unknown) (no date) (unknown) (unknown) Albumin 4.7 g/ dL (3.5-5.0) 10/13/22 (units unknown) (unknown) (unknown) (no date) (unknown) (unknown) Albumin/Globul in Ratio 1.7 (1.0-2.8) 10/13/22 (units unknown) (unknown) (unknown) (no date) (unknown) (unknown) Alkaline Phosp hatase 62 U/L (38-126) 10/13/22 (units unknown) (unknown) (unknown) (no date) (unknown) (unknown) All systems re viewed + are unremarkable except as noted in HPI and below (units unknown) (unknown) (unknown) (no date) (unknown) (unknown) Allergies (units unknown) (unknown) (unknown) (no date) (unknown) (unknown) [place] [id number] (units unknown) (unknown) (unknown) (no date) (unknown) (unknown) Anesthesia (units unknown) (unknown) (unknown) (no date) (unknown) (unknown) Anxiety (units unknown) (unknown) (unknown) (no date) (unknown) (unknown) Anxiety: The p atient reports symptoms are well controlled on current therapy (units unknown) (unknown) (unknown) (no date) (unknown) (unknown) Aspartate Torres o Transf (AST/SGOT) 25 IU/L (14-36) (units unknown) (unknown) (unknown) (no date) (unknown) (unknown) Assessment + Plan (u nits unknown) (unknown) (unknown) (no date) (unknown) (unknown) Assessment and Plan: (units unknown) (unknown) (unknown) (no date) (unknown) (unknown) Attending Dr: Nicholas Guevara MD (units unknown) (unknown) (unknown) (no date) (unknown) (unknown) BUN/Creatinine Ratio 21.7 (6-22) 10/13/22 (units unknown) (unknown) (unknown) (no date) (unknown) (unknown) Blood Urea Nit rogen 15 mg/dL (7-17) 10/13/22 (units unknown) (unknown) (unknown) (no date) (unknown) (unknown) CARDIOVASCULAR : Regular rate and rhythm without murmurs, gallops, or rubs. (units unknown) (unknown) (unknown) (no date) (unknown) (unknown) Calcium Level 9.7 mg/dL (8.4-10.2) 10/13/22 (units unknown) (unknown) (unknown) (no date) (unknown) (unknown) Carbon Dioxide Level 28 mmol/L (22-32) 10/13/22 (units unknown) (unknown) (unknown) (no date) (unknown) (unknown) Chicken pox (-1943) (units unknown) (unknown) (unknown) (no date) (unknown) (unknown) Chief Complaint (uni ts unknown) (unknown) (unknown) (no date) (unknown) (unknown) Chief Complain t: Medical followup (units unknown) (unknown) (unknown) (no date) (unknown) (unknown) Chloride Level 101 mmol/L (98-107) 10/13/22 (units unknown) (unknown) (unknown) (no date) (unknown) (unknown) Cholesterol [place] 257 mg/dL (140-199) H 08/05/22 (units unknown) (unknown) (unknown) (no date) (unknown) (unknown) Chronic insomnia (un its unknown) (unknown) (unknown) (no date) (unknown) (unknown) Clinically sta ble. Continue current plan. (units unknown) (unknown) (unknown) (no date) (unknown) (unknown) Common Lab Res ults- Last: (units unknown) (unknown) (unknown) (no date) (unknown) (unknown) Const (units unknown) (unknown) (unknown) (no date) (unknown) (unknown) Creatinine 0.6 9 mg/dL (0.52-1.04) 10/13/22 (units unknown) (unknown) (unknown) (no date) (unknown) (unknown) DERMATOLOGIC: No rashes or skin lesions. (units unknown) (unknown) (unknown) (no date) (unknown) (unknown) : 2 Acct:[id number] (units unknown) (unknown) (unknown) (no date) (unknown) (unknown) Depression, ma bernie, recurrent (units unknown) (unknown) (unknown) (no date) (unknown) (unknown) Dept at . (units unknown) (unknown) (unknown) (no date) (unknown) (unknown) Details: (units unknown) (unknown) (unknown) (no date) (unknown) (unknown) Documented By: Nicholas Guevara MD 02/14/23 [id number] (units unknown) (unknown) (unknown) (no date) (unknown) (unknown) Draft (units unknown) (unknown) (unknown) (no date) (unknown) (unknown) ENT: Mucous me mbranes pink and moist. (units unknown) (unknown) (unknown) (no date) (unknown) (unknown) EXTREMITIES: N o clubbing, cyanosis, or edema. (units unknown) (unknown) (unknown) (no date) (unknown) (unknown) EYES: Pupils e qual round and reactive. Extraocular motions intact. No scleral (units unknown) (unknown) (unknown) (no date) (unknown) (unknown) Essential hypertension (units unknown) (unknown) (unknown) (no date) (unknown) (unknown) Estimat Glomer ular Filtration Rate > 60 mL/min (>60) 10/13 (units unknown) (unknown) (unknown) (no date) (unknown) (unknown) Exam Narrative (unit s unknown) (unknown) (unknown) (no date) (unknown) (unknown) Exam Narrative: (uni ts unknown) (unknown) (unknown) (no date) (unknown) (unknown) Exam (units unknown) (unknown) (unknown) (no date) (unknown) (unknown) Family History (units unknown) (unknown) (unknown) (no date) (unknown) (unknown) Family/Other D eceased Accident (units unknown) (unknown) (unknown) (no date) (unknown) (unknown) Father d Accident (units unknown) (unknown) (unknown) (no date) (unknown) (unknown) [facility] (units unknown) (unknown) (unknown) (no date) (unknown) (unknown) Followup in 3 months . (units unknown) (unknown) (unknown) (no date) (unknown) (unknown) For bowel heal th, you may try Metamucil or psyllium husks daily. (units unknown) (unknown) (unknown) (no date) (unknown) (unknown) For general everett ne health to prevent or manage osteoporosis or osteopenia, (units unknown) (unknown) (unknown) (no date) (unknown) (unknown) Fractures (units unknown) (unknown) (unknown) (no date) (unknown) (unknown) GASTROINTESTIN AL: Abdomen soft, non-tender, nondistended. (units unknown) (unknown) (unknown) (no date) (unknown) (unknown) GENERAL: This is a well-nourished, well-developed patient, in no apparent (units unknown) (unknown) (unknown) (no date) (unknown) (unknown) GERD without esophagitis (units unknown) (unknown) (unknown) (no date) (unknown) (unknown) Gastroesophage al reflux disease: The patient denies abdominal or flank pain, (units unknown) (unknown) (unknown) (no date) (unknown) (unknown) Generalized an xiety disorder (units unknown) (unknown) (unknown) (no date) (unknown) (unknown) Globulin 2.8 g /dL (1.7-4.1) 10/13/22 (units unknown) (unknown) (unknown) (no date) (unknown) (unknown) Glucose Level 92 mg/dL (80-110) 10/13/22 (units unknown) (unknown) (unknown) (no date) (unknown) (unknown) Grandfather De ceased Cancer (units unknown) (unknown) (unknown) (no date) (unknown) (unknown) Grandmother De ceased Stroke (units unknown) (unknown) (unknown) (no date) (unknown) (unknown) H/O total hysterectomy (units unknown) (unknown) (unknown) (no date) (unknown) (unknown) HDL Cholestero l 79 mg/dL (40-60) H 08/05/22 (units unknown) (unknown) (unknown) (no date) (unknown) (unknown) HPI (units unknown) (unknown) (unknown) (no date) (unknown) (unknown) Hematocrit 40. 7 % (36-46) 08/05/22 (units unknown) (unknown) (unknown) (no date) (unknown) (unknown) Hemoglobin 13. 9 g/dL (12.0-16.0) 08/05/22 (units unknown) (unknown) (unknown) (no date) (unknown) (unknown) History of florian dder surgery (units unknown) (unknown) (unknown) (no date) (unknown) (unknown) History of car pal tunnel release (units unknown) (unknown) (unknown) (no date) (unknown) (unknown) Hyperlipidemia : The present medications include pravastatin. The patient reports (units unknown) (unknown) (unknown) (no date) (unknown) (unknown) Hypertension: The patient is currently on amlodipine started on 08/05/2022 for (units unknown) (unknown) (unknown) (no date) (unknown) (unknown) Inadequately controlled. Advise: Increase amlodipine to 10mg daily. (units unknown) (unknown) (unknown) (no date) (unknown) (unknown) Inadequately controlled. Advise: Switch pravastatin to rosuvastatin. (units unknown) (unknown) (unknown) (no date) (unknown) (unknown) Insomnia: The patient states symptoms are adequately controlled with zolpidem. (units unknown) (unknown) (unknown) (no date) (unknown) (unknown) Intake (units unknown) (unknown) (unknown) (no date) (unknown) (unknown) Internal Medic ine Office Visit (units unknown) (unknown) (unknown) (no date) (unknown) (unknown) Irritable elizabeth l syndrome (units unknown) (unknown) (unknown) (no date) (unknown) (unknown) It was very ni ce to meet with you today! (units unknown) (unknown) (unknown) (no date) (unknown) (unknown) LDL Cholestero l, Calculated 157 mg/dL (<100) H 08/05/22 (units unknown) (unknown) (unknown) (no date) (unknown) (unknown) Lab Results (units unknown) (unknown) (unknown) (no date) (unknown) (unknown) Labwork is ord ered today to evaluate your condition. Results will be posted to (units unknown) (unknown) (unknown) (no date) (unknown) (unknown) Last Menstural Cycle + Details (units unknown) (unknown) (unknown) (no date) (unknown) (unknown) Let us know if you have any problems. (units unknown) (unknown) (unknown) (no date) (unknown) (unknown) Loc: [facility] (units unknown) (unknown) (unknown) (no date) (unknown) (unknown) Major depressi on:? The patient reports good compliance with escitalopram, and (units unknown) (unknown) (unknown) (no date) (unknown) (unknown) Mean Corpuscul ar Hemoglobin 30.4 PG (26-34) 08/05/22 (units unknown) (unknown) (unknown) (no date) (unknown) (unknown) Mean Corpuscul ar Hemoglobin Concent 34.1 % (30-36) 07/22 (units unknown) (unknown) (unknown) (no date) (unknown) (unknown) Mean Corpuscul ar Volume 89.2 fL (80-100) 08/05/22 (units unknown) (unknown) (unknown) (no date) (unknown) (unknown) Measles (-1943) (uni ts unknown) (unknown) (unknown) (no date) (unknown) (unknown) Medical Histor y (units unknown) (unknown) (unknown) (no date) (unknown) (unknown) Medicare annua l wellness visit, initial (units unknown) (unknown) (unknown) (no date) (unknown) (unknown) Mixed hyperlipidemia (units unknown) (unknown) (unknown) (no date) (unknown) (unknown) Mother d Stroke (units unknown) (unknown) (unknown) (no date) (unknown) (unknown) NECK: Trachea midline. No JVD, bruits or lymphadenopathy. Supple, nontender, no (units unknown) (unknown) (unknown) (no date) (unknown) (unknown) NEUROLOGIC: Al ert, oriented, speech fluent, full upper and lower motor strength, (units unknown) (unknown) (unknown) (no date) (unknown) (unknown) New diagnosis. Inadequately controlled. Advise: Reclast annually or alendronate. (units unknown) (unknown) (unknown) (no date) (unknown) (unknown) Osteoporosis: The patient has osteoporosis by DEXA 08/11/2022: AP spine T-score (units unknown) (unknown) (unknown) (no date) (unknown) (unknown) Other Menstrua l Period: Surgical Menopause (hysterectomy) (units unknown) (unknown) (unknown) (no date) (unknown) (unknown) PFSH (units unknown) (unknown) (unknown) (no date) (unknown) (unknown) Patient: Angle Carranza MR#: [id number] (units unknown) (unknown) (unknown) (no date) (unknown) (unknown) Penicillins Ad verse Reaction (Severe, Verified 10/13/22 07:49) (units unknown) (unknown) (unknown) (no date) (unknown) (unknown) Plan (units unknown) (unknown) (unknown) (no date) (unknown) (unknown) Platelet Count 188 X103/uL (150-400) 08/05/22 (units unknown) (unknown) (unknown) (no date) (unknown) (unknown) Potassium Leve l 4.5 mmol/L (3.4-5.1) 10/13/22 (units unknown) (unknown) (unknown) (no date) (unknown) (unknown) Pravastatin an d START: Rosuvastatin 20mg nightly. Let us know if you have any (units unknown) (unknown) (unknown) (no date) (unknown) (unknown) Qualifiers: (units unknown) (unknown) (unknown) (no date) (unknown) (unknown) RESPIRATORY: C lear to auscultation. (units unknown) (unknown) (unknown) (no date) (unknown) (unknown) ROS (units unknown) (unknown) (unknown) (no date) (unknown) (unknown) Rash (units unknown) (unknown) (unknown) (no date) (unknown) (unknown) Reason For Visit (un its unknown) (unknown) (unknown) (no date) (unknown) (unknown) Reclast infusi on is advised annually. We will call to arrange this. (units unknown) (unknown) (unknown) (no date) (unknown) (unknown) Red Blood Coun t 4.56 X106/uL (4.0-5.2) 08/05/22 (units unknown) (unknown) (unknown) (no date) (unknown) (unknown) Red Cell Distr ibution Width 13.6 % (11.6-14.8) 08/05/22 (units unknown) (unknown) (unknown) (no date) (unknown) (unknown) S/P renal miguelito ry angioplasty (-2005) (units unknown) (unknown) (unknown) (no date) (unknown) (unknown) She prefers th e once yearly infusion after a discussion today. (units unknown) (unknown) (unknown) (no date) (unknown) (unknown) Signed By: (units unknown) (unknown) (unknown) (no date) (unknown) (unknown) Smoking Status : Never smoker (units unknown) (unknown) (unknown) (no date) (unknown) (unknown) Sodium Level 1 37 mmol/L (137-145) 10/13/22 (units unknown) (unknown) (unknown) (no date) (unknown) (unknown) Status: Acute (units unknown) (unknown) (unknown) (no date) (unknown) (unknown) Sulfa (Sulfona mide Antibiotics) Allergy (Mild, Verified 10/13/22 07:49) (units unknown) (unknown) (unknown) (no date) (unknown) (unknown) Surgical Histo ry (units unknown) (unknown) (unknown) (no date) (unknown) (unknown) This note may have been all or partially generated using voice recognition (units unknown) (unknown) (unknown) (no date) (unknown) (unknown) Thyroid Stimul ating Hormone (TSH) 2.03 uIU/mL (0.47-4.68) 0 (units unknown) (unknown) (unknown) (no date) (unknown) (unknown) Tobacco + Subs tance Use (units unknown) (unknown) (unknown) (no date) (unknown) (unknown) Tobacco Status (unit s unknown) (unknown) (unknown) (no date) (unknown) (unknown) Total Bilirubi n 0.6 mg/dL (0.2-1.3) 10/13/22 (units unknown) (unknown) (unknown) (no date) (unknown) (unknown) Total Protein 7.5 g/dL (6.3-8.2) 10/13/22 (units unknown) (unknown) (unknown) (no date) (unknown) (unknown) Triglycerides Level 105 mg/dL (35-150) 08/05/22 (units unknown) (unknown) (unknown) (no date) (unknown) (unknown) Visit Reasons: 3 mo f/u (units unknown) (unknown) (unknown) (no date) (unknown) (unknown) Well-controlle d. Continue current medications. (units unknown) (unknown) (unknown) (no date) (unknown) (unknown) White Blood Co unt 4.1 X103/uL (4.5-11.0) L 08/05/22 (units unknown) (unknown) (unknown) (no date) (unknown) (unknown) Your blood pre ssure is inadequately controlled but improved, remaining in the (units unknown) (unknown) (unknown) (no date) (unknown) (unknown) Your cholester ol is inadequately controlled. To lower your risk of stroke, STOP: (units unknown) (unknown) (unknown) (no date) (unknown) (unknown) Your medical condition otherwise appears stable at this point. Continue your (units unknown) (unknown) (unknown) (no date) (unknown) (unknown) about 35 minut es daily. (units unknown) (unknown) (unknown) (no date) (unknown) (unknown) anorexia, naus ea or vomiting, dysphagia, change in bowel habits or black or (units unknown) (unknown) (unknown) (no date) (unknown) (unknown) at home. The p atient denies exertional or other chest pain, dyspnea, orthopnea, (units unknown) (unknown) (unknown) (no date) (unknown) (unknown) blood pressure control.? She has recorded blood pressures in the 130-150s/70-80s (units unknown) (unknown) (unknown) (no date) (unknown) (unknown) bloody stools. The patient is currently taking lansoprazole for gastroesophageal (units unknown) (unknown) (unknown) (no date) (unknown) (unknown) current medications. (units unknown) (unknown) (unknown) (no date) (unknown) (unknown) daily, as well as weight-bearing activity (e.g., walking) for bone health. (units unknown) (unknown) (unknown) (no date) (unknown) (unknown) denies adverse side effects to the medication, and denies feeling depressed, (units unknown) (unknown) (unknown) (no date) (unknown) (unknown) distress. (units unknown) (unknown) (unknown) (no date) (unknown) (unknown) erythromycin b ase Adverse Reaction (Severe, Verified 10/13/22 07:49) (units unknown) (unknown) (unknown) (no date) (unknown) (unknown) good complianc e and denies any chest pain, exertional or otherwise. Recent lab (units unknown) (unknown) (unknown) (no date) (unknown) (unknown) good motivatio n. PHQ-9 score = 7/27. FRANK-7 score = 0/21. (units unknown) (unknown) (unknown) (no date) (unknown) (unknown) have any probl ems (leg swelling, heartburn and constipation). (units unknown) (unknown) (unknown) (no date) (unknown) (unknown) have occurred. If there are any questions, please contact the Medical Records (units unknown) (unknown) (unknown) (no date) (unknown) (unknown) hypertension r annelise. INCREASE: Amlodipine to 10mg nightly. Let us know if you (units unknown) (unknown) (unknown) (no date) (unknown) (unknown) icterus. No in jection or drainage. 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 Occ asional wrong-word or 'sound-alike' substitutions may have (units unknown) (unknown) (unknown) (no date) (unknown) (unknown) meningeal signs. (un its unknown) (unknown) (unknown) (no date) (unknown) (unknown) mild (units unknown) (unknown) (unknown) (no date) (unknown) (unknown) mouth sores (units unknown) (unknown) (unknown) (no date) (unknown) (unknown) nausea (units unknown) (unknown) (unknown) (no date) (unknown) (unknown) no focal defic its evident. (units unknown) (unknown) (unknown) (no date) (unknown) (unknown) occurred due t o the inherent limitations of voice recognition software. Please (units unknown) (unknown) (unknown) (no date) (unknown) (unknown) paroxysmal noc turnal dyspnea, pedal edema, or TIA symptoms. She walks her dog (units unknown) (unknown) (unknown) (no date) (unknown) (unknown) problems (ache s or pains). (units unknown) (unknown) (unknown) (no date) (unknown) (unknown) read the note carefully and recognize, using context, where these substitutions (units unknown) (unknown) (unknown) (no date) (unknown) (unknown) reflux disease at this time. (units unknown) (unknown) (unknown) (no date) (unknown) (unknown) severity: mild Qualified Code(s): F33.0 - Major depressive disorder, recurrent, (units unknown) (unknown) (unknown) (no date) (unknown) (unknown) software. Alth ough every effort is made to edit content, pathology laboratory technologist errors (units unknown) (unknown) (unknown) (no date) (unknown) (unknown) such as dairy, lean meats and leafy green vegetables) and vitamin D3 1000 units (units unknown) (unknown) (unknown) (no date) (unknown) (unknown) testing reviewed. (u nits unknown) (unknown) (unknown) (no date) (unknown) (unknown) the patient po rtal. Let us know if you have any questions or concerns. (units unknown) (unknown) (unknown) (no date) (unknown) (unknown) with rare alprazolam . (units unknown) (unknown) (unknown) (no date) (unknown) (unknown) withdrawal, or trouble with memory, focus, or concentration. The patient has (units unknown) (unknown) Result panel 4 (unknown) (no date) (unknown) (unknown) (no value) (units unknown) (unknown) (unknown) (no date) (unknown) (unknown) (1) Essential hypertension: (units unknown) (unknown) (unknown) (no date) (unknown) (unknown) (2) Mixed hyperlipidemia: (units unknown) (unknown) (unknown) (no date) (unknown) (unknown) (3) GERD witho ut esophagitis: (units unknown) (unknown) (unknown) (no date) (unknown) (unknown) (4) Depression , major, recurrent: (units unknown) (unknown) (unknown) (no date) (unknown) (unknown) (5) Generalize d anxiety disorder: (units unknown) (unknown) (unknown) (no date) (unknown) (unknown) (6) Chronic insomnia : (units unknown) (unknown) (unknown) (no date) (unknown) (unknown) (7) 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: (units unknown) (unknown) (unknown) (no date) (unknown) (unknown) / (units unknown) (unknown) (unknown) (no date) (unknown) (unknown) 01/19/23 (units unknown) (unknown) (unknown) (no date) (unknown) (unknown) 02/14/23] (units unknown) (unknown) (unknown) (no date) (unknown) (unknown) [id number] (units unknown) (unknown) (unknown) (no date) (unknown) (unknown) 2.5, left FN - 2.2, right FN -2.4. She takes BoneUp BID. (units unknown) (unknown) (unknown) (no date) (unknown) (unknown) (units unknown) (unknown) (unknown) (no date) (unknown) (unknown) 25-Hydroxy Vit torres D Total 41.9 ng/mL (30.0-100.0) 08/05/22 (units unknown) (unknown) (unknown) (no date) (unknown) (unknown) 02/09 (units unknown) (unknown) (unknown) (no date) (unknown) (unknown) 04/11 (units unknown) (unknown) (unknown) (no date) (unknown) (unknown) 08/05/22 (units unknown) (unknown) (unknown) (no date) (unknown) (unknown) AWV 08/05/2022 (units unknown) (unknown) (unknown) (no date) (unknown) (unknown) Active/Remissi on status: currently active Major depression episode (units unknown) (unknown) (unknown) (no date) (unknown) (unknown) Age-related osteoporosis without current pathological fracture (units unknown) (unknown) (unknown) (no date) (unknown) (unknown) Age/Sex: 82 / F Date of Service: (units unknown) (unknown) (unknown) (no date) (unknown) (unknown) Alanine Aminotransferase (ALT/SGPT) 22 IU/L (<35) 09/22 (units unknown) (unknown) (unknown) (no date) (unknown) (unknown) Albumin 4.7 g/ dL (3.5-5.0) 10/13/22 (units unknown) (unknown) (unknown) (no date) (unknown) (unknown) Albumin/Globul in Ratio 1.7 (1.0-2.8) 10/13/22 (units unknown) (unknown) (unknown) (no date) (unknown) (unknown) Alkaline Phosp hatase 62 U/L (38-126) 10/13/22 (units unknown) (unknown) (unknown) (no date) (unknown) (unknown) All systems re viewed + are unremarkable except as noted in HPI and below (units unknown) (unknown) (unknown) (no date) (unknown) (unknown) Allergies (units unknown) (unknown) (unknown) (no date) (unknown) (unknown) [place] [id number] (units unknown) (unknown) (unknown) (no date) (unknown) (unknown) Anesthesia (units unknown) (unknown) (unknown) (no date) (unknown) (unknown) Anxiety (units unknown) (unknown) (unknown) (no date) (unknown) (unknown) Anxiety: The p atient reports symptoms are well controlled on current therapy (units unknown) (unknown) (unknown) (no date) (unknown) (unknown) Aspartate Torres o Transf (AST/SGOT) 25 IU/L (14-36) 10/13/ (units unknown) (unknown) (unknown) (no date) (unknown) (unknown) Assessment + Plan (u nits unknown) (unknown) (unknown) (no date) (unknown) (unknown) Assessment and Plan: (units unknown) (unknown) (unknown) (no date) (unknown) (unknown) Attending Dr: Nicholas Guevara MD (units unknown) (unknown) (unknown) (no date) (unknown) (unknown) BUN/Creatinine Ratio 21.7 (6-22) 10/13/22 (units unknown) (unknown) (unknown) (no date) (unknown) (unknown) Blood Urea Nit rogen 15 mg/dL (7-17) 10/13/22 (units unknown) (unknown) (unknown) (no date) (unknown) (unknown) CARDIOVASCULAR : Regular rate and rhythm without murmurs, gallops, or rubs. (units unknown) (unknown) (unknown) (no date) (unknown) (unknown) Calcium Level 9.7 mg/dL (8.4-10.2) 10/13/22 (units unknown) (unknown) (unknown) (no date) (unknown) (unknown) Carbon Dioxide Level 28 mmol/L (22-32) 10/13/22 (units unknown) (unknown) (unknown) (no date) (unknown) (unknown) Chicken pox (-1943) (units unknown) (unknown) (unknown) (no date) (unknown) (unknown) Chief Complaint (uni ts unknown) (unknown) (unknown) (no date) (unknown) (unknown) Chief Complain t: Medical followup (units unknown) (unknown) (unknown) (no date) (unknown) (unknown) Chloride Level 101 mmol/L (98-107) 10/13/22 (units unknown) (unknown) (unknown) (no date) (unknown) (unknown) Cholesterol [place] 257 mg/dL (140-199) H 08/05/22 (units unknown) (unknown) (unknown) (no date) (unknown) (unknown) Chronic insomnia (un its unknown) (unknown) (unknown) (no date) (unknown) (unknown) Clinically sta ble. Continue current plan. (units unknown) (unknown) (unknown) (no date) (unknown) (unknown) Common Lab Res ults- Last: (units unknown) (unknown) (unknown) (no date) (unknown) (unknown) Confirmed 02/14/23] (units unknown) (unknown) (unknown) (no date) (unknown) (unknown) Const (units unknown) (unknown) (unknown) (no date) (unknown) (unknown) Creatinine 0.6 9 mg/dL (0.52-1.04) 10/13/22 (units unknown) (unknown) (unknown) (no date) (unknown) (unknown) DERMATOLOGIC: No rashes or skin lesions. (units unknown) (unknown) (unknown) (no date) (unknown) (unknown) : 2 Acct:[id number] (units unknown) (unknown) (unknown) (no date) (unknown) (unknown) Depression, ma bernie, recurrent (units unknown) (unknown) (unknown) (no date) (unknown) (unknown) Dept at . (units unknown) (unknown) (unknown) (no date) (unknown) (unknown) Details: (units unknown) (unknown) (unknown) (no date) (unknown) (unknown) Discuss/review. (uni ts unknown) (unknown) (unknown) (no date) (unknown) (unknown) Documented By: Nicholas Guevara MD 02/14/23 1247 (units unknown) (unknown) (unknown) (no date) (unknown) (unknown) Draft (units unknown) (unknown) (unknown) (no date) (unknown) (unknown) ENT: Mucous me mbranes pink and moist. (units unknown) (unknown) (unknown) (no date) (unknown) (unknown) EXTREMITIES: N o clubbing, cyanosis, or edema. (units unknown) (unknown) (unknown) (no date) (unknown) (unknown) EYES: Pupils e qual round and reactive. Extraocular motions intact. No scleral (units unknown) (unknown) (unknown) (no date) (unknown) (unknown) Essential hypertension (units unknown) (unknown) (unknown) (no date) (unknown) (unknown) Estimat Glomer ular Filtration Rate > 60 mL/min (>60) 10/13 (units unknown) (unknown) (unknown) (no date) (unknown) (unknown) Exam Narrative (unit s unknown) (unknown) (unknown) (no date) (unknown) (unknown) Exam Narrative: (uni ts unknown) (unknown) (unknown) (no date) (unknown) (unknown) Exam (units unknown) (unknown) (unknown) (no date) (unknown) (unknown) Family History (units unknown) (unknown) (unknown) (no date) (unknown) (unknown) Family/Other D eceased Accident (units unknown) (unknown) (unknown) (no date) (unknown) (unknown) Father d Accident (units unknown) (unknown) (unknown) (no date) (unknown) (unknown) [facility] (units unknown) (unknown) (unknown) (no date) (unknown) (unknown) Follow up for medication check up. (units unknown) (unknown) (unknown) (no date) (unknown) (unknown) Followup in 3 months . (units unknown) (unknown) (unknown) (no date) (unknown) (unknown) For bowel heal th, you may try Metamucil or psyllium husks daily. (units unknown) (unknown) (unknown) (no date) (unknown) (unknown) For general everett ne health to prevent or manage osteoporosis or osteopenia, (units unknown) (unknown) (unknown) (no date) (unknown) (unknown) Fractures (units unknown) (unknown) (unknown) (no date) (unknown) (unknown) GASTROINTESTIN AL: Abdomen soft, non-tender, nondistended. (units unknown) (unknown) (unknown) (no date) (unknown) (unknown) GENERAL: This is a well-nourished, well-developed patient, in no apparent (units unknown) (unknown) (unknown) (no date) (unknown) (unknown) GERD without esophagitis (units unknown) (unknown) (unknown) (no date) (unknown) (unknown) Gastroesophage al reflux disease: The patient denies abdominal or flank pain, (units unknown) (unknown) (unknown) (no date) (unknown) (unknown) Generalized an xiety disorder (units unknown) (unknown) (unknown) (no date) (unknown) (unknown) Globulin 2.8 g /dL (1.7-4.1) 10/13/22 (units unknown) (unknown) (unknown) (no date) (unknown) (unknown) Glucose Level 92 mg/dL (80-110) 10/13/22 (units unknown) (unknown) (unknown) (no date) (unknown) (unknown) Grandfather De ceased Cancer (units unknown) (unknown) (unknown) (no date) (unknown) (unknown) Grandmother De ceased Stroke (units unknown) (unknown) (unknown) (no date) (unknown) (unknown) H/O total hysterectomy (units unknown) (unknown) (unknown) (no date) (unknown) (unknown) HDL Cholestero l 79 mg/dL (40-60) H 08/05/22 (units unknown) (unknown) (unknown) (no date) (unknown) (unknown) HPI (units unknown) (unknown) (unknown) (no date) (unknown) (unknown) Health Managem ent reviewed with patient: Yes (units unknown) (unknown) (unknown) (no date) (unknown) (unknown) Health Management (u nits unknown) (unknown) (unknown) (no date) (unknown) (unknown) Hematocrit 40. 7 % (36-46) 08/05/22 (units unknown) (unknown) (unknown) (no date) (unknown) (unknown) Hemoglobin 13. 9 g/dL (12.0-16.0) 08/05/22 (units unknown) (unknown) (unknown) (no date) (unknown) (unknown) History of florian dder surgery (units unknown) (unknown) (unknown) (no date) (unknown) (unknown) History of car pal tunnel release (units unknown) (unknown) (unknown) (no date) (unknown) (unknown) Hyperlipidemia : The present medications include pravastatin. The patient reports (units unknown) (unknown) (unknown) (no date) (unknown) (unknown) Hypertension: The patient is currently on amlodipine started on 08/05/2022 for (units unknown) (unknown) (unknown) (no date) (unknown) (unknown) Inadequately controlled. Advise: Increase amlodipine to 10mg daily. (units unknown) (unknown) (unknown) (no date) (unknown) (unknown) Inadequately controlled. Advise: Switch pravastatin to rosuvastatin. (units unknown) (unknown) (unknown) (no date) (unknown) (unknown) Insomnia: The patient states symptoms are adequately controlled with zolpidem. (units unknown) (unknown) (unknown) (no date) (unknown) (unknown) Intake Note: (units unknown) (unknown) (unknown) (no date) (unknown) (unknown) Intake perform ed by: Viji Santos (units unknown) (unknown) (unknown) (no date) (unknown) (unknown) Intake (units unknown) (unknown) (unknown) (no date) (unknown) (unknown) Intake- Maryellen serrano Staff (units unknown) (unknown) (unknown) (no date) (unknown) (unknown) Internal Medic ine Office Visit (units unknown) (unknown) (unknown) (no date) (unknown) (unknown) Irritable elizabeth l syndrome (units unknown) (unknown) (unknown) (no date) (unknown) (unknown) It was very ni ce to meet with you today! (units unknown) (unknown) (unknown) (no date) (unknown) (unknown) LDL Cholestero l, Calculated 157 mg/dL (<100) H 08/05/22 (units unknown) (unknown) (unknown) (no date) (unknown) (unknown) Lab Results (units unknown) (unknown) (unknown) (no date) (unknown) (unknown) Labwork is ord ered today to evaluate your condition. Results will be posted to (units unknown) (unknown) (unknown) (no date) (unknown) (unknown) Last Menstural Cycle + Details (units unknown) (unknown) (unknown) (no date) (unknown) (unknown) Let us know if you have any problems. (units unknown) (unknown) (unknown) (no date) (unknown) (unknown) Loc: [facility] (units unknown) (unknown) (unknown) (no date) (unknown) (unknown) Major depressi on:? The patient reports good compliance with escitalopram, and (units unknown) (unknown) (unknown) (no date) (unknown) (unknown) Mean Corpuscul ar Hemoglobin 30.4 PG (26-34) 08/05/22 (units unknown) (unknown) (unknown) (no date) (unknown) (unknown) Mean Corpuscul ar Hemoglobin Concent 34.1 % (30-36) 07/22 (units unknown) (unknown) (unknown) (no date) (unknown) (unknown) Mean Corpuscul ar Volume 89.2 fL (80-100) 08/05/22 (units unknown) (unknown) (unknown) (no date) (unknown) (unknown) Measles (-1943) (uni ts unknown) (unknown) (unknown) (no date) (unknown) (unknown) Medical Histor y (units unknown) (unknown) (unknown) (no date) (unknown) (unknown) Medicare annua l wellness visit, initial (units unknown) (unknown) (unknown) (no date) (unknown) (unknown) Medications (units unknown) (unknown) (unknown) (no date) (unknown) (unknown) Mixed hyperlipidemia (units unknown) (unknown) (unknown) (no date) (unknown) (unknown) Mother d Stroke (units unknown) (unknown) (unknown) (no date) (unknown) (unknown) NECK: Trachea midline. No JVD, bruits or lymphadenopathy. Supple, nontender, no (units unknown) (unknown) (unknown) (no date) (unknown) (unknown) NEUROLOGIC: Al ert, oriented, speech fluent, full upper and lower motor strength, (units unknown) (unknown) (unknown) (no date) (unknown) (unknown) New diagnosis. Inadequately controlled. Advise: Reclast annually or alendronate. (units unknown) (unknown) (unknown) (no date) (unknown) (unknown) Osteoporosis: The patient has osteoporosis by DEXA 08/11/2022: AP spine T-score (units unknown) (unknown) (unknown) (no date) (unknown) (unknown) Other Menstrua l Period: Surgical Menopause (hysterectomy) (units unknown) (unknown) (unknown) (no date) (unknown) (unknown) PFSH (units unknown) (unknown) (unknown) (no date) (unknown) (unknown) Patient: Angle Carranza MR#: [id number] (units unknown) (unknown) (unknown) (no date) (unknown) (unknown) Penicillins Ad verse Reaction (Severe, Verified 02/14/23 13:36) (units unknown) (unknown) (unknown) (no date) (unknown) (unknown) Plan (units unknown) (unknown) (unknown) (no date) (unknown) (unknown) Platelet Count 188 X103/uL (150-400) 08/05/22 (units unknown) (unknown) (unknown) (no date) (unknown) (unknown) Potassium Leve l 4.5 mmol/L (3.4-5.1) 10/13/22 (units unknown) (unknown) (unknown) (no date) (unknown) (unknown) Pravastatin an d START: Rosuvastatin 20mg nightly. Let us know if you have any (units unknown) (unknown) (unknown) (no date) (unknown) (unknown) Qualifiers: (units unknown) (unknown) (unknown) (no date) (unknown) (unknown) RESPIRATORY: C lear to auscultation. (units unknown) (unknown) (unknown) (no date) (unknown) (unknown) ROS (units unknown) (unknown) (unknown) (no date) (unknown) (unknown) Rash (units unknown) (unknown) (unknown) (no date) (unknown) (unknown) Reason For Visit (un its unknown) (unknown) (unknown) (no date) (unknown) (unknown) Reclast infusi on is advised annually. We will call to arrange this. (units unknown) (unknown) (unknown) (no date) (unknown) (unknown) Red Blood Coun t 4.56 X106/uL (4.0-5.2) 08/05/22 (units unknown) (unknown) (unknown) (no date) (unknown) (unknown) Red Cell Distr ibution Width 13.6 % (11.6-14.8) 08/05/22 (units unknown) (unknown) (unknown) (no date) (unknown) (unknown) S/P renal miguelito ry angioplasty (-2005) (units unknown) (unknown) (unknown) (no date) (unknown) (unknown) She prefers th e once yearly infusion after a discussion today. (units unknown) (unknown) (unknown) (no date) (unknown) (unknown) Signed By: (units unknown) (unknown) (unknown) (no date) (unknown) (unknown) Smoking Status : Never smoker (units unknown) (unknown) (unknown) (no date) (unknown) (unknown) Sodium Level 1 37 mmol/L (137-145) 10/13/22 (units unknown) (unknown) (unknown) (no date) (unknown) (unknown) Status: Acute (units unknown) (unknown) (unknown) (no date) (unknown) (unknown) Sulfa (Sulfona mide Antibiotics) Allergy (Mild, Verified 02/14/23 13:36) (units unknown) (unknown) (unknown) (no date) (unknown) (unknown) Surgical Histo ry (units unknown) (unknown) (unknown) (no date) (unknown) (unknown) This note may have been all or partially generated using voice recognition (units unknown) (unknown) (unknown) (no date) (unknown) (unknown) Thyroid Stimul ating Hormone (TSH) 2.03 uIU/mL (0.47-4.68) 0 (units unknown) (unknown) (unknown) (no date) (unknown) (unknown) Tobacco + Subs tance Use (units unknown) (unknown) (unknown) (no date) (unknown) (unknown) Tobacco Status (unit s unknown) (unknown) (unknown) (no date) (unknown) (unknown) Total Bilirubi n 0.6 mg/dL (0.2-1.3) 10/13/22 (units unknown) (unknown) (unknown) (no date) (unknown) (unknown) Total Protein 7.5 g/dL (6.3-8.2) 10/13/22 (units unknown) (unknown) (unknown) (no date) (unknown) (unknown) Triglycerides Level 105 mg/dL (35-150) 08/05/22 (units unknown) (unknown) (unknown) (no date) (unknown) (unknown) Visit Reasons: 3 mo f/u (units unknown) (unknown) (unknown) (no date) (unknown) (unknown) Well-controlle d. Continue current medications. (units unknown) (unknown) (unknown) (no date) (unknown) (unknown) White Blood Co unt 4.1 X103/uL (4.5-11.0) L 08/05/22 (units unknown) (unknown) (unknown) (no date) (unknown) (unknown) Your blood pre ssure is inadequately controlled but improved, remaining in the (units unknown) (unknown) (unknown) (no date) (unknown) (unknown) Your cholester ol is inadequately controlled. To lower your risk of stroke, STOP: (units unknown) (unknown) (unknown) (no date) (unknown) (unknown) Your medical condition otherwise appears stable at this point. Continue your (units unknown) (unknown) (unknown) (no date) (unknown) (unknown) about 35 minut es daily. (units unknown) (unknown) (unknown) (no date) (unknown) (unknown) alprazolam 0.2 5 mg tablet 0.25 mg PO DAILY PRN anxiety #20 tabs 08/05/22 [Rx (units unknown) (unknown) (unknown) (no date) (unknown) (unknown) amlodipine 10 mg tablet 10 mg PO DAILY #90 tabs 10/13/22 [Rx Confirmed 02/14/23] (units unknown) (unknown) (unknown) (no date) (unknown) (unknown) anorexia, naus ea or vomiting, dysphagia, change in bowel habits or black or (units unknown) (unknown) (unknown) (no date) (unknown) (unknown) at home. The p atient denies exertional or other chest pain, dyspnea, orthopnea, (units unknown) (unknown) (unknown) (no date) (unknown) (unknown) blood pressure control.? She has recorded blood pressures in the 130-150s/70-80s (units unknown) (unknown) (unknown) (no date) (unknown) (unknown) bloody stools. The patient is currently taking lansoprazole for gastroesophageal (units unknown) (unknown) (unknown) (no date) (unknown) (unknown) current medications. (units unknown) (unknown) (unknown) (no date) (unknown) (unknown) daily, as well as weight-bearing activity (e.g., walking) for bone health. (units unknown) (unknown) (unknown) (no date) (unknown) (unknown) denies adverse side effects to the medication, and denies feeling depressed, (units unknown) (unknown) (unknown) (no date) (unknown) (unknown) distress. (units unknown) (unknown) (unknown) (no date) (unknown) (unknown) erythromycin b ase Adverse Reaction (Severe, Verified 02/14/23 13:36) (units unknown) (unknown) (unknown) (no date) (unknown) (unknown) escitalopram o xalate 20 mg tablet 30 mg PO DAILY #135 tabs 10/13/22 [Rx (units unknown) (unknown) (unknown) (no date) (unknown) (unknown) good complianc e and denies any chest pain, exertional or otherwise. Recent lab (units unknown) (unknown) (unknown) (no date) (unknown) (unknown) good motivatio n. PHQ-9 score = 06/16. FRANK-7 score = 0/21. (units unknown) (unknown) (unknown) (no date) (unknown) (unknown) have any probl ems (leg swelling, heartburn and constipation). (units unknown) (unknown) (unknown) (no date) (unknown) (unknown) have occurred. If there are any questions, please contact the Medical Records (units unknown) (unknown) (unknown) (no date) (unknown) (unknown) hypertension r annelise. INCREASE: Amlodipine to 10mg nightly. Let us know if you (units unknown) (unknown) (unknown) (no date) (unknown) (unknown) icterus. No in jection or drainage. 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 Occ asional wrong-word or 'sound-alike' substitutions may have (units unknown) (unknown) (unknown) (no date) (unknown) (unknown) meningeal signs. (un its unknown) (unknown) (unknown) (no date) (unknown) (unknown) mild (units unknown) (unknown) (unknown) (no date) (unknown) (unknown) mouth sores (units unknown) (unknown) (unknown) (no date) (unknown) (unknown) nausea (units unknown) (unknown) (unknown) (no date) (unknown) (unknown) no focal defic its evident. (units unknown) (unknown) (unknown) (no date) (unknown) (unknown) occurred due t o the inherent limitations of voice recognition software. Please (units unknown) (unknown) (unknown) (no date) (unknown) (unknown) paroxysmal noc turnal dyspnea, pedal edema, or TIA symptoms. She walks her dog (units unknown) (unknown) (unknown) (no date) (unknown) (unknown) problems (ache s or pains). (units unknown) (unknown) (unknown) (no date) (unknown) (unknown) read the note carefully and recognize, using context, where these substitutions (units unknown) (unknown) (unknown) (no date) (unknown) (unknown) reflux disease at this time. (units unknown) (unknown) (unknown) (no date) (unknown) (unknown) rosuvastatin 2 0 mg tablet 20 mg PO DAILY #100 tabs 11/09/22 [Rx Confirmed (units unknown) (unknown) (unknown) (no date) (unknown) (unknown) severity: mild Qualified Code(s): F33.0 - Major depressive disorder, recurrent, (units unknown) (unknown) (unknown) (no date) (unknown) (unknown) software. Alth ough every effort is made to edit content, pathology laboratory technologist errors (units unknown) (unknown) (unknown) (no date) (unknown) (unknown) such as dairy, lean meats and leafy green vegetables) and vitamin D3 1000 units (units unknown) (unknown) (unknown) (no date) (unknown) (unknown) testing reviewed. (u nits unknown) (unknown) (unknown) (no date) (unknown) (unknown) the patient po rtal. Let us know if you have any questions or concerns. (units unknown) (unknown) (unknown) (no date) (unknown) (unknown) with rare alprazolam . (units unknown) (unknown) (unknown) (no date) (unknown) (unknown) withdrawal, or trouble with memory, focus, or concentration. The patient has (units unknown) (unknown) (unknown) (no date) (unknown) (unknown) zolpidem 10 mg tablet 10 mg PO BEDTIME PRN insomnia #45 tabs 08/05/22 [Rx (units unknown) (unknown) Result panel 5 (unknown) (no date) (unknown) (unknown) (no value) (units unknown) (unknown) (unknown) (no date) (unknown) (unknown) (1) Essential hypertension: (units unknown) (unknown) (unknown) (no date) (unknown) (unknown) (2) Mixed hyperlipidemia: (units unknown) (unknown) (unknown) (no date) (unknown) (unknown) (3) GERD witho ut esophagitis: (units unknown) (unknown) (unknown) (no date) (unknown) (unknown) (4) Depression , major, recurrent: (units unknown) (unknown) (unknown) (no date) (unknown) (unknown) (5) Generalize d anxiety disorder: (units unknown) (unknown) (unknown) (no date) (unknown) (unknown) (6) Chronic insomnia : (units unknown) (unknown) (unknown) (no date) (unknown) (unknown) (7) 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 She takes BoneUp BID. (units unknown) (unknown) (unknown) (no date) (unknown) (unknown) (units unknown) (unknown) (unknown) (no date) (unknown) (unknown) 25-Hydroxy Vit torres D Total 41.9 ng/mL (30.0-100.0) 08/05/22 (units unknown) (unknown) (unknown) (no date) (unknown) (unknown) 02/09 (units unknown) (unknown) (unknown) (no date) (unknown) (unknown) 04/11 (units unknown) (unknown) (unknown) (no date) (unknown) (unknown) 08/05/22 (units unknown) (unknown) (unknown) (no date) (unknown) (unknown) AWV 08/05/2022 (units unknown) (unknown) (unknown) (no date) (unknown) (unknown) Active/Remissi on status: currently active Major depression episode (units unknown) (unknown) (unknown) (no date) (unknown) (unknown) Age-related osteoporosis without current pathological fracture (units unknown) (unknown) (unknown) (no date) (unknown) (unknown) Age/Sex: 82 / F Date of Service: (units unknown) (unknown) (unknown) (no date) (unknown) (unknown) Alanine Aminotransferase (ALT/SGPT) 22 IU/L (<35) 09/22 (units unknown) (unknown) (unknown) (no date) (unknown) (unknown) Albumin 4.7 g/ dL (3.5-5.0) 10/13/22 (units unknown) (unknown) (unknown) (no date) (unknown) (unknown) Albumin/Globul in Ratio 1.7 (1.0-2.8) 10/13/22 (units unknown) (unknown) (unknown) (no date) (unknown) (unknown) Alkaline Phosp hatase 62 U/L (38-126) 10/13/22 (units unknown) (unknown) (unknown) (no date) (unknown) (unknown) All systems re viewed + are unremarkable except as noted in HPI and below (units unknown) (unknown) (unknown) (no date) (unknown) (unknown) Allergies (units unknown) (unknown) (unknown) (no date) (unknown) (unknown) [place] [address] (units unknown) (unknown) (unknown) (no date) (unknown) (unknown) Anesthesia (units unknown) (unknown) (unknown) (no date) (unknown) (unknown) Anxiety (units unknown) (unknown) (unknown) (no date) (unknown) (unknown) Anxiety: The p atient reports symptoms are well controlled on current therapy (units unknown) (unknown) (unknown) (no date) (unknown) (unknown) Aspartate Torres o Transf (AST/SGOT) 25 IU/L (14-36) 10/13/ (units unknown) (unknown) (unknown) (no date) (unknown) (unknown) Assessment + Plan (u nits unknown) (unknown) (unknown) (no date) (unknown) (unknown) Assessment and Plan: (units unknown) (unknown) (unknown) (no date) (unknown) (unknown) Attending Dr: Nicholas Guevara MD (units unknown) (unknown) (unknown) (no date) (unknown) (unknown) BMI 26.9 (units unknown) (unknown) (unknown) (no date) (unknown) (unknown) BP 140/80 144/70 H ( units unknown) (unknown) (unknown) (no date) (unknown) (unknown) BUN/Creatinine Ratio 21.7 (6-22) 10/13/22 (units unknown) (unknown) (unknown) (no date) (unknown) (unknown) Blood Pressure Location Lt brachial Lt brachial (units unknown) (unknown) (unknown) (no date) (unknown) (unknown) Blood Urea Nit rogen 15 mg/dL (7-17) 10/13/22 (units unknown) (unknown) (unknown) (no date) (unknown) (unknown) CARDIOVASCULAR : Regular rate and rhythm without murmurs, gallops, or rubs. (units unknown) (unknown) (unknown) (no date) (unknown) (unknown) Calcium Level 9.7 mg/dL (8.4-10.2) 10/13/22 (units unknown) (unknown) (unknown) (no date) (unknown) (unknown) Carbon Dioxide Level 28 mmol/L (22-32) 10/13/22 (units unknown) (unknown) (unknown) (no date) (unknown) (unknown) Chicken pox (-1943) (units unknown) (unknown) (unknown) (no date) (unknown) (unknown) Chief Complaint (uni ts unknown) (unknown) (unknown) (no date) (unknown) (unknown) Chief Complain t: Medical followup (units unknown) (unknown) (unknown) (no date) (unknown) (unknown) Chloride Level 101 mmol/L (98-107) 10/13/22 (units unknown) (unknown) (unknown) (no date) (unknown) (unknown) Cholesterol [place] 257 mg/dL (140-199) H 08/05/22 (units unknown) (unknown) (unknown) (no date) (unknown) (unknown) Chronic insomnia (un its unknown) (unknown) (unknown) (no date) (unknown) (unknown) Clinically sta ble. Continue current plan. (units unknown) (unknown) (unknown) (no date) (unknown) (unknown) Common Lab Res ults- Last: (units unknown) (unknown) (unknown) (no date) (unknown) (unknown) Confirmed 02/14/23] (units unknown) (unknown) (unknown) (no date) (unknown) (unknown) Const (units unknown) (unknown) (unknown) (no date) (unknown) (unknown) Creatinine 0.6 9 mg/dL (0.52-1.04) 10/13/22 (units unknown) (unknown) (unknown) (no date) (unknown) (unknown) DERMATOLOGIC: No rashes or skin lesions. (units unknown) (unknown) (unknown) (no date) (unknown) (unknown) : 2 Acct:[id number] (units unknown) (unknown) (unknown) (no date) (unknown) (unknown) Depression, ma bernie, recurrent (units unknown) (unknown) (unknown) (no date) (unknown) (unknown) Dept at . (units unknown) (unknown) (unknown) (no date) (unknown) (unknown) Details: (units unknown) (unknown) (unknown) (no date) (unknown) (unknown) Discuss/review. (uni ts unknown) (unknown) (unknown) (no date) (unknown) (unknown) Documented By: Nicholas Guevara MD 02/14/23 1247 (units unknown) (unknown) (unknown) (no date) (unknown) (unknown) Draft (units unknown) (unknown) (unknown) (no date) (unknown) (unknown) ENT: Mucous me mbranes pink and moist. (units unknown) (unknown) (unknown) (no date) (unknown) (unknown) EXTREMITIES: N o clubbing, cyanosis, or edema. (units unknown) (unknown) (unknown) (no date) (unknown) (unknown) EYES: Pupils e qual round and reactive. Extraocular motions intact. No scleral (units unknown) (unknown) (unknown) (no date) (unknown) (unknown) Essential hypertension (units unknown) (unknown) (unknown) (no date) (unknown) (unknown) Estimat Glomer ular Filtration Rate > 60 mL/min (>60) 10/13 (units unknown) (unknown) (unknown) (no date) (unknown) (unknown) Exam Narrative (unit s unknown) (unknown) (unknown) (no date) (unknown) (unknown) Exam Narrative: (uni ts unknown) (unknown) (unknown) (no date) (unknown) (unknown) Exam (units unknown) (unknown) (unknown) (no date) (unknown) (unknown) Family History (units unknown) (unknown) (unknown) (no date) (unknown) (unknown) Family/Other D eceased Accident (units unknown) (unknown) (unknown) (no date) (unknown) (unknown) Father d Accident (units unknown) (unknown) (unknown) (no date) (unknown) (unknown) [facility] (units unknown) (unknown) (unknown) (no date) (unknown) (unknown) Follow up for medication check up. (units unknown) (unknown) (unknown) (no date) (unknown) (unknown) Followup in 3 months . (units unknown) (unknown) (unknown) (no date) (unknown) (unknown) For bowel heal th, you may try Metamucil or psyllium husks daily. (units unknown) (unknown) (unknown) (no date) (unknown) (unknown) For general [place] ne health to prevent or manage osteoporosis or osteopenia, (units unknown) (unknown) (unknown) (no date) (unknown) (unknown) Fractures (units unknown) (unknown) (unknown) (no date) (unknown) (unknown) GASTROINTESTIN AL: Abdomen soft, non-tender, nondistended. (units unknown) (unknown) (unknown) (no date) (unknown) (unknown) GENERAL: This is a well-nourished, well-developed patient, in no apparent (units unknown) (unknown) (unknown) (no date) (unknown) (unknown) GERD without esophagitis (units unknown) (unknown) (unknown) (no date) (unknown) (unknown) Gastroesophage al reflux disease: The patient denies abdominal or flank pain, (units unknown) (unknown) (unknown) (no date) (unknown) (unknown) Generalized an xiety disorder (units unknown) (unknown) (unknown) (no date) (unknown) (unknown) Globulin 2.8 g /dL (1.7-4.1) 10/13/22 (units unknown) (unknown) (unknown) (no date) (unknown) (unknown) Glucose Level 92 mg/dL (80-110) 10/13/22 (units unknown) (unknown) (unknown) (no date) (unknown) (unknown) Grandfather De ceased Cancer (units unknown) (unknown) (unknown) (no date) (unknown) (unknown) Grandmother De ceased Stroke (units unknown) (unknown) (unknown) (no date) (unknown) (unknown) H/O total hysterectomy (units unknown) (unknown) (unknown) (no date) (unknown) (unknown) HDL Cholestero l 79 mg/dL (40-60) H 08/05/22 (units unknown) (unknown) (unknown) (no date) (unknown) (unknown) HPI (units unknown) (unknown) (unknown) (no date) (unknown) (unknown) Health Managem ent reviewed with patient: Yes (units unknown) (unknown) (unknown) (no date) (unknown) (unknown) Health Management (u nits unknown) (unknown) (unknown) (no date) (unknown) (unknown) Height 4 ft 10.5 in (units unknown) (unknown) (unknown) (no date) (unknown) (unknown) Hematocrit 40. 7 % (36-46) 08/05/22 (units unknown) (unknown) (unknown) (no date) (unknown) (unknown) Hemoglobin 13. 9 g/dL (12.0-16.0) 08/05/22 (units unknown) (unknown) (unknown) (no date) (unknown) (unknown) History of florian dder surgery (units unknown) (unknown) (unknown) (no date) (unknown) (unknown) History of car pal tunnel release (units unknown) (unknown) (unknown) (no date) (unknown) (unknown) Hyperlipidemia : The present medications include pravastatin. The patient reports (units unknown) (unknown) (unknown) (no date) (unknown) (unknown) Hypertension: The patient is currently on amlodipine started on 08/05/2022 for (units unknown) (unknown) (unknown) (no date) (unknown) (unknown) Inadequately controlled. Advise: Increase amlodipine to 10mg daily. (units unknown) (unknown) (unknown) (no date) (unknown) (unknown) Inadequately controlled. Advise: Switch pravastatin to rosuvastatin. (units unknown) (unknown) (unknown) (no date) (unknown) (unknown) Insomnia: The patient states symptoms are adequately controlled with zolpidem. (units unknown) (unknown) (unknown) (no date) (unknown) (unknown) Intake Note: (units unknown) (unknown) (unknown) (no date) (unknown) (unknown) Intake perform ed by: Viji Santos (units unknown) (unknown) (unknown) (no date) (unknown) (unknown) Intake (units unknown) (unknown) (unknown) (no date) (unknown) (unknown) Intake- Maryellen al Staff (units unknown) (unknown) (unknown) (no date) (unknown) (unknown) Internal Medic ine Office Visit (units unknown) (unknown) (unknown) (no date) (unknown) (unknown) Irritable elizabeth l syndrome (units unknown) (unknown) (unknown) (no date) (unknown) (unknown) It was very ni ce to meet with you today! (units unknown) (unknown) (unknown) (no date) (unknown) (unknown) LDL Cholestero l, Calculated 157 mg/dL (<100) H 08/05/22 (units unknown) (unknown) (unknown) (no date) (unknown) (unknown) Lab Results (units unknown) (unknown) (unknown) (no date) (unknown) (unknown) Labwork is ord ered today to evaluate your condition. Results will be posted to (units unknown) (unknown) (unknown) (no date) (unknown) (unknown) Last Menstural Cycle + Details (units unknown) (unknown) (unknown) (no date) (unknown) (unknown) Let us know if you have any problems. (units unknown) (unknown) (unknown) (no date) (unknown) (unknown) Loc: [facility] (units unknown) (unknown) (unknown) (no date) (unknown) (unknown) Major depressi on:? The patient reports good compliance with escitalopram, and (units unknown) (unknown) (unknown) (no date) (unknown) (unknown) Mean Corpuscul ar Hemoglobin 30.4 PG (26-34) 08/05/22 (units unknown) (unknown) (unknown) (no date) (unknown) (unknown) Mean Corpuscul ar Hemoglobin Concent 34.1 % (30-36) 07/22 (units unknown) (unknown) (unknown) (no date) (unknown) (unknown) Mean Corpuscul ar Volume 89.2 fL (80-100) 08/05/22 (units unknown) (unknown) (unknown) (no date) (unknown) (unknown) Measles (-1943) (uni ts unknown) (unknown) (unknown) (no date) (unknown) (unknown) Medical Histor y (units unknown) (unknown) (unknown) (no date) (unknown) (unknown) Medicare annua l wellness visit, initial (units unknown) (unknown) (unknown) (no date) (unknown) (unknown) Medications (units unknown) (unknown) (unknown) (no date) (unknown) (unknown) Mixed hyperlipidemia (units unknown) (unknown) (unknown) (no date) (unknown) (unknown) Mother d Stroke (units unknown) (unknown) (unknown) (no date) (unknown) (unknown) NECK: Trachea midline. No JVD, bruits or lymphadenopathy. Supple, nontender, no (units unknown) (unknown) (unknown) (no date) (unknown) (unknown) NEUROLOGIC: Al ert, oriented, speech fluent, full upper and lower motor strength, (units unknown) (unknown) (unknown) (no date) (unknown) (unknown) New diagnosis. Inadequately controlled. Advise: Reclast annually or alendronate. (units unknown) (unknown) (unknown) (no date) (unknown) (unknown) Osteoporosis: The patient has osteoporosis by DEXA 08/11/2022: AP spine T-score (units unknown) (unknown) (unknown) (no date) (unknown) (unknown) Other Menstrua l Period: Surgical Menopause (hysterectomy) (units unknown) (unknown) (unknown) (no date) (unknown) (unknown) Oxygen Deliver y Method room air (units unknown) (unknown) (unknown) (no date) (unknown) (unknown) PFSH (units unknown) (unknown) (unknown) (no date) (unknown) (unknown) Patient: Angle Carranza MR#: [id number] (units unknown) (unknown) (unknown) (no date) (unknown) (unknown) Penicillins Ad verse Reaction (Severe, Verified 02/14/23 13:36) (units unknown) (unknown) (unknown) (no date) (unknown) (unknown) Plan (units unknown) (unknown) (unknown) (no date) (unknown) (unknown) Platelet Count 188 X103/uL (150-400) 08/05/22 (units unknown) (unknown) (unknown) (no date) (unknown) (unknown) Position Sitti ng Sitting (units unknown) (unknown) (unknown) (no date) (unknown) (unknown) Potassium Leve l 4.5 mmol/L (3.4-5.1) 10/13/22 (units unknown) (unknown) (unknown) (no date) (unknown) (unknown) Pravastatin an d START: Rosuvastatin 20mg nightly. Let us know if you have any (units unknown) (unknown) (unknown) (no date) (unknown) (unknown) Pulse 87 (units unknown) (unknown) (unknown) (no date) (unknown) (unknown) Pulse Oximetry (%) 9 7 (units unknown) (unknown) (unknown) (no date) (unknown) (unknown) Pulse Source Monitor (units unknown) (unknown) (unknown) (no date) (unknown) (unknown) Qualifiers: (units unknown) (unknown) (unknown) (no date) (unknown) (unknown) RESPIRATORY: C lear to auscultation. (units unknown) (unknown) (unknown) (no date) (unknown) (unknown) ROS (units unknown) (unknown) (unknown) (no date) (unknown) (unknown) Rash (units unknown) (unknown) (unknown) (no date) (unknown) (unknown) Reason For Visit (un its unknown) (unknown) (unknown) (no date) (unknown) (unknown) Reclast infusi on is advised annually. We will call to arrange this. (units unknown) (unknown) (unknown) (no date) (unknown) (unknown) Red Blood Coun t 4.56 X106/uL (4.0-5.2) 08/05/22 (units unknown) (unknown) (unknown) (no date) (unknown) (unknown) Red Cell Distr ibution Width 13.6 % (11.6-14.8) 08/05/22 (units unknown) (unknown) (unknown) (no date) (unknown) (unknown) S/P renal miguelito ry angioplasty (-2005) (units unknown) (unknown) (unknown) (no date) (unknown) (unknown) She prefers th e once yearly infusion after a discussion today. (units unknown) (unknown) (unknown) (no date) (unknown) (unknown) Signed By: (units unknown) (unknown) (unknown) (no date) (unknown) (unknown) Smoking Status : Never smoker (units unknown) (unknown) (unknown) (no date) (unknown) (unknown) Sodium Level 1 37 mmol/L (137-145) 10/13/22 (units unknown) (unknown) (unknown) (no date) (unknown) (unknown) Status: Acute (units unknown) (unknown) (unknown) (no date) (unknown) (unknown) Sulfa (Sulfona mide Antibiotics) Allergy (Mild, Verified 02/14/23 13:36) (units unknown) (unknown) (unknown) (no date) (unknown) (unknown) Surgical Histo ry (units unknown) (unknown) (unknown) (no date) (unknown) (unknown) This note may have been all or partially generated using voice recognition (units unknown) (unknown) (unknown) (no date) (unknown) (unknown) Thyroid Stimul ating Hormone (TSH) 2.03 uIU/mL (0.47-4.68) 0 (units unknown) (unknown) (unknown) (no date) (unknown) (unknown) Tobacco + Subs tance Use (units unknown) (unknown) (unknown) (no date) (unknown) (unknown) Tobacco Status (unit s unknown) (unknown) (unknown) (no date) (unknown) (unknown) Total Bilirubi n 0.6 mg/dL (0.2-1.3) 10/13/22 (units unknown) (unknown) (unknown) (no date) (unknown) (unknown) Total Protein 7.5 g/dL (6.3-8.2) 10/13/22 (units unknown) (unknown) (unknown) (no date) (unknown) (unknown) Triglycerides Level 105 mg/dL (35-150) 08/05/22 (units unknown) (unknown) (unknown) (no date) (unknown) (unknown) Visit Reasons: 3 mo f/u (units unknown) (unknown) (unknown) (no date) (unknown) (unknown) Vitals (units unknown) (unknown) (unknown) (no date) (unknown) (unknown) Weight 131 lb (units unknown) (unknown) (unknown) (no date) (unknown) (unknown) Well-controlle d. Continue current medications. (units unknown) (unknown) (unknown) (no date) (unknown) (unknown) White Blood Co unt 4.1 X103/uL (4.5-11.0) L 08/05/22 (units unknown) (unknown) (unknown) (no date) (unknown) (unknown) Your blood pre ssure is inadequately controlled but improved, remaining in the (units unknown) (unknown) (unknown) (no date) (unknown) (unknown) Your cholester ol is inadequately controlled. To lower your risk of stroke, STOP: (units unknown) (unknown) (unknown) (no date) (unknown) (unknown) Your medical condition otherwise appears stable at this point. Continue your (units unknown) (unknown) (unknown) (no date) (unknown) (unknown) about 35 minut es daily. (units unknown) (unknown) (unknown) (no date) (unknown) (unknown) alprazolam 0.2 5 mg tablet 0.25 mg PO DAILY PRN anxiety #20 tabs 08/05/22 [Rx (units unknown) (unknown) (unknown) (no date) (unknown) (unknown) amlodipine 10 mg tablet 10 mg PO DAILY #90 tabs 10/13/22 [Rx Confirmed 02/14/23] (units unknown) (unknown) (unknown) (no date) (unknown) (unknown) anorexia, naus ea or vomiting, dysphagia, change in bowel habits or black or (units unknown) (unknown) (unknown) (no date) (unknown) (unknown) at home. The p atient denies exertional or other chest pain, dyspnea, orthopnea, (units unknown) (unknown) (unknown) (no date) (unknown) (unknown) blood pressure control.? She has recorded blood pressures in the 130-150s/70-80s (units unknown) (unknown) (unknown) (no date) (unknown) (unknown) bloody stools. The patient is currently taking lansoprazole for gastroesophageal (units unknown) (unknown) (unknown) (no date) (unknown) (unknown) current medications. (units unknown) (unknown) (unknown) (no date) (unknown) (unknown) daily, as well as weight-bearing activity (e.g., walking) for bone health. (units unknown) (unknown) (unknown) (no date) (unknown) (unknown) denies adverse side effects to the medication, and denies feeling depressed, (units unknown) (unknown) (unknown) (no date) (unknown) (unknown) distress. (units unknown) (unknown) (unknown) (no date) (unknown) (unknown) erythromycin b ase Adverse Reaction (Severe, Verified 02/14/23 13:36) (units unknown) (unknown) (unknown) (no date) (unknown) (unknown) escitalopram o xalate 20 mg tablet 30 mg PO DAILY #135 tabs 10/13/22 [Rx (units unknown) (unknown) (unknown) (no date) (unknown) (unknown) good complianc e and denies any chest pain, exertional or otherwise. Recent lab (units unknown) (unknown) (unknown) (no date) (unknown) (unknown) good motivatio n. PHQ-9 score = 7/27. FRANK-7 score = 0/21. (units unknown) (unknown) (unknown) (no date) (unknown) (unknown) have any probl ems (leg swelling, heartburn and constipation). (units unknown) (unknown) (unknown) (no date) (unknown) (unknown) have occurred. If there are any questions, please contact the Medical Records (units unknown) (unknown) (unknown) (no date) (unknown) (unknown) hypertension r annelise. INCREASE: Amlodipine to 10mg nightly. Let us know if you (units unknown) (unknown) (unknown) (no date) (unknown) (unknown) icterus. No in jection or drainage. 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 Occ asional wrong-word or 'sound-alike' substitutions may have (units unknown) (unknown) (unknown) (no date) (unknown) (unknown) meningeal signs. (un its unknown) (unknown) (unknown) (no date) (unknown) (unknown) mild (units unknown) (unknown) (unknown) (no date) (unknown) (unknown) mouth sores (units unknown) (unknown) (unknown) (no date) (unknown) (unknown) nausea (units unknown) (unknown) (unknown) (no date) (unknown) (unknown) no focal defic its evident. (units unknown) (unknown) (unknown) (no date) (unknown) (unknown) occurred due t o the inherent limitations of voice recognition software. Please (units unknown) (unknown) (unknown) (no date) (unknown) (unknown) paroxysmal noc turnal dyspnea, pedal edema, or TIA symptoms. She walks her dog (units unknown) (unknown) (unknown) (no date) (unknown) (unknown) problems (ache s or pains). (units unknown) (unknown) (unknown) (no date) (unknown) (unknown) read the note carefully and recognize, using context, where these substitutions (units unknown) (unknown) (unknown) (no date) (unknown) (unknown) reflux disease at this time. (units unknown) (unknown) (unknown) (no date) (unknown) (unknown) rosuvastatin 2 0 mg tablet 20 mg PO DAILY #100 tabs 11/09/22 [Rx Confirmed (units unknown) (unknown) (unknown) (no date) (unknown) (unknown) severity: mild Qualified Code(s): F33.0 - Major depressive disorder, recurrent, (units unknown) (unknown) (unknown) (no date) (unknown) (unknown) software. Alth ough every effort is made to edit content, pathology laboratory technologist errors (units unknown) (unknown) (unknown) (no date) (unknown) (unknown) such as dairy, lean meats and leafy green vegetables) and vitamin D3 1000 units (units unknown) (unknown) (unknown) (no date) (unknown) (unknown) testing reviewed. (u nits unknown) (unknown) (unknown) (no date) (unknown) (unknown) the patient po rtal. Let us know if you have any questions or concerns. (units unknown) (unknown) (unknown) (no date) (unknown) (unknown) with rare alprazolam . (units unknown) (unknown) (unknown) (no date) (unknown) (unknown) withdrawal, or trouble with memory, focus, or concentration. The patient has (units unknown) (unknown) (unknown) (no date) (unknown) (unknown) zolpidem 10 mg tablet 10 mg PO BEDTIME PRN insomnia #45 tabs 08/05/22 [Rx (units unknown) (unknown) Result panel 6 (unknown) (no date) (unknown) (unknown) (no value) (units unknown) (unknown) (unknown) (no date) (unknown) (unknown) (1) Essential hypertension: (units unknown) (unknown) (unknown) (no date) (unknown) (unknown) (2) Mixed hyperlipidemia: (units unknown) (unknown) (unknown) (no date) (unknown) (unknown) (3) GERD witho ut esophagitis: (units unknown) (unknown) (unknown) (no date) (unknown) (unknown) (4) Depression , major, recurrent: (units unknown) (unknown) (unknown) (no date) (unknown) (unknown) (5) Generalize d anxiety disorder: (units unknown) (unknown) (unknown) (no date) (unknown) (unknown) (6) Chronic insomnia : (units unknown) (unknown) (unknown) (no date) (unknown) (unknown) (7) 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 She has been on (units unknown) (unknown) (unknown) (no date) (unknown) (unknown) 14:46 02/14/23 (unit s unknown) (unknown) (unknown) (no date) (unknown) (unknown) 14:47 (units unknown) (unknown) (unknown) (no date) (unknown) (unknown) 2.5, left FN - 2.2, right FN -2.4. She takes BoneUp BID. (units unknown) (unknown) (unknown) (no date) (unknown) (unknown) (units unknown) (unknown) (unknown) (no date) (unknown) (unknown) 25-Hydroxy Vit torres D Total 41.9 ng/mL (30.0-100.0) 08/05/22 (units unknown) (unknown) (unknown) (no date) (unknown) (unknown) 02/09 (units unknown) (unknown) (unknown) (no date) (unknown) (unknown) 04/11 (units unknown) (unknown) (unknown) (no date) (unknown) (unknown) 08/05/22 (units unknown) (unknown) (unknown) (no date) (unknown) (unknown) AWV 08/05/2022 (units unknown) (unknown) (unknown) (no date) (unknown) (unknown) Active/Remissi on status: currently active Major depression episode (units unknown) (unknown) (unknown) (no date) (unknown) (unknown) Age-related osteoporosis without current pathological fracture (units unknown) (unknown) (unknown) (no date) (unknown) (unknown) Age/Sex: 82 / F Date of Service: (units unknown) (unknown) (unknown) (no date) (unknown) (unknown) Alanine Aminotransferase (ALT/SGPT) 22 IU/L (<35) 09/22 (units unknown) (unknown) (unknown) (no date) (unknown) (unknown) Albumin 4.7 g/ dL (3.5-5.0) 10/13/22 (units unknown) (unknown) (unknown) (no date) (unknown) (unknown) Albumin/Globul in Ratio 1.7 (1.0-2.8) 10/13/22 (units unknown) (unknown) (unknown) (no date) (unknown) (unknown) Alkaline Phosp hatase 62 U/L (38-126) 10/13/22 (units unknown) (unknown) (unknown) (no date) (unknown) (unknown) All systems re viewed + are unremarkable except as noted in HPI and below (units unknown) (unknown) (unknown) (no date) (unknown) (unknown) Allergies (units unknown) (unknown) (unknown) (no date) (unknown) (unknown) [place] [address] (units unknown) (unknown) (unknown) (no date) (unknown) (unknown) Anesthesia (units unknown) (unknown) (unknown) (no date) (unknown) (unknown) Anxiety (units unknown) (unknown) (unknown) (no date) (unknown) (unknown) Anxiety: The p atient reports symptoms are well controlled on current therapy (units unknown) (unknown) (unknown) (no date) (unknown) (unknown) Aspartate Torres o Transf (AST/SGOT) 25 IU/L (14-36) 10/13/ (units unknown) (unknown) (unknown) (no date) (unknown) (unknown) Assessment + Plan (u nits unknown) (unknown) (unknown) (no date) (unknown) (unknown) Assessment and Plan: (units unknown) (unknown) (unknown) (no date) (unknown) (unknown) Attending Dr: Nihcolas Guevara MD (units unknown) (unknown) (unknown) (no date) (unknown) (unknown) BMI 26.9 (units unknown) (unknown) (unknown) (no date) (unknown) (unknown) BP 140/80 144/70 H ( units unknown) (unknown) (unknown) (no date) (unknown) (unknown) BUN/Creatinine Ratio 21.7 (6-22) 10/13/22 (units unknown) (unknown) (unknown) (no date) (unknown) (unknown) Blood Pressure Location Lt brachial Lt brachial (units unknown) (unknown) (unknown) (no date) (unknown) (unknown) Blood Urea Nit rogen 15 mg/dL (7-17) 10/13/22 (units unknown) (unknown) (unknown) (no date) (unknown) (unknown) CARDIOVASCULAR : Regular rate and rhythm without murmurs, gallops, or rubs. (units unknown) (unknown) (unknown) (no date) (unknown) (unknown) Calcium Level 9.7 mg/dL (8.4-10.2) 10/13/22 (units unknown) (unknown) (unknown) (no date) (unknown) (unknown) Carbon Dioxide Level 28 mmol/L (22-32) 10/13/22 (units unknown) (unknown) (unknown) (no date) (unknown) (unknown) Chicken pox (-1943) (units unknown) (unknown) (unknown) (no date) (unknown) (unknown) Chief Complaint (uni ts unknown) (unknown) (unknown) (no date) (unknown) (unknown) Chief Complain t: Medical followup (units unknown) (unknown) (unknown) (no date) (unknown) (unknown) Chloride Level 101 mmol/L (98-107) 10/13/22 (units unknown) (unknown) (unknown) (no date) (unknown) (unknown) Cholesterol [place] 257 mg/dL (140-199) H 08/05/22 (units unknown) (unknown) (unknown) (no date) (unknown) (unknown) Chronic insomnia (un its unknown) (unknown) (unknown) (no date) (unknown) (unknown) Clinically sta ble. Continue current plan. (units unknown) (unknown) (unknown) (no date) (unknown) (unknown) Common Lab Res ults- Last: (units unknown) (unknown) (unknown) (no date) (unknown) (unknown) Confirmed 02/14/23] (units unknown) (unknown) (unknown) (no date) (unknown) (unknown) Const (units unknown) (unknown) (unknown) (no date) (unknown) (unknown) Creatinine 0.6 9 mg/dL (0.52-1.04) 10/13/22 (units unknown) (unknown) (unknown) (no date) (unknown) (unknown) DERMATOLOGIC: No rashes or skin lesions. (units unknown) (unknown) (unknown) (no date) (unknown) (unknown) : 2 Acct:[id number] (units unknown) (unknown) (unknown) (no date) (unknown) (unknown) Depression, ma bernie, recurrent (units unknown) (unknown) (unknown) (no date) (unknown) (unknown) Dept at . (units unknown) (unknown) (unknown) (no date) (unknown) (unknown) Details: (units unknown) (unknown) (unknown) (no date) (unknown) (unknown) Discuss/review. (uni ts unknown) (unknown) (unknown) (no date) (unknown) (unknown) Documented By: Nicholas Guevara MD 02/14/23 1247 (units unknown) (unknown) (unknown) (no date) (unknown) (unknown) Draft (units unknown) (unknown) (unknown) (no date) (unknown) (unknown) ENT: Mucous me mbranes pink and moist. (units unknown) (unknown) (unknown) (no date) (unknown) (unknown) EXTREMITIES: N o clubbing, cyanosis, or edema. (units unknown) (unknown) (unknown) (no date) (unknown) (unknown) EYES: Pupils e qual round and reactive. Extraocular motions intact. No scleral (units unknown) (unknown) (unknown) (no date) (unknown) (unknown) Essential hypertension (units unknown) (unknown) (unknown) (no date) (unknown) (unknown) Estimat Glomer ular Filtration Rate > 60 mL/min (>60) 10/13 (units unknown) (unknown) (unknown) (no date) (unknown) (unknown) Exam Narrative (unit s unknown) (unknown) (unknown) (no date) (unknown) (unknown) Exam Narrative: (uni ts unknown) (unknown) (unknown) (no date) (unknown) (unknown) Exam (units unknown) (unknown) (unknown) (no date) (unknown) (unknown) Family History (units unknown) (unknown) (unknown) (no date) (unknown) (unknown) Family/Other D eceased Accident (units unknown) (unknown) (unknown) (no date) (unknown) (unknown) Father d Accident (units unknown) (unknown) (unknown) (no date) (unknown) (unknown) [facility] (units unknown) (unknown) (unknown) (no date) (unknown) (unknown) Follow up for medication check up. (units unknown) (unknown) (unknown) (no date) (unknown) (unknown) Followup in 3 months . (units unknown) (unknown) (unknown) (no date) (unknown) (unknown) For bowel heal th, you may try Metamucil or psyllium husks daily. (units unknown) (unknown) (unknown) (no date) (unknown) (unknown) For example, i f you determine that your total time asleep is 6 hours per night (units unknown) (unknown) (unknown) (no date) (unknown) (unknown) For general [place] ne health to prevent or manage osteoporosis or osteopenia, (units unknown) (unknown) (unknown) (no date) (unknown) (unknown) For your chron ic difficulty with sleep (insomnia), practice good sleep hygeine. (units unknown) (unknown) (unknown) (no date) (unknown) (unknown) Fractures (units unknown) (unknown) (unknown) (no date) (unknown) (unknown) GASTROINTESTIN AL: Abdomen soft, non-tender, nondistended. (units unknown) (unknown) (unknown) (no date) (unknown) (unknown) GENERAL: This is a well-nourished, well-developed patient, in no apparent (units unknown) (unknown) (unknown) (no date) (unknown) (unknown) GERD without esophagitis (units unknown) (unknown) (unknown) (no date) (unknown) (unknown) Gastroesophage al reflux disease: The patient denies abdominal or flank pain, (units unknown) (unknown) (unknown) (no date) (unknown) (unknown) Generalized an xiety disorder (units unknown) (unknown) (unknown) (no date) (unknown) (unknown) Globulin 2.8 g /dL (1.7-4.1) 10/13/22 (units unknown) (unknown) (unknown) (no date) (unknown) (unknown) Glucose Level 92 mg/dL (80-110) 10/13/22 (units unknown) (unknown) (unknown) (no date) (unknown) (unknown) Gradually incr ease your sleep time by 15 minutes as long as the sleep efficiency (units unknown) (unknown) (unknown) (no date) (unknown) (unknown) Grandfather De ceased Cancer (units unknown) (unknown) (unknown) (no date) (unknown) (unknown) Grandmother De ceased Stroke (units unknown) (unknown) (unknown) (no date) (unknown) (unknown) H/O total hysterectomy (units unknown) (unknown) (unknown) (no date) (unknown) (unknown) HDL Cholestero l 79 mg/dL (40-60) H 08/05/22 (units unknown) (unknown) (unknown) (no date) (unknown) (unknown) HPI (units unknown) (unknown) (unknown) (no date) (unknown) (unknown) Health Managem ent reviewed with patient: Yes (units unknown) (unknown) (unknown) (no date) (unknown) (unknown) Health Management (u nits unknown) (unknown) (unknown) (no date) (unknown) (unknown) Height 4 ft 10.5 in (units unknown) (unknown) (unknown) (no date) (unknown) (unknown) Hematocrit 40. 7 % (36-46) 08/05/22 (units unknown) (unknown) (unknown) (no date) (unknown) (unknown) Hemoglobin 13. 9 g/dL (12.0-16.0) 08/05/22 (units unknown) (unknown) (unknown) (no date) (unknown) (unknown) History of florian dder surgery (units unknown) (unknown) (unknown) (no date) (unknown) (unknown) History of car pal tunnel release (units unknown) (unknown) (unknown) (no date) (unknown) (unknown) Hyperlipidemia : The present medications include rosuvastatin. The patient (units unknown) (unknown) (unknown) (no date) (unknown) (unknown) Hypertension: The patient is currently on amlodipine for blood pressure (units unknown) (unknown) (unknown) (no date) (unknown) (unknown) Inadequately controlled. Advise: Increase amlodipine to 10mg daily. (units unknown) (unknown) (unknown) (no date) (unknown) (unknown) Inadequately controlled. Advise: Switch pravastatin to rosuvastatin. (units unknown) (unknown) (unknown) (no date) (unknown) (unknown) Insomnia: The patient states symptoms are adequately controlled with zolpidem (units unknown) (unknown) (unknown) (no date) (unknown) (unknown) Intake Note: (units unknown) (unknown) (unknown) (no date) (unknown) (unknown) Intake perform ed by: Viji Santos (units unknown) (unknown) (unknown) (no date) (unknown) (unknown) Intake (units unknown) (unknown) (unknown) (no date) (unknown) (unknown) Intake- Maryellen al Staff (units unknown) (unknown) (unknown) (no date) (unknown) (unknown) Internal Medic ine Office Visit (units unknown) (unknown) (unknown) (no date) (unknown) (unknown) Irritable elizabeth l syndrome (units unknown) (unknown) (unknown) (no date) (unknown) (unknown) It was very ni ce to meet with you today! (units unknown) (unknown) (unknown) (no date) (unknown) (unknown) LDL Cholestero l, Calculated 157 mg/dL (<100) H 08/05/22 (units unknown) (unknown) (unknown) (no date) (unknown) (unknown) Lab Results (units unknown) (unknown) (unknown) (no date) (unknown) (unknown) Last Menstural Cycle + Details (units unknown) (unknown) (unknown) (no date) (unknown) (unknown) Let us know if you have any problems. (units unknown) (unknown) (unknown) (no date) (unknown) (unknown) Loc: [facility] (units unknown) (unknown) (unknown) (no date) (unknown) (unknown) Major depressi on:? The patient reports good compliance with escitalopram, and (units unknown) (unknown) (unknown) (no date) (unknown) (unknown) Mean Corpuscul ar Hemoglobin 30.4 PG (26-34) 08/05/22 (units unknown) (unknown) (unknown) (no date) (unknown) (unknown) Mean Corpuscul ar Hemoglobin Concent 34.1 % (30-36) 07/22 (units unknown) (unknown) (unknown) (no date) (unknown) (unknown) Mean Corpuscul ar Volume 89.2 fL (80-100) 08/05/22 (units unknown) (unknown) (unknown) (no date) (unknown) (unknown) Measles (-1943) (uni ts unknown) (unknown) (unknown) (no date) (unknown) (unknown) Medical Histor y (units unknown) (unknown) (unknown) (no date) (unknown) (unknown) Medicare annua l wellness visit, initial (units unknown) (unknown) (unknown) (no date) (unknown) (unknown) Medications (units unknown) (unknown) (unknown) (no date) (unknown) (unknown) Mixed hyperlipidemia (units unknown) (unknown) (unknown) (no date) (unknown) (unknown) Mother d Stroke (units unknown) (unknown) (unknown) (no date) (unknown) (unknown) NECK: Trachea midline. No JVD, bruits or lymphadenopathy. Supple, nontender, no (units unknown) (unknown) (unknown) (no date) (unknown) (unknown) NEUROLOGIC: Al ert, oriented, speech fluent, full upper and lower motor strength, (units unknown) (unknown) (unknown) (no date) (unknown) (unknown) New diagnosis. Inadequately controlled. Advise: Reclast annually or alendronate. (units unknown) (unknown) (unknown) (no date) (unknown) (unknown) Osteoporosis: The patient has osteoporosis by DEXA 08/11/2022: AP spine T-score (units unknown) (unknown) (unknown) (no date) (unknown) (unknown) Other Menstrua l Period: Surgical Menopause (hysterectomy) (units unknown) (unknown) (unknown) (no date) (unknown) (unknown) Oxygen Deliver y Method room air (units unknown) (unknown) (unknown) (no date) (unknown) (unknown) PFSH (units unknown) (unknown) (unknown) (no date) (unknown) (unknown) Patient: Angle Carranza MR#: [id number] (units unknown) (unknown) (unknown) (no date) (unknown) (unknown) Penicillins Ad verse Reaction (Severe, Verified 02/14/23 13:36) (units unknown) (unknown) (unknown) (no date) (unknown) (unknown) Plan (units unknown) (unknown) (unknown) (no date) (unknown) (unknown) Platelet Count 188 X103/uL (150-400) 08/05/22 (units unknown) (unknown) (unknown) (no date) (unknown) (unknown) Position Sitti ng Sitting (units unknown) (unknown) (unknown) (no date) (unknown) (unknown) Potassium Leve l 4.5 mmol/L (3.4-5.1) 10/13/22 (units unknown) (unknown) (unknown) (no date) (unknown) (unknown) Pulse 87 (units unknown) (unknown) (unknown) (no date) (unknown) (unknown) Pulse Oximetry (%) 9 7 (units unknown) (unknown) (unknown) (no date) (unknown) (unknown) Pulse Source Monitor (units unknown) (unknown) (unknown) (no date) (unknown) (unknown) Qualifiers: (units unknown) (unknown) (unknown) (no date) (unknown) (unknown) RESPIRATORY: C lear to auscultation. (units unknown) (unknown) (unknown) (no date) (unknown) (unknown) ROS (units unknown) (unknown) (unknown) (no date) (unknown) (unknown) Rash (units unknown) (unknown) (unknown) (no date) (unknown) (unknown) Reason For Visit (un its unknown) (unknown) (unknown) (no date) (unknown) (unknown) Recent lab jim english reviewed. (units unknown) (unknown) (unknown) (no date) (unknown) (unknown) Reclast infusi on is advised annually. We will call to arrange this. (units unknown) (unknown) (unknown) (no date) (unknown) (unknown) Red Blood Coun t 4.56 X106/uL (4.0-5.2) 08/05/22 (units unknown) (unknown) (unknown) (no date) (unknown) (unknown) Red Cell Distr ibution Width 13.6 % (11.6-14.8) 08/05/22 (units unknown) (unknown) (unknown) (no date) (unknown) (unknown) Relaxation taylor hniques such as diaphragmatic breathing, visualization, mindful (units unknown) (unknown) (unknown) (no date) (unknown) (unknown) S/P renal miguelito ry angioplasty (-2005) (units unknown) (unknown) (unknown) (no date) (unknown) (unknown) She prefers th e once yearly infusion after a discussion today. (units unknown) (unknown) (unknown) (no date) (unknown) (unknown) Signed By: (units unknown) (unknown) (unknown) (no date) (unknown) (unknown) Smoking Status : Never smoker (units unknown) (unknown) (unknown) (no date) (unknown) (unknown) Sodium Level 1 37 mmol/L (137-145) 10/13/22 (units unknown) (unknown) (unknown) (no date) (unknown) (unknown) Status: Acute (units unknown) (unknown) (unknown) (no date) (unknown) (unknown) Sulfa (Sulfona mide Antibiotics) Allergy (Mild, Verified 02/14/23 13:36) (units unknown) (unknown) (unknown) (no date) (unknown) (unknown) Surgical Histo ry (units unknown) (unknown) (unknown) (no date) (unknown) (unknown) This note may have been all or partially generated using voice recognition (units unknown) (unknown) (unknown) (no date) (unknown) (unknown) Thyroid Stimul ating Hormone (TSH) 2.03 uIU/mL (0.47-4.68) 0 (units unknown) (unknown) (unknown) (no date) (unknown) (unknown) Tobacco + Subs tance Use (units unknown) (unknown) (unknown) (no date) (unknown) (unknown) Tobacco Status (unit s unknown) (unknown) (unknown) (no date) (unknown) (unknown) Total Bilirubi n 0.6 mg/dL (0.2-1.3) 10/13/22 (units unknown) (unknown) (unknown) (no date) (unknown) (unknown) Total Protein 7.5 g/dL (6.3-8.2) 10/13/22 (units unknown) (unknown) (unknown) (no date) (unknown) (unknown) Triglycerides Level 105 mg/dL (35-150) 08/05/22 (units unknown) (unknown) (unknown) (no date) (unknown) (unknown) Visit Reasons: 3 mo f/u (units unknown) (unknown) (unknown) (no date) (unknown) (unknown) Vitals (units unknown) (unknown) (unknown) (no date) (unknown) (unknown) Wean down off any sleeping pills you are taking as these are associated with (units unknown) (unknown) (unknown) (no date) (unknown) (unknown) Weight 131 lb (units unknown) (unknown) (unknown) (no date) (unknown) (unknown) Well-controlle d. Continue current medications. (units unknown) (unknown) (unknown) (no date) (unknown) (unknown) White Blood Co unt 4.1 X103/uL (4.5-11.0) L 08/05/22 (units unknown) (unknown) (unknown) (no date) (unknown) (unknown) You may TRY: Trazodone 50mg 1/2 tablet nightly. You may increase up to 1-2 (units unknown) (unknown) (unknown) (no date) (unknown) (unknown) Your medical condition appears stable at this point. Continue your current (units unknown) (unknown) (unknown) (no date) (unknown) (unknown) Your medical condition otherwise appears stable at this point. Continue your (units unknown) (unknown) (unknown) (no date) (unknown) (unknown) about 35 minut es daily. (units unknown) (unknown) (unknown) (no date) (unknown) (unknown) alprazolam 0.2 5 mg tablet 0.25 mg PO DAILY PRN anxiety #20 tabs 08/05/22 [Rx (units unknown) (unknown) (unknown) (no date) (unknown) (unknown) amlodipine 10 mg tablet 10 mg PO DAILY #90 tabs 10/13/22 [Rx Confirmed 02/14/23] (units unknown) (unknown) (unknown) (no date) (unknown) (unknown) and your wakin g time as 6:00 AM, then your bedtime would be 12:00 AM, even if (units unknown) (unknown) (unknown) (no date) (unknown) (unknown) anorexia, naus ea or vomiting, dysphagia, change in bowel habits or black or (units unknown) (unknown) (unknown) (no date) (unknown) (unknown) bloody stools. The patient is currently taking lansoprazole for gastroesophageal (units unknown) (unknown) (unknown) (no date) (unknown) (unknown) control.? The patient is tolerating the medication without side effects (units unknown) (unknown) (unknown) (no date) (unknown) (unknown) current medications. (units unknown) (unknown) (unknown) (no date) (unknown) (unknown) daily, as well as weight-bearing activity (e.g., walking) for bone health. (units unknown) (unknown) (unknown) (no date) (unknown) (unknown) denies adverse side effects to the medication, and denies feeling depressed, (units unknown) (unknown) (unknown) (no date) (unknown) (unknown) distress. (units unknown) (unknown) (unknown) (no date) (unknown) (unknown) erythromycin b ase Adverse Reaction (Severe, Verified 02/14/23 13:36) (units unknown) (unknown) (unknown) (no date) (unknown) (unknown) escitalopram o xalate 20 mg tablet 30 mg PO DAILY #135 tabs 10/13/22 [Rx (units unknown) (unknown) (unknown) (no date) (unknown) (unknown) good motivatio n. PHQ-9 score = 02/14. FRANK-7 score = 0/21. (units unknown) (unknown) (unknown) (no date) (unknown) (unknown) have occurred. If there are any questions, please contact the Medical Records (units unknown) (unknown) (unknown) (no date) (unknown) (unknown) icterus. No in jection or drainage. 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 (units unknown) (unknown) (unknown) (no date) (unknown) (unknown) maintain intak e of calcium 1500mg daily (preferably mostly from dietary sources (units unknown) (unknown) (unknown) (no date) (unknown) (unknown) may occur. Occ asional wrong-word or 'sound-alike' substitutions may have (units unknown) (unknown) (unknown) (no date) (unknown) (unknown) medications. (units unknown) (unknown) (unknown) (no date) (unknown) (unknown) meditation and progressive muscle relaxation can also be helpful. (units unknown) (unknown) (unknown) (no date) (unknown) (unknown) meningeal signs. (un its unknown) (unknown) (unknown) (no date) (unknown) (unknown) mild (units unknown) (unknown) (unknown) (no date) (unknown) (unknown) mouth sores (units unknown) (unknown) (unknown) (no date) (unknown) (unknown) nausea (units unknown) (unknown) (unknown) (no date) (unknown) (unknown) no focal defic its evident. (units unknown) (unknown) (unknown) (no date) (unknown) (unknown) occurred due t o the inherent limitations of voice recognition software. Please (units unknown) (unknown) (unknown) (no date) (unknown) (unknown) paroxysmal noc turnal dyspnea, pedal edema, or TIA symptoms. She walks her dog (units unknown) (unknown) (unknown) (no date) (unknown) (unknown) read the note carefully and recognize, using context, where these substitutions (units unknown) (unknown) (unknown) (no date) (unknown) (unknown) reflux disease at this time. (units unknown) (unknown) (unknown) (no date) (unknown) (unknown) reported, and denies exertional or other chest pain, dyspnea, orthopnea, (units unknown) (unknown) (unknown) (no date) (unknown) (unknown) reports good compliance and denies any chest pain, exertional or otherwise. (units unknown) (unknown) (unknown) (no date) (unknown) (unknown) rosuvastatin 2 0 mg tablet 20 mg PO DAILY #100 tabs 11/09/22 [Rx Confirmed (units unknown) (unknown) (unknown) (no date) (unknown) (unknown) severity: mild Qualified Code(s): F33.0 - Major depressive disorder, recurrent, (units unknown) (unknown) (unknown) (no date) (unknown) (unknown) sleeping medic ation for the past several years. (units unknown) (unknown) (unknown) (no date) (unknown) (unknown) software. Alth ough every effort is made to edit content, pathology laboratory technologist errors (units unknown) (unknown) (unknown) (no date) (unknown) (unknown) such as dairy, lean meats and leafy green vegetables) and vitamin D3 1000 units (units unknown) (unknown) (unknown) (no date) (unknown) (unknown) tables nightly as needed, in place of zolpidem and Benedryl. (units unknown) (unknown) (unknown) (no date) (unknown) (unknown) time). (units unknown) (unknown) (unknown) (no date) (unknown) (unknown) with rare alprazolam . (units unknown) (unknown) (unknown) (no date) (unknown) (unknown) withdrawal, or trouble with memory, focus, or concentration. The patient has (units unknown) (unknown) (unknown) (no date) (unknown) (unknown) you tired befo re that time. (units unknown) (unknown) (unknown) (no date) (unknown) (unknown) zolpidem 10 mg tablet 10 mg PO BEDTIME PRN insomnia #45 tabs 08/05/22 [Rx (units unknown) (unknown) Result panel 7 (unknown) (no date) (unknown) (unknown) (no value) (units unknown) (unknown) (unknown) (no date) (unknown) (unknown) (1) Essential hypertension: (units unknown) (unknown) (unknown) (no date) (unknown) (unknown) (2) Mixed hyperlipidemia: (units unknown) (unknown) (unknown) (no date) (unknown) (unknown) (3) GERD witho ut esophagitis: (units unknown) (unknown) (unknown) (no date) (unknown) (unknown) (4) Depression , major, recurrent: (units unknown) (unknown) (unknown) (no date) (unknown) (unknown) (5) Generalize d anxiety disorder: (units unknown) (unknown) (unknown) (no date) (unknown) (unknown) (6) Chronic insomnia : (units unknown) (unknown) (unknown) (no date) (unknown) (unknown) (7) 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: (units unknown) (unknown) (unknown) (no date) (unknown) (unknown) * Study phase: Keep a sleep diary for 2 weeks and calculate the average total (units unknown) (unknown) (unknown) (no date) (unknown) (unknown) * Treatment ph ase: Spend that amount of time in bed, keeping the arising time (units unknown) (unknown) (unknown) (no date) (unknown) (unknown) / (units unknown) (unknown) (unknown) (no date) (unknown) (unknown) 02/14/23 (units unknown) (unknown) (unknown) (no date) (unknown) (unknown) 02/14/23] (units unknown) (unknown) (unknown) (no date) (unknown) (unknown) [id number] (units unknown) (unknown) (unknown) (no date) (unknown) (unknown) 1-2 tablets as needed nightly for sleep 50 mg PO BEDTIME PRN 60 tabs 5RF (units unknown) (unknown) (unknown) (no date) (unknown) (unknown) 10mg 1/2 table t twice weekly or Benedryl on other nights. She has been on (units unknown) (unknown) (unknown) (no date) (unknown) (unknown) 14:46 02/14/23 (unit s unknown) (unknown) (unknown) (no date) (unknown) (unknown) 14:47 (units unknown) (unknown) (unknown) (no date) (unknown) (unknown) 2.5, left FN - 2.2, right FN -2.4. She takes BoneUp BID. (units unknown) (unknown) (unknown) (no date) (unknown) (unknown) 22 (units unknown) (unknown) (unknown) (no date) (unknown) (unknown) 25-Hydroxy Vit torres D Total 41.9 ng/mL (30.0-100.0) 08/05/22 (units unknown) (unknown) (unknown) (no date) (unknown) (unknown) 02/09 (units unknown) (unknown) (unknown) (no date) (unknown) (unknown) 04/11 (units unknown) (unknown) (unknown) (no date) (unknown) (unknown) 08/05/22 (units unknown) (unknown) (unknown) (no date) (unknown) (unknown) AWV 08/05/2022 (units unknown) (unknown) (unknown) (no date) (unknown) (unknown) Active/Remissi on status: currently active Major depression episode (units unknown) (unknown) (unknown) (no date) (unknown) (unknown) Age-related osteoporosis without current pathological fracture (units unknown) (unknown) (unknown) (no date) (unknown) (unknown) Age/Sex: 82 / F Date of Service: (units unknown) (unknown) (unknown) (no date) (unknown) (unknown) Alanine Aminotransferase (ALT/SGPT) 22 IU/L (<35) 09/22 (units unknown) (unknown) (unknown) (no date) (unknown) (unknown) Albumin 4.7 g/ dL (3.5-5.0) 10/13/22 (units unknown) (unknown) (unknown) (no date) (unknown) (unknown) Albumin/Globul in Ratio 1.7 (1.0-2.8) 10/13/22 (units unknown) (unknown) (unknown) (no date) (unknown) (unknown) Alkaline Phosp hatase 62 U/L (38-126) 10/13/22 (units unknown) (unknown) (unknown) (no date) (unknown) (unknown) All systems re viewed + are unremarkable except as noted in HPI and below (units unknown) (unknown) (unknown) (no date) (unknown) (unknown) Allergies (units unknown) (unknown) (unknown) (no date) (unknown) (unknown) [place] [address] (units unknown) (unknown) (unknown) (no date) (unknown) (unknown) Anesthesia (units unknown) (unknown) (unknown) (no date) (unknown) (unknown) Anxiety (units unknown) (unknown) (unknown) (no date) (unknown) (unknown) Anxiety: The p atient reports symptoms are well controlled on current therapy (units unknown) (unknown) (unknown) (no date) (unknown) (unknown) Aspartate Torres o Transf (AST/SGOT) 25 IU/L (14-36) 10/13/ (units unknown) (unknown) (unknown) (no date) (unknown) (unknown) Assessment + Plan (u nits unknown) (unknown) (unknown) (no date) (unknown) (unknown) Assessment and Plan: (units unknown) (unknown) (unknown) (no date) (unknown) (unknown) Attending Dr: Nicholas Guevara MD (units unknown) (unknown) (unknown) (no date) (unknown) (unknown) BMI 26.9 (units unknown) (unknown) (unknown) (no date) (unknown) (unknown) BP 140/80 144/70 H ( units unknown) (unknown) (unknown) (no date) (unknown) (unknown) BUN/Creatinine Ratio 21.7 (6-22) 10/13/22 (units unknown) (unknown) (unknown) (no date) (unknown) (unknown) Blood Pressure Location Lt brachial Lt brachial (units unknown) (unknown) (unknown) (no date) (unknown) (unknown) Blood Urea Nit rogen 15 mg/dL (7-17) 10/13/22 (units unknown) (unknown) (unknown) (no date) (unknown) (unknown) CARDIOVASCULAR : Regular rate and rhythm without murmurs, gallops, or rubs. (units unknown) (unknown) (unknown) (no date) (unknown) (unknown) Calcium Level 9.7 mg/dL (8.4-10.2) 10/13/22 (units unknown) (unknown) (unknown) (no date) (unknown) (unknown) Carbon Dioxide Level 28 mmol/L (22-32) 10/13/22 (units unknown) (unknown) (unknown) (no date) (unknown) (unknown) Chicken pox (-1943) (units unknown) (unknown) (unknown) (no date) (unknown) (unknown) Chief Complaint (uni ts unknown) (unknown) (unknown) (no date) (unknown) (unknown) Chief Complain t: Medical followup (units unknown) (unknown) (unknown) (no date) (unknown) (unknown) Chloride Level 101 mmol/L (98-107) 10/13/22 (units unknown) (unknown) (unknown) (no date) (unknown) (unknown) Cholesterol [place] 257 mg/dL (140-199) H 08/05/22 (units unknown) (unknown) (unknown) (no date) (unknown) (unknown) Chronic insomnia (un its unknown) (unknown) (unknown) (no date) (unknown) (unknown) Clinically sta ble. Continue current plan. (units unknown) (unknown) (unknown) (no date) (unknown) (unknown) Common Lab Res ults- Last: (units unknown) (unknown) (unknown) (no date) (unknown) (unknown) Confirmed 02/14/23] (units unknown) (unknown) (unknown) (no date) (unknown) (unknown) Const (units unknown) (unknown) (unknown) (no date) (unknown) (unknown) Creatinine 0.6 9 mg/dL (0.52-1.04) 10/13/22 (units unknown) (unknown) (unknown) (no date) (unknown) (unknown) DERMATOLOGIC: No rashes or skin lesions. (units unknown) (unknown) (unknown) (no date) (unknown) (unknown) : 2 Acct:[id number] (units unknown) (unknown) (unknown) (no date) (unknown) (unknown) Depression, ma bernie, recurrent (units unknown) (unknown) (unknown) (no date) (unknown) (unknown) Dept at . (units unknown) (unknown) (unknown) (no date) (unknown) (unknown) Details: (units unknown) (unknown) (unknown) (no date) (unknown) (unknown) Discontinued R radha: Provider's Order 10 mg PO BEDTIME PRN 45 tabs 1RF (units unknown) (unknown) (unknown) (no date) (unknown) (unknown) Discontinued (units unknown) (unknown) (unknown) (no date) (unknown) (unknown) Discuss/review. (uni ts unknown) (unknown) (unknown) (no date) (unknown) (unknown) Documented By: Nicholas Guevara MD 02/14/23 1247 (units unknown) (unknown) (unknown) (no date) (unknown) (unknown) Draft (units unknown) (unknown) (unknown) (no date) (unknown) (unknown) ENT: Mucous me mbranes pink and moist. (units unknown) (unknown) (unknown) (no date) (unknown) (unknown) EXTREMITIES: N o clubbing, cyanosis, or edema. (units unknown) (unknown) (unknown) (no date) (unknown) (unknown) EYES: Pupils e qual round and reactive. Extraocular motions intact. No scleral (units unknown) (unknown) (unknown) (no date) (unknown) (unknown) Essential hypertension (units unknown) (unknown) (unknown) (no date) (unknown) (unknown) Estimat Glomer ular Filtration Rate > 60 mL/min (>60) 10/13 (units unknown) (unknown) (unknown) (no date) (unknown) (unknown) Exam Narrative (unit s unknown) (unknown) (unknown) (no date) (unknown) (unknown) Exam Narrative: (uni ts unknown) (unknown) (unknown) (no date) (unknown) (unknown) Exam (units unknown) (unknown) (unknown) (no date) (unknown) (unknown) Family History (units unknown) (unknown) (unknown) (no date) (unknown) (unknown) Family/Other D eceased Accident (units unknown) (unknown) (unknown) (no date) (unknown) (unknown) Father d Accident (units unknown) (unknown) (unknown) (no date) (unknown) (unknown) [facility] (units unknown) (unknown) (unknown) (no date) (unknown) (unknown) Follow up for medication check up. (units unknown) (unknown) (unknown) (no date) (unknown) (unknown) Followup in 3 months . (units unknown) (unknown) (unknown) (no date) (unknown) (unknown) For example, i f you determine that your total time asleep is 6 hours per night (units unknown) (unknown) (unknown) (no date) (unknown) (unknown) For general?bone?health to prevent or manage osteoporosis or osteopenia, (units unknown) (unknown) (unknown) (no date) (unknown) (unknown) For your chron ic difficulty with sleep (insomnia), practice good sleep hygeine. (units unknown) (unknown) (unknown) (no date) (unknown) (unknown) Fractures (units unknown) (unknown) (unknown) (no date) (unknown) (unknown) GASTROINTESTIN AL: Abdomen soft, non-tender, nondistended. (units unknown) (unknown) (unknown) (no date) (unknown) (unknown) GENERAL: This is a well-nourished, well-developed patient, in no apparent (units unknown) (unknown) (unknown) (no date) (unknown) (unknown) GERD without esophagitis (units unknown) (unknown) (unknown) (no date) (unknown) (unknown) Gastroesophage al reflux disease: The patient denies abdominal or flank pain, (units unknown) (unknown) (unknown) (no date) (unknown) (unknown) Generalized an xiety disorder (units unknown) (unknown) (unknown) (no date) (unknown) (unknown) Globulin 2.8 g /dL (1.7-4.1) 10/13/22 (units unknown) (unknown) (unknown) (no date) (unknown) (unknown) Glucose Level 92 mg/dL (80-110) 10/13/22 (units unknown) (unknown) (unknown) (no date) (unknown) (unknown) Gradually incr ease your sleep time by 15 minutes as long as the sleep efficiency (units unknown) (unknown) (unknown) (no date) (unknown) (unknown) Grandfather De ceased Cancer (units unknown) (unknown) (unknown) (no date) (unknown) (unknown) Grandmother De ceased Stroke (units unknown) (unknown) (unknown) (no date) (unknown) (unknown) H/O total hysterectomy (units unknown) (unknown) (unknown) (no date) (unknown) (unknown) HDL Cholestero l 79 mg/dL (40-60) H 08/05/22 (units unknown) (unknown) (unknown) (no date) (unknown) (unknown) HPI (units unknown) (unknown) (unknown) (no date) (unknown) (unknown) Health Managem ent reviewed with patient: Yes (units unknown) (unknown) (unknown) (no date) (unknown) (unknown) Health Management (u nits unknown) (unknown) (unknown) (no date) (unknown) (unknown) Height 4 ft 10.5 in (units unknown) (unknown) (unknown) (no date) (unknown) (unknown) Hematocrit 40. 7 % (36-46) 08/05/22 (units unknown) (unknown) (unknown) (no date) (unknown) (unknown) Hemoglobin 13. 9 g/dL (12.0-16.0) 08/05/22 (units unknown) (unknown) (unknown) (no date) (unknown) (unknown) History of florian dder surgery (units unknown) (unknown) (unknown) (no date) (unknown) (unknown) History of car pal tunnel release (units unknown) (unknown) (unknown) (no date) (unknown) (unknown) Hyperlipidemia : The present medications include rosuvastatin. The patient (units unknown) (unknown) (unknown) (no date) (unknown) (unknown) Hypertension: The patient is currently on amlodipine for blood pressure (units unknown) (unknown) (unknown) (no date) (unknown) (unknown) If this fails to solve your problem, a program of sleep restriction that limits (units unknown) (unknown) (unknown) (no date) (unknown) (unknown) Inadequately controlled. Advise: Increase amlodipine to 10mg daily. (units unknown) (unknown) (unknown) (no date) (unknown) (unknown) Inadequately controlled. Advise: Switch pravastatin to rosuvastatin. (units unknown) (unknown) (unknown) (no date) (unknown) (unknown) Insomnia: The patient states symptoms are adequately controlled with zolpidem (units unknown) (unknown) (unknown) (no date) (unknown) (unknown) Intake Note: (units unknown) (unknown) (unknown) (no date) (unknown) (unknown) Intake perform ed by: Viji Santos (units unknown) (unknown) (unknown) (no date) (unknown) (unknown) Intake (units unknown) (unknown) (unknown) (no date) (unknown) (unknown) Intake- Clinci al Staff (units unknown) (unknown) (unknown) (no date) (unknown) (unknown) Internal Medic ine Office Visit (units unknown) (unknown) (unknown) (no date) (unknown) (unknown) Irritable elizabeth l syndrome (units unknown) (unknown) (unknown) (no date) (unknown) (unknown) It was very ni ce to meet with you today! (units unknown) (unknown) (unknown) (no date) (unknown) (unknown) LDL Cholestero l, Calculated 157 mg/dL (<100) H 08/05/22 (units unknown) (unknown) (unknown) (no date) (unknown) (unknown) Lab Results (units unknown) (unknown) (unknown) (no date) (unknown) (unknown) Last Menstural Cycle + Details (units unknown) (unknown) (unknown) (no date) (unknown) (unknown) Let us know if you have any problems. (units unknown) (unknown) (unknown) (no date) (unknown) (unknown) Loc: [facility] (units unknown) (unknown) (unknown) (no date) (unknown) (unknown) Major depressi on:? The patient reports good compliance with escitalopram, and (units unknown) (unknown) (unknown) (no date) (unknown) (unknown) Mean Corpuscul ar Hemoglobin 30.4 PG (26-34) 08/05/22 (units unknown) (unknown) (unknown) (no date) (unknown) (unknown) Mean Corpuscul ar Hemoglobin Concent 34.1 % (30-36) 07/22 (units unknown) (unknown) (unknown) (no date) (unknown) (unknown) Mean Corpuscul ar Volume 89.2 fL (80-100) 08/05/22 (units unknown) (unknown) (unknown) (no date) (unknown) (unknown) Measles (-1943) (uni ts unknown) (unknown) (unknown) (no date) (unknown) (unknown) Medical Histor y (units unknown) (unknown) (unknown) (no date) (unknown) (unknown) Medicare annua l wellness visit, initial (units unknown) (unknown) (unknown) (no date) (unknown) (unknown) Medications (units unknown) (unknown) (unknown) (no date) (unknown) (unknown) Medications: (units unknown) (unknown) (unknown) (no date) (unknown) (unknown) Mixed hyperlipidemia (units unknown) (unknown) (unknown) (no date) (unknown) (unknown) Mother d Stroke (units unknown) (unknown) (unknown) (no date) (unknown) (unknown) NECK: Trachea midline. No JVD, bruits or lymphadenopathy. Supple, nontender, no (units unknown) (unknown) (unknown) (no date) (unknown) (unknown) NEUROLOGIC: Al ert, oriented, speech fluent, full upper and lower motor strength, (units unknown) (unknown) (unknown) (no date) (unknown) (unknown) New diagnosis. Inadequately controlled. Advise: Reclast annually or alendronate. (units unknown) (unknown) (unknown) (no date) (unknown) (unknown) New (units unknown) (unknown) (unknown) (no date) (unknown) (unknown) Osteoporosis: The patient has osteoporosis by DEXA 08/11/2022: AP spine T-score (units unknown) (unknown) (unknown) (no date) (unknown) (unknown) Other Menstrua l Period: Surgical Menopause (hysterectomy) (units unknown) (unknown) (unknown) (no date) (unknown) (unknown) Oxygen Deliver y Method room air (units unknown) (unknown) (unknown) (no date) (unknown) (unknown) PFSH (units unknown) (unknown) (unknown) (no date) (unknown) (unknown) Patient: Angle Carranza MR#: [id number] (units unknown) (unknown) (unknown) (no date) (unknown) (unknown) Penicillins Ad verse Reaction (Severe, Verified 02/14/23 13:36) (units unknown) (unknown) (unknown) (no date) (unknown) (unknown) Plan (units unknown) (unknown) (unknown) (no date) (unknown) (unknown) Platelet Count 188 X103/uL (150-400) 08/05/22 (units unknown) (unknown) (unknown) (no date) (unknown) (unknown) Position Sitti ng Sitting (units unknown) (unknown) (unknown) (no date) (unknown) (unknown) Potassium Leve l 4.5 mmol/L (3.4-5.1) 10/13/22 (units unknown) (unknown) (unknown) (no date) (unknown) (unknown) Pulse 87 (units unknown) (unknown) (unknown) (no date) (unknown) (unknown) Pulse Oximetry (%) 9 7 (units unknown) (unknown) (unknown) (no date) (unknown) (unknown) Pulse Source Monitor (units unknown) (unknown) (unknown) (no date) (unknown) (unknown) Qualifiers: (units unknown) (unknown) (unknown) (no date) (unknown) (unknown) RESPIRATORY: C lear to auscultation. (units unknown) (unknown) (unknown) (no date) (unknown) (unknown) ROS (units unknown) (unknown) (unknown) (no date) (unknown) (unknown) Rash (units unknown) (unknown) (unknown) (no date) (unknown) (unknown) Reason For Visit (un its unknown) (unknown) (unknown) (no date) (unknown) (unknown) Recent lab jim english reviewed. (units unknown) (unknown) (unknown) (no date) (unknown) (unknown) Reclast infusi on is advised annually. We will call to arrange this. (units unknown) (unknown) (unknown) (no date) (unknown) (unknown) Red Blood Coun t 4.56 X106/uL (4.0-5.2) 08/05/22 (units unknown) (unknown) (unknown) (no date) (unknown) (unknown) Red Cell Distr ibution Width 13.6 % (11.6-14.8) 08/05/22 (units unknown) (unknown) (unknown) (no date) (unknown) (unknown) Relaxation taylor hniques such as diaphragmatic breathing, visualization, mindful (units unknown) (unknown) (unknown) (no date) (unknown) (unknown) S/P renal miguelito ry angioplasty (-2005) (units unknown) (unknown) (unknown) (no date) (unknown) (unknown) She prefers th e once yearly infusion after a discussion today. (units unknown) (unknown) (unknown) (no date) (unknown) (unknown) Signed By: (units unknown) (unknown) (unknown) (no date) (unknown) (unknown) Smoking Status : Never smoker (units unknown) (unknown) (unknown) (no date) (unknown) (unknown) Sodium Level 1 37 mmol/L (137-145) 10/13/22 (units unknown) (unknown) (unknown) (no date) (unknown) (unknown) Status: Acute (units unknown) (unknown) (unknown) (no date) (unknown) (unknown) Sulfa (Sulfona mide Antibiotics) Allergy (Mild, Verified 02/14/23 13:36) (units unknown) (unknown) (unknown) (no date) (unknown) (unknown) Surgical Histo ry (units unknown) (unknown) (unknown) (no date) (unknown) (unknown) This note may have been all or partially generated using voice recognition (units unknown) (unknown) (unknown) (no date) (unknown) (unknown) Thyroid Stimul ating Hormone (TSH) 2.03 uIU/mL (0.47-4.68) 0 (units unknown) (unknown) (unknown) (no date) (unknown) (unknown) Tobacco + Subs tance Use (units unknown) (unknown) (unknown) (no date) (unknown) (unknown) Tobacco Status (unit s unknown) (unknown) (unknown) (no date) (unknown) (unknown) Total Bilirubi n 0.6 mg/dL (0.2-1.3) 10/13/22 (units unknown) (unknown) (unknown) (no date) (unknown) (unknown) Total Protein 7.5 g/dL (6.3-8.2) 10/13/22 (units unknown) (unknown) (unknown) (no date) (unknown) (unknown) Triglycerides Level 105 mg/dL (35-150) 08/05/22 (units unknown) (unknown) (unknown) (no date) (unknown) (unknown) Visit Reasons: 3 mo f/u (units unknown) (unknown) (unknown) (no date) (unknown) (unknown) Vitals (units unknown) (unknown) (unknown) (no date) (unknown) (unknown) Wean down off any sleeping pills you are taking as these are associated with (units unknown) (unknown) (unknown) (no date) (unknown) (unknown) Weight 131 lb (units unknown) (unknown) (unknown) (no date) (unknown) (unknown) Well-controlle d. Continue current medications. (units unknown) (unknown) (unknown) (no date) (unknown) (unknown) White Blood Co unt 4.1 X103/uL (4.5-11.0) L 08/05/22 (units unknown) (unknown) (unknown) (no date) (unknown) (unknown) You may TRY: Trazodone 50mg 1/2 tablet nightly. You may increase up to 1-2 (units unknown) (unknown) (unknown) (no date) (unknown) (unknown) Your medical condition appears stable at this point. Continue your current (units unknown) (unknown) (unknown) (no date) (unknown) (unknown) about 35 minut es daily. (units unknown) (unknown) (unknown) (no date) (unknown) (unknown) alprazolam 0.2 5 mg tablet 0.25 mg PO DAILY PRN anxiety #20 tabs 08/05/22 [Rx (units unknown) (unknown) (unknown) (no date) (unknown) (unknown) amlodipine 10 mg tablet 10 mg PO DAILY #90 tabs 10/13/22 [Rx Confirmed 02/14/23] (units unknown) (unknown) (unknown) (no date) (unknown) (unknown) and then yan magallanes increases the time in bed for sleep, and utilizes the concept (units unknown) (unknown) (unknown) (no date) (unknown) (unknown) and your wakin g time as 6:00 AM, then your bedtime would be 12:00 AM, even if (units unknown) (unknown) (unknown) (no date) (unknown) (unknown) anorexia, naus ea or vomiting, dysphagia, change in bowel habits or black or (units unknown) (unknown) (unknown) (no date) (unknown) (unknown) bloody stools. The patient is currently taking lansoprazole for gastroesophageal (units unknown) (unknown) (unknown) (no date) (unknown) (unknown) constant. (units unknown) (unknown) (unknown) (no date) (unknown) (unknown) control.? The patient is tolerating the medication without side effects (units unknown) (unknown) (unknown) (no date) (unknown) (unknown) daily, as well as weight-bearing activity (e.g., walking) for bone health. (units unknown) (unknown) (unknown) (no date) (unknown) (unknown) denies adverse side effects to the medication, and denies feeling depressed, (units unknown) (unknown) (unknown) (no date) (unknown) (unknown) distress. (units unknown) (unknown) (unknown) (no date) (unknown) (unknown) erythromycin b ase Adverse Reaction (Severe, Verified 02/14/23 13:36) (units unknown) (unknown) (unknown) (no date) (unknown) (unknown) escitalopram o xalate 20 mg tablet 30 mg PO DAILY #135 tabs 10/13/22 [Rx (units unknown) (unknown) (unknown) (no date) (unknown) (unknown) good motivatio n. PHQ-9 score = 02/14. FRANK-7 score = 0/21. (units unknown) (unknown) (unknown) (no date) (unknown) (unknown) have occurred. If there are any questions, please contact the Medical Records (units unknown) (unknown) (unknown) (no date) (unknown) (unknown) icterus. No in jection or drainage. 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 (units unknown) (unknown) (unknown) (no date) (unknown) (unknown) maintain intak e of calcium 1500mg daily (preferably mostly from dietary sources (units unknown) (unknown) (unknown) (no date) (unknown) (unknown) may occur. Occ asional wrong-word or 'sound-alike' substitutions may have (units unknown) (unknown) (unknown) (no date) (unknown) (unknown) medications. (units unknown) (unknown) (unknown) (no date) (unknown) (unknown) meditation and progressive muscle relaxation can also be helpful. (units unknown) (unknown) (unknown) (no date) (unknown) (unknown) meningeal signs. (un its unknown) (unknown) (unknown) (no date) (unknown) (unknown) mild (units unknown) (unknown) (unknown) (no date) (unknown) (unknown) mouth sores (units unknown) (unknown) (unknown) (no date) (unknown) (unknown) nausea (units unknown) (unknown) (unknown) (no date) (unknown) (unknown) no focal defic its evident. (units unknown) (unknown) (unknown) (no date) (unknown) (unknown) occurred due t o the inherent limitations of voice recognition software. Please (units unknown) (unknown) (unknown) (no date) (unknown) (unknown) of sleep effic iency (total sleep time divided by total time in bed). (units unknown) (unknown) (unknown) (no date) (unknown) (unknown) paroxysmal noc turnal dyspnea, pedal edema, or TIA symptoms. She walks her dog (units unknown) (unknown) (unknown) (no date) (unknown) (unknown) read the note carefully and recognize, using context, where these substitutions (units unknown) (unknown) (unknown) (no date) (unknown) (unknown) reflux disease at this time. (units unknown) (unknown) (unknown) (no date) (unknown) (unknown) reported, and denies exertional or other chest pain, dyspnea, orthopnea, (units unknown) (unknown) (unknown) (no date) (unknown) (unknown) reports good compliance and denies any chest pain, exertional or otherwise. (units unknown) (unknown) (unknown) (no date) (unknown) (unknown) rosuvastatin 2 0 mg tablet 20 mg PO DAILY #100 tabs 12/20/22 [Rx Confirmed (units unknown) (unknown) (unknown) (no date) (unknown) (unknown) severity: mild Qualified Code(s): F33.0 - Major depressive disorder, recurrent, (units unknown) (unknown) (unknown) (no date) (unknown) (unknown) sleep time per day. (units unknown) (unknown) (unknown) (no date) (unknown) (unknown) sleep (units unknown) (unknown) (unknown) (no date) (unknown) (unknown) sleeping medic ation for the past several years. (units unknown) (unknown) (unknown) (no date) (unknown) (unknown) software. Alth ough every effort is made to edit content, pathology laboratory technologist errors (units unknown) (unknown) (unknown) (no date) (unknown) (unknown) such as dairy, lean meats and leafy green vegetables) and vitamin D3 1000 units (units unknown) (unknown) (unknown) (no date) (unknown) (unknown) tables nightly as needed, in place of zolpidem and Benedryl. (units unknown) (unknown) (unknown) (no date) (unknown) (unknown) time). (units unknown) (unknown) (unknown) (no date) (unknown) (unknown) trazodone 50 m g tablet 50 mg PO BEDTIME PRN sleep #60 tabs 02/14/23 [Rx (units unknown) (unknown) (unknown) (no date) (unknown) (unknown) trazodone (units unknown) (unknown) (unknown) (no date) (unknown) (unknown) with rare alprazolam . (units unknown) (unknown) (unknown) (no date) (unknown) (unknown) withdrawal, or trouble with memory, focus, or concentration. The patient has (units unknown) (unknown) (unknown) (no date) (unknown) (unknown) you tired befo re that time. (units unknown) (unknown) (unknown) (no date) (unknown) (unknown) zolpidem (units unknown) (unknown) Result panel 8 (unknown) (no date) (unknown) (unknown) (no value) (units unknown) (unknown) (unknown) (no date) (unknown) (unknown) (1) Essential hypertension: (units unknown) (unknown) (unknown) (no date) (unknown) (unknown) (2) Mixed hyperlipidemia: (units unknown) (unknown) (unknown) (no date) (unknown) (unknown) (3) GERD witho ut esophagitis: (units unknown) (unknown) (unknown) (no date) (unknown) (unknown) (4) Depression , major, recurrent: (units unknown) (unknown) (unknown) (no date) (unknown) (unknown) (5) Generalize d anxiety disorder: (units unknown) (unknown) (unknown) (no date) (unknown) (unknown) (6) Chronic insomnia : (units unknown) (unknown) (unknown) (no date) (unknown) (unknown) (7) 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: (units unknown) (unknown) (unknown) (no date) (unknown) (unknown) (8) Irritable bowel syndrome: (units unknown) (unknown) (unknown) (no date) (unknown) (unknown) * Study phase: Keep a sleep diary for 2 weeks and calculate the average total (units unknown) (unknown) (unknown) (no date) (unknown) (unknown) * Treatment ph ase: Spend that amount of time in bed, keeping the arising time (units unknown) (unknown) (unknown) (no date) (unknown) (unknown) / (units unknown) (unknown) (unknown) (no date) (unknown) (unknown) 02/14/23 (units unknown) (unknown) (unknown) (no date) (unknown) (unknown) 02/14/23] (units unknown) (unknown) (unknown) (no date) (unknown) (unknown) [id number] (units unknown) (unknown) (unknown) (no date) (unknown) (unknown) 1-2 tablets as needed nightly for sleep 50 mg PO BEDTIME PRN 60 tabs 5RF (units unknown) (unknown) (unknown) (no date) (unknown) (unknown) 10mg 1/2 table t twice weekly or Benedryl on other nights. She has been on (units unknown) (unknown) (unknown) (no date) (unknown) (unknown) 14:46 02/14/23 (unit s unknown) (unknown) (unknown) (no date) (unknown) (unknown) 14:47 (units unknown) (unknown) (unknown) (no date) (unknown) (unknown) 2.5, left FN - 2.2, right FN -2.4. She takes BoneUp BID. (units unknown) (unknown) (unknown) (no date) (unknown) (unknown) (units unknown) (unknown) (unknown) (no date) (unknown) (unknown) 25-Hydroxy Vit torres D Total 41.9 ng/mL (30.0-100.0) 08/05/22 (units unknown) (unknown) (unknown) (no date) (unknown) (unknown) 02/09 (units unknown) (unknown) (unknown) (no date) (unknown) (unknown) 04/11 (units unknown) (unknown) (unknown) (no date) (unknown) (unknown) 08/05/22 (units unknown) (unknown) (unknown) (no date) (unknown) (unknown) AWV 08/05/2022 (units unknown) (unknown) (unknown) (no date) (unknown) (unknown) Active/Remissi on status: currently active Major depression episode (units unknown) (unknown) (unknown) (no date) (unknown) (unknown) Age-related osteoporosis without current pathological fracture (units unknown) (unknown) (unknown) (no date) (unknown) (unknown) Age/Sex: 82 / F Date of Service: (units unknown) (unknown) (unknown) (no date) (unknown) (unknown) Alanine Aminotransferase (ALT/SGPT) 22 IU/L (<35) 09/22 (units unknown) (unknown) (unknown) (no date) (unknown) (unknown) Albumin 4.7 g/ dL (3.5-5.0) 10/13/22 (units unknown) (unknown) (unknown) (no date) (unknown) (unknown) Albumin/Globul in Ratio 1.7 (1.0-2.8) 10/13/22 (units unknown) (unknown) (unknown) (no date) (unknown) (unknown) Alkaline Phosp hatase 62 U/L (38-126) 10/13/22 (units unknown) (unknown) (unknown) (no date) (unknown) (unknown) All systems re viewed + are unremarkable except as noted in HPI and below (units unknown) (unknown) (unknown) (no date) (unknown) (unknown) Allergies (units unknown) (unknown) (unknown) (no date) (unknown) (unknown) [place] [address] (units unknown) (unknown) (unknown) (no date) (unknown) (unknown) Anesthesia (units unknown) (unknown) (unknown) (no date) (unknown) (unknown) Anxiety disord er, unspecified, M81.0 - Age-related osteoporosis without current (units unknown) (unknown) (unknown) (no date) (unknown) (unknown) Anxiety: The p atient reports symptoms are well controlled on current therapy (units unknown) (unknown) (unknown) (no date) (unknown) (unknown) Aspartate Torres o Transf (AST/SGOT) 25 IU/L (14-36) 10/13/ (units unknown) (unknown) (unknown) (no date) (unknown) (unknown) Assessment + Plan (u nits unknown) (unknown) (unknown) (no date) (unknown) (unknown) Assessment and Plan: (units unknown) (unknown) (unknown) (no date) (unknown) (unknown) Attending Dr: Nicholas Guevara MD (units unknown) (unknown) (unknown) (no date) (unknown) (unknown) BMI 26.9 (units unknown) (unknown) (unknown) (no date) (unknown) (unknown) BP 140/80 144/70 H ( units unknown) (unknown) (unknown) (no date) (unknown) (unknown) BUN/Creatinine Ratio 21.7 (6-22) 10/13/22 (units unknown) (unknown) (unknown) (no date) (unknown) (unknown) Blood Pressure Location Lt brachial Lt brachial (units unknown) (unknown) (unknown) (no date) (unknown) (unknown) Blood Urea Nit rogen 15 mg/dL (7-17) 10/13/22 (units unknown) (unknown) (unknown) (no date) (unknown) (unknown) CARDIOVASCULAR : Regular rate and rhythm without murmurs, gallops, or rubs. (units unknown) (unknown) (unknown) (no date) (unknown) (unknown) Calcium Level 9.7 mg/dL (8.4-10.2) 10/13/22 (units unknown) (unknown) (unknown) (no date) (unknown) (unknown) Carbon Dioxide Level 28 mmol/L (22-32) 10/13/22 (units unknown) (unknown) (unknown) (no date) (unknown) (unknown) Chicken pox (-1942) (units unknown) (unknown) (unknown) (no date) (unknown) (unknown) Chief Complaint (uni ts unknown) (unknown) (unknown) (no date) (unknown) (unknown) Chief Complain t: Medical followup (units unknown) (unknown) (unknown) (no date) (unknown) (unknown) Chloride Level 101 mmol/L (98-107) 10/13/22 (units unknown) (unknown) (unknown) (no date) (unknown) (unknown) Cholesterol [place] 257 mg/dL (140-199) H 08/05/22 (units unknown) (unknown) (unknown) (no date) (unknown) (unknown) Chronic insomnia (un its unknown) (unknown) (unknown) (no date) (unknown) (unknown) Clinically sta ble. Continue current plan. (units unknown) (unknown) (unknown) (no date) (unknown) (unknown) Common Lab Res ults- Last: (units unknown) (unknown) (unknown) (no date) (unknown) (unknown) Comprehensive Metabolic Panel Today E78.2 - Mixed hyperlipidemia, F41.9 (units unknown) (unknown) (unknown) (no date) (unknown) (unknown) Confirmed 02/14/23] (units unknown) (unknown) (unknown) (no date) (unknown) (unknown) Const (units unknown) (unknown) (unknown) (no date) (unknown) (unknown) Creatinine 0.6 9 mg/dL (0.52-1.04) 10/13/22 (units unknown) (unknown) (unknown) (no date) (unknown) (unknown) DERMATOLOGIC: No rashes or skin lesions. (units unknown) (unknown) (unknown) (no date) (unknown) (unknown) : 2 Acct:[id number] (units unknown) (unknown) (unknown) (no date) (unknown) (unknown) Depression, ma bernie, recurrent (units unknown) (unknown) (unknown) (no date) (unknown) (unknown) Dept at . (units unknown) (unknown) (unknown) (no date) (unknown) (unknown) Details: (units unknown) (unknown) (unknown) (no date) (unknown) (unknown) Discontinued R radha: Provider's Order 10 mg PO BEDTIME PRN 45 tabs 1RF (units unknown) (unknown) (unknown) (no date) (unknown) (unknown) Discontinued (units unknown) (unknown) (unknown) (no date) (unknown) (unknown) Discuss/review. (uni ts unknown) (unknown) (unknown) (no date) (unknown) (unknown) Documented By: Nicholas Guevara MD 02/14/23 1557 (units unknown) (unknown) (unknown) (no date) (unknown) (unknown) Draft (units unknown) (unknown) (unknown) (no date) (unknown) (unknown) ENT: Mucous me mbranes pink and moist. (units unknown) (unknown) (unknown) (no date) (unknown) (unknown) EXTREMITIES: N o clubbing, cyanosis, or edema. (units unknown) (unknown) (unknown) (no date) (unknown) (unknown) EYES: Pupils e qual round and reactive. Extraocular motions intact. No scleral (units unknown) (unknown) (unknown) (no date) (unknown) (unknown) Essential hypertension (units unknown) (unknown) (unknown) (no date) (unknown) (unknown) Estimat Glomer ular Filtration Rate > 60 mL/min (>60) 10/13 (units unknown) (unknown) (unknown) (no date) (unknown) (unknown) Exam Narrative (unit s unknown) (unknown) (unknown) (no date) (unknown) (unknown) Exam Narrative: (uni ts unknown) (unknown) (unknown) (no date) (unknown) (unknown) Exam (units unknown) (unknown) (unknown) (no date) (unknown) (unknown) Family History (units unknown) (unknown) (unknown) (no date) (unknown) (unknown) Family/Other D eceased Accident (units unknown) (unknown) (unknown) (no date) (unknown) (unknown) Father d Accident (units unknown) (unknown) (unknown) (no date) (unknown) (unknown) [facility] (units unknown) (unknown) (unknown) (no date) (unknown) (unknown) Follow up for medication check up. (units unknown) (unknown) (unknown) (no date) (unknown) (unknown) Followup in 6 months for your annual wellness visit. (units unknown) (unknown) (unknown) (no date) (unknown) (unknown) For example, i f you determine that your total time asleep is 6 hours per night (units unknown) (unknown) (unknown) (no date) (unknown) (unknown) For general?bone?health to prevent or manage osteoporosis or osteopenia, (units unknown) (unknown) (unknown) (no date) (unknown) (unknown) For your chron ic difficulty with sleep (insomnia), practice good sleep hygeine. (units unknown) (unknown) (unknown) (no date) (unknown) (unknown) Fractures (units unknown) (unknown) (unknown) (no date) (unknown) (unknown) GASTROINTESTIN AL: Abdomen soft, non-tender, nondistended. (units unknown) (unknown) (unknown) (no date) (unknown) (unknown) GENERAL: This is a well-nourished, well-developed patient, in no apparent (units unknown) (unknown) (unknown) (no date) (unknown) (unknown) GERD without esophagitis (units unknown) (unknown) (unknown) (no date) (unknown) (unknown) Gastroesophage al reflux disease: The patient denies abdominal or flank pain, (units unknown) (unknown) (unknown) (no date) (unknown) (unknown) Generalized an xiety disorder (units unknown) (unknown) (unknown) (no date) (unknown) (unknown) Globulin 2.8 g /dL (1.7-4.1) 10/13/22 (units unknown) (unknown) (unknown) (no date) (unknown) (unknown) Glucose Level 92 mg/dL (80-110) 10/13/22 (units unknown) (unknown) (unknown) (no date) (unknown) (unknown) Gradually incr ease your sleep time by 15 minutes as long as the sleep efficiency (units unknown) (unknown) (unknown) (no date) (unknown) (unknown) Grandfather De ceased Cancer (units unknown) (unknown) (unknown) (no date) (unknown) (unknown) Grandmother De ceased Stroke (units unknown) (unknown) (unknown) (no date) (unknown) (unknown) H/O total hysterectomy (units unknown) (unknown) (unknown) (no date) (unknown) (unknown) HDL Cholestero l 79 mg/dL (40-60) H 08/05/22 (units unknown) (unknown) (unknown) (no date) (unknown) (unknown) HPI (units unknown) (unknown) (unknown) (no date) (unknown) (unknown) Health Managem ent reviewed with patient: Yes (units unknown) (unknown) (unknown) (no date) (unknown) (unknown) Health Management (u nits unknown) (unknown) (unknown) (no date) (unknown) (unknown) Height 4 ft 10.5 in (units unknown) (unknown) (unknown) (no date) (unknown) (unknown) Hematocrit 40. 7 % (36-46) 08/05/22 (units unknown) (unknown) (unknown) (no date) (unknown) (unknown) Hemoglobin 13. 9 g/dL (12.0-16.0) 08/05/22 (units unknown) (unknown) (unknown) (no date) (unknown) (unknown) History of florian dder surgery (units unknown) (unknown) (unknown) (no date) (unknown) (unknown) History of car pal tunnel release (units unknown) (unknown) (unknown) (no date) (unknown) (unknown) Hyperlipidemia : The present medications include rosuvastatin. The patient (units unknown) (unknown) (unknown) (no date) (unknown) (unknown) Hypertension: The patient is currently on amlodipine for blood pressure (units unknown) (unknown) (unknown) (no date) (unknown) (unknown) If this fails to solve your problem, a program of sleep restriction that limits (units unknown) (unknown) (unknown) (no date) (unknown) (unknown) Inadequately controlled. Advise: Increase amlodipine to 10mg daily. (units unknown) (unknown) (unknown) (no date) (unknown) (unknown) Inadequately controlled. Advise: Switch pravastatin to rosuvastatin. (units unknown) (unknown) (unknown) (no date) (unknown) (unknown) Insomnia: The patient states symptoms are adequately controlled with zolpidem (units unknown) (unknown) (unknown) (no date) (unknown) (unknown) Intake Note: (units unknown) (unknown) (unknown) (no date) (unknown) (unknown) Intake perform ed by: Viji Santos (units unknown) (unknown) (unknown) (no date) (unknown) (unknown) Intake (units unknown) (unknown) (unknown) (no date) (unknown) (unknown) Intake- Maryellen al Staff (units unknown) (unknown) (unknown) (no date) (unknown) (unknown) Internal Medic ine Office Visit (units unknown) (unknown) (unknown) (no date) (unknown) (unknown) 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 (units unknown) (unknown) (unknown) (no date) (unknown) (unknown) LDL Cholestero l, Calculated 157 mg/dL (<100) H 08/05/22 (units unknown) (unknown) (unknown) (no date) (unknown) (unknown) Lab Results (units unknown) (unknown) (unknown) (no date) (unknown) (unknown) Labwork is ord ered today to evaluate your condition. Results will be posted to (units unknown) (unknown) (unknown) (no date) (unknown) (unknown) Last Menstural Cycle + Details (units unknown) (unknown) (unknown) (no date) (unknown) (unknown) Let us know if you have any problems. (units unknown) (unknown) (unknown) (no date) (unknown) (unknown) Lipid Panel To day E78.2 - Mixed hyperlipidemia, F41.9 - Anxiety disorder, (units unknown) (unknown) (unknown) (no date) (unknown) (unknown) Loc: [facility] (units unknown) (unknown) (unknown) (no date) (unknown) (unknown) Major depressi on:? The patient reports good compliance with escitalopram, and (units unknown) (unknown) (unknown) (no date) (unknown) (unknown) Mean Corpuscul ar Hemoglobin 30.4 PG (26-34) 08/05/22 (units unknown) (unknown) (unknown) (no date) (unknown) (unknown) Mean Corpuscul ar Hemoglobin Concent 34.1 % (30-36) 07/22 (units unknown) (unknown) (unknown) (no date) (unknown) (unknown) Mean Corpuscul ar Volume 89.2 fL (80-100) 08/05/22 (units unknown) (unknown) (unknown) (no date) (unknown) (unknown) Measles (-1943) (uni ts unknown) (unknown) (unknown) (no date) (unknown) (unknown) Medical Histor y (Updated 02/14/23 @ 15:09 by Nicholas Guevara MD) (units unknown) (unknown) (unknown) (no date) (unknown) (unknown) Medications (units unknown) (unknown) (unknown) (no date) (unknown) (unknown) Medications: (units unknown) (unknown) (unknown) (no date) (unknown) (unknown) Mixed hyperlipidemia (units unknown) (unknown) (unknown) (no date) (unknown) (unknown) Mother d Stroke (units unknown) (unknown) (unknown) (no date) (unknown) (unknown) NECK: Trachea midline. No JVD, bruits or lymphadenopathy. Supple, nontender, no (units unknown) (unknown) (unknown) (no date) (unknown) (unknown) NEUROLOGIC: Al ert, oriented, speech fluent, full upper and lower motor strength, (units unknown) (unknown) (unknown) (no date) (unknown) (unknown) New diagnosis. Inadequately controlled. Advise: Reclast annually or alendronate. (units unknown) (unknown) (unknown) (no date) (unknown) (unknown) New (units unknown) (unknown) (unknown) (no date) (unknown) (unknown) Orders (units unknown) (unknown) (unknown) (no date) (unknown) (unknown) Orders: (units unknown) (unknown) (unknown) (no date) (unknown) (unknown) Osteoporosis: The patient has osteoporosis by DEXA 08/11/2022: AP spine T-score (units unknown) (unknown) (unknown) (no date) (unknown) (unknown) Other Menstrua l Period: Surgical Menopause (hysterectomy) (units unknown) (unknown) (unknown) (no date) (unknown) (unknown) Oxygen Deliver y Method room air (units unknown) (unknown) (unknown) (no date) (unknown) (unknown) PFSH (units unknown) (unknown) (unknown) (no date) (unknown) (unknown) Patient: Angle Carranza MR#: [id number] (units unknown) (unknown) (unknown) (no date) (unknown) (unknown) Penicillins Ad verse Reaction (Severe, Verified 02/14/23 13:36) (units unknown) (unknown) (unknown) (no date) (unknown) (unknown) Plan (units unknown) (unknown) (unknown) (no date) (unknown) (unknown) Platelet Count 188 X103/uL (150-400) 08/05/22 (units unknown) (unknown) (unknown) (no date) (unknown) (unknown) Position Sitti ng Sitting (units unknown) (unknown) (unknown) (no date) (unknown) (unknown) Potassium Leve l 4.5 mmol/L (3.4-5.1) 10/13/22 (units unknown) (unknown) (unknown) (no date) (unknown) (unknown) Pulse 87 (units unknown) (unknown) (unknown) (no date) (unknown) (unknown) Pulse Oximetry (%) 9 7 (units unknown) (unknown) (unknown) (no date) (unknown) (unknown) Pulse Source Monitor (units unknown) (unknown) (unknown) (no date) (unknown) (unknown) Qualifiers: (units unknown) (unknown) (unknown) (no date) (unknown) (unknown) RESPIRATORY: C lear to auscultation. (units unknown) (unknown) (unknown) (no date) (unknown) (unknown) ROS (units unknown) (unknown) (unknown) (no date) (unknown) (unknown) Rash (units unknown) (unknown) (unknown) (no date) (unknown) (unknown) Reason For Visit (un its unknown) (unknown) (unknown) (no date) (unknown) (unknown) Recent lab jim english reviewed. (units unknown) (unknown) (unknown) (no date) (unknown) (unknown) Reclast infusi on is advised annually. We will call to arrange this. (units unknown) (unknown) (unknown) (no date) (unknown) (unknown) Red Blood Coun t 4.56 X106/uL (4.0-5.2) 08/05/22 (units unknown) (unknown) (unknown) (no date) (unknown) (unknown) Red Cell Distr ibution Width 13.6 % (11.6-14.8) 08/05/22 (units unknown) (unknown) (unknown) (no date) (unknown) (unknown) Relaxation taylor hniques such as diaphragmatic breathing, visualization, mindful (units unknown) (unknown) (unknown) (no date) (unknown) (unknown) S/P renal miguelito ry angioplasty (-2005) (units unknown) (unknown) (unknown) (no date) (unknown) (unknown) She prefers th e once yearly infusion after a discussion today. (units unknown) (unknown) (unknown) (no date) (unknown) (unknown) She wishes a colonoscopy. (units unknown) (unknown) (unknown) (no date) (unknown) (unknown) Signed By: (units unknown) (unknown) (unknown) (no date) (unknown) (unknown) Smoking Status : Never smoker (units unknown) (unknown) (unknown) (no date) (unknown) (unknown) Sodium Level 1 37 mmol/L (137-145) 10/13/22 (units unknown) (unknown) (unknown) (no date) (unknown) (unknown) Status: Acute (units unknown) (unknown) (unknown) (no date) (unknown) (unknown) Sulfa (Sulfona mide Antibiotics) Allergy (Mild, Verified 02/14/23 13:36) (units unknown) (unknown) (unknown) (no date) (unknown) (unknown) Surgical Histo ry (units unknown) (unknown) (unknown) (no date) (unknown) (unknown) This note may have been all or partially generated using voice recognition (units unknown) (unknown) (unknown) (no date) (unknown) (unknown) Thyroid Stimul ating Hormone (TSH) 2.03 uIU/mL (0.47-4.68) 0 (units unknown) (unknown) (unknown) (no date) (unknown) (unknown) Tobacco + Subs tance Use (units unknown) (unknown) (unknown) (no date) (unknown) (unknown) Tobacco Status (unit s unknown) (unknown) (unknown) (no date) (unknown) (unknown) Total Bilirubi n 0.6 mg/dL (0.2-1.3) 10/13/22 (units unknown) (unknown) (unknown) (no date) (unknown) (unknown) Total Protein 7.5 g/dL (6.3-8.2) 10/13/22 (units unknown) (unknown) (unknown) (no date) (unknown) (unknown) Triglycerides Level 105 mg/dL (35-150) 08/05/22 (units unknown) (unknown) (unknown) (no date) (unknown) (unknown) Visit Reasons: 3 mo f/u (units unknown) (unknown) (unknown) (no date) (unknown) (unknown) Vitals (units unknown) (unknown) (unknown) (no date) (unknown) (unknown) Wean down off any sleeping pills you are taking as these are associated with (units unknown) (unknown) (unknown) (no date) (unknown) (unknown) Weight 131 lb (units unknown) (unknown) (unknown) (no date) (unknown) (unknown) Well-controlle d. Continue current medications. (units unknown) (unknown) (unknown) (no date) (unknown) (unknown) White Blood Co unt 4.1 X103/uL (4.5-11.0) L 08/05/22 (units unknown) (unknown) (unknown) (no date) (unknown) (unknown) You may TRY: Trazodone 50mg 1/2 tablet nightly. You may increase up to 1-2 (units unknown) (unknown) (unknown) (no date) (unknown) (unknown) Your medical condition appears stable at this point. Continue your current (units unknown) (unknown) (unknown) (no date) (unknown) (unknown) about 35 minut es daily. (units unknown) (unknown) (unknown) (no date) (unknown) (unknown) alprazolam 0.2 5 mg tablet 0.25 mg PO DAILY PRN anxiety #20 tabs 08/05/22 [Rx (units unknown) (unknown) (unknown) (no date) (unknown) (unknown) amlodipine 10 mg tablet 10 mg PO DAILY #90 tabs 10/13/22 [Rx Confirmed 02/14/23] (units unknown) (unknown) (unknown) (no date) (unknown) (unknown) and then yan magallanes increases the time in bed for sleep, and utilizes the concept (units unknown) (unknown) (unknown) (no date) (unknown) (unknown) and was advise d to have a colonoscopy. (units unknown) (unknown) (unknown) (no date) (unknown) (unknown) and your wakin g time as 6:00 AM, then your bedtime would be 12:00 AM, even if (units unknown) (unknown) (unknown) (no date) (unknown) (unknown) anorexia, naus ea or vomiting, dysphagia, change in bowel habits or black or (units unknown) (unknown) (unknown) (no date) (unknown) (unknown) bloody stools. The patient is currently taking lansoprazole for gastroesophageal (units unknown) (unknown) (unknown) (no date) (unknown) (unknown) constant. (units unknown) (unknown) (unknown) (no date) (unknown) (unknown) control.? The patient is tolerating the medication without side effects (units unknown) (unknown) (unknown) (no date) (unknown) (unknown) daily, as well as weight-bearing activity (e.g., walking) for bone health. (units unknown) (unknown) (unknown) (no date) (unknown) (unknown) denies adverse side effects to the medication, and denies feeling depressed, (units unknown) (unknown) (unknown) (no date) (unknown) (unknown) distress. (units unknown) (unknown) (unknown) (no date) (unknown) (unknown) erythromycin b ase Adverse Reaction (Severe, Verified 02/14/23 13:36) (units unknown) (unknown) (unknown) (no date) (unknown) (unknown) escitalopram o xalate 20 mg tablet 30 mg PO DAILY #135 tabs 10/13/22 [Rx (units unknown) (unknown) (unknown) (no date) (unknown) (unknown) fracture (units unknown) (unknown) (unknown) (no date) (unknown) (unknown) good motivatio n. PHQ-9 score = 02/14. FRANK-7 score = 0. (units unknown) (unknown) (unknown) (no date) (unknown) (unknown) have occurred. If there are any questions, please contact the Medical Records (units unknown) (unknown) (unknown) (no date) (unknown) (unknown) icterus. No in jection or drainage. 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 (units unknown) (unknown) (unknown) (no date) (unknown) (unknown) maintain intak e of calcium 1500mg daily (preferably mostly from dietary sources (units unknown) (unknown) (unknown) (no date) (unknown) (unknown) may occur. Occ asional wrong-word or 'sound-alike' substitutions may have (units unknown) (unknown) (unknown) (no date) (unknown) (unknown) medications. (units unknown) (unknown) (unknown) (no date) (unknown) (unknown) meditation and progressive muscle relaxation can also be helpful. (units unknown) (unknown) (unknown) (no date) (unknown) (unknown) meningeal signs. (un its unknown) (unknown) (unknown) (no date) (unknown) (unknown) mild (units unknown) (unknown) (unknown) (no date) (unknown) (unknown) mouth sores (units unknown) (unknown) (unknown) (no date) (unknown) (unknown) nausea (units unknown) (unknown) (unknown) (no date) (unknown) (unknown) no focal defic its evident. (units unknown) (unknown) (unknown) (no date) (unknown) (unknown) occurred due t o the inherent limitations of voice recognition software. Please (units unknown) (unknown) (unknown) (no date) (unknown) (unknown) of sleep effic iency (total sleep time divided by total time in bed). (units unknown) (unknown) (unknown) (no date) (unknown) (unknown) paroxysmal noc turnal dyspnea, pedal edema, or TIA symptoms. She walks her dog (units unknown) (unknown) (unknown) (no date) (unknown) (unknown) pathological fractur e (units unknown) (unknown) (unknown) (no date) (unknown) (unknown) read the note carefully and recognize, using context, where these substitutions (units unknown) (unknown) (unknown) (no date) (unknown) (unknown) reflux disease at this time. (units unknown) (unknown) (unknown) (no date) (unknown) (unknown) reported, and denies exertional or other chest pain, dyspnea, orthopnea, (units unknown) (unknown) (unknown) (no date) (unknown) (unknown) reports good compliance and denies any chest pain, exertional or otherwise. (units unknown) (unknown) (unknown) (no date) (unknown) (unknown) rosuvastatin 2 0 mg tablet 20 mg PO DAILY #100 tabs 11/09/22 [Rx Confirmed (units unknown) (unknown) (unknown) (no date) (unknown) (unknown) severity: mild Qualified Code(s): F33.0 - Major depressive disorder, recurrent, (units unknown) (unknown) (unknown) (no date) (unknown) (unknown) sleep time per day. (units unknown) (unknown) (unknown) (no date) (unknown) (unknown) sleep (units unknown) (unknown) (unknown) (no date) (unknown) (unknown) sleeping medic ation for the past several years. (units unknown) (unknown) (unknown) (no date) (unknown) (unknown) software. Alth ough every effort is made to edit content, pathology laboratory technologist errors (units unknown) (unknown) (unknown) (no date) (unknown) (unknown) such as dairy, lean meats and leafy green vegetables) and vitamin D3 1000 units (units unknown) (unknown) (unknown) (no date) (unknown) (unknown) tables nightly as needed, in place of zolpidem and Benedryl. (units unknown) (unknown) (unknown) (no date) (unknown) (unknown) the patient po rtal. Let us know if you have any questions or concerns. (units unknown) (unknown) (unknown) (no date) (unknown) (unknown) time). (units unknown) (unknown) (unknown) (no date) (unknown) (unknown) trazodone 50 m g tablet 50 mg PO BEDTIME PRN sleep #60 tabs 02/14/23 [Rx (units unknown) (unknown) (unknown) (no date) (unknown) (unknown) trazodone (units unknown) (unknown) (unknown) (no date) (unknown) (unknown) unspecified, M 81.0 - Age-related osteoporosis without current pathological (units unknown) (unknown) (unknown) (no date) (unknown) (unknown) with rare alprazolam . (units unknown) (unknown) (unknown) (no date) (unknown) (unknown) withdrawal, or trouble with memory, focus, or concentration. The patient has (units unknown) (unknown) (unknown) (no date) (unknown) (unknown) you tired befo re that time. (units unknown) (unknown) (unknown) (no date) (unknown) (unknown) zolpidem (units unknown) (unknown) Result panel 9 (unknown) (no date) (unknown) (unknown) (no value) (units unknown) (unknown) (unknown) (no date) (unknown) (unknown) (1) Essential hypertension: (units unknown) (unknown) (unknown) (no date) (unknown) (unknown) (2) Mixed hyperlipidemia: (units unknown) (unknown) (unknown) (no date) (unknown) (unknown) (3) GERD witho ut esophagitis: (units unknown) (unknown) (unknown) (no date) (unknown) (unknown) (4) Depression , major, recurrent: (units unknown) (unknown) (unknown) (no date) (unknown) (unknown) (5) Generalize d anxiety disorder: (units unknown) (unknown) (unknown) (no date) (unknown) (unknown) (6) Chronic insomnia : (units unknown) (unknown) (unknown) (no date) (unknown) (unknown) (7) 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: (units unknown) (unknown) (unknown) (no date) (unknown) (unknown) (8) Irritable bowel syndrome: (units unknown) (unknown) (unknown) (no date) (unknown) (unknown) (9) Screening for colon cancer: (units unknown) (unknown) (unknown) (no date) (unknown) (unknown) * Study phase: Keep a sleep diary for 2 weeks and calculate the average total (units unknown) (unknown) (unknown) (no date) (unknown) (unknown) * Treatment ph ase: Spend that amount of time in bed, keeping the arising time (units unknown) (unknown) (unknown) (no date) (unknown) (unknown) - Encounter fo r screening for malignant neoplasm of colon (units unknown) (unknown) (unknown) (no date) (unknown) (unknown) (units unknown) (unknown) (unknown) (no date) (unknown) (unknown) 02/14/23 1512 (units unknown) (unknown) (unknown) (no date) (unknown) (unknown) 02/14/23 (units unknown) (unknown) (unknown) (no date) (unknown) (unknown) 02/14/23] (units unknown) (unknown) (unknown) (no date) (unknown) (unknown) [id number] (units unknown) (unknown) (unknown) (no date) (unknown) (unknown) 1-2 tablets as needed nightly for sleep 50 mg PO BEDTIME PRN 60 tabs 5RF (units unknown) (unknown) (unknown) (no date) (unknown) (unknown) 10mg /2 table t twice weekly or Benedryl on other nights. She has been on (units unknown) (unknown) (unknown) (no date) (unknown) (unknown) 14:46 02/14/23 (unit s unknown) (unknown) (unknown) (no date) (unknown) (unknown) 14:47 (units unknown) (unknown) (unknown) (no date) (unknown) (unknown) 2.5, left FN - 2.2, right FN -2.4. She takes BoneUp BID. (units unknown) (unknown) (unknown) (no date) (unknown) (unknown) 22 (units unknown) (unknown) (unknown) (no date) (unknown) (unknown) 25-Hydroxy Vit torres D Total 41.9 ng/mL (30.0-100.0) 08/05/22 (units unknown) (unknown) (unknown) (no date) (unknown) (unknown) 02/09 (units unknown) (unknown) (unknown) (no date) (unknown) (unknown) 04/11 (units unknown) (unknown) (unknown) (no date) (unknown) (unknown) 08/05/22 (units unknown) (unknown) (unknown) (no date) (unknown) (unknown) AWV 08/05/2022 (units unknown) (unknown) (unknown) (no date) (unknown) (unknown) Active/Remissi on status: currently active Major depression episode (units unknown) (unknown) (unknown) (no date) (unknown) (unknown) Age-related osteoporosis without current pathological fracture (units unknown) (unknown) (unknown) (no date) (unknown) (unknown) Age/Sex: 82 / F Date of Service: (units unknown) (unknown) (unknown) (no date) (unknown) (unknown) Alanine Aminotransferase (ALT/SGPT) 22 IU/L (<35) 09/22 (units unknown) (unknown) (unknown) (no date) (unknown) (unknown) Albumin 4.7 g/ dL (3.5-5.0) 10/13/22 (units unknown) (unknown) (unknown) (no date) (unknown) (unknown) Albumin/Globul in Ratio 1.7 (1.0-2.8) 10/13/22 (units unknown) (unknown) (unknown) (no date) (unknown) (unknown) Alkaline Phosp hatase 62 U/L (38-126) 10/13/22 (units unknown) (unknown) (unknown) (no date) (unknown) (unknown) All systems re viewed + are unremarkable except as noted in HPI and below (units unknown) (unknown) (unknown) (no date) (unknown) (unknown) Allergies (units unknown) (unknown) (unknown) (no date) (unknown) (unknown) [place] [address] (units unknown) (unknown) (unknown) (no date) (unknown) (unknown) Anesthesia (units unknown) (unknown) (unknown) (no date) (unknown) (unknown) Anxiety disord er, unspecified, M81.0 - Age-related osteoporosis without current (units unknown) (unknown) (unknown) (no date) (unknown) (unknown) Anxiety: The p atient reports symptoms are well controlled on current therapy (units unknown) (unknown) (unknown) (no date) (unknown) (unknown) Aspartate Torres o Transf (AST/SGOT) 25 IU/L (14-36) 10/13/ (units unknown) (unknown) (unknown) (no date) (unknown) (unknown) Assessment + Plan (u nits unknown) (unknown) (unknown) (no date) (unknown) (unknown) Assessment and Plan: (units unknown) (unknown) (unknown) (no date) (unknown) (unknown) Attending Dr: Nicholas Guevara MD (units unknown) (unknown) (unknown) (no date) (unknown) (unknown) BMI 26.9 (units unknown) (unknown) (unknown) (no date) (unknown) (unknown) BP 140/80 144/70 H ( units unknown) (unknown) (unknown) (no date) (unknown) (unknown) BUN/Creatinine Ratio 21.7 (6-22) 10/13/22 (units unknown) (unknown) (unknown) (no date) (unknown) (unknown) Blood Pressure Location Lt brachial Lt brachial (units unknown) (unknown) (unknown) (no date) (unknown) (unknown) Blood Urea Nit rogen 15 mg/dL (7-17) 10/13/22 (units unknown) (unknown) (unknown) (no date) (unknown) (unknown) CARDIOVASCULAR : Regular rate and rhythm without murmurs, gallops, or rubs. (units unknown) (unknown) (unknown) (no date) (unknown) (unknown) Calcium Level 9.7 mg/dL (8.4-10.2) 10/13/22 (units unknown) (unknown) (unknown) (no date) (unknown) (unknown) Carbon Dioxide Level 28 mmol/L (22-32) 10/13/22 (units unknown) (unknown) (unknown) (no date) (unknown) (unknown) Chicken pox (-1943) (units unknown) (unknown) (unknown) (no date) (unknown) (unknown) Chief Complaint (uni ts unknown) (unknown) (unknown) (no date) (unknown) (unknown) Chief Complain t: Medical followup (units unknown) (unknown) (unknown) (no date) (unknown) (unknown) Chloride Level 101 mmol/L (98-107) 10/13/22 (units unknown) (unknown) (unknown) (no date) (unknown) (unknown) Cholesterol [place] 257 mg/dL (140-199) H 08/05/22 (units unknown) (unknown) (unknown) (no date) (unknown) (unknown) Chronic insomnia (un its unknown) (unknown) (unknown) (no date) (unknown) (unknown) Clinically sta ble. Continue current plan. (units unknown) (unknown) (unknown) (no date) (unknown) (unknown) Common Lab Res ults- Last: (units unknown) (unknown) (unknown) (no date) (unknown) (unknown) Comprehensive Metabolic Panel Today E78.2 - Mixed hyperlipidemia, F41.9 (units unknown) (unknown) (unknown) (no date) (unknown) (unknown) Confirmed 02/14/23] (units unknown) (unknown) (unknown) (no date) (unknown) (unknown) Const (units unknown) (unknown) (unknown) (no date) (unknown) (unknown) Creatinine 0.6 9 mg/dL (0.52-1.04) 10/13/22 (units unknown) (unknown) (unknown) (no date) (unknown) (unknown) DERMATOLOGIC: No rashes or skin lesions. (units unknown) (unknown) (unknown) (no date) (unknown) (unknown) : 2 Acct:[id number] (units unknown) (unknown) (unknown) (no date) (unknown) (unknown) Depression, ma bernie, recurrent (units unknown) (unknown) (unknown) (no date) (unknown) (unknown) Dept at . (units unknown) (unknown) (unknown) (no date) (unknown) (unknown) Details: (units unknown) (unknown) (unknown) (no date) (unknown) (unknown) Discontinued R radha: Provider's Order 10 mg PO BEDTIME PRN 45 tabs 1RF (units unknown) (unknown) (unknown) (no date) (unknown) (unknown) Discontinued (units unknown) (unknown) (unknown) (no date) (unknown) (unknown) Discuss/review. (uni ts unknown) (unknown) (unknown) (no date) (unknown) (unknown) Documented By: Nicholas Guevara MD 02/14/23 1247 (units unknown) (unknown) (unknown) (no date) (unknown) (unknown) ENT: Mucous me mbranes pink and moist. (units unknown) (unknown) (unknown) (no date) (unknown) (unknown) EXTREMITIES: N o clubbing, cyanosis, or edema. (units unknown) (unknown) (unknown) (no date) (unknown) (unknown) EYES: Pupils e qual round and reactive. Extraocular motions intact. No scleral (units unknown) (unknown) (unknown) (no date) (unknown) (unknown) Essential hypertension (units unknown) (unknown) (unknown) (no date) (unknown) (unknown) Estimat Glomer ular Filtration Rate > 60 mL/min (>60) 10/13 (units unknown) (unknown) (unknown) (no date) (unknown) (unknown) Exam Narrative (unit s unknown) (unknown) (unknown) (no date) (unknown) (unknown) Exam Narrative: (uni ts unknown) (unknown) (unknown) (no date) (unknown) (unknown) Exam (units unknown) (unknown) (unknown) (no date) (unknown) (unknown) Family History (units unknown) (unknown) (unknown) (no date) (unknown) (unknown) Family/Other D eceased Accident (units unknown) (unknown) (unknown) (no date) (unknown) (unknown) Father d Accident (units unknown) (unknown) (unknown) (no date) (unknown) (unknown) [facility] (units unknown) (unknown) (unknown) (no date) (unknown) (unknown) Follow up for medication check up. (units unknown) (unknown) (unknown) (no date) (unknown) (unknown) Followup in 6 months for your annual wellness visit. (units unknown) (unknown) (unknown) (no date) (unknown) (unknown) For example, i f you determine that your total time asleep is 6 hours per night (units unknown) (unknown) (unknown) (no date) (unknown) (unknown) For general?bone?health to prevent or manage osteoporosis or osteopenia, (units unknown) (unknown) (unknown) (no date) (unknown) (unknown) For your chron ic difficulty with sleep (insomnia), practice good sleep hygeine. (units unknown) (unknown) (unknown) (no date) (unknown) (unknown) Fractures (units unknown) (unknown) (unknown) (no date) (unknown) (unknown) GASTROINTESTIN AL: Abdomen soft, non-tender, nondistended. (units unknown) (unknown) (unknown) (no date) (unknown) (unknown) GENERAL: This is a well-nourished, well-developed patient, in no apparent (units unknown) (unknown) (unknown) (no date) (unknown) (unknown) GERD without esophagitis (units unknown) (unknown) (unknown) (no date) (unknown) (unknown) Gastroesophage al reflux disease: The patient denies abdominal or flank pain, (units unknown) (unknown) (unknown) (no date) (unknown) (unknown) Generalized an xiety disorder (units unknown) (unknown) (unknown) (no date) (unknown) (unknown) Globulin 2.8 g /dL (1.7-4.1) 10/13/22 (units unknown) (unknown) (unknown) (no date) (unknown) (unknown) Glucose Level 92 mg/dL (80-110) 10/13/22 (units unknown) (unknown) (unknown) (no date) (unknown) (unknown) Gradually incr ease your sleep time by 15 minutes as long as the sleep efficiency (units unknown) (unknown) (unknown) (no date) (unknown) (unknown) Grandfather De ceased Cancer (units unknown) (unknown) (unknown) (no date) (unknown) (unknown) Grandmother De ceased Stroke (units unknown) (unknown) (unknown) (no date) (unknown) (unknown) H/O total hysterectomy (units unknown) (unknown) (unknown) (no date) (unknown) (unknown) HDL Cholestero l 79 mg/dL (40-60) H 08/05/22 (units unknown) (unknown) (unknown) (no date) (unknown) (unknown) HPI (units unknown) (unknown) (unknown) (no date) (unknown) (unknown) Health Managem ent reviewed with patient: Yes (units unknown) (unknown) (unknown) (no date) (unknown) (unknown) Health Management (u nits unknown) (unknown) (unknown) (no date) (unknown) (unknown) Height 4 ft 10.5 in (units unknown) (unknown) (unknown) (no date) (unknown) (unknown) Hematocrit 40. 7 % (36-46) 08/05/22 (units unknown) (unknown) (unknown) (no date) (unknown) (unknown) Hemoglobin 13. 9 g/dL (12.0-16.0) 08/05/22 (units unknown) (unknown) (unknown) (no date) (unknown) (unknown) History of florian dder surgery (units unknown) (unknown) (unknown) (no date) (unknown) (unknown) History of car pal tunnel release (units unknown) (unknown) (unknown) (no date) (unknown) (unknown) Hyperlipidemia : The present medications include rosuvastatin. The patient (units unknown) (unknown) (unknown) (no date) (unknown) (unknown) Hypertension: The patient is currently on amlodipine for blood pressure (units unknown) (unknown) (unknown) (no date) (unknown) (unknown) If this fails to solve your problem, a program of sleep restriction that limits (units unknown) (unknown) (unknown) (no date) (unknown) (unknown) Inadequately controlled. Advise: Increase amlodipine to 10mg daily. (units unknown) (unknown) (unknown) (no date) (unknown) (unknown) Inadequately controlled. Advise: Switch pravastatin to rosuvastatin. (units unknown) (unknown) (unknown) (no date) (unknown) (unknown) Insomnia: The patient states symptoms are adequately controlled with zolpidem (units unknown) (unknown) (unknown) (no date) (unknown) (unknown) Intake Note: (units unknown) (unknown) (unknown) (no date) (unknown) (unknown) Intake perform ed by: Viji Santos (units unknown) (unknown) (unknown) (no date) (unknown) (unknown) Intake (units unknown) (unknown) (unknown) (no date) (unknown) (unknown) Intake- Maryellen al Staff (units unknown) (unknown) (unknown) (no date) (unknown) (unknown) Internal Medic ine Office Visit (units unknown) (unknown) (unknown) (no date) (unknown) (unknown) 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 (units unknown) (unknown) (unknown) (no date) (unknown) (unknown) LDL Cholestero l, Calculated 157 mg/dL (<100) H 08/05/22 (units unknown) (unknown) (unknown) (no date) (unknown) (unknown) Lab Results (units unknown) (unknown) (unknown) (no date) (unknown) (unknown) Labwork is ord ered today to evaluate your condition. Results will be posted to (units unknown) (unknown) (unknown) (no date) (unknown) (unknown) Last Menstural Cycle + Details (units unknown) (unknown) (unknown) (no date) (unknown) (unknown) Let us know if you have any problems. (units unknown) (unknown) (unknown) (no date) (unknown) (unknown) Lipid Panel To day E78.2 - Mixed hyperlipidemia, F41.9 - Anxiety disorder, (units unknown) (unknown) (unknown) (no date) (unknown) (unknown) Loc: [facility] (units unknown) (unknown) (unknown) (no date) (unknown) (unknown) Major depressi on:? The patient reports good compliance with escitalopram, and (units unknown) (unknown) (unknown) (no date) (unknown) (unknown) Mean Corpuscul ar Hemoglobin 30.4 PG (26-34) 08/05/22 (units unknown) (unknown) (unknown) (no date) (unknown) (unknown) Mean Corpuscul ar Hemoglobin Concent 34.1 % (30-36) 07/22 (units unknown) (unknown) (unknown) (no date) (unknown) (unknown) Mean Corpuscul ar Volume 89.2 fL (80-100) 08/05/22 (units unknown) (unknown) (unknown) (no date) (unknown) (unknown) Measles (-1943) (uni ts unknown) (unknown) (unknown) (no date) (unknown) (unknown) Medical Histor y (Updated 02/14/23 @ 15:09 by Nicholas Guevara MD) (units unknown) (unknown) (unknown) (no date) (unknown) (unknown) Medications (units unknown) (unknown) (unknown) (no date) (unknown) (unknown) Medications: (units unknown) (unknown) (unknown) (no date) (unknown) (unknown) Mixed hyperlipidemia (units unknown) (unknown) (unknown) (no date) (unknown) (unknown) Mother d Stroke (units unknown) (unknown) (unknown) (no date) (unknown) (unknown) NECK: Trachea midline. No JVD, bruits or lymphadenopathy. Supple, nontender, no (units unknown) (unknown) (unknown) (no date) (unknown) (unknown) NEUROLOGIC: Al ert, oriented, speech fluent, full upper and lower motor strength, (units unknown) (unknown) (unknown) (no date) (unknown) (unknown) New diagnosis. Inadequately controlled. Advise: Reclast annually or alendronate. (units unknown) (unknown) (unknown) (no date) (unknown) (unknown) New (units unknown) (unknown) (unknown) (no date) (unknown) (unknown) Orders (units unknown) (unknown) (unknown) (no date) (unknown) (unknown) Orders: (units unknown) (unknown) (unknown) (no date) (unknown) (unknown) Osteoporosis: The patient has osteoporosis by DEXA 08/11/2022: AP spine T-score (units unknown) (unknown) (unknown) (no date) (unknown) (unknown) Other Menstrua l Period: Surgical Menopause (hysterectomy) (units unknown) (unknown) (unknown) (no date) (unknown) (unknown) Oxygen Deliver y Method room air (units unknown) (unknown) (unknown) (no date) (unknown) (unknown) PFSH (units unknown) (unknown) (unknown) (no date) (unknown) (unknown) Patient: Angle Carranza MR#: [id number] (units unknown) (unknown) (unknown) (no date) (unknown) (unknown) Penicillins Ad verse Reaction (Severe, Verified 02/14/23 13:36) (units unknown) (unknown) (unknown) (no date) (unknown) (unknown) Plan (units unknown) (unknown) (unknown) (no date) (unknown) (unknown) Platelet Count 188 X103/uL (150-400) 08/05/22 (units unknown) (unknown) (unknown) (no date) (unknown) (unknown) Position Sitti ng Sitting (units unknown) (unknown) (unknown) (no date) (unknown) (unknown) Potassium Leve l 4.5 mmol/L (3.4-5.1) 10/13/22 (units unknown) (unknown) (unknown) (no date) (unknown) (unknown) Pulse 87 (units unknown) (unknown) (unknown) (no date) (unknown) (unknown) Pulse Oximetry (%) 9 7 (units unknown) (unknown) (unknown) (no date) (unknown) (unknown) Pulse Source Monitor (units unknown) (unknown) (unknown) (no date) (unknown) (unknown) Qualifiers: (units unknown) (unknown) (unknown) (no date) (unknown) (unknown) RESPIRATORY: C lear to auscultation. (units unknown) (unknown) (unknown) (no date) (unknown) (unknown) ROS (units unknown) (unknown) (unknown) (no date) (unknown) (unknown) Rash (units unknown) (unknown) (unknown) (no date) (unknown) (unknown) Reason For Visit (un its unknown) (unknown) (unknown) (no date) (unknown) (unknown) Recent lab jim english reviewed. (units unknown) (unknown) (unknown) (no date) (unknown) (unknown) Reclast infusi on is advised annually. We will call to arrange this. (units unknown) (unknown) (unknown) (no date) (unknown) (unknown) Red Blood Coun t 4.56 X106/uL (4.0-5.2) 08/05/22 (units unknown) (unknown) (unknown) (no date) (unknown) (unknown) Red Cell Distr ibution Width 13.6 % (11.6-14.8) 08/05/22 (units unknown) (unknown) (unknown) (no date) (unknown) (unknown) Referral Colon oscopy K58.9 - Irritable bowel syndrome without diarrhea, Z12.11 (units unknown) (unknown) (unknown) (no date) (unknown) (unknown) Referrals (units unknown) (unknown) (unknown) (no date) (unknown) (unknown) Relaxation taylor hniques such as diaphragmatic breathing, visualization, mindful (units unknown) (unknown) (unknown) (no date) (unknown) (unknown) S/P renal miguelito ry angioplasty (-2005) (units unknown) (unknown) (unknown) (no date) (unknown) (unknown) She prefers th e once yearly infusion after a discussion today. (units unknown) (unknown) (unknown) (no date) (unknown) (unknown) She wishes a colonoscopy. (units unknown) (unknown) (unknown) (no date) (unknown) (unknown) Signed By: <Electronically signed by Nicholas Guevara MD> (units unknown) (unknown) (unknown) (no date) (unknown) (unknown) Signed (units unknown) (unknown) (unknown) (no date) (unknown) (unknown) Smoking Status : Never smoker (units unknown) (unknown) (unknown) (no date) (unknown) (unknown) Sodium Level 1 37 mmol/L (137-145) 10/13/22 (units unknown) (unknown) (unknown) (no date) (unknown) (unknown) Status: Acute (units unknown) (unknown) (unknown) (no date) (unknown) (unknown) Sulfa (Sulfona mide Antibiotics) Allergy (Mild, Verified 02/14/23 13:36) (units unknown) (unknown) (unknown) (no date) (unknown) (unknown) Surgical Histo ry (units unknown) (unknown) (unknown) (no date) (unknown) (unknown) This note may have been all or partially generated using voice recognition (units unknown) (unknown) (unknown) (no date) (unknown) (unknown) Thyroid Stimul ating Hormone (TSH) 2.03 uIU/mL (0.47-4.68) 0 (units unknown) (unknown) (unknown) (no date) (unknown) (unknown) Tobacco + Subs tance Use (units unknown) (unknown) (unknown) (no date) (unknown) (unknown) Tobacco Status (unit s unknown) (unknown) (unknown) (no date) (unknown) (unknown) Total Bilirubi n 0.6 mg/dL (0.2-1.3) 10/13/22 (units unknown) (unknown) (unknown) (no date) (unknown) (unknown) Total Protein 7.5 g/dL (6.3-8.2) 10/13/22 (units unknown) (unknown) (unknown) (no date) (unknown) (unknown) Triglycerides Level 105 mg/dL (35-150) 08/05/22 (units unknown) (unknown) (unknown) (no date) (unknown) (unknown) Visit Reasons: 3 mo f/u (units unknown) (unknown) (unknown) (no date) (unknown) (unknown) Vitals (units unknown) (unknown) (unknown) (no date) (unknown) (unknown) Wean down off any sleeping pills you are taking as these are associated with (units unknown) (unknown) (unknown) (no date) (unknown) (unknown) Weight 131 lb (units unknown) (unknown) (unknown) (no date) (unknown) (unknown) Well-controlle d. Continue current medications. (units unknown) (unknown) (unknown) (no date) (unknown) (unknown) White Blood Co unt 4.1 X103/uL (4.5-11.0) L 08/05/22 (units unknown) (unknown) (unknown) (no date) (unknown) (unknown) You may TRY: Trazodone 50mg 1/2 tablet nightly. You may increase up to 1-2 (units unknown) (unknown) (unknown) (no date) (unknown) (unknown) Your medical condition appears stable at this point. Continue your current (units unknown) (unknown) (unknown) (no date) (unknown) (unknown) about 35 minut es daily. (units unknown) (unknown) (unknown) (no date) (unknown) (unknown) alprazolam 0.2 5 mg tablet 0.25 mg PO DAILY PRN anxiety #20 tabs 08/05/22 [Rx (units unknown) (unknown) (unknown) (no date) (unknown) (unknown) amlodipine 10 mg tablet 10 mg PO DAILY #90 tabs 10/13/22 [Rx Confirmed 02/14/23] (units unknown) (unknown) (unknown) (no date) (unknown) (unknown) and then yan magallanes increases the time in bed for sleep, and utilizes the concept (units unknown) (unknown) (unknown) (no date) (unknown) (unknown) and was advise d to have a colonoscopy. (units unknown) (unknown) (unknown) (no date) (unknown) (unknown) and your amykin g time as 6:00 AM, then your bedtime would be 12:00 AM, even if (units unknown) (unknown) (unknown) (no date) (unknown) (unknown) anorexia, naus ea or vomiting, dysphagia, change in bowel habits or black or (units unknown) (unknown) (unknown) (no date) (unknown) (unknown) ay occur. Occa sional wrong-word or 'sound-alike' substitutions may have (units unknown) (unknown) (unknown) (no date) (unknown) (unknown) bloody stools. The patient is currently taking lansoprazole for gastroesophageal (units unknown) (unknown) (unknown) (no date) (unknown) (unknown) constant. (units unknown) (unknown) (unknown) (no date) (unknown) (unknown) control.? The patient is tolerating the medication without side effects (units unknown) (unknown) (unknown) (no date) (unknown) (unknown) daily, as well as weight-bearing activity (e.g., walking) for bone health. (units unknown) (unknown) (unknown) (no date) (unknown) (unknown) denies adverse side effects to the medication, and denies feeling depressed, (units unknown) (unknown) (unknown) (no date) (unknown) (unknown) distress. (units unknown) (unknown) (unknown) (no date) (unknown) (unknown) erythromycin b ase Adverse Reaction (Severe, Verified 02/14/23 13:36) (units unknown) (unknown) (unknown) (no date) (unknown) (unknown) escitalopram o xalate 20 mg tablet 30 mg PO DAILY #135 tabs 10/13/22 [Rx (units unknown) (unknown) (unknown) (no date) (unknown) (unknown) fracture (units unknown) (unknown) (unknown) (no date) (unknown) (unknown) good motivatio n. PHQ-9 score = 3/27. FRANK-7 score = 0/21. (units unknown) (unknown) (unknown) (no date) (unknown) (unknown) have occurred. If there are any questions, please contact the Medical Records (units unknown) (unknown) (unknown) (no date) (unknown) (unknown) icterus. No in jection or drainage. 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 (units unknown) (unknown) (unknown) (no date) (unknown) (unknown) maintain intak e of calcium 1500mg daily (preferably mostly from dietary sources (units unknown) (unknown) (unknown) (no date) (unknown) (unknown) medications. (units unknown) (unknown) (unknown) (no date) (unknown) (unknown) meditation and progressive muscle relaxation can also be helpful. (units unknown) (unknown) (unknown) (no date) (unknown) (unknown) meningeal signs. (un its unknown) (unknown) (unknown) (no date) (unknown) (unknown) mild (units unknown) (unknown) (unknown) (no date) (unknown) (unknown) mouth sores (units unknown) (unknown) (unknown) (no date) (unknown) (unknown) nausea (units unknown) (unknown) (unknown) (no date) (unknown) (unknown) no focal defic its evident. (units unknown) (unknown) (unknown) (no date) (unknown) (unknown) occurred due t o the inherent limitations of voice recognition software. Please (units unknown) (unknown) (unknown) (no date) (unknown) (unknown) of sleep effic iency (total sleep time divided by total time in bed). (units unknown) (unknown) (unknown) (no date) (unknown) (unknown) paroxysmal noc turnal dyspnea, pedal edema, or TIA symptoms. She walks her dog (units unknown) (unknown) (unknown) (no date) (unknown) (unknown) pathological fractur e (units unknown) (unknown) (unknown) (no date) (unknown) (unknown) read the note carefully and recognize, using context, where these substitutions (units unknown) (unknown) (unknown) (no date) (unknown) (unknown) reflux disease at this time. (units unknown) (unknown) (unknown) (no date) (unknown) (unknown) reported, and denies exertional or other chest pain, dyspnea, orthopnea, (units unknown) (unknown) (unknown) (no date) (unknown) (unknown) reports good compliance and denies any chest pain, exertional or otherwise. (units unknown) (unknown) (unknown) (no date) (unknown) (unknown) rosuvastatin 2 0 mg tablet 20 mg PO DAILY #100 tabs 11/09/22 [Rx Confirmed (units unknown) (unknown) (unknown) (no date) (unknown) (unknown) severity: mild Qualified Code(s): F33.0 - Major depressive disorder, recurrent, (units unknown) (unknown) (unknown) (no date) (unknown) (unknown) sleep time per day. (units unknown) (unknown) (unknown) (no date) (unknown) (unknown) sleep (units unknown) (unknown) (unknown) (no date) (unknown) (unknown) sleeping medic ation for the past several years. (units unknown) (unknown) (unknown) (no date) (unknown) (unknown) software. Alth ough every effort is made to edit content, pathology laboratory technologist errors m (units unknown) (unknown) (unknown) (no date) (unknown) (unknown) such as dairy, lean meats and leafy green vegetables) and vitamin D3 1000 units (units unknown) (unknown) (unknown) (no date) (unknown) (unknown) tables nightly as needed, in place of zolpidem and Benedryl. (units unknown) (unknown) (unknown) (no date) (unknown) (unknown) the patient po rtal. Let us know if you have any questions or concerns. (units unknown) (unknown) (unknown) (no date) (unknown) (unknown) time). (units unknown) (unknown) (unknown) (no date) (unknown) (unknown) trazodone 50 m g tablet 50 mg PO BEDTIME PRN sleep #60 tabs 02/14/23 [Rx (units unknown) (unknown) (unknown) (no date) (unknown) (unknown) trazodone (units unknown) (unknown) (unknown) (no date) (unknown) (unknown) unspecified, M 81.0 - Age-related osteoporosis without current pathological (units unknown) (unknown) (unknown) (no date) (unknown) (unknown) with rare alprazolam . (units unknown) (unknown) (unknown) (no date) (unknown) (unknown) withdrawal, or trouble with memory, focus, or concentration. The patient has (units unknown) (unknown) (unknown) (no date) (unknown) (unknown) you tired befo re that time. (units unknown) (unknown) (unknown) (no date) (unknown) (unknown) zolpidem (units unknown) (unknown) Result panel 10 (unknown) (no date) (unknown) (unknown) > 60 ml/min (unknown ) (unknown) (no date) (unknown) (unknown) > 60 ml/min (unknown ) (unknown) (no date) (unknown) (unknown) 0.5 mg/dl (unknown ) (unknown) (no date) (unknown) (unknown) 0.70 mg/dl (unknown ) (unknown) (no date) (unknown) (unknown) 1.6 (units unknown) (unknown) (unknown) (no date) (unknown) (unknown) 10.0 mg/dl (unknown ) (unknown) (no date) (unknown) (unknown) 102 mmol/l (unknown ) (unknown) (no date) (unknown) (unknown) 113 mg/dl (unknown ) (unknown) (no date) (unknown) (unknown) 113 mg/dl (unknown ) (unknown) (no date) (unknown) (unknown) 138 mmol/l (unknown ) (unknown) (no date) (unknown) (unknown) 16 mg/dl (unknown ) (unknown) (no date) (unknown) (unknown) 2.9 g/dl (unknown ) (unknown) (no date) (unknown) (unknown) 214 mg/dl (unknown ) (unknown) (no date) (unknown) (unknown) 214 mg/dl (unknown ) (unknown) (no date) (unknown) (unknown) 22.9 (units unknown) (unknown) (unknown) (no date) (unknown) (unknown) 252 mg/dl (unknown ) (unknown) (no date) (unknown) (unknown) 252 mg/dl (unknown ) (unknown) (no date) (unknown) (unknown) 27 mmol/l (unknown ) (unknown) (no date) (unknown) (unknown) 28 iu/l (unknown ) (unknown) (no date) (unknown) (unknown) 3.9 mmol/l (unknown ) (unknown) (no date) (unknown) (unknown) 30 iu/l (unknown ) (unknown) (no date) (unknown) (unknown) 4.7 g/dl (unknown ) (unknown) (no date) (unknown) (unknown) 65 mg/dl (unknown ) (unknown) (no date) (unknown) (unknown) 65 mg/dl (unknown ) (unknown) (no date) (unknown) (unknown) 69 u/l (unknown ) (unknown) (no date) (unknown) (unknown) 7.6 g/dl (unknown ) (unknown) (no date) (unknown) (unknown) 99 mg/dl (unknown ) (unknown) (no date) (unknown) (unknown) 99 mg/dl (unknown ) Social History date description facility 2023-02-14 00:00 Never smoked tobacco ([facility] Vital Signs date measurement value units 2023-02-14 00:00 BMI 26.9 kg/m2 2023-02-14 00:00 BP_diastolic 70 mmHg 2023-02-14 00:00 BP_systolic 144 mmHg 2023-02-14 00:00 heart_rate 87 /min 2023-02-14 00:00 height_metric 148.59 cm 2023-02-14 00:00 height_standard 58.5 in 2023-02-14 00:00 o2_saturation 97 % 2023-02-14 00:00 weight_metric 59.42 kg 2023-02-14 00:00 weight_standard 131 lb 2023-03-16 00:00 BMI 28.02 kg/m2 2023-03-16 00:00 BP_diastolic 74 mmHg 2023-03-16 00:00 BP_systolic 150 mmHg 2023-03-16 00:00 heart_rate 84 /min 2023-03-16 00:00 height_metric 146.99 cm 2023-03-16 00:00 height_standard 57.87 in 2023-03-16 00:00 respiration_rate 16 /min 2023-03-16 00:00 temperature_metric 36.44 C 2023-03-16 00:00 temperature_standard 97.6 F 2023-03-16 00:00 weight_metric 60.33 kg 2023-03-16 00:00 weight_standard 133 lb
--- NOTE | 2023-04-07 13:50 | ED Physician Documentation ---
History of Present Illness - Stated complaint Stated Complaint: LOWER BACK PX - Chief complaint Chief Complaint: Back Pain - Additonal information Additional information: 82-year-old female who has a history of hypertension and right renal arterial stenting about 10 years ago at [facility] presents to the emergency department for sudden bilateral CVA pain that she described as sharp and severe. It lasted a few minutes. She states that for the last several weeks she has been dealing with some low back pain and intermittent swelling of her lower extremities especially at the end of the day. She is not anticoagulated. Meds include Lexapro, a statin and an antihypertensive. She denies any fevers, dysuria urgency or frequency. No cough. No hematuria. Past surgical history includes total abdominal hysterectomy, bladder lift and the renal arterial stenting right side Review of Systems Constitutional: denies: Fever, Chills Eyes: reports: Reviewed and negative Nose: reports: Reviewed and negative Throat: reports: Reviewed and negative Cardiac: reports: Reviewed and negative Respiratory: reports: Reviewed and negative GI: reports: Abdominal Pain, Reviewed and negative : reports: Reviewed and negative Skin: reports: Reviewed and negative Musculoskeletal: reports: Back pain Neurologic: reports: Reviewed and negative PD PAST MEDICAL HISTORY - Past Medical History Cardiovascular: Hypertension, High cholesterol, Peripheral Vascular Disease Respiratory: None Endocrine/Autoimmune: None GI: GERD, Diverticulitis [employer]: None : None Psych: Depression, Anxiety Musculoskeletal: Osteoporosis Derm: None - Past Surgical History Past Surgical History: Yes Ortho: Carpal Tunnel surgery /[employer]: Hysterectomy HEENT: Tonsil/Adenoidectomy - Present Medications Home Medications: Ambulatory Orders Medication Instructions Recorded Confirmed Escitalopram Oxalate [Lexapro] 40 mg PO DAILY 06/07/15 02/20/23 Pravastatin Sodium 20 mg PO DAILY 06/07/15 02/20/23 diazePAM [Valium] 5 - 10 mg PO TID PRN #15 tablet 03/28/19 02/20/23 Amlodipine Besylate [Norvasc] mg PO DAILY 02/20/23 02/20/23 cephALEXin [Keflex] 500 mg PO BID #14 cap 04/07/23 - Allergies Allergies/Adverse Reactions: Allergies Allergy/AdvReac Type Severity Reaction Status Date / Time Penicillins Allergy Unknown Verified 04/07/23 13:21 Sulfa (Sulfonamide Allergy Unknown Verified 04/07/23 13:21 Antibiotics) - Social History Does the pt smoke?: No Smoking Status: Never smoker Does the pt drink ETOH?: Yes Does the pt have substance abuse?: No - Immunizations Immunizations are current?: Yes - POLST Patient has POLST: No PD ED PE NORMAL - General General: Alert and oriented X 3, No acute distress, Well developed/nourished - HEENT HEENT: Atraumatic, Moist mucous membranes - Neck Neck: Supple, no meningeal sign - Cardiac Cardiac: RRR, No murmur - Respiratory Respiratory: No respiratory distress, Clear bilaterally - Abdomen Abdomen: Normal bowel sounds, Soft. No: Non tender - Back Back: No: No CVA TTP (Mild bilateral CVA tenderness with palpation.) - Derm Derm: Normal color, Warm and dry - Extremities Extremities: No deformity - Neuro Neuro: Alert and oriented X 3, spooler operator 2-12 intact Eye Opening: Spontaneous Motor: Obeys Commands Verbal: Oriented GCS Score: 15 Results - Vitals Vitals: Vital Signs - 24 hr 04/07/23 13:14 Temperature 36.4 C L Heart Rate 80 Respiratory 17 Rate Blood Pressure 141/70 H O2 Saturation 97 Oxygen O2 Source Room air - Labs Labs: Laboratory Tests 04/07/23 04/07/23 04/07/23 13:30 13:53 13:53 WBC 4.3 L RBC 4.40 Hgb 13.1 Hct 39.5 MCV 89.8 MCH 29.8 MCHC 33.2 RDW 13.3 Plt Count 223 MPV 11.0 H Neut # (Auto) 2.3 Lymph # (Auto) 1.5 Crisp # (Auto) 0.5 Eos # (Auto) 0.1 Baso # (Auto) 0.1 Absolute Nucleated RBC 0.00 Nucleated RBC % 0.0 Sodium 139 Potassium 3.8 Chloride 102 Carbon Dioxide 25 Anion Gap 12.0 BUN 14 Creatinine 0.7 Estimated GFR (MDRD) 81 L Glucose 97 Calcium 9.5 Total Bilirubin 0.6 AST 25 ALT 24 Alkaline Phosphatase 54 Total Protein 8.0 Albumin 5.0 Globulin 3.0 Albumin/Globulin Ratio 1.7 Lipase 37 Urine Color YELLOW Urine Clarity CLEAR Urine pH 5.5 Ur Specific Brant 1.025 Urine Protein TRACE Urine Glucose (UA) NEGATIVE Urine Ketones NEGATIVE Urine Occult Blood NEGATIVE Urine Nitrite NEGATIVE Urine Bilirubin NEGATIVE Urine Urobilinogen 0.2 (NORMAL) Ur Leukocyte Esterase MODERATE H Urine RBC 0-5 Urine WBC 6-10 H Ur Squamous Epith Cells NONE SEEN Urine Bacteria Few Ur Microscopic Review INDICATED Urine Culture Comments INDICATED - Rads (name of study) CT abd w Relevant Findings:: Final report received (No visualized cause to CVA pain. Stable appearance of low-attenuation hepatic and renal foci most suggestive of simple cysts) PD Medical Decision Making - ED course Complexity details: reviewed results, re-evaluated patient, considered differential, d/w patient ED course: 82-year-old female presents emergency department for evaluation of sudden severe bilateral CVA pain that came out of nowhere. She does have a history of right renal arterial stenting secondary to hypertension. This occurred about 10 years ago since then she has been on low-dose blood pressure medications with reasonable control of her blood pressure. She has had no fevers. No abdominal pain. I did obtain CBC, electrolytes and urinalysis. The UA is consistent with an infection. CT of the abdomen was completed and per the radiologist no acute findings to suggest obstructing stone or pyelonephritis. I discussed the findings with the patient. She will be started on Keflex. Advised close follow-up with her PCP. The usual emergent return precautions for worsening symptoms were discussed Departure - Departure Disposition: 01 Home, Self Care Clinical Impression: Back pain Qualifiers: Back pain location: thoracic back pain Chronicity: acute Back pain laterality: bilateral Qualified Code(s): M54.6 - Pain in thoracic spine Acute cystitis Qualifiers: Hematuria presence: without hematuria Qualified Code(s): N30.00 - Acute cystitis without hematuria Condition: Stable Record reviewed to determine appropriate education?: Yes Prescriptions: cephALEXin [Keflex] 500 mg PO BID #14 cap Comments: Angle solorzano came to the emergency department because you developed sudden pain behind your kidneys today. You do have a history of renal artery stenting. Labs today in the emergency department show normal renal function but your urine suggest an infection. We did do a CT of the abdomen and did not show anything funny or unusual. I would like to start you on a medication called Keflex this is a cephalosporin and an antibiotic commonly used to treat urinary tract infections. It has been sent to the [facility] pharmacy. If you find that despite taking the antibiotic you are having worsening symptoms develop any fevers vomiting or have sudden severe abdominal pain then please return immediately to the ER for a second evaluation. Good luck with your colonoscopy prep
[2023-04-07 13:57] LABS: BASOPHILS # (AUTO) 0.1 10^3/uL (0.0-0.1); BASOPHILS % (AUTO) 1.2 %; EOSINOPHILS # (AUTO) 0.1 10^3/uL (0.0-0.7); EOSINOPHILS % (AUTO) 1.6 %; HCT - HEMATOCRIT 39.5 % (37.0-47.0); HGB - HEMOGLOBIN 13.1 g/dL (12.0-16.0); LYMPHOCYTES # (AUTO) 1.5 10^3/uL (1.5-3.5); LYMPHOCYTES % (AUTO) 33.4 %; MEAN CORPUSCULAR HEMOGLOBIN 29.8 pg (27.0-31.0); MEAN CORPUSCULAR HGB CONC 33.2 g/dL (32.0-36.0); MEAN CORPUSCULAR VOLUME 89.8 fL (81.0-99.0); MONOCYTES # (AUTO) 0.5 10^3/uL (0.0-1.0); MONOCYTES % (AUTO) 11.1 %; NEUTROPHILS # (AUTO) 2.3 10^3/uL (1.5-6.6); NEUTROPHILS % (AUTO) 52.5 %; PLT - PLATELET COUNT 223 10^3/uL (130-450); RED CELL DISTRIBUTION WIDTH 13.3 % (12.0-15.0); WHITE BLOOD COUNT 4.3 x10^3/uL (4.8-10.8)
[2023-04-07] MEDS ORDERED: iohexoL-300 100 ML VIAL ONE ×2 (14:05→14:31)
[2023-04-07 14:13] LABS: ALBUMIN/GLOBULIN RATIO 1.7 (1.0-2.2); BILIRUBIN,TOTAL 0.6 mg/dL (0.2-1.0); CALCIUM 9.5 mg/dL (8.5-10.3); CREATININE 0.7 mg/dL (0.4-1.0); POTASSIUM 3.8 mmol/L (3.5-5.0)
[2023-04-07 14:19] LABS: BILIRUBIN,URINE NEGATIVE (NEGATIVE); GLUCOSE, URINE (UA) NEGATIVE (NEGATIVE); KETONES,URINE (UA) NEGATIVE (NEGATIVE); LEUKOCYTE ESTERASE, URINE MODERATE (NEGATIVE); NITRITE,URINE NEGATIVE (NEGATIVE); OCCULT BLOOD,URINE NEGATIVE (NEGATIVE); PH,URINE 5.5 PH (5.0-7.5); PROTEIN,URINE TRACE mg/dL (NEGATIVE); UROBILINOGEN,URINE 0.2 (NORMAL) E.U./dL (NORMAL)
[2023-04-07 14:23] LABS: CLARITY,URINE CLEAR (CLEAR)
[2023-04-07 14:24] LABS: BACTERIA,URINE Few /HPF (None Seen); RBC,URINE 0-5 /HPF (0-5); SQUAMOUS EPITHELIAL CELL,UR NONE SEEN (<= Few)
[2023-04-07] MEDS ORDERED: iohexoL-300 100 ML VIAL IVP ONE (15:10)
--- NOTE | 2023-04-07 15:28 | CT Report ---
PROCEDURE: ABDOMEN/PELVIS W INDICATIONS: right renal stending; Bilateral CVA pain CONTRAST: 100ml Omnipaque 300 TECHNIQUE: After the administration of IV contrast, 5 mm thick sections acquired from the diaphragms to the symp hysis. 5 mm thick coronal and sagittal reformats were acquired. For radiation dose reduction, the f ollowing was used: automated exposure control, adjustment of mA and/or kV according to patient size. COMPARISON: CT abdomen pelvis 01/29/2021 FINDINGS: Image quality: Excellent. Lung bases and heart: Unremarkable. Liver: Liver measures 16.3 cm with steatosis. There are scattered low-attenuation foci, unchanged. Gallbladder and biliary tree: Unremarkable. Spleen: No splenomegaly. Pancreas: No pancreatic ductal dilation. Adrenals: No adrenal nodule. Kidneys and ureters: No hydronephrosis. No renal cystic lesion which requires follow up. No solid mas s. Simple left renal cyst is present. Bowel and peritoneum: No bowel distension. No pathologic free fluid. Lymph nodes: No central or retroperitoneal adenopathy. Vessels: No infrarenal aortic aneurysm. PELVIS Reproductive organs: Unremarkable. Bladder: No abnormal wall thickening, accounting for underdistension. Pelvic lymph nodes: No pelvic adenopathy by size criteria. Bones: No aggressive osseous abnormality. Other: No significant ventral or inguinal hernia. IMPRESSION: No visualized cause of CVA pain. Stable appearance of low-attenuation hepatic and renal foci most suggestive of simple cysts. Reviewed by: Marie Duran MD on 04/07/2023 3:26 PM PDT Approved by: Marie Duran MD on 04/07/2023 3:26 PM PDT Station ID: [id number]
[2023-04-07] MEDS ORDERED: cephALEXin 250 MG CAPSULE PO STA (15:40)
[2023-04-07 15:52] VITALS: BP 164/89
== END 2023-04-07 15:49 | disposition home or self-care (01) ==
LOC: ED 12:52
DX: N30.00 Acute cystitis without hematuria (principal); M54.6 Pain in thoracic spine; I10 Essential (primary) hypertension; I73.9 Peripheral vascular disease, unspecified; F32.A Depression, unspecified
CPT/HCPCS: 36415; 74177; 80053; 81001; 83690; 85025; 87086; 99284; A9270; Q9967; 81003

== ENCOUNTER 2023-04-11 07:32 | Day surgery (SDC) | payer MEDICARE ==
[2023-04-11] MEDS ORDERED: LACTATED RINGERS 1,000 ML IV ONE (07:36)
[2023-04-11] MEDS ORDERED: PROPOFOL 500 MG/50 ML 500 MG/50 ML VIAL ONE (08:05)
--- NOTE | 2023-04-11 08:12 | ANESTHESIA ---
Pre-Anesthesia VS, & Labs - Diagnosis screening - Procedure colonoscopy Vital Signs: Temp Pulse Resp BP Pulse Ox O2 Flow Rate 36 C L 75 16 141/72 H 96 04/11/23 07:47 04/11/23 07:47 04/11/23 07:47 04/11/23 07:47 04/11/23 07:47 Height: 4 ft 10 in Weight (kg): 59 kg Body Mass Index: 27.1 BMI Classification: Overweight - NPO >8 hours - Is Patient ?: No - Lab Results Lab results reviewed: Yes Home Medications and Allergies Home Medications: Ambulatory Orders Alprazolam [Xanax] 1 tab PO PRN PRN 04/08/23 Lansoprazole [Prevacid] 1 cap PO DAILY 04/08/23 Rosuvastatin Calcium [Crestor] 1 tab PO DAILY 04/08/23 traZODone [Desyrel] 1 tab PO DAILY 04/08/23 Escitalopram Oxalate [Lexapro] 40 mg PO DAILY 06/07/15 Amlodipine Besylate [Norvasc] 1 tab PO DAILY 02/20/23 Alprazolam [Xanax] 1 tab PO PRN PRN 04/08/23 Lansoprazole [Prevacid] 1 cap PO DAILY 04/08/23 Rosuvastatin Calcium [Crestor] 1 tab PO DAILY 04/08/23 traZODone [Desyrel] 1 tab PO DAILY 04/08/23 Allergies/Adverse Reactions: Allergies Allergy/AdvReac Type Severity Reaction Status Date / Time Penicillins Allergy Unknown Verified 04/07/23 13:21 Sulfa (Sulfonamide Allergy Unknown Verified 04/07/23 13:21 Antibiotics) Anes History & Medical History - Anesthetic History Anesthesia Complications: reports: No previous complications Family history of Anesthesia Complications: Denies Family history of Malignant Hyperthermia: Denies - Medical History Cardiovascular: reports: Hypertension, High cholesterol, Peripheral Vascular Disease Pulmonary: reports: None Gastrointestinal: reports: GERD, Diverticulitis Urinary: reports: None Musculoskeletal: reports: Osteoporosis Endocrine/Autoimmune: reports: None Blood Disorders: reports: None Skin: reports: None Smoking Status: Never smoker - Surgical History Eyes Ears Nose Throat (EENT): reports: Tonsil/Adenoidectomy Gynecologic: reports: Hysterectomy Orthopedic: reports: Carpal Tunnel surgery Exam General: Alert, Oriented x3, Cooperative Dental: WNL Mouth Openin Fingerbreadth Neck Mobility: Normal Mallampati classification: II Thyromental Distance: 4-6 cm Respiratory: Lungs clear, Normal breath sounds, No respiratory distress Cardiovascular: Regular rate Neurological: Normal speech Mental/Cognitive Status: Alert/Oriented X3, Normal for patient Cognitive Status: Within normal limits Plan Anesthesia Type: Total IV Consent for Procedure(s) Verified and Reviewed: Yes Code Status: Attempt Resuscitation ASA classification: 2-Mild systemic disease Is this case an emergency?: No
[2023-04-11] MEDS ORDERED: MIDAZOLAM 2 MG/2 ML VIAL ONE (09:04)
[2023-04-11] MEDS ORDERED: LACTATED RINGERS 350 ML IV ONE (09:52)
[2023-04-11 10:05] VITALS: BP 122/68
--- NOTE | 2023-04-11 12:25 | ANESTHESIA POST OP EVALUATION ---
Anesthesia Post Eval - Post Anesthesia Eval Vitals: Last Vital Signs Temp 36.2 C L 04/11/23 10:03 Pulse 74 04/11/23 10:03 Resp 14 04/11/23 10:03 BP 122/68 04/11/23 10:03 Pulse Ox 98 04/11/23 10:03 O2 Flow Rate CV Function Including HR & BP: Stable Pain Control: Satisfactory Nausea & Vomiting: Negative Mental Status: Baseline Respiratory Status: Airway Patent Hydration Status: Satisfactory Anesthesia Complications: None
== END 2023-04-11 07:33 | disposition home or self-care (01) ==
LOC: SDS 07:32
PROVIDERS: ATTEND Surgery
PROC: 0DBH8ZX Excision of Cecum, Via Natural or Artificial Opening Endoscopic, Diagnostic (ICD-10-PCS; principal; 2023-04-11 08:30)
DX: Z12.11 Encounter for screening for malignant neoplasm of colon (principal); D12.0 Benign neoplasm of cecum; K58.9 Irritable bowel syndrome, unspecified; K21.9 Gastro-esophageal reflux disease without esophagitis; K57.30 Diverticulosis of large intestine without perforation or abscess without bleeding; I10 Essential (primary) hypertension
CPT/HCPCS: 45380; J7120

== ENCOUNTER 2024-01-11 11:54 | Outpatient (CLI) | payer MEDICARE ==
--- NOTE | 2024-01-16 08:35 | Mammography Report ---
BILATERAL DIGITAL SCREENING MAMMOGRAM 3D/2D: 01/11/2024 CLINICAL: Routine screening. Comparison is made to exams dated: 11/05/2022 mammogram - [facility], 09/14/2022 mammogram, 2020 mammogram, and 05/02/2018 mammogram - [facility]. Both breasts are heterogeneously dense, which may obscure small masses (category c / 51-75% glandular tissue). No significant masses, calcifications, or other findings are seen in either breast. There has been no significant interval change. IMPRESSION: NEGATIVE There is no mammographic evidence of malignancy. A 1 year screening mammogram is recommended. Based on the Tyrer Cuzick model (a risk assessment model) the patient's lifetime risk is 1.0% and her 10 year risk is 0.0%. According to the ACR, ACS, and NCCN guidelines, an annual breast MRI exam siddharth g with mammogram is recommended if the patient's lifetime risk is 20% or greater. This exam was interpreted at Station ID: [id number]. NOTE: For mammograms, a report in lay terms will be sent to the patient. Approximately 15% of breast malignancies will not be visualized mammographically. In the management of a palpable breast mass, a negative mammogram must not discourage biopsy of a clinically suspicious lesion. Electronically Signed By: Eleazar [email or web address]:01/13/2024 21:37:04 letter sent: No_Letter ACR BI-RADS Category 1: Negative 3341F PARENCHYMAL PATTERN: (D) - The breast(s) demonstrate(s) heterogeneously dense fibroglandular leslie caal. BI-RADS CATEGORY: (1) - 1 Mammogram [id number] 1 year screening LATERALITY: (B)
== END 2024-01-11 11:55 | disposition home or self-care (01) ==
LOC: DI 11:54
DX: Z12.31 Encounter for screening mammogram for malignant neoplasm of breast (principal); R92.333 Mammographic heterogeneous density, bilateral breasts

== ENCOUNTER 2024-01-31 11:56 | Outpatient (CLI) | payer MEDICARE ==
[2024-01-31 12:53] LABS: CREATININE 0.8 mg/dL (0.6-1.3)
--- NOTE | 2024-01-31 14:55 | CT Report ---
PROCEDURE: Abdomen/Pelvis W INDICATIONS: DIVERTICULITIS CONTRAST: Omni [id number] TECHNIQUE: After the administration of intravenous contrast, a CT scan of the abdomen and pelvis was performed. Images were recorded and evaluated at appropriate window settings. Reformats: coronal and sagittal. F or radiation dose reduction, the following was used: automated exposure control, adjustment of mA and /or kV according to patient size. COMPARISON: None. FINDINGS: Image quality: Diagnostic Lower chest: Bibasilar atelectasis/scarring. Slight pectus excavatum. Liver: There are hepatic cysts. Subcentimeter lesions are too small to characterize, also seen previo usly, probably also cysts. Gallbladder and biliary system: Unremarkable. CBD is at the upper limit of normal, 6 mm. Pancreas: Nondilated duct. Suspected pancreas divisum Spleen: Nonenlarged Adrenals: No discrete nodules Kidneys: No solid mass or hydronephrosis. Left lower pole renal cyst. No lesion identified requiring follow-up imaging per latest guidelines. Vessels and lymph nodes: The main portal vein appears patent. Atherosclerotic calcifications. No path ologic lymph nodes by size criteria. No abdominal aortic aneurysm. Bowel and peritoneum: Mildly distended stomach. No small bowel obstruction. Colonic diverticulosis. T here is mild wall thickening in the distal sigmoid colon, and pericolonic fat stranding. No drainable abscess. Body wall: Unremarkable Pelvis: Bladder is unremarkable. The uterus is absent. Bladder is not well evaluated due to underdist ention. Bones: Degenerative changes, no acute or suspicious abnormality. IMPRESSION: Mild wall thickening and pericolonic fat stranding in the distal colon. Numerous diverticula. Finding s are favored represent diverticulitis versus focal colitis. No abscess. Consider correlation with ag e-appropriate colonoscopy results following clinical treatment. No small bowel obstruction. Other incidental findings above. Reviewed by: Holland Cordoba MD on 01/31/2024 2:53 PM PDT Approved by: Holland Cordoba MD on 01/31/2024 2:53 PM PDT Station ID: [id number]
[2024-01-31] MEDS: iohexoL-300 100 ML VIAL IVP ONE (18:23)
[2024-01-31] MEDS: DIATRIZOATE MEGLU/DIATRIZO SOD 30 ML BOTTLE PO ONE (18:23)
== END 2024-01-31 11:57 | disposition home or self-care (01) ==
LOC: LAB 11:56
PROVIDERS: ATTEND Nurse Practitioner
DX: K57.92 Diverticulitis of intestine, part unspecified, without perforation or abscess without bleeding (principal)
CPT/HCPCS: 36415; 82565

== ENCOUNTER 2024-05-07 08:23 | Outpatient (CLI) | payer MEDICARE ==
[2024-05-07 08:53] LABS: ALBUMIN 4.7 g/dL (3.2-5.5); ALBUMIN/GLOBULIN RATIO 2.1 (1.0-2.2); BILIRUBIN,TOTAL 0.6 mg/dL (0.2-1.0); CALCIUM 9.8 mg/dL (8.5-10.3); CREATININE 0.8 mg/dL (0.6-1.3); TOTAL PROTEIN 6.9 g/dL (6.4-8.9)
== END 2024-05-07 08:24 | disposition home or self-care (01) ==
LOC: LAB 08:23
PROVIDERS: ATTEND Nurse Practitioner
DX: M81.0 Age-related osteoporosis without current pathological fracture (principal)
CPT/HCPCS: 36415; 80053

== ENCOUNTER 2024-06-04 10:36 | Outpatient (CLI) | payer MEDICARE ==
--- NOTE | 2024-06-04 22:03 | XRAY Report ---
PROCEDURE: Knee 3V LT INDICATIONS: ACUTE LEFT KNEE PAIN TECHNIQUE: 3 views of the knee(s) were acquired. COMPARISON: X-ray right knee 2019. FINDINGS: Bones: No fractures or dislocations. No suspicious bony lesions. Moderate to severe tricompartmen marsha arthritic change most severe medially. Minimal particular osteophytes are present. No distinct er osions. Mild interval progression on the right compared to 2019. Soft tissues: Minimal knee joint effusion. No suspicious soft tissue calcifications or masses. 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 Reviewed by: Marie Duran MD on 06/04/2024 10:02 PM PDT Approved by: Marie Duran MD on 06/04/2024 10:02 PM PDT Station ID: [id number]
== END 2024-06-04 10:37 | disposition home or self-care (01) ==
LOC: DI 10:36
PROVIDERS: ATTEND Nurse Practitioner
DX: M17.12 Unilateral primary osteoarthritis, left knee (principal)

== ENCOUNTER 2024-07-12 10:24 | Outpatient (CLI) | payer MEDICARE ==
--- NOTE | 2024-07-13 13:03 | XRAY Report ---
PROCEDURE: Knee 2V LT INDICATIONS: ACUTE LEFT KNEE PAIN TECHNIQUE: 3 views of the knee was obtained. COMPARISON: 06/04/2024 FINDINGS: Bones: No fractures or dislocations. No suspicious bony lesions. Soft tissues: No knee joint effusion. No suspicious soft tissue calcifications or masses. IMPRESSION: Mild medial compartment joint space narrowing Reviewed by: Mikey Antonio MD on 07/13/2024 12:01 PM GAEL Approved by: Mikey Antonio MD on 07/13/2024 12:01 PM AKALIS Station ID: [id number]
== END 2024-07-12 10:25 | disposition home or self-care (01) ==
LOC: DI 10:24
PROVIDERS: ATTEND Orthopaedic Surgery
DX: M25.562 Pain in left knee (principal)

== ENCOUNTER 2024-07-31 12:42 | Outpatient (CLI) | payer MEDICARE ==
--- NOTE | 2024-07-31 16:12 | MRI Report ---
PROCEDURE: Knee LT WO INDICATIONS: L KNEE PAIN TECHNIQUE: Noncontrast sagittal PD fast spin echo and T2 fast spin echo with fat saturation, sagittal 3-D gradie nt sequence with fat saturation; coronal T1 spin echo and PD fast spin echo with fat saturation, and axial PD fast spin echo with fat saturation through the knee. COMPARISON: Left knee x-ray 06/04/2024 and 07/12/2024 FINDINGS: Image quality: Excellent. Bones: The bone marrow signal is normal. There is no acute fracture or dislocation. Joints: There is no significant knee joint effusion. There is mild knee osteoarthritis. Carlisle's cyst: Trace Carlisle's cyst Menisci: The medial meniscus is normal. The lateral meniscus is normal. The posterior root attachmen ts are normal. Cruciate ligaments: The anterior cruciate ligament is normal. The posterior cruciate ligament is norm al. Collateral ligaments: The medial collateral ligament complex is normal. The lateral collateral ligame nt complex is normal. Popliteus Muscle/Tendon: The popliteus muscle and tendon are normal. Extensor mechanism: The quadriceps tendon is normal. The patellar tendon is normal. The medial and la teral patellar retinacular attachments are normal. Articular cartilage: There is a full-thickness chondral fissure at the lateral patellar facet (3/11). Partial-thickness chondral loss is present at the weightbearing medial compartment (5/16). Other: No other acute findings. IMPRESSION: 1.Mild knee osteoarthritis with associated articular cartilage defects. 2.No cruciate ligament or meniscal tear. Reviewed by: Endy Pruitt MD on 07/31/2024 4:11 PM PDT Approved by: Endy Pruitt MD on 07/31/2024 4:11 PM PDT Station ID: [id number]
== END 2024-07-31 12:43 | disposition home or self-care (01) ==
LOC: DI 12:42
PROVIDERS: ATTEND Orthopaedic Surgery
DX: M25.562 Pain in left knee (principal); M17.12 Unilateral primary osteoarthritis, left knee; R93.6 Abnormal findings on diagnostic imaging of limbs